=== PATIENT | female | born 1960 | race African-American/Black ===

== ENCOUNTER 2016-06-20 14:15 | Emergency (ER) | payer MEDICARE, MEDICAID ==
[2016-06-20] MEDS ORDERED: ACETAMINOPHEN 325 MG TABLET PO ONE (16:14)
--- NOTE | 2016-06-20 16:14 | ER Document Report ---
ED Medical Screen (RME) - General Chief Complaint: Foot Pain Stated Complaint: TOE PAIN Mode of Arrival: Wheelchair Information source: Patient Notes: Patient is complaining of ulcer under her toe on her right foot that she noticed for the first time today. She endorses associated leg swelling, pain, erythema but denies any discharged or bleeding. She has history of diabetes and and L AKA. Mandy fever, chills, nausea or vomiting. TRAVEL OUTSIDE OF THE [place] IN LAST 30 DAYS: No - Related Data Allergies/Adverse Reactions: Cephalosporins Allergy (Intermediate, Verified 06/20/16 14:35) blistering, peeling skin,burning throat Penicillins Allergy (Intermediate, Verified 06/20/16 14:35) blistering,peeling skin,burning of throat Past Medical History - Social History Family history: Reviewed & Not Pertinent - Past Medical History Cardiac Medical History: Reports: Hx Hypertension - medicated Denies: Hx Coronary Artery Disease, Hx Heart Attack Pulmonary Medical History: Denies: Hx Asthma, Hx Bronchitis, Hx COPD, Hx Pneumonia Neurological Medical History: Reports: Hx Cerebrovascular Accident - 2003 . Denies: Hx Seizures Endocrine Medical History: Reports: Hx Diabetes Mellitus Type 1, Hx Hypothyroidism GI Medical History: Denies: Hx Hepatitis, Hx Hiatal Hernia, Hx Ulcer Musculoskeltal Medical History: Reports Hx Arthritis Psychiatric Medical History: Denies: Hx Depression Infectious Medical History: Denies: Hx Hepatitis Past Surgical History: Reports: Hx Section, Hx Orthopedic Surgery - left foot pinky toe amputation, Hx Vascular Surgery - left leg, fem-pop bypass graft. Denies: Hx Hysterectomy, Hx Mastectomy, Hx Open Heart Surgery, Hx Pacemaker - Immunizations Hx Diphtheria, Pertussis, Tetanus Vaccination: Yes Review of Systems - Review of Systems Constitutional: See HPI Skin: See HPI Physical Exam - Vital signs Vitals: Temp Pulse Resp BP Pulse Ox 97.8 F 94 18 131/58 H 98 06/20/16 14:32 06/20/16 14:32 06/20/16 14:32 06/20/16 14:32 06/20/16 14:32 - Notes Notes: General: VSS, well-appearing, non-toxic. Skin: right foot - erythematous, swelling and warm. Desquamation of skin at distal portion of 5th toe. Clear drainage noted. Course - Re-evaluation Re-evalutation: 06/20/16 16:13 Ordered blood work, wound culture. - Vital Signs Vital signs: Temp Pulse Resp BP Pulse Ox 97.8 F 94 18 131/58 H 98 06/20/16 14:32 06/20/16 14:32 06/20/16 14:32 06/20/16 14:32 06/20/16 14:32
[2016-06-20 17:03] LABS: ABSOLUTE BASOPHILS # (AUTO) 0.1 10^3/uL (0.0-0.2); ABSOLUTE EOSINOPHILS # (AUTO) 0.3 10^3/uL (0.0-0.6); ABSOLUTE LYMPHOCYTES (AUTO) 2.3 10^3/uL (0.5-4.7); ABSOLUTE MONOCYTES (AUTO) 0.9 10^3/uL (0.1-1.4); ABSOLUTE NEUT (AUTO) 6.9 10^3/uL (1.7-8.2); BASOPHILS % (AUTO) 0.8 % (0-2); EOSINOPHILS % (AUTO) 3.1 % (0-6); HEMATOCRIT 37.6 % (36.0-47.0); HEMOGLOBIN 12.1 g/dL (12.0-15.5); HGB HCT DIFFERENCE -1.3; LYMPHOCYTES % (AUTO) 21.7 % (13-45); MEAN CORPUSCULAR HEMOGLOBIN 25.6 pg (27.0-33.4); MEAN CORPUSCULAR HGB CONC 32.1 g/dL (32.0-36.0); MEAN CORPUSCULAR VOLUME 80 fl (80-97); MONOCYTES % (AUTO) 8.5 % (3-13); RED BLOOD COUNT 4.73 10^6/uL (3.72-5.28); RED CELL DISTRIBUTION WIDTH 14.4 % (11.5-14.0); SEGMENTED NEUTROPHILS % (AUTO) 65.9 % (42-78); WHITE BLOOD COUNT 10.4 10^3/uL (4.0-10.5)
[2016-06-20 17:23] LABS: ALANINE AMINOTRANSFERASE 30 U/L (9-52); ALBUMIN 4.4 g/dL (3.5-5.0); ALKALINE PHOSPHATASE 109 U/L (38-126); ANION GAP 14 (5-19); ASPARTATE AMINO TRANSFERASE 20 U/L (14-36); BILIRUBIN,TOTAL 0.4 mg/dL (0.2-1.3); BLOOD UREA NITROGEN 18 mg/dL (7-20); CALCIUM 10.4 mg/dL (8.4-10.2); CARBON DIOXIDE 27 mmol/L (22-30); CHLORIDE 104 mmol/L (98-107); CREATININE RESULT 0.71 mg/dL (0.52-1.25); GLUCOSE 80 mg/dL (75-110); POTASSIUM 3.9 mmol/L (3.6-5.0); SODIUM 145.3 mmol/L (137-145); TOTAL PROTEIN 7.9 g/dL (6.3-8.2)
[2016-06-20 17:31] LABS: APPEARANCE,URINE CLOUDY; BILIRUBIN,URINE NEGATIVE (NEGATIVE); GLUCOSE, URINE >=500 mg/dL (NEGATIVE); KETONES,URINE NEGATIVE (NEGATIVE); LEUKOCYTE ESTERASE,URINE MODERATE (NEGATIVE); NITRITE,URINE NEGATIVE (NEGATIVE); PROTEIN,URINE NEGATIVE (NEGATIVE); URINE SPECIFIC GRAVITY 1.023; UROBILINOGEN,URINE NEGATIVE mg/dL (<2.0)
[2016-06-20] MEDS ORDERED: DOXYCYCLINE HYCLATE 100 MG TABLET PO ONE (21:02)
--- NOTE | 2016-06-20 23:17 | ER Document Report ---
ED General - General Chief Complaint: Toe Injury Stated Complaint: TOE PAIN Mode of Arrival: Wheelchair TRAVEL OUTSIDE OF THE [place] IN LAST 30 DAYS: No - HPI Patient complains to provider of: right fifth toe injury Notes: Patient coming in states she was on vacation in [place] noticed that when she came back she had a wound on her right fifth toe. Patient is diabetic Pedro has a left AKA. Patient denies any fevers chills nausea vomiting. Patient states that her right foot and leg is swollen states it was swollen after the trip. 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 Patient states she currently on Plavix. Patient also states that her foot is a little bit more red her today - Related Data Allergies/Adverse Reactions: Cephalosporins Allergy (Intermediate, Verified 06/20/16 14:35) blistering, peeling skin,burning throat Penicillins Allergy (Intermediate, Verified 06/20/16 14:35) blistering,peeling skin,burning of throat Past Medical History - General Information source: Patient - Social History Smoking Status: Unknown if Ever Smoked Family History: Reviewed & Not Pertinent Patient has suicidal ideation: No Patient has homicidal ideation: No - Past Medical History Cardiac Medical History: Reports: Hx Hypertension - medicated Denies: Hx Coronary Artery Disease, Hx Heart Attack Pulmonary Medical History: Denies: Hx Asthma, Hx Bronchitis, Hx COPD, Hx Pneumonia Neurological Medical History: Reports: Hx Cerebrovascular Accident - 2003 . Denies: Hx Seizures Endocrine Medical History: Reports: Hx Diabetes Mellitus Type 1, Hx Hypothyroidism GI Medical History: Denies: Hx Hepatitis, Hx Hiatal Hernia, Hx Ulcer Musculoskeltal Medical History: Reports Hx Arthritis Psychiatric Medical History: Denies: Hx Depression Infectious Medical History: Denies: Hx Hepatitis Past Surgical History: Reports: Hx Section, Hx Orthopedic Surgery - left aka, Hx Vascular Surgery - left leg, fem-pop bypass graft. Denies: Hx Hysterectomy, Hx Mastectomy, Hx Open Heart Surgery, Hx Pacemaker - Immunizations Hx Diphtheria, Pertussis, Tetanus Vaccination: Yes Review of Systems - Review of Systems Constitutional: No symptoms reported EENT: No symptoms reported Cardiovascular: No symptoms reported Respiratory: No symptoms reported Gastrointestinal: No symptoms reported Genitourinary: No symptoms reported Female Genitourinary: No symptoms reported Musculoskeletal: Other - Wound right foot Skin: No symptoms reported Hematologic/Lymphatic: No symptoms reported Neurological/Psychological: No symptoms reported Physical Exam - Vital signs Vitals: Temp Pulse Resp BP Pulse Ox 97.8 F 94 18 131/58 H 98 06/20/16 14:32 06/20/16 14:32 06/20/16 14:32 06/20/16 14:32 06/20/16 14:32 Interpretation: Normal - General General appearance: Appears well, Alert - HEENT Head: Normocephalic, Atraumatic Eyes: Normal Pupils: PERRL - Respiratory Respiratory status: No respiratory distress Chest status: Nontender Breath sounds: Normal Chest palpation: Normal - Cardiovascular Rhythm: Regular Heart sounds: Normal auscultation Murmur: No - Abdominal Inspection: Normal Distension: No distension Bowel sounds: Normal Tenderness: Nontender Organomegaly: No organomegaly - Back Back: Normal, Nontender - Extremities General upper extremity: Normal inspection, Nontender, Normal color, Normal ROM , Normal temperature General lower extremity: Nontender, Normal color, Normal ROM, Normal temperature , Normal weight bearing. No: Normal inspection - Left AKA patient has cellulitis of the dorsum of the foot. Plantar surface of the foot does reveal a wound at the first joint of the fifth digit there is no purulent drainage from this wound is no necrotic tissue. The right foot is swollen there is some swelling of the calf, Kenna's sign - Neurological Neuro grossly intact: Yes Cognition: Normal Orientation: AAOx4 Bret Coma Scale Eye Opening: Spontaneous [place] Coma Scale Verbal: Oriented [place] Coma Scale Motor: Obeys Commands [place] Coma Scale Total: 15 Speech: Normal Motor strength normal: LUE, RUE, LLE, RLE Sensory: Normal - Psychological Associated symptoms: Normal affect, Normal mood - Skin Skin Temperature: Warm Skin Moisture: Dry Skin Color: Normal Course - Re-evaluation Re-evalutation: 06/21/16 02:58 Causes swelling recent travel history of DVT patient underwent Doppler was read as negative. Patient was started on doxycycline urinalysis does show a UTI as well these patient should be well covered with doxycycline for cellulitis and UTI. Encouraged patient to follow-up her PCP at the end of the week for repeat wound check a recurrent to the ER for wound check. Patient states understanding patient was grateful for care patient was discharged home - Vital Signs Vital signs: Temp Pulse Resp BP Pulse Ox 97.6 F 94 17 131/76 H 94 06/20/16 23:37 06/20/16 23:37 06/20/16 23:37 06/20/16 23:37 06/20/16 23:37 - Laboratory Result Diagrams: 06/20/16 16:45 06/20/16 16:45 Laboratory results interpreted by me: 06/20/16 06/20/16 06/20/16 16:45 16:45 16:45 MCH 25.6 L RDW 14.4 H Sodium 145.3 H Calcium 10.4 H Urine Glucose (UA) >=500 H Urine Blood SMALL H Ur Leukocyte Esterase MODERATE H Discharge - Discharge Clinical Impression: UTI (urinary tract infection) Qualifiers: Urinary tract infection type: acute cystitis Hematuria presence: without hematuria Qualified Code(s): N30.00 - Acute cystitis without hematuria Diabetic foot ulcer Qualifiers: Diabetes mellitus type: other specified (including RUBÉN) Laterality: right Qualified Code(s): E13.621 - Other specified diabetes mellitus with foot ulcer Cellulitis Qualifiers: Site of cellulitis: extremity Site of cellulitis of extremity: lower extremity Laterality: right Qualified Code(s): L03.115 - Cellulitis of right lower limb Condition: Good Disposition: HOME, SELF-CARE Instructions: Urinary Tract Infection ([facility]), Doxycycline ([facility]), Foot or Leg Ulcer ([facility]), Cellulitis ([facility]) Additional Instructions: Take antibiotics as prescribed. Prescriptions: Doxycycline Hyclate 100 mg PO BID #20 capsule Referrals: MARLENE CANNON MD [Primary Care Provider] - Follow up in 3-5 days
[2016-06-20 23:43] VITALS: BP 131/76
--- NOTE | 2016-06-21 09:30 | XCELERA REPORT ---
[address] [address] Lower Extremity Venous Evaluation Name: LAVELLE ARRIAZA Age: 56 yrs Gender: Female : 1960 Patient Status: Emergency Patient Location: ER Study Date: 06/20/2016 10:53 PM Procedure: Color flow and duplex imaging of the veins of the right lower extremity as well as the left Common Femoral vein. Reason For Study: rle swelling pain Ordering Physician: REAGAN ZELAYA Performed By: Rodo Salinas Right Sided Venous Evaluation Normal vessel filling wall to wall, compression and augmentation as well as Colour flow down to the infrageniculate veins. Left Sided Venous Evaluation The left common femoral vein is fully compressible. Spontaneous and phasic flow is present in the left common femoral vein. Critical Findings Called in to the ER . Interpretation Summary No duplex evidence of DVT or obstruction in the right lower extremity nor in the left Common Femoral vein. : REAGAN ZELAYA > Travis Urena
== END 2016-06-20 23:48 | disposition home or self-care (01) ==
LOC: ER 14:15
DX: N30.00 Acute cystitis without hematuria (principal); E13.621 Other specified diabetes mellitus with foot ulcer; L03.115 Cellulitis of right lower limb; S99.921A Unspecified injury of right foot, initial encounter; M79.674 Pain in right toe(s); X58.XXXA Exposure to other specified factors, initial encounter
CPT/HCPCS: 99284; 36415; 87040; 87086; 85025; 87088; 80053; 81001; 87186; 83605; 93971 ×2; 73620; A9270 ×2

== ENCOUNTER 2016-06-24 14:10 | Inpatient (IN) | payer MEDICARE, MEDICAID ==
[2016-06-24] MEDS ORDERED: DOCUSATE SODIUM 100 MG CAPSULE PO PRN (15:31)
[2016-06-24] MEDS ORDERED: POLYETHYLENE GLYCOL 3350 POWDER 17 GM/1 PACKET PO PRN (15:31)
[2016-06-24] MEDS ORDERED: DOXEPIN HCL 25 MG CAPSULE PO PRN (15:31)
[2016-06-24] MEDS ORDERED: DEXTROSE 40% GEL 15 GM TUBE X 2 PO PRN (15:41)
[2016-06-24] MEDS ORDERED: GLUCAGON,HUMAN RECOMB 1 MG INJ IM PRN (15:41)
[2016-06-24] MEDS ORDERED: DEXTROSE 50%-WATER SYRINGE 12.5 GM/25 ML DOSE IV PRN (15:41)
[2016-06-24] MEDS ORDERED: DEXTROSE 40% GEL 15 GM TUBE PO PRN (15:41)
[2016-06-24] MEDS ORDERED: DEXTROSE 50%-WATER SYRINGE 25 GM/50 ML DOSE IV PRN (15:41)
[2016-06-24] MEDS: METFORMIN HCL 500 MG TABLET PO SCH (16:22)
[2016-06-24] MEDS: INSULIN LISPRO 100 UNIT/ML 3 ML VIAL SUBCUT SCH (16:23)
[2016-06-24] MEDS ORDERED: AMLODIPINE BESYLATE 10 MG TABLET PO ONE (16:30)
[2016-06-24] MEDS ORDERED: ASPIRIN 81 MG TABLET, ENT COATED PO ONE (16:30)
[2016-06-24] MEDS ORDERED: LISINOPRIL 10 MG TABLET PO ONE (16:30)
[2016-06-24 16:45] LABS: HEMATOCRIT 36.8 % (36.0-47.0); HEMOGLOBIN 11.7 g/dL (12.0-15.5); HGB HCT DIFFERENCE -1.7; MEAN CORPUSCULAR HEMOGLOBIN 25.3 pg (27.0-33.4); MEAN CORPUSCULAR HGB CONC 31.7 g/dL (32.0-36.0); MEAN CORPUSCULAR VOLUME 80 fl (80-97); RED BLOOD COUNT 4.63 10^6/uL (3.72-5.28); WHITE BLOOD COUNT 11.1 10^3/uL (4.0-10.5)
[2016-06-24 17:09] LABS: ALANINE AMINOTRANSFERASE 31 U/L (9-52); ALBUMIN 4.3 g/dL (3.5-5.0); ALKALINE PHOSPHATASE 103 U/L (38-126); ANION GAP 11 (5-19); ASPARTATE AMINO TRANSFERASE 20 U/L (14-36); BILIRUBIN,TOTAL 0.4 mg/dL (0.2-1.3); BLOOD UREA NITROGEN 19 mg/dL (7-20); CALCIUM 10.6 mg/dL (8.4-10.2); CARBON DIOXIDE 32 mmol/L (22-30); CHLORIDE 103 mmol/L (98-107); CREATININE RESULT 0.74 mg/dL (0.52-1.25); GLUCOSE 70 mg/dL (75-110); POTASSIUM 4.4 mmol/L (3.6-5.0); SODIUM 145.7 mmol/L (137-145); TOTAL PROTEIN 7.8 g/dL (6.3-8.2)
[2016-06-24 18:08] LABS: FREE T3 3.44 pg/mL (2.77-5.27)
[2016-06-24] MEDS: VANCOMYCIN HCL 1,500 MG in DEXTROSE 5%-WATER 250 ML IV SCH (18:09)
[2016-06-24 18:21] LABS: THYROID STIMULATING HORMONE 2.22 uIU/mL (0.47-4.68)
[2016-06-24] MEDS: ACETAMINOPHEN 325 MG TABLET PO PRN (20:33)
[2016-06-24] MEDS ORDERED: INSULIN GLARGINE,HUM.REC.ANLOG 1,000 UNIT/10 ML UNIT SUBCUT SCH (22:00)
[2016-06-24] MEDS ORDERED: PIPERACILLIN SODIUM/TAZOBACTAM 3.375 GM in NORMAL SALINE 100 ML IV SCH (22:00)
[2016-06-24] MEDS: ATORVASTATIN CALCIUM 20 MG TABLET PO SCH (23:06)
[2016-06-24] MEDS: GABAPENTIN 100 MG CAPSULE PO SCH (23:06)
[2016-06-24] MEDS: INSULIN LISPRO 100 UNIT/ML 3 ML VIAL SUBCUT PRN (23:06)
[2016-06-25] MEDS ORDERED: LEVOTHYROXINE SODIUM 75 MCG PO SCH (08:00)
[2016-06-25] MEDS ORDERED: (PENDING PHARMACY ID) (Canagliflozin [Invokana] 300 MG) PO SCH (08:00)
[2016-06-25] MEDS: METFORMIN HCL 500 MG TABLET PO SCH ×2 (09:06→15:45)
[2016-06-25] MEDS: ASPIRIN 81 MG TABLET, ENT COATED PO SCH (09:07)
[2016-06-25] MEDS: GABAPENTIN 100 MG CAPSULE PO SCH ×2 (09:07→22:58)
[2016-06-25] MEDS: LEVOTHYROXINE SODIUM 75 MCG PO SCH (09:08)
[2016-06-25] MEDS: ENOXAPARIN SODIUM INJ 40 MG/0.4 ML DISP.SYRIN SUBCUT SCH (09:09)
[2016-06-25] MEDS: INSULIN LISPRO 100 UNIT/ML 3 ML VIAL SUBCUT SCH ×3 (09:09→15:45)
[2016-06-25] MEDS: VANCOMYCIN HCL 1,500 MG in DEXTROSE 5%-WATER 250 ML IV SCH ×2 (09:10→20:23)
[2016-06-25] MEDS: LISINOPRIL 10 MG TABLET PO SCH (09:11)
[2016-06-25] MEDS: AMLODIPINE BESYLATE 10 MG TABLET PO SCH (09:11)
[2016-06-25] MEDS: INSULIN LISPRO 100 UNIT/ML 3 ML VIAL SUBCUT PRN ×3 (11:03→22:04)
--- NOTE | 2016-06-25 18:01 | PDOC H&P ---
History of Present Illness Admission Date/PCP: 06/24/16 14:10 MARLENE CANNON, History of Present Illness: Patient 56-year-old female with diabetes mellitus, she is status post left leg amputation, she was seen in emergency room for the ulcer on the right small toe and she was advised to follow with me in the office. When she came in for follow-up and evaluation there was obvious cellulitis of the right foot and the ulcer was deep , she was prescribed doxycycline in the emergency room.she needed to be admitted the hospital for IV antibiotic and also debridement of the ulcer of the right foot, she is a diabetic and she has increased risk of losing the leg Past Medical History Cardiac Medical History: Reports: Hypertension - medicated Neurological Medical History: Reports: Ischemic CVA Endocrine Medical History: Reports: Diabetes Mellitus Type 1, Hypothyroidism Past Surgical History Past Surgical History: Reports: Amputation - lower left leg, Section, Orthopedic Surgery - left aka, Vascular Surgery - left leg, fem-pop bypass graft Denies: Hysterectomy, Pacemaker Social History Information Source: Patient Smoking Status: Never Smoker Frequency of Alcohol Use: None Hx Recreational Drug Use: No Drugs: None Hx Prescription Drug Abuse: No Family History Family History: Reviewed & Not Pertinent Parental Family History Reviewed: Yes Children Family History Reviewed: Yes Sibling(s) Family History Reviewed.: Yes Medication/Allergy Home Medications: Aspirin [Aspirin EC] 81 mg PO DAILY #30 bottle 06/11/13 Canagliflozin [Invokana] 300 mg PO QAM 12/10/15 Doxepin HCl 75 mg PO DAILY PRN 12/10/15 Insulin Glargine,Hum.rec.anlog [Lantus] 50 unit SQ QHS 12/10/15 Insulin Lispro [Humalog] 4 unit SQ TID 12/10/15 Levothyroxine Sodium [Tirosint] 75 mcg PO QAM 12/10/15 Lisinopril [Zestril] 40 mg PO QAM 12/10/15 Metformin HCl [Glucophage] 1,000 mg PO BID 12/10/15 Pravastatin Sodium [Pravachol] 80 mg PO QHS 12/10/15 Amlodipine Besylate [Norvasc 10 mg Tablet] 10 mg PO DAILY 06/24/16 Docusate Sodium [Colace 100 mg Capsule] 100 mg PO BID PRN 01/06/17 Gabapentin 100 mg PO BID 06/24/16 Polyethylene Glycol 3350 [Miralax Powder 17 gm/Packet] 1 packet PO DAILY PRN 12/03 Allergies/Adverse Reactions: amoxicillin [From Augmentin] Allergy (Intermediate, Verified 06/24/16 14:42) Cephalosporins Allergy (Intermediate, Verified 06/20/16 14:35) blistering, peeling skin,burning throat clavulanic acid [From Augmentin] Allergy (Intermediate, Verified 06/24/16 14:42) Penicillins Allergy (Intermediate, Verified 06/20/16 14:35) blistering,peeling skin,burning of throat Review of Systems Constitutional: ABSENT: chills, fever(s), headache(s), weight gain, weight loss Eyes: ABSENT: visual disturbances Ears: ABSENT: hearing changes Cardiovascular: ABSENT: chest pain, dyspnea on exertion, edema, orthropnea, palpitations Respiratory: ABSENT: cough, hemoptysis Gastrointestinal: ABSENT: abdominal pain, constipation, diarrhea, hematemesis, hematochezia, nausea, vomiting Genitourinary: ABSENT: dysuria, hematuria Musculoskeletal: ABSENT: joint swelling Integumentary: ABSENT: rash, wounds Neurological: ABSENT: abnormal gait, abnormal speech, confusion, dizziness, focal weakness, syncope Psychiatric: ABSENT: anxiety, depression, homidical ideation, suicidal ideation Endocrine: ABSENT: cold intolerance, heat intolerance, menstrual abnormalities, polydipsia, polyuria Hematologic/Lymphatic: ABSENT: easy bleeding, easy bruising, lymphadenopathy Physical Exam Vital Signs: Temp Pulse Resp BP Pulse Ox 97.9 F 107 H 16 106/56 L 97 06/25/16 15:48 06/25/16 15:48 06/25/16 15:48 06/25/16 15:48 06/25/16 15:48 Intake & Output 06/24/16 06/25/16 06/26/16 06:59 06:59 06:59 Intake Total 25 1560 Balance 25 1560 Weight 95.254 kg General appearance: PRESENT: no acute distress, well-developed, well-nourished Head exam: PRESENT: atraumatic, normocephalic Eye exam: PRESENT: conjunctiva pink, EOMI, PERRLA Ear exam: PRESENT: normal external ear exam Mouth exam: PRESENT: moist, tongue midline Neck exam: PRESENT: full ROM. ABSENT: carotid bruit, JVD, lymphadenopathy, thyromegaly Respiratory exam: PRESENT: clear to auscultation richard Cardiovascular exam: PRESENT: RRR, +S1, +S2 Pulses: PRESENT: normal dorsalis pedis pul, +2 pedal pulses bilateral Vascular exam: PRESENT: normal capillary refill GI/Abdominal exam: PRESENT: normal bowel sounds, soft. ABSENT: distended, guarding, mass, organolmegaly, rebound, tenderness Rectal exam: PRESENT: deferred Musculoskeletal exam: PRESENT: other - There is ulcer on the small toe,deep with celluitis of the rt foot Neurological exam: PRESENT: alert, awake, oriented to person, oriented to place , oriented to time, oriented to situation, CN II-XII grossly intact Psychiatric exam: PRESENT: appropriate affect, normal mood Skin exam: PRESENT: dry, intact, warm Results Laboratory Results: 06/24/16 16:18 06/24/16 16:18 06/24/16 16:18 TSH 2.22 Free T4 1.03 Free T3 pg/mL 3.44 Assessment & Plan - Diagnosis (1) Cellulitis and abscess of foot Is this a current diagnosis for this admission?: YesPlan: She is admitted into the hospital, she be treated with IV Zosyn and vancomycin to cover MRSA and gram-negative bacteria (2) Diabetic foot ulcer Qualifiers: Diabetes mellitus type: type 1 Laterality: right Qualified Code( s): E10.621 - Type 1 diabetes mellitus with foot ulcer; L97.519 - Non-pressure chronic ulcer of other part of right foot with unspecified severity Is this a current diagnosis for this admission?: Yes
--- NOTE | 2016-06-25 18:03 | PDOC PROGRESS REPORT ---
Subjective Progress Note for:: 06/25/16 Subjective:: She was seen by the surgeon and she had bedside debridement of the foot Physical Exam Vital Signs: Temp Pulse Resp BP Pulse Ox 97.9 F 107 H 16 106/56 L 97 06/25/16 15:48 06/25/16 15:48 06/25/16 15:48 06/25/16 15:48 06/25/16 15:48 Intake & Output 06/24/16 06/25/16 06/26/16 06:59 06:59 06:59 Intake Total 25 1560 Balance 25 1560 Weight 95.254 kg General appearance: PRESENT: no acute distress Eye exam: PRESENT: PERRLA Respiratory exam: PRESENT: clear to auscultation richard Cardiovascular exam: PRESENT: +S1, +S2 GI/Abdominal exam: PRESENT: soft Results Laboratory Results: 06/24/16 16:18 06/24/16 16:18 06/24/16 16:18 TSH 2.22 Free T4 1.03 Free T3 pg/mL 3.44 Assessment & Plan - Diagnosis (1) Cellulitis and abscess of foot Is this a current diagnosis for this admission?: YesPlan: Continue IV antibiotic (2) Diabetic foot ulcer Qualifiers: Diabetes mellitus type: type 1 Laterality: right Qualified Code( s): E10.621 - Type 1 diabetes mellitus with foot ulcer; L97.519 - Non-pressure chronic ulcer of other part of right foot with unspecified severity Is this a current diagnosis for this admission?: Yes
--- NOTE | 2016-06-25 21:39 | PDOC CONSULTATION ---
[id number] toe. History of Present Illness Admission Date/PCP: 06/24/16 14:10 MARLENE CANNON, History of Present Illness: LAVELLE ARRIAZA is a 56 year old female, who had long-standing history of diabetes mellitus, with peripheral vascular disease, status post left above- knee amputation in the past, who had angioplasty with stent placement on the right lower extremity, who came to emergency room a few days ago due to wound on the plantar aspect of the fifth toe on the right side, she was sent home with oral antibiotics and follow up with her primary care upon evaluation in the office a few days later, patient was sent to the hospital for admission for the IV antibiotics and surgical consult was requested. Patient denies nausea, vomiting, fever, abdominal pain, pain in the foot Past Medical History Cardiac Medical History: Reports: Hypertension - medicated Denies: Coronary Artery Disease, Myocardial Infarction Pulmonary Medical History: Denies: Asthma, Bronchitis, Chronic Obstructive Pulmonary Disease (COPD), Pneumonia Neurological Medical History: Denies: Seizures Endocrine Medical History: Reports: Diabetes Mellitus Type 1, Hypothyroidism GI Medical History: Denies: Hepatitis, Hiatal Hernia Musculoskeltal Medical History: Reports: Arthritis Psychiatric Medical History: Denies: Depression Hematology: Denies: Anemia, Sickle Cell Disease Past Surgical History Past Surgical History: Reports: Amputation - lower left leg, Section, Orthopedic Surgery - left aka, Vascular Surgery - left leg, fem-pop bypass graft Denies: Hysterectomy, Mastectomy, Pacemaker Social History Smoking Status: Never Smoker Frequency of Alcohol Use: None Hx Recreational Drug Use: No Drugs: None Hx Prescription Drug Abuse: No Family History Family History: Reviewed & Not Pertinent Parental Family History Reviewed: No Children Family History Reviewed: NA Sibling(s) Family History Reviewed.: NA Medication/Allergy Home Medications: Aspirin [Aspirin EC] 81 mg PO DAILY #30 bottle 06/11/13 Canagliflozin [Invokana] 300 mg PO QAM 12/10/15 Doxepin HCl 75 mg PO DAILY PRN 12/10/15 Insulin Glargine,Hum.rec.anlog [Lantus] 50 unit SQ QHS 12/10/15 Insulin Lispro [Humalog] 4 unit SQ TID 12/10/15 Levothyroxine Sodium [Tirosint] 75 mcg PO QAM 12/10/15 Lisinopril [Zestril] 40 mg PO QAM 12/10/15 Metformin HCl [Glucophage] 1,000 mg PO BID 12/10/15 Pravastatin Sodium [Pravachol] 80 mg PO QHS 12/10/15 Amlodipine Besylate [Norvasc 10 mg Tablet] 10 mg PO DAILY 06/24/16 Docusate Sodium [Colace 100 mg Capsule] 100 mg PO BID PRN 06/24/16 Gabapentin 100 mg PO BID 06/24/16 Polyethylene Glycol 3350 [Miralax Powder 17 gm/Packet] 1 packet PO DAILY PRN 12/03 Allergies/Adverse Reactions: amoxicillin [From Augmentin] Allergy (Intermediate, Verified 06/24/16 14:42) Cephalosporins Allergy (Intermediate, Verified 06/20/16 14:35) blistering, peeling skin,burning throat clavulanic acid [From Augmentin] Allergy (Intermediate, Verified 06/24/16 14:42) Penicillins Allergy (Intermediate, Verified 06/20/16 14:35) blistering,peeling skin,burning of throat Physical Exam Vital Signs: Temp Pulse Resp BP Pulse Ox 97.7 F 98 15 131/60 H 100 06/25/16 11:24 06/25/16 11:24 06/25/16 11:24 06/25/16 11:24 06/25/16 11:24 Intake & Output 06/24/16 06/25/16 06/26/16 06:59 06:59 06:59 Intake Total 25 1300 Balance 25 1300 Weight 95.254 kg General appearance: PRESENT: no acute distress, cooperative Head exam: PRESENT: atraumatic, normocephalic Respiratory exam: ABSENT: accessory muscle use, chest wall tenderness GI/Abdominal exam: PRESENT: soft. ABSENT: rigid, tenderness Rectal exam: PRESENT: deferred Extremities exam: PRESENT: other - The left AKA stump is clean, incision healed , no erythema. Examination of the left lower extremity, there is an open wound in the plantar aspect of the fifth toe and extending to the fourth interdigital space, has a foul smell, no purulent discharge, there is some mild discoloration in the skin and subcutaneous tissue and the lateral aspect of the fifth toe, and limited bedside debridement was performed to the plantar aspect of fifth toe, and then clean dressing was applied after cleaning the wound with Betadine solution. ABSENT: calf tenderness Results Laboratory Results: 06/24/16 16:18 06/24/16 16:18 06/24/16 06/24/16 06/24/16 16:18 16:18 16:18 WBC 11.1 H RBC 4.63 Hgb 11.7 L Hct 36.8 MCV 80 MCH 25.3 L MCHC 31.7 L RDW 14.0 Plt Count 288 Sodium 145.7 H Potassium 4.4 Chloride 103 Carbon Dioxide 32 H Anion Gap 11 BUN 19 Creatinine 0.74 Est GFR ( Amer) > 60 Est GFR (Non-Af Amer) > 60 Glucose 70 L Calcium 10.6 H Total Bilirubin 0.4 AST 20 ALT 31 Alkaline Phosphatase 103 Total Protein 7.8 Albumin 4.3 TSH 2.22 Free T4 1.03 Free T3 pg/mL 3.44 Assessment & Plan - Diagnosis (1) Cellulitis and abscess of foot Is this a current diagnosis for this admission?: Yes (2) Diabetic foot ulcer Qualifiers: Diabetes mellitus type: type 1 Laterality: right Qualified Code( s): E10.621 - Type 1 diabetes mellitus with foot ulcer; L97.519 - Non-pressure chronic ulcer of other part of right foot with unspecified severity Is this a current diagnosis for this admission?: YesPlan: Patient is 56 years old female was peripheral vascular disease status post angioplasty with stent placement in the right lower extremity by vascular surgeon in [place] Dr. Barnett few months ago, she had history of left above-knee amputation. She was sent to hospital by her primary care physician due to infected diabetic ulcer on the plantar aspect of the fifth toe. I will recommend aggressive medical therapy in addition to local wound care, x-ray of the foot need to be checked to rule out osteomyelitis, however, recommend long- term intravenous antibiotics treatment for 2 weeks.
[2016-06-25] MEDS: INSULIN GLARGINE,HUM.REC.ANLOG 1,000 UNIT/10 ML UNIT SUBCUT SCH (22:04)
[2016-06-25] MEDS: ACETAMINOPHEN 325 MG TABLET PO PRN (22:58)
[2016-06-25] MEDS: ATORVASTATIN CALCIUM 20 MG TABLET PO SCH (22:58)
[2016-06-26 08:00] LABS: CREATININE RESULT 1.04 mg/dL (0.52-1.25)
[2016-06-26] MEDS: ASPIRIN 81 MG TABLET, ENT COATED PO SCH (09:09)
[2016-06-26] MEDS: INSULIN LISPRO 100 UNIT/ML 3 ML VIAL SUBCUT SCH ×3 (09:10→17:50)
[2016-06-26] MEDS: GABAPENTIN 100 MG CAPSULE PO SCH ×2 (09:10→22:37)
[2016-06-26] MEDS: INSULIN LISPRO 100 UNIT/ML 3 ML VIAL SUBCUT PRN ×3 (09:11→22:38)
[2016-06-26] MEDS: ENOXAPARIN SODIUM INJ 40 MG/0.4 ML DISP.SYRIN SUBCUT SCH (09:11)
[2016-06-26] MEDS: LEVOTHYROXINE SODIUM 75 MCG PO SCH (09:13)
[2016-06-26] MEDS: VANCOMYCIN HCL 1,500 MG in DEXTROSE 5%-WATER 250 ML IV SCH (09:17)
[2016-06-26] MEDS: AMLODIPINE BESYLATE 10 MG TABLET PO SCH (09:18)
[2016-06-26] MEDS: METFORMIN HCL 500 MG TABLET PO SCH ×2 (09:18→15:33)
[2016-06-26] MEDS: LISINOPRIL 10 MG TABLET PO SCH (09:18)
[2016-06-26] MEDS: ACETAMINOPHEN 325 MG TABLET PO PRN (12:40)
--- NOTE | 2016-06-26 13:11 | PDOC PROGRESS REPORT ---
Subjective Progress Note for:: 06/26/16 Subjective:: Patient denies nausea, vomiting, fever, pain. Physical Exam Vital Signs: Temp Pulse Resp BP Pulse Ox 98.2 F 90 17 120/62 98 06/26/16 03:58 06/26/16 07:00 06/26/16 03:58 06/26/16 03:58 06/26/16 03:58 Intake & Output 06/25/16 06/26/16 06/27/16 06:59 06:59 06:59 Intake Total 25 2191 Balance 25 2191 Weight 95.254 kg General appearance: PRESENT: no acute distress, cooperative Head exam: PRESENT: atraumatic, normocephalic Respiratory exam: ABSENT: accessory muscle use, chest wall tenderness GI/Abdominal exam: PRESENT: soft. ABSENT: rigid, tenderness Rectal exam: PRESENT: deferred Extremities exam: PRESENT: other - The right foot wound at the base of the fifth finger was checked, small amount of nonviable tissue, minimal bedside debridement was done, the wound was painted with Betadine and clean dressing was applied. No purulent discharge, no proximal erythema, no subcutaneous air or crepitus. Neurological exam: PRESENT: alert, awake Results Laboratory Results: 06/24/16 16:18 06/26/16 07:20 06/26/16 07:20 Creatinine 1.04 Est GFR ( Amer) > 60 Est GFR (Non-Af Amer) 55 L 06/24/16 15:54 Foot - Right Gram Stain - Final 06/24/16 15:54 Nasophary (Mrsa Only) MRSA Surveillance Culture - Final NO MRSA RECOVERED Impressions: Foot X-Ray 06/25/16 00:00 IMPRESSION: Allowing for osteopenia, generally unremarkable right foot radiographs. No aggressive bone resorption or periosteal reaction evident in the pinky toe. Assessment & Plan - Diagnosis (1) Cellulitis and abscess of foot Is this a current diagnosis for this admission?: YesPlan: Continue local wound care, foot x-ray did not reveal any osteomyelitis, continue IV antibiotics. Patient will need to have an arrangement to follow up in the wound clinic after discharge. (2) Diabetic foot ulcer Qualifiers: Diabetes mellitus type: type 1 Laterality: right Qualified Code( s): E10.621 - Type 1 diabetes mellitus with foot ulcer; L97.519 - Non-pressure chronic ulcer of other part of right foot with unspecified severity Is this a current diagnosis for this admission?: Yes
--- NOTE | 2016-06-26 17:45 | PDOC PROGRESS REPORT ---
Subjective Progress Note for:: 06/26/16 Subjective:: Patient was seen by the bedside, the culture from the ulcer grew Proteus mirabilis sensitive to Levaquin but resistant to Cipro. Also found was beta hemolytic Streptococcus Physical Exam Vital Signs: Temp Pulse Resp BP Pulse Ox 98.2 F 90 17 120/62 98 06/26/16 03:58 06/26/16 07:00 06/26/16 03:58 06/26/16 03:58 06/26/16 03:58 Intake & Output 06/25/16 06/26/16 06/27/16 06:59 06:59 06:59 Intake Total 25 2191 Balance 25 2191 Weight 95.254 kg Eye exam: PRESENT: PERRLA Respiratory exam: PRESENT: clear to auscultation richard Cardiovascular exam: PRESENT: +S1, +S2 Neurological exam: PRESENT: alert Results Laboratory Results: 06/24/16 16:18 06/26/16 07:20 06/26/16 07:20 Creatinine 1.04 Est GFR ( Amer) > 60 Est GFR (Non-Af Amer) 55 L 06/24/16 15:54 Foot - Right Gram Stain - Final 06/24/16 15:54 Nasophary (Mrsa Only) MRSA Surveillance Culture - Final NO MRSA RECOVERED Impressions: Foot X-Ray 06/25/16 00:00 IMPRESSION: Allowing for osteopenia, generally unremarkable right foot radiographs. No aggressive bone resorption or periosteal reaction evident in the pinky toe. Assessment & Plan - Diagnosis (1) Cellulitis and abscess of foot Is this a current diagnosis for this admission?: Yes (2) Diabetic foot ulcer Qualifiers: Diabetes mellitus type: type 1 Laterality: right Qualified Code( s): E10.621 - Type 1 diabetes mellitus with foot ulcer; L97.519 - Non-pressure chronic ulcer of other part of right foot with unspecified severity Is this a current diagnosis for this admission?: Yes (3) Proteus mirabilis infection Is this a current diagnosis for this admission?: YesPlan: The organism is sensitive to Levaquin, we will discontinue IV vancomycin and also Cipro
[2016-06-26] MEDS ORDERED: CIPROFLOXACIN 400 MG/D5W RTU 400 MG/200 ML RTUPB IV SCH (18:00)
[2016-06-26] MEDS ORDERED: VANCOMYCIN HCL 1,250 MG in DEXTROSE 5%-WATER 250 ML IV SCH (19:00)
[2016-06-26] MEDS: LEVOFLOXACIN 750 MG/D5W RTU 750 MG/150 ML RTUPB IV SCH (19:28)
[2016-06-26] MEDS: ATORVASTATIN CALCIUM 20 MG TABLET PO SCH (22:37)
[2016-06-26] MEDS: INSULIN GLARGINE,HUM.REC.ANLOG 1,000 UNIT/10 ML UNIT SUBCUT SCH (22:37)
[2016-06-27] MEDS: LEVOTHYROXINE SODIUM 75 MCG PO SCH (09:27)
[2016-06-27] MEDS: INSULIN LISPRO 100 UNIT/ML 3 ML VIAL SUBCUT SCH ×3 (09:28→16:00)
[2016-06-27] MEDS: LISINOPRIL 10 MG TABLET PO SCH (09:28)
[2016-06-27] MEDS: ENOXAPARIN SODIUM INJ 40 MG/0.4 ML DISP.SYRIN SUBCUT SCH (09:28)
[2016-06-27] MEDS: ASPIRIN 81 MG TABLET, ENT COATED PO SCH (09:29)
[2016-06-27] MEDS: METFORMIN HCL 500 MG TABLET PO SCH ×2 (09:29→16:00)
[2016-06-27] MEDS: AMLODIPINE BESYLATE 10 MG TABLET PO SCH (09:29)
[2016-06-27] MEDS: GABAPENTIN 100 MG CAPSULE PO SCH ×2 (09:29→21:39)
[2016-06-27] MEDS ORDERED: COLLAGENASE CLOSTRIDIUM HIST. OINT 30 GM TP ONE (11:00)
--- NOTE | 2016-06-27 11:39 | PDOC PROGRESS REPORT ---
Subjective Progress Note for:: 06/27/16 Subjective:: No complaints. Physical Exam Vital Signs: Temp Pulse Resp BP Pulse Ox 98.5 F 89 18 124/55 L 97 06/26/16 23:40 06/27/16 07:00 06/26/16 23:40 06/26/16 23:40 06/26/16 23:40 Intake & Output 06/26/16 06/27/16 06/28/16 06:59 06:59 06:59 Intake Total 2191 1180 Balance 2191 1180 General appearance: PRESENT: no acute distress Musculoskeletal exam: PRESENT: other - Right lower extremity examined seminal dressing removed; the right fifth toe is cool, and relations. The wound is clean with minimal debris; there is exposed plantar flexor tendon. The foot itself is room temperature. Patient has a strong palpable femoral pulse only. Results Laboratory Results: 06/24/16 16:18 06/26/16 07:20 06/24/16 15:54 Foot - Right Gram Stain - Final 06/24/16 15:54 Foot - Right Wound Culture - Final Proteus Mirabilis Morganella Morganii Group B Beta Streptococcus Skin Shannan 06/24/16 15:54 Nasophary (Mrsa Only) MRSA Surveillance Culture - Final NO MRSA RECOVERED Impressions: Foot X-Ray 06/25/16 00:00 IMPRESSION: Allowing for osteopenia, generally unremarkable right foot radiographs. No aggressive bone resorption or periosteal reaction evident in the pinky toe. Assessment & Plan - Diagnosis (1) Diabetic foot ulcer Qualifiers: Diabetes mellitus type: type 1 Laterality: right Qualified Code( s): E10.621 - Type 1 diabetes mellitus with foot ulcer; L97.519 - Non-pressure chronic ulcer of other part of right foot with unspecified severity Is this a current diagnosis for this admission?: YesPlan: 1. Continue local wound care; will add Accuzyme to wound 2. I'm concerned about the arterial inflow to the foot, and the capacity to heal this wound, particularly if the toe is amputated which is very likely. 3. Patient underwent revascularization right leg including angioplasty, stent placement by Dr. Barnett several months ago; we do not have an interval study since then; will obtain an arterial duplex study today to assess vascular status. - Time Time Spent with patient: 15-24 minutes
[2016-06-27] MEDS: INSULIN LISPRO 100 UNIT/ML 3 ML VIAL SUBCUT PRN ×2 (11:50→16:00)
[2016-06-27] MEDS: LEVOFLOXACIN 750 MG/D5W RTU 750 MG/150 ML RTUPB IV SCH (17:30)
--- NOTE | 2016-06-27 20:33 | PDOC DISCHARGE SUMMARY ---
General - Admit/Disc Date/PCP Admission Date/Primary Care Provider: 06/24/16 14:10 MARLENE CANNON, Discharge Date: 06/27/16 - Discharge Diagnosis (1) Cellulitis and abscess of foot Is this a current diagnosis for this admission?: Yes (2) Diabetic foot ulcer Is this a current diagnosis for this admission?: Yes (3) Proteus mirabilis infection Is this a current diagnosis for this admission?: Yes - Additional Information Discharge Activity: Activity As Tolerated Home Medications: Aspirin [Aspirin EC] 81 mg PO DAILY #30 bottle 06/11/13 Canagliflozin [Invokana] 300 mg PO QAM 12/10/15 Doxepin HCl 75 mg PO DAILY PRN 12/10/15 Insulin Glargine,Hum.rec.anlog [Lantus] 50 unit SQ QHS 12/10/15 Insulin Lispro [Humalog] 4 unit SQ TID 12/10/15 Levothyroxine Sodium [Tirosint] 75 mcg PO QAM 12/10/15 Lisinopril [Zestril] 40 mg PO QAM 12/10/15 Metformin HCl [Glucophage] 1,000 mg PO BID 12/10/15 Pravastatin Sodium [Pravachol] 80 mg PO QHS 12/10/15 Amlodipine Besylate [Norvasc 10 mg Tablet] 10 mg PO DAILY 06/24/16 Docusate Sodium [Colace 100 mg Capsule] 100 mg PO BID PRN 06/24/16 Gabapentin 100 mg PO BID 06/24/16 Polyethylene Glycol 3350 [Miralax Powder 17 gm/Packet] 1 packet PO DAILY PRN 12/03 Collagenase Clostridium Hist. [Santyl Ointment 30 gm] 1 applic TP DAILY #0 tube 06/27/16 Levofloxacin [Levaquin 750 mg Tablet] 750 mg PO DAILY #10 tab 06/27/16 History of Present Illness History of Present Illness: Patient 56-year-old female with diabetes mellitus, she is status post left leg amputation, she was seen in emergency room for the ulcer on the right small toe and she was advised to follow with me in the office. When she came in for follow-up and evaluation there was obvious cellulitis of the right foot and the ulcer was deep , she was prescribed doxycycline in the emergency room.she needed to be admitted the hospital for IV antibiotic and also debridement of the ulcer of the right foot, she is a diabetic and she has increased risk of losing the leg Hospital Course Hospital Course: Patient was admitted because of cellulitis of the right leg and infected right small toe, she was seen by the surgeon and she underwent bedside debridement of the ulcer, she was empirically treated with IV antibiotic, Zosyn and vancomycin. The culture from the ulcer grew Proteus mirabilis and streptococcal cause both sensitive to Levaquin. The antibiotic was changed from Zosyn and vancomycin to Levaquin Physical Exam Vital Signs: Temp Pulse Resp BP Pulse Ox 98.4 F 101 H 18 101/52 L 100 06/27/16 20:17 06/27/16 20:17 06/27/16 20:17 06/27/16 20:17 06/27/16 20:17 Intake & Output 06/26/16 06/27/16 06/28/16 06:59 06:59 06:59 Intake Total 2191 1180 1040 Balance 2191 1180 1040 General appearance: PRESENT: no acute distress Eye exam: PRESENT: PERRLA Respiratory exam: PRESENT: clear to auscultation richard Cardiovascular exam: PRESENT: +S1, +S2 GI/Abdominal exam: PRESENT: soft Neurological exam: PRESENT: alert, CN II-XII grossly intact Results Laboratory Results: 06/24/16 16:18 06/26/16 07:20 06/24/16 15:54 Foot - Right Gram Stain - Final 06/24/16 15:54 Foot - Right Wound Culture - Final Proteus Mirabilis Morganella Morganii Group B Beta Streptococcus Skin Shannan Impressions: Foot X-Ray 06/25/16 00:00 IMPRESSION: Allowing for osteopenia, generally unremarkable right foot radiographs. No aggressive bone resorption or periosteal reaction evident in the pinky toe.
[2016-06-27] MEDS: INSULIN GLARGINE,HUM.REC.ANLOG 1,000 UNIT/10 ML UNIT SUBCUT SCH (21:39)
[2016-06-27] MEDS: ATORVASTATIN CALCIUM 20 MG TABLET PO SCH (21:39)
[2016-06-28] MEDS: INSULIN LISPRO 100 UNIT/ML 3 ML VIAL SUBCUT PRN (08:07)
[2016-06-28] MEDS: INSULIN LISPRO 100 UNIT/ML 3 ML VIAL SUBCUT SCH ×2 (08:07→12:46)
[2016-06-28] MEDS: ENOXAPARIN SODIUM INJ 40 MG/0.4 ML DISP.SYRIN SUBCUT SCH (08:28)
[2016-06-28] MEDS: LEVOTHYROXINE SODIUM 75 MCG PO SCH (08:30)
[2016-06-28] MEDS: LISINOPRIL 10 MG TABLET PO SCH (08:30)
[2016-06-28] MEDS: METFORMIN HCL 500 MG TABLET PO SCH (08:30)
[2016-06-28] MEDS: ASPIRIN 81 MG TABLET, ENT COATED PO SCH (10:00)
[2016-06-28] MEDS: GABAPENTIN 100 MG CAPSULE PO SCH (10:00)
[2016-06-28] MEDS ORDERED: COLLAGENASE CLOSTRIDIUM HIST. OINT 30 GM TP SCH (10:00)
[2016-06-28] MEDS: AMLODIPINE BESYLATE 10 MG TABLET PO SCH (10:01)
--- NOTE | 2016-06-28 10:20 | XCELERA REPORT ---
[address] [address] Lower Extremity Arterial Evaluation Name: LAVELLE ARRIAZA Age: 56 yrs Gender: Female : 1960 Patient Status: Inpatient Patient Location: [id number] Study Date: 06/27/2016 03:24 PM Procedure: A color flow and duplex scan of the lower extremity arteries was performed on the right with velocity and waveform anaylsis. 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 Occluded Femoral artery with monophasic, minimal flow to the infrageniculate vessels. Occluded Dorsalis Pedis. Occlusion is noted at the Femoral artery. With sequential changes. Interpretation Summary Severe hemodynamically significant lesions in the right lower extremity only, on duplex imaging, at rest. Worse than on prior study, suggesting re occlusion. : NELLY GALLAGHER > Travis Urena
[2016-06-28 11:40] VITALS: BP 101/43
== END 2016-06-28 13:33 | disposition home health service (06) | DRG 638 ==
LOC: 4S 14:10
PROVIDERS: ADMIT Internal Medicine; ATTEND Internal Medicine
PROC: 0HDMXZZ Extraction of Right Foot Skin, External Approach (ICD-10-PCS; principal; 2016-06-26)
DX: E10.621 Type 1 diabetes mellitus with foot ulcer (principal); L03.115 Cellulitis of right lower limb; L02.611 Cutaneous abscess of right foot; E10.51 Type 1 diabetes mellitus with diabetic peripheral angiopathy without gangrene; E10.42 Type 1 diabetes mellitus with diabetic polyneuropathy; L97.519 Non-pressure chronic ulcer of other part of right foot with unspecified severity; L03.031 Cellulitis of right toe; I10 Essential (primary) hypertension; E03.9 Hypothyroidism, unspecified; Z89.612 Acquired absence of left leg above knee; B96.4 Proteus (mirabilis) (morganii) as the cause of diseases classified elsewhere; Z86.73 Personal history of transient ischemic attack (TIA), and cerebral infarction without residual deficits; Z95.820 Peripheral vascular angioplasty status with implants and grafts; B95.4 Other streptococcus as the cause of diseases classified elsewhere; Z79.82 Long term (current) use of aspirin; Z79.4 Long term (current) use of insulin; Z88.0 Allergy status to penicillin; Z88.1 Allergy status to other antibiotic agents; Z79.899 Other long term (current) drug therapy
CPT/HCPCS: 36415; 80048; 80076; 80202; 82565; 82962; 83036; 84439; 84443; 84481; 85027; 87040; 87070; 87077; 87186; 87205; 93926; J1650; J1815; J1956; J3370; J3490; J7060

== ENCOUNTER → 2016-07-06 | Outpatient (CLI) | payer MEDICARE, MEDICAID | LOC: OD 14:55 | PROVIDERS: ATTEND Nurse Practitioner Family | DX: Z01.818 Encounter for other preprocedural examination (principal) | CPT/HCPCS: 71020 ==

== ENCOUNTER → 2016-07-25 | Day surgery (SDC) | payer MEDICARE, MEDICAID ==
[~2016-07-25] MED LIST: DAPTOMYCIN 600 MG in NORMAL SALINE 50 ML IV ONE; NORMAL SALINE 10 ML SDV (AFTER EACH USE) IV PRN; NORMAL SALINE 10 ML SDV (SCHEDULED) IV SCH
[2016-07-25 12:08] VITALS: BP 135/71
== END ==
LOC: RAD 10:05
PROVIDERS: ATTEND Internal Medicine
PROC: 05HC33Z Insertion of Infusion Device into Left Basilic Vein, Percutaneous Approach (ICD-10-PCS; principal; 2016-07-25)
DX: E11.621 Type 2 diabetes mellitus with foot ulcer (principal); L97.513 Non-pressure chronic ulcer of other part of right foot with necrosis of muscle; I70.261 Atherosclerosis of native arteries of extremities with gangrene, right leg
CPT/HCPCS: 96365; 36569; 77001; 76937; J0878; J1642

== ENCOUNTER → 2016-07-26 | Outpatient (CLI) | payer MEDICARE, MEDICAID ==
[2016-07-26 14:49] LABS: ABSOLUTE BASOPHILS # (AUTO) 0.1 10^3/uL (0.0-0.2); ABSOLUTE EOSINOPHILS # (AUTO) 0.1 10^3/uL (0.0-0.6); ABSOLUTE LYMPHOCYTES (AUTO) 1.9 10^3/uL (0.5-4.7); ABSOLUTE MONOCYTES (AUTO) 1.2 10^3/uL (0.1-1.4); ABSOLUTE NEUT (AUTO) 15.9 10^3/uL (1.7-8.2); BASOPHILS % (AUTO) 0.4 % (0-2); EOSINOPHILS % (AUTO) 0.7 % (0-6); HEMATOCRIT 30.2 % (36.0-47.0); HEMOGLOBIN 9.4 g/dL (12.0-15.5); LYMPHOCYTES % (AUTO) 9.7 % (13-45); MEAN CORPUSCULAR HEMOGLOBIN 24.4 pg (27.0-33.4); MEAN CORPUSCULAR HGB CONC 31.2 g/dL (32.0-36.0); MEAN CORPUSCULAR VOLUME 78 fl (80-97); MONOCYTES % (AUTO) 6.4 % (3-13); RED BLOOD COUNT 3.85 10^6/uL (3.72-5.28); RED CELL DISTRIBUTION WIDTH 14.1 % (11.5-14.0); SEGMENTED NEUTROPHILS % (AUTO) 82.8 % (42-78); WHITE BLOOD COUNT 19.2 10^3/uL (4.0-10.5)
[2016-07-26 15:09] LABS: ALANINE AMINOTRANSFERASE 31 U/L (9-52); ALBUMIN 3.5 g/dL (3.5-5.0); ALKALINE PHOSPHATASE 120 U/L (38-126); ANION GAP 16 (5-19); ASPARTATE AMINO TRANSFERASE 32 U/L (14-36); BILIRUBIN,TOTAL 0.6 mg/dL (0.2-1.3); BLOOD UREA NITROGEN 14 mg/dL (7-20); CALCIUM 8.8 mg/dL (8.4-10.2); CARBON DIOXIDE 25 mmol/L (22-30); CHLORIDE 97 mmol/L (98-107); GLUCOSE 267 mg/dL (75-110); POTASSIUM 4.1 mmol/L (3.6-5.0); SODIUM 137.8 mmol/L (137-145); TOTAL PROTEIN 7.3 g/dL (6.3-8.2)
[2016-07-26 15:26] LABS: ERYTHROCYTE SEDIMENTATION RATE 112 mm/hr (0-30)
[2016-07-26 15:44] LABS: C-REACTIVE PROTEIN 283.5 mg/L (<10.0)
== END ==
LOC: WC 13:37
PROVIDERS: ATTEND Nurse Practitioner Family
DX: E11.621 Type 2 diabetes mellitus with foot ulcer (principal); L97.513 Non-pressure chronic ulcer of other part of right foot with necrosis of muscle
CPT/HCPCS: 36415; 80053; 83036; 85025; 85652; 86140; 87040

== ENCOUNTER 2016-07-27 10:45 | Inpatient (IN) | payer MEDICARE, MEDICAID ==
--- NOTE | 2016-07-27 11:03 | ER Document Report ---
ED Medical Screen (RME) - General Stated Complaint: LEG PAIN Notes: 56 yo female was called by wound center saying that she has infection in her bloodstream. had labs drawn yesterday and was called this morning with results. pt had right 5th toe amputated last week. pt is diabetic. low grade fever. WBC 19.2 yesterday TRAVEL OUTSIDE OF THE [place] IN LAST 30 DAYS: No - Related Data Allergies/Adverse Reactions: amoxicillin [From Augmentin] Allergy (Intermediate, Verified 07/27/16 11:01) Cephalosporins Allergy (Intermediate, Verified 07/27/16 11:01) blistering, peeling skin,burning throat clavulanic acid [From Augmentin] Allergy (Intermediate, Verified 07/27/16 11:01) Penicillins Allergy (Intermediate, Verified 07/27/16 11:01) blistering,peeling skin,burning of throat Past Medical History - Social History Family history: Reviewed & Not Pertinent - Past Medical History Cardiac Medical History: Reports: Hx Hypertension - medicated Denies: Hx Coronary Artery Disease, Hx Heart Attack Pulmonary Medical History: Denies: Hx Asthma, Hx Bronchitis, Hx COPD, Hx Pneumonia Neurological Medical History: Reports: Hx Cerebrovascular Accident - 2003 . Denies: Hx Seizures Endocrine Medical History: Reports: Hx Diabetes Mellitus Type 1, Hx Hypothyroidism GI Medical History: Denies: Hx Hepatitis, Hx Hiatal Hernia, Hx Ulcer Musculoskeltal Medical History: Reports Hx Arthritis Psychiatric Medical History: Denies: Hx Depression Infectious Medical History: Denies: Hx Hepatitis Past Surgical History: Reports: Hx Section, Hx Orthopedic Surgery - left aka, Hx Vascular Surgery - left leg, fem-pop bypass graft. Denies: Hx Hysterectomy, Hx Mastectomy, Hx Open Heart Surgery, Hx Pacemaker - Immunizations Hx Diphtheria, Pertussis, Tetanus Vaccination: Yes Physical Exam - Vital signs Vitals: Temp Pulse Resp BP Pulse Ox 99.0 F 102 H 20 140/62 H 97 07/27/16 11:00 07/27/16 11:00 07/27/16 11:00 07/27/16 11:00 07/27/16 11:00 Course - Vital Signs Vital signs: Temp Pulse Resp BP Pulse Ox 99.0 F 102 H 20 140/62 H 97 07/27/16 11:00 07/27/16 11:00 07/27/16 11:00 07/27/16 11:00 07/27/16 11:00
[2016-07-27 11:27] LABS: HEMATOCRIT 29.8 % (36.0-47.0); HEMOGLOBIN 9.3 g/dL (12.0-15.5); HGB HCT DIFFERENCE -1.9; MEAN CORPUSCULAR HEMOGLOBIN 24.6 pg (27.0-33.4); MEAN CORPUSCULAR HGB CONC 31.3 g/dL (32.0-36.0); MEAN CORPUSCULAR VOLUME 79 fl (80-97); RED BLOOD COUNT 3.79 10^6/uL (3.72-5.28); RED CELL DISTRIBUTION WIDTH 14.4 % (11.5-14.0); WHITE BLOOD COUNT 20.1 10^3/uL (4.0-10.5)
[2016-07-27 11:50] LABS: BAND NEUTROPHILS % (MANUAL) 1 % (3-5); BASOPHILS % (MANUAL) 0 % (0-2); EOSINOPHILS % (MANUAL) 1 % (0-6); LYMPHOCYTES % (MANUAL) 9 % (13-45); TOTAL CELLS COUNTED 100
[2016-07-27 11:55] LABS: ANISOCYTOSIS SLIGHT; HYPOCHROMASIA SLIGHT; MICROCYTOSIS SLIGHT; POIKILOCYTOSIS 1+; POLYCHROMASIA SLIGHT; ROULEAUX SLIGHT; SCHISTOCYTES SLIGHT; STOMATOCYTES SLIGHT; TOXIC GRANULATION SLIGHT
[2016-07-27 13:46] LABS: ALANINE AMINOTRANSFERASE 36 U/L (9-52); ALBUMIN 2.9 g/dL (3.5-5.0); ALKALINE PHOSPHATASE 125 U/L (38-126); ANION GAP 19 (5-19); ASPARTATE AMINO TRANSFERASE 31 U/L (14-36); BILIRUBIN,TOTAL 0.6 mg/dL (0.2-1.3); BLOOD UREA NITROGEN 17 mg/dL (7-20); CALCIUM 9.1 mg/dL (8.4-10.2); CARBON DIOXIDE 23 mmol/L (22-30); CHLORIDE 96 mmol/L (98-107); CREATININE RESULT 0.69 mg/dL (0.52-1.25); GLUCOSE 304 mg/dL (75-110); SODIUM 137.8 mmol/L (137-145); TOTAL PROTEIN 7.2 g/dL (6.3-8.2)
--- NOTE | 2016-07-27 13:55 | ER Document Report ---
ED General - General Chief Complaint: Abnormal Lab Results Stated Complaint: LEG PAIN Mode of Arrival: Wheelchair Information source: Patient Notes: Patient presents to the emergency department with reports that she was sent over here by the wound center. She reports she had her right fifth toe amputated by Dr. Herrera on Monday. She reports she also had a PICC line inserted on Monday and labs were drawn. She reports IV antibiotics yesterday. She reports wound center called her today and told her she needs come the emergency department because she had elevated white count. She reports a little bit of cough denies pain with void denies vomiting diarrhea reports a fever on Monday. She also reports decreased appetite but she is drinking okay. Patient is a diabetic. She has a left AKA. She complains of pain around her right distal foot. She reports drainage continues. TRAVEL OUTSIDE OF THE [place] IN LAST 30 DAYS: No - HPI Onset: This morning Onset/Duration: Constant Quality of pain: Achy Severity: Moderate Pain Level: 3 Associated symptoms: Fever Exacerbated by: Denies Relieved by: Denies Similar symptoms previously: Yes Recently seen / treated by doctor: Yes - Related Data Allergies/Adverse Reactions: amoxicillin [From Augmentin] Allergy (Intermediate, Verified 07/27/16 11:01) Cephalosporins Allergy (Intermediate, Verified 07/27/16 11:01) blistering, peeling skin,burning throat clavulanic acid [From Augmentin] Allergy (Intermediate, Verified 07/27/16 11:01) Penicillins Allergy (Intermediate, Verified 07/27/16 11:01) blistering,peeling skin,burning of throat Home Medications: Current Home Medications Doxepin HCl 75 mg PO QHS 07/27/16 [History] Insulin Glargine,Hum.rec.anlog [Lantus Solostar] 50 units SQ QHS 07/27/16 [ History] Insulin Lispro [Humalog Kwikpen U-100] 0 units SQ ASDIR PRN 07/27/16 [History] Past Medical History - General Information source: Patient Last Menstrual Period: menopause - Social History Smoking Status: Never Smoker Chew tobacco use (# tins/day): No Frequency of alcohol use: None Drug Abuse: None Lives with: Family Family History: Reviewed & Not Pertinent Patient has suicidal ideation: No Patient has homicidal ideation: No - Past Medical History Cardiac Medical History: Reports: Hx Hypertension - medicated Denies: Hx Coronary Artery Disease, Hx Heart Attack Pulmonary Medical History: Denies: Hx Asthma, Hx Bronchitis, Hx COPD, Hx Pneumonia Neurological Medical History: Reports: Hx Cerebrovascular Accident - 2004 . Denies: Hx Seizures Endocrine Medical History: Reports: Hx Diabetes Mellitus Type 1, Hx Hypothyroidism Renal/ Medical History: Denies: Hx Peritoneal Dialysis GI Medical History: Denies: Hx Hepatitis, Hx Hiatal Hernia, Hx Ulcer Musculoskeltal Medical History: Reports Hx Arthritis Psychiatric Medical History: Denies: Hx Depression Infectious Medical History: Denies: Hx Hepatitis Past Surgical History: Reports: Hx Section, Hx Orthopedic Surgery - left aka, Hx Vascular Surgery - left leg, fem-pop bypass graft. Denies: Hx Hysterectomy, Hx Mastectomy, Hx Open Heart Surgery, Hx Pacemaker - Immunizations Hx Diphtheria, Pertussis, Tetanus Vaccination: Yes Review of Systems - Review of Systems Notes: Review HPI for review of systems., All other systems negative Physical Exam - Vital signs Vitals: Temp Pulse Resp BP Pulse Ox 99.0 F 102 H 20 140/62 H 97 07/27/16 11:00 07/27/16 11:00 07/27/16 11:00 07/27/16 11:00 07/27/16 11:00 - Notes Notes: PHYSICAL EXAMINATION: GENERAL: No acute distress, calm HEAD: Atraumatic, normocephalic. EYES: Pupils equal round , extraocular movements intact, sclera anicteric, conjunctiva are normal. ENT: nares patent Moist mucous membranes. NECK: Normal range of motion, supple without lymphadenopathy LUNGS: CTAB and equal. No wheezes rales or rhonchi. HEART: tachy ABDOMEN: Soft, denies tenderness. No guarding, no rebound EXTREMITIES: right foot with bandage to fifth digit, dried drainage noted, no obvious erythema, no streaks no warmth, LAKA PICC left upper arm, no erythema, denies pain NEUROLOGICAL: Cranial nerves grossly intact. Normal sensory/motor . PSYCH: Normal mood, normal affect. SKIN: Warm, Dry, Course - Re-evaluation Re-evalutation: 07/27/16 14:58 I have consulted the attending provider Dr. Patrick Acosta, per [facility] guidelines I have consulted the attending provider dr acosta, per [facility] guidelines consulted dr clark. He agrees on admission, tele 07/27/16 16:03 pt and family updated on plan for admission - Vital Signs Vital signs: Temp Pulse Resp BP Pulse Ox 100.2 F 106 H 19 130/37 H 98 07/27/16 19:37 07/27/16 19:37 07/27/16 19:37 07/27/16 19:37 07/27/16 19:37 - Laboratory Result Diagrams: 07/27/16 11:15 07/27/16 11:15 Laboratory results interpreted by me: 07/27/16 07/27/16 11:15 11:15 WBC 20.1 H Hgb 9.3 L Hct 29.8 L MCV 79 L MCH 24.6 L MCHC 31.3 L RDW 14.4 H Seg Neuts % (Manual) 84 H Band Neutrophils % 1 L Lymphocytes % (Manual) 9 L Abs Neuts (Manual) 17.1 H Chloride 96 L Glucose 304 H Albumin 2.9 L Discharge - Discharge Clinical Impression: Leukocytosis Qualifiers: Leukocytosis type: unspecified Qualified Code(s): D72.829 - Elevated white blood cell count, unspecified Condition: Stable Disposition: ADMITTED INPATIENT Admitting Provider: [facility] Unit Admitted: Telemetry
[2016-07-27] MEDS ORDERED: NORMAL SALINE 1000 ML 1,000 ML IV ONE (16:04)
[2016-07-27] MEDS ORDERED: AZTREONAM 1 GM in DEXTROSE 5%-WATER 50 ML IV SCH (18:00)
[2016-07-27 19:33] LABS: THYROID STIMULATING HORMONE 1.34 uIU/mL (0.47-4.68)
[2016-07-27] MEDS ORDERED: DEXTROSE 50%-WATER SYRINGE 25 GM/50 ML DOSE IV PRN (20:21)
[2016-07-27] MEDS ORDERED: GLUCAGON,HUMAN RECOMB 1 MG INJ IM PRN (20:21)
[2016-07-27] MEDS ORDERED: DEXTROSE 40% GEL 15 GM TUBE PO PRN (20:21)
[2016-07-27] MEDS ORDERED: DEXTROSE 50%-WATER SYRINGE 12.5 GM/25 ML DOSE IV PRN (20:21)
[2016-07-27] MEDS ORDERED: DEXTROSE 40% GEL 15 GM TUBE X 2 PO PRN (20:21)
[2016-07-27] MEDS ORDERED: INSULIN LISPRO 100 UNIT/ML 3 ML VIAL SUBCUT SCH (22:00)
[2016-07-27] MEDS: AZTREONAM 1 GM in DEXTROSE 5%-WATER 50 ML IV SCH (22:51)
[2016-07-27] MEDS: INSULIN GLARGINE,HUM.REC.ANLOG 300 UNIT/3 ML INSULN.PEN SUBCUT SCH (23:11)
[2016-07-28] MEDS: ACETAMINOPHEN 325 MG TABLET PO PRN ×2 (00:38→19:00)
[2016-07-28] MEDS: AZTREONAM 1 GM in DEXTROSE 5%-WATER 50 ML IV SCH ×3 (05:27→22:03)
[2016-07-28 06:37] LABS: ABSOLUTE BASOPHILS # (AUTO) 0.1 10^3/uL (0.0-0.2); ABSOLUTE EOSINOPHILS # (AUTO) 0.2 10^3/uL (0.0-0.6); ABSOLUTE LYMPHOCYTES (AUTO) 1.7 10^3/uL (0.5-4.7); ABSOLUTE MONOCYTES (AUTO) 1.3 10^3/uL (0.1-1.4); BASOPHILS % (AUTO) 0.5 % (0-2); EOSINOPHILS % (AUTO) 1.6 % (0-6); HEMATOCRIT 25.8 % (36.0-47.0); HEMOGLOBIN 8.2 g/dL (12.0-15.5); HGB HCT DIFFERENCE -1.2; LYMPHOCYTES % (AUTO) 11.4 % (13-45); MEAN CORPUSCULAR HEMOGLOBIN 24.7 pg (27.0-33.4); MEAN CORPUSCULAR HGB CONC 31.6 g/dL (32.0-36.0); MEAN CORPUSCULAR VOLUME 78 fl (80-97); MONOCYTES % (AUTO) 8.3 % (3-13); RED BLOOD COUNT 3.31 10^6/uL (3.72-5.28); RED CELL DISTRIBUTION WIDTH 14.2 % (11.5-14.0); SEGMENTED NEUTROPHILS % (AUTO) 78.2 % (42-78); WHITE BLOOD COUNT 15.3 10^3/uL (4.0-10.5)
[2016-07-28 06:47] LABS: ANION GAP 16 (5-19); BLOOD UREA NITROGEN 12 mg/dL (7-20); CALCIUM 7.7 mg/dL (8.4-10.2); CARBON DIOXIDE 20 mmol/L (22-30); CHLORIDE 104 mmol/L (98-107); CREATININE RESULT 0.53 mg/dL (0.52-1.25); GLUCOSE 190 mg/dL (75-110); POTASSIUM 3.4 mmol/L (3.6-5.0); SODIUM 140.3 mmol/L (137-145)
--- NOTE | 2016-07-28 08:55 | PDOC CONSULTATION ---
History of Present Illness Admission Date/PCP: 07/27/16 17:25 MARLENE CANNON MD History of Present Illness: LAVELLE ARRIAZA is a 56 year old female with long history of diabetes and peripheral vascular disease, status post left AKA amputation. She has undergone right lower extremity stenting twice by Dr. Barnett in [place]. The first stent was placed in February 2016. The next stent was placed in June 2016. She reports a right foot ulcer and infection of at least one month's duration. She had her right fifth toe amputated by Dr. Herrera in the wound care clinic on 07/18/2016. The wound was left open and packed due to active infection. She has been seen in wound care clinic every Monday and since then. This past Monday there may have been concern for nonhealing and continued infection because apparently labs was done. She was yesterday, 07/27/2016 and told to present to the emergency room for admission due to elevated white count and possibly bacteremia, not clear on this. She reports continued drainage from the amputation site. She reports swelling and erythema in the right foot which has not changed significantly over the last month per her account. She reports that home health nursing was doing dressing changes prior to the amputation, but since the amputation they have generally deferred to the twice a week wound care clinic visits for dressing changes. The patient reports generalized leg pain due to neuropathy, but reports that the amputation itself does not hurt. ROS: She reports loss of appetite and fevers, but denies chills, nausea, vomiting, shortness of breath, chest pain, seizures, tremors, dizziness, lightheadedness, diarrhea, constipation. Review of systems is positive for rare reflux. She reports that her blood sugars lately have ranged from 75 up to 240. Past Medical History Cardiac Medical History: Reports: Hyperlipidema, Hypertension, Peripheral Vascular Disease Endocrine Medical History: Reports: Diabetes Mellitus Type 2, Hypothyroidism GI Medical History: Reports: Gastroesophageal Reflux Disease Musculoskeltal Medical History: Reports: Arthritis Past Surgical History Past Surgical History: Reports: Amputation - Left AKA, right fifth toe amp., Section, Orthopedic Surgery - left aka. Right fifth toe amputation., Vascular Surgery - Right leg stenting 2 Denies: Hysterectomy, Mastectomy, Pacemaker Social History Information Source: Patient Lives with: Family Smoking Status: Former Smoker Number of Years Smokin - smoked from age 14 until age 25. Last Time Smoked: 1985 Frequency of Alcohol Use: None Hx Recreational Drug Use: No Drugs: None Hx Prescription Drug Abuse: No Family History Family History: CAD, CVA, DM, Malignancy Parental Family History Reviewed: Yes Children Family History Reviewed: Yes Sibling(s) Family History Reviewed.: Yes Medication/Allergy Home Medications: Doxepin HCl 75 mg PO QHS 07/27/16 Insulin Glargine,Hum.rec.anlog [Lantus Solostar] 50 units SQ QHS 07/27/16 Insulin Lispro [Humalog Kwikpen U-100] 0 units SQ ASDIR PRN 07/27/16 Allergies/Adverse Reactions: amoxicillin [From Augmentin] Allergy (Intermediate, Verified 07/27/16 11:01) Cephalosporins Allergy (Intermediate, Verified 07/27/16 11:01) blistering, peeling skin,burning throat clavulanic acid [From Augmentin] Allergy (Intermediate, Verified 07/27/16 11:01) Penicillins Allergy (Intermediate, Verified 07/27/16 11:01) blistering,peeling skin,burning of throat Review of Systems All systems: reviewed and no additional remarkable complaints except as stated Physical Exam Vital Signs: Temp Pulse Resp BP Pulse Ox 99.1 F 99 19 139/47 H 97 07/28/16 05:19 07/28/16 05:19 07/28/16 05:19 07/28/16 05:19 07/28/16 05:19 Intake & Output 07/27/16 07/28/16 07/29/16 06:59 06:59 06:59 Intake Total 510 Balance 510 Weight 98.2 kg General appearance: PRESENT: no acute distress Head exam: PRESENT: normocephalic Eye exam: PRESENT: EOMI Mouth exam: PRESENT: moist, tongue midline Neck exam: ABSENT: JVD, tenderness Respiratory exam: PRESENT: clear to auscultation richard Cardiovascular exam: PRESENT: RRR GI/Abdominal exam: PRESENT: soft. ABSENT: distended, tenderness Extremities exam: PRESENT: +1 edema, other - Left AKA well-healed. Right lower extremity with erythema and swelling from the ankle down through the foot. Status post right fifth toe amp with large 4 cm defect which tunnels back 4 cm. The rough edge of the residual fifth metatarsal is palpable in the deep aspect of the wound. Wound is malodorous with discolored drainage. Wound care: The wound is first scrubbed with dry gauze. Next the wound is painted and probed with Betadine Q-tips. Next the wound is irrigated copiously with hydrogen peroxide. Next the wound is probed with plain Q-tips. Next the wound is packed with quarter-inch iodoform gauze. Gauze 4 x 4 and Kerlix roll dressings placed. Musculoskeletal exam: PRESENT: deformity - Left AKA, right fifth toe amp. See above physical exam for description of right fifth toe amp wound. Neurological exam: PRESENT: alert Psychiatric exam: PRESENT: appropriate affect, normal mood Focused psych exam: ABSENT: psychomotor agitation Skin exam: PRESENT: erythema - Right foot and ankle.. ABSENT: jaundice Results Laboratory Results: 07/28/16 06:00 07/28/16 06:00 07/28/16 07/28/16 06:00 06:00 WBC 15.3 H RBC 3.31 L Hgb 8.2 L Hct 25.8 L MCV 78 L MCH 24.7 L MCHC 31.6 L RDW 14.2 H Plt Count 350 Seg Neutrophils % 78.2 H Lymphocytes % 11.4 L Monocytes % 8.3 Eosinophils % 1.6 Basophils % 0.5 Absolute Neutrophils 12.0 H Absolute Lymphocytes 1.7 Absolute Monocytes 1.3 Absolute Eosinophils 0.2 Absolute Basophils 0.1 Sodium 140.3 Potassium 3.4 L Chloride 104 Carbon Dioxide 20 L Anion Gap 16 BUN 12 Creatinine 0.53 Est GFR ( Amer) > 60 Est GFR (Non-Af Amer) > 60 Glucose 190 H Calcium 7.7 L Assessment & Plan - Diagnosis (1) Peripheral vascular disease in diabetes mellitus Is this a current diagnosis for this admission?: Yes (2) Cellulitis and abscess of foot Is this a current diagnosis for this admission?: YesPlan: Cellulitis and continued infection of right fifth toe amp in the setting of poorly controlled diabetes and peripheral vascular disease. Status post open amputation of the fifth toe on 07/18/2016 with residual infection. Agree with need for IV antibiotics, complicated by patient's multiple allergies. Defer to medicine on antibiotic choice. Further debridement/amputation will likely be needed. Patient has eaten on 07/27/2016. The oncoming surgeon has been briefed.
[2016-07-28] MEDS: ENOXAPARIN SODIUM INJ 40 MG/0.4 ML DISP.SYRIN SUBCUT SCH (09:04)
--- NOTE | 2016-07-28 09:17 | PDOC PROGRESS REPORT ---
Subjective Progress Note for:: 07/28/16 Subjective:: No complaints Physical Exam Vital Signs: Temp Pulse Resp BP Pulse Ox 99.1 F 100 19 139/47 H 97 07/28/16 05:19 07/28/16 07:00 07/28/16 05:19 07/28/16 05:19 07/28/16 05:19 Intake & Output 07/27/16 07/28/16 07/29/16 06:59 06:59 06:59 Intake Total 510 Balance 510 Weight 98.2 kg General appearance: PRESENT: no acute distress Respiratory exam: PRESENT: clear to auscultation richard Cardiovascular exam: PRESENT: RRR Extremities exam: PRESENT: other - Right lateral forefoot wound wide open and relatively clean with the some necrotic debris and exposed fourth metatarsal bone. No fluctuance and no the purulent drainage. No granulation. Foot warm but no palpable pedal pulses. Results Laboratory Results: 07/28/16 06:00 07/28/16 06:00 07/28/16 07/28/16 06:00 06:00 WBC 15.3 H RBC 3.31 L Hgb 8.2 L Hct 25.8 L MCV 78 L MCH 24.7 L MCHC 31.6 L RDW 14.2 H Plt Count 350 Seg Neutrophils % 78.2 H Lymphocytes % 11.4 L Monocytes % 8.3 Eosinophils % 1.6 Basophils % 0.5 Absolute Neutrophils 12.0 H Absolute Lymphocytes 1.7 Absolute Monocytes 1.3 Absolute Eosinophils 0.2 Absolute Basophils 0.1 Sodium 140.3 Potassium 3.4 L Chloride 104 Carbon Dioxide 20 L Anion Gap 16 BUN 12 Creatinine 0.53 Est GFR ( Amer) > 60 Est GFR (Non-Af Amer) > 60 Glucose 190 H Calcium 7.7 L Assessment & Plan - Diagnosis (1) Diabetic infection of right foot Is this a current diagnosis for this admission?: YesPlan: Status post right fifth toe amputation complicated by wound infection requiring further bedside debridement. Infectious component temporized. Will obtain MRI to evaluate for osteomyelitis. Patient also has significant peripheral vascular disease. We'll discuss her case with the vascular surgery. We'll plan course of action after the above.
[2016-07-28] MEDS: NORMAL SALINE 10 ML SDV (SCHEDULED) IV SCH ×2 (10:18→22:02)
[2016-07-28] MEDS: NORMAL SALINE 10 ML SDV (AFTER EACH USE) IV PRN ×2 (10:18→15:13)
[2016-07-28] MEDS: INSULIN LISPRO 100 UNIT/ML 3 ML VIAL SUBCUT PRN ×3 (13:48→22:15)
[2016-07-28] MEDS ORDERED: VANCOMYCIN HCL 0 MG in DEXTROSE 5%-WATER 250 ML IV NR (20:15)
--- NOTE | 2016-07-28 20:17 | PDOC H&P ---
History of Present Illness Admission Date/PCP: 07/28/16 12:13 MARLENE CANNON MD History of Present Illness: Patient 56-year-old female with history of diabetes mellitus complicated with peripheral vascular disease, she is status post left [id number] amputation. She has history of peripheral vascular disease affecting the right lower extremity, she had stenting of the right lower extremity twice in [place]. She just recently had stent placement December 2016, she has a right foot ulcer and she follows in the wound clinic and she recently had the right fifth toe amputated, blood was drawn in the clinic and she was found to have leukocytosis with WBC over 20,000, she was referred to emergency room for evaluation, she was in the emergency room, evaluated and advised hospital admission. She has allergy reaction to penicillin, she be treated with aztreonam and probably add vancomycin to the regimen. Past Medical History Cardiac Medical History: Reports: Hyperlipidema, Hypertension, Peripheral Vascular Disease Endocrine Medical History: Reports: Diabetes Mellitus Type 2 GI Medical History: Reports: Gastroesophageal Reflux Disease Musculoskeltal Medical History: Reports: Arthritis Past Surgical History Past Surgical History: Reports: Amputation - Left AKA, right fifth toe amp., Section, Orthopedic Surgery - left aka. Right fifth toe amputation., Vascular Surgery - Right leg stenting 2 Social History Information Source: Patient Lives with: Family Smoking Status: Former Smoker Number of Years Smokin - smoked from age 14 until age 25. Last Time Smoked: 1985 Frequency of Alcohol Use: None Hx Recreational Drug Use: No Drugs: None Hx Prescription Drug Abuse: No Family History Family History: CAD, CVA, DM, Malignancy Parental Family History Reviewed: Yes Children Family History Reviewed: Yes Sibling(s) Family History Reviewed.: Yes Medication/Allergy Home Medications: Doxepin HCl 75 mg PO QHS 07/27/16 Insulin Glargine,Hum.rec.anlog [Lantus Solostar] 50 units SQ QHS 07/27/16 Insulin Lispro [Humalog Kwikpen U-100] 0 units SQ ASDIR PRN 07/27/16 Allergies/Adverse Reactions: amoxicillin [From Augmentin] Allergy (Intermediate, Verified 07/27/16 11:01) Cephalosporins Allergy (Intermediate, Verified 07/27/16 11:01) blistering, peeling skin,burning throat clavulanic acid [From Augmentin] Allergy (Intermediate, Verified 07/27/16 11:01) Penicillins Allergy (Intermediate, Verified 07/27/16 11:01) blistering,peeling skin,burning of throat Review of Systems Constitutional: PRESENT: anorexia, chills, fatigue Cardiovascular: ABSENT: as per HPI, chest pain, dyspnea on exertion, edema, orthropnea, palpitations, other Gastrointestinal: PRESENT: nausea Musculoskeletal: PRESENT: muscle weakness Neurological: ABSENT: as per HPI, abnormal gait, abnormal movements, abnormal speech, confusion, convulsions, dizziness, focal weakness, frequent falls, lack of coordination, memory loss, numbness, paresthesias, restless legs, syncope, tingling, tremor(s), vertigo, weakness, other Psychiatric: ABSENT: as per HPI, anxiety, depression, hallucinations, homidical ideation, suicidal ideation, other Hematologic/Lymphatic: ABSENT: as per HPI, easy bleeding, easy bruising, lymphadenopathy, other Physical Exam Vital Signs: Temp Pulse Resp BP Pulse Ox 102.1 F H 115 H 24 H 162/62 H 96 07/28/16 18:41 07/28/16 19:00 07/28/16 18:41 07/28/16 18:41 07/28/16 18:41 Intake & Output 07/27/16 07/28/16 07/29/16 06:59 06:59 06:59 Intake Total 100 Balance 100 General appearance: PRESENT: no acute distress Eye exam: PRESENT: PERRLA Mouth exam: PRESENT: moist Respiratory exam: PRESENT: clear to auscultation richard Cardiovascular exam: PRESENT: +S1, +S2 GI/Abdominal exam: PRESENT: firm Extremities exam: PRESENT: left AKA, other - There is ulcer at the base of the right fifth toe which is amputated. There is a discharge which is malodorous Neurological exam: PRESENT: alert, CN II-XII grossly intact Assessment & Plan - Diagnosis (1) Sepsis Qualifiers: Sepsis type: sepsis due to unspecified organism Qualified Code(s): A41.9 - Sepsis, unspecified organism Is this a current diagnosis for this admission?: YesPlan: There is sepsis syndrome due to infected right foot, she is admitted for treatment and antibiotic (2) Diabetes mellitus type 2 in nonobese Is this a current diagnosis for this admission?: Yes
--- NOTE | 2016-07-28 20:26 | PDOC PROGRESS REPORT ---
Subjective Progress Note for:: 07/28/16 Subjective:: She was seen by the bedside, she was seen by the surgeon and MRI of the foot was ordered, she told me she has no appetite. She had episode of fever today. Vancomycin to be admitted to the drug regimen White blood cell is down on aztreonam Physical Exam Vital Signs: Temp Pulse Resp BP Pulse Ox 102.1 F H 115 H 24 H 162/62 H 96 07/28/16 18:41 07/28/16 19:00 07/28/16 18:41 07/28/16 18:41 07/28/16 18:41 Intake & Output 07/27/16 07/28/16 07/29/16 06:59 06:59 06:59 Intake Total 100 Balance 100 General appearance: PRESENT: no acute distress Eye exam: PRESENT: PERRLA Respiratory exam: PRESENT: clear to auscultation richard Cardiovascular exam: PRESENT: +S1, +S2 GI/Abdominal exam: PRESENT: firm Neurological exam: PRESENT: alert Assessment & Plan - Diagnosis (1) Sepsis Qualifiers: Sepsis type: sepsis due to unspecified organism Qualified Code(s): A41.9 - Sepsis, unspecified organism Is this a current diagnosis for this admission?: Yes (2) Diabetes mellitus type 2 in nonobese Is this a current diagnosis for this admission?: Yes (3) Diabetic infection of right foot Is this a current diagnosis for this admission?: YesPlan: Continue intravenous aztreonam add intravenous vancomycin
[2016-07-28] MEDS ORDERED: POTASSI CL 20 MEQ/50 ML RIDER 20 MEQ/50 ML RTUPB IV ONE (20:30)
[2016-07-28] MEDS: DAPTOMYCIN 500 MG in NORMAL SALINE 50 ML IV SCH (21:51)
[2016-07-28] MEDS: INSULIN GLARGINE,HUM.REC.ANLOG 300 UNIT/3 ML INSULN.PEN SUBCUT SCH (22:06)
[2016-07-29] MEDS: AZTREONAM 1 GM in DEXTROSE 5%-WATER 50 ML IV SCH ×3 (05:42→21:23)
[2016-07-29 06:02] LABS: ABSOLUTE BASOPHILS # (AUTO) 0.1 10^3/uL (0.0-0.2); ABSOLUTE EOSINOPHILS # (AUTO) 0.4 10^3/uL (0.0-0.6); ABSOLUTE LYMPHOCYTES (AUTO) 2.3 10^3/uL (0.5-4.7); ABSOLUTE MONOCYTES (AUTO) 1.2 10^3/uL (0.1-1.4); ABSOLUTE NEUT (AUTO) 12.3 10^3/uL (1.7-8.2); BASOPHILS % (AUTO) 0.5 % (0-2); EOSINOPHILS % (AUTO) 2.2 % (0-6); HEMATOCRIT 28.2 % (36.0-47.0); HEMOGLOBIN 8.8 g/dL (12.0-15.5); HGB HCT DIFFERENCE -1.8; LYMPHOCYTES % (AUTO) 14.3 % (13-45); MEAN CORPUSCULAR HEMOGLOBIN 24.3 pg (27.0-33.4); MEAN CORPUSCULAR HGB CONC 31.1 g/dL (32.0-36.0); MEAN CORPUSCULAR VOLUME 78 fl (80-97); MONOCYTES % (AUTO) 7.6 % (3-13); RED BLOOD COUNT 3.62 10^6/uL (3.72-5.28); RED CELL DISTRIBUTION WIDTH 14.2 % (11.5-14.0); SEGMENTED NEUTROPHILS % (AUTO) 75.4 % (42-78); WHITE BLOOD COUNT 16.3 10^3/uL (4.0-10.5)
[2016-07-29 06:18] LABS: ANION GAP 10 (5-19); BLOOD UREA NITROGEN 14 mg/dL (7-20); CARBON DIOXIDE 27 mmol/L (22-30); CHLORIDE 102 mmol/L (98-107); CREATININE RESULT 0.69 mg/dL (0.52-1.25); GLUCOSE 213 mg/dL (75-110); POTASSIUM 4.1 mmol/L (3.6-5.0)
--- NOTE | 2016-07-29 07:22 | PDOC PROGRESS REPORT ---
Physical Exam Vital Signs: Temp Pulse Resp BP Pulse Ox 99.6 F 107 H 16 145/56 H 94 07/29/16 06:00 07/29/16 06:00 07/29/16 06:00 07/29/16 06:00 07/29/16 06:00 Intake & Output 07/28/16 07/29/16 07/30/16 06:59 06:59 06:59 Intake Total 300 Balance 300 Weight 101.8 kg Results Laboratory Results: 07/29/16 05:50 07/29/16 05:50 07/29/16 07/29/16 05:50 05:50 WBC 16.3 H RBC 3.62 L Hgb 8.8 L Hct 28.2 L MCV 78 L MCH 24.3 L MCHC 31.1 L RDW 14.2 H Plt Count 414 Seg Neutrophils % 75.4 Lymphocytes % 14.3 Monocytes % 7.6 Eosinophils % 2.2 Basophils % 0.5 Absolute Neutrophils 12.3 H Absolute Lymphocytes 2.3 Absolute Monocytes 1.2 Absolute Eosinophils 0.4 Absolute Basophils 0.1 Sodium 139.0 Potassium 4.1 Chloride 102 Carbon Dioxide 27 Anion Gap 10 BUN 14 Creatinine 0.69 Est GFR ( Amer) > 60 Est GFR (Non-Af Amer) > 60 Glucose 213 H Calcium 9.0 Impressions: Lower Extremity MRI 07/28/16 00:00 IMPRESSION: Osteomyelitis pattern of the right 4th proximal phalanx. Defect/ fracture of the distal right 4th metatarsal diaphysis. Partial resection of the right 5th digit. Current x-ray correlation recommended for increased sensitivity/specificity. Assessment & Plan - Diagnosis (1) Diabetic infection of right foot Is this a current diagnosis for this admission?: YesPlan: records show that pt had vascular surgery intervention already. mri shows 4th toe osteomyelitis and 4th MT fracture. Pt will require further debridement with 4th toe and metatarsal amputation. d/w oncoming surgeon.
--- NOTE | 2016-07-29 09:00 | PDOC PROGRESS REPORT ---
Subjective Progress Note for:: 07/29/16 Physical Exam Vital Signs: Temp Pulse Resp BP Pulse Ox 99.6 F 107 H 16 145/56 H 94 07/29/16 06:00 07/29/16 06:00 07/29/16 06:00 07/29/16 06:00 07/29/16 06:00 Intake & Output 07/28/16 07/29/16 07/30/16 06:59 06:59 06:59 Intake Total 300 Balance 300 Weight 101.8 kg Extremities exam: PRESENT: calf tenderness, clubbing, full ROM, joint swelling, pedal edema, tenderness, +1 edema, +2 edema, other - Right foot - warm lateral aspect wound - partially necrotic Results Laboratory Results: 07/29/16 05:50 07/29/16 05:50 07/29/16 07/29/16 05:50 05:50 WBC 16.3 H RBC 3.62 L Hgb 8.8 L Hct 28.2 L MCV 78 L MCH 24.3 L MCHC 31.1 L RDW 14.2 H Plt Count 414 Seg Neutrophils % 75.4 Lymphocytes % 14.3 Monocytes % 7.6 Eosinophils % 2.2 Basophils % 0.5 Absolute Neutrophils 12.3 H Absolute Lymphocytes 2.3 Absolute Monocytes 1.2 Absolute Eosinophils 0.4 Absolute Basophils 0.1 Sodium 139.0 Potassium 4.1 Chloride 102 Carbon Dioxide 27 Anion Gap 10 BUN 14 Creatinine 0.69 Est GFR ( Amer) > 60 Est GFR (Non-Af Amer) > 60 Glucose 213 H Calcium 9.0 Impressions: Lower Extremity MRI 07/28/16 00:00 IMPRESSION: Osteomyelitis pattern of the right 4th proximal phalanx. Defect/ fracture of the distal right 4th metatarsal diaphysis. Partial resection of the right 5th digit. Current x-ray correlation recommended for increased sensitivity/specificity. Assessment & Plan - Plan Summary Plan Summary: DM, PVD, S/P Angioplasty Right foot necrotic wound. Excisional sharp debridement of the necrotic tissue performed up the fascial level. wound irrigated and dressings applied. Will monitor the wound if she need any further debridement or transmetatorsal amputation. ,
[2016-07-29] MEDS: NORMAL SALINE 10 ML SDV (SCHEDULED) IV SCH ×2 (10:33→21:24)
[2016-07-29] MEDS: ENOXAPARIN SODIUM INJ 40 MG/0.4 ML DISP.SYRIN SUBCUT SCH (10:33)
[2016-07-29] MEDS ORDERED: METOCLOPRAMIDE HCL INJ/PF 10 MG/2 ML SDV ONE (14:52)
[2016-07-29] MEDS ORDERED: ONDANSETRON HCL INJ/PF 4 MG/2 ML SDV ONE (14:52)
--- NOTE | 2016-07-29 15:29 | PDOC PROGRESS REPORT ---
Subjective Progress Note for:: 07/29/16 Subjective:: Patient was seen by the bedside, she was admitted because of infected diabetic foot, she is empirically on intravenous antibiotic including aztreonam and daptomycin. The CAMACHO for vancomycin. He was I based on the last culture study and the vancomycin was substituted with daptomycin Physical Exam Vital Signs: Temp Pulse Resp BP Pulse Ox 98.0 F 93 20 120/56 L 97 07/29/16 11:46 07/29/16 11:46 07/29/16 11:46 07/29/16 11:46 07/29/16 11:46 Intake & Output 07/28/16 07/29/16 07/30/16 06:59 06:59 06:59 Intake Total 300 Balance 300 Weight 101.8 kg General appearance: PRESENT: no acute distress Eye exam: PRESENT: PERRLA Respiratory exam: PRESENT: clear to auscultation richard Cardiovascular exam: PRESENT: +S1, +S2 GI/Abdominal exam: PRESENT: soft Neurological exam: PRESENT: alert Results Laboratory Results: 07/29/16 05:50 07/29/16 05:50 07/29/16 07/29/16 05:50 05:50 WBC 16.3 H RBC 3.62 L Hgb 8.8 L Hct 28.2 L MCV 78 L MCH 24.3 L MCHC 31.1 L RDW 14.2 H Plt Count 414 Seg Neutrophils % 75.4 Lymphocytes % 14.3 Monocytes % 7.6 Eosinophils % 2.2 Basophils % 0.5 Absolute Neutrophils 12.3 H Absolute Lymphocytes 2.3 Absolute Monocytes 1.2 Absolute Eosinophils 0.4 Absolute Basophils 0.1 Sodium 139.0 Potassium 4.1 Chloride 102 Carbon Dioxide 27 Anion Gap 10 BUN 14 Creatinine 0.69 Est GFR ( Amer) > 60 Est GFR (Non-Af Amer) > 60 Glucose 213 H Calcium 9.0 Impressions: Lower Extremity MRI 07/28/16 00:00 IMPRESSION: Osteomyelitis pattern of the right 4th proximal phalanx. Defect/ fracture of the distal right 4th metatarsal diaphysis. Partial resection of the right 5th digit. Current x-ray correlation recommended for increased sensitivity/specificity. Assessment & Plan - Diagnosis (1) Sepsis Qualifiers: Sepsis type: sepsis due to unspecified organism Qualified Code(s): A41.9 - Sepsis, unspecified organism Is this a current diagnosis for this admission?: Yes (2) Diabetes mellitus type 2 in nonobese Is this a current diagnosis for this admission?: Yes (3) Diabetic infection of right foot Is this a current diagnosis for this admission?: YesPlan: Continue IV antibiotic
[2016-07-29] MEDS: INSULIN LISPRO 100 UNIT/ML 3 ML VIAL SUBCUT PRN ×2 (17:39→22:52)
[2016-07-29] MEDS: DAPTOMYCIN 500 MG in NORMAL SALINE 50 ML IV SCH (22:52)
[2016-07-29] MEDS: INSULIN GLARGINE,HUM.REC.ANLOG 300 UNIT/3 ML INSULN.PEN SUBCUT SCH (22:52)
[2016-07-29] MEDS: NORMAL SALINE 10 ML SDV (AFTER EACH USE) IV PRN ×2 (22:52→23:54)
[2016-07-30] MEDS: AZTREONAM 1 GM in DEXTROSE 5%-WATER 50 ML IV SCH ×3 (06:54→22:56)
[2016-07-30 07:45] LABS: ABSOLUTE BASOPHILS # (AUTO) 0.1 10^3/uL (0.0-0.2); ABSOLUTE EOSINOPHILS # (AUTO) 0.4 10^3/uL (0.0-0.6); ABSOLUTE LYMPHOCYTES (AUTO) 2.7 10^3/uL (0.5-4.7); ABSOLUTE MONOCYTES (AUTO) 1.2 10^3/uL (0.1-1.4); ABSOLUTE NEUT (AUTO) 11.8 10^3/uL (1.7-8.2); BASOPHILS % (AUTO) 0.6 % (0-2); EOSINOPHILS % (AUTO) 2.7 % (0-6); HEMATOCRIT 27.4 % (36.0-47.0); HEMOGLOBIN 8.4 g/dL (12.0-15.5); HGB HCT DIFFERENCE -2.2; LYMPHOCYTES % (AUTO) 16.4 % (13-45); MEAN CORPUSCULAR HEMOGLOBIN 23.8 pg (27.0-33.4); MEAN CORPUSCULAR HGB CONC 30.8 g/dL (32.0-36.0); MEAN CORPUSCULAR VOLUME 78 fl (80-97); MONOCYTES % (AUTO) 7.6 % (3-13); RED BLOOD COUNT 3.54 10^6/uL (3.72-5.28); RED CELL DISTRIBUTION WIDTH 14.2 % (11.5-14.0); SEGMENTED NEUTROPHILS % (AUTO) 72.7 % (42-78); WHITE BLOOD COUNT 16.3 10^3/uL (4.0-10.5)
[2016-07-30 08:01] LABS: ANION GAP 10 (5-19); BLOOD UREA NITROGEN 12 mg/dL (7-20); CALCIUM 9.3 mg/dL (8.4-10.2); CARBON DIOXIDE 27 mmol/L (22-30); CHLORIDE 104 mmol/L (98-107); CREATININE RESULT 0.61 mg/dL (0.52-1.25); GLUCOSE 192 mg/dL (75-110); POTASSIUM 4.3 mmol/L (3.6-5.0); SODIUM 140.9 mmol/L (137-145)
[2016-07-30] MEDS: ENOXAPARIN SODIUM INJ 40 MG/0.4 ML DISP.SYRIN SUBCUT SCH (10:23)
[2016-07-30] MEDS: INSULIN LISPRO 100 UNIT/ML 3 ML VIAL SUBCUT PRN ×4 (10:23→22:56)
[2016-07-30] MEDS: NORMAL SALINE 10 ML SDV (SCHEDULED) IV SCH ×2 (10:24→21:43)
--- NOTE | 2016-07-30 13:50 | PDOC PROGRESS REPORT ---
Subjective Progress Note for:: 07/30/16 Subjective:: Patient continue to demonstrate low grade fever. She remain on IV Daptomycin and Aztreonam. Denied chills, chest pain or difficulty with breathing. No nausea r vomiting.. No abdominal pain. Tolerating oral feeding. Right foot diabetic foot ulcer with osteomyelitis continue to show deterioration with persistent leukocytosis. Physical Exam Vital Signs: Temp Pulse Resp BP Pulse Ox 98.2 F 94 16 120/53 L 96 07/30/16 11:51 07/30/16 11:51 07/30/16 11:51 07/30/16 11:51 07/30/16 11:51 Intake & Output 07/29/16 07/30/16 07/31/16 06:59 06:59 06:59 Intake Total 300 2001 Balance 300 2001 Weight 101.8 kg 102.5 kg General appearance: PRESENT: no acute distress, cooperative, obese Head exam: PRESENT: atraumatic, normocephalic Eye exam: PRESENT: conjunctiva pink, EOMI, PERRLA. ABSENT: scleral icterus Respiratory exam: ABSENT: accessory muscle use, chest wall tenderness, clear to auscultation richard, crackles, decreased breath sounds, prolonged expiratory phas, rales, retraction, rhonchi, stridor, symmetrical, tachypnea, unlabored, wheezes , other Cardiovascular exam: PRESENT: RRR. ABSENT: diastolic murmur, rubs, systolic murmur GI/Abdominal exam: PRESENT: normal bowel sounds, soft. ABSENT: distended, guarding, mass, organolmegaly, rebound, tenderness Musculoskeletal exam: PRESENT: deformity - with right foot diabetic ulcer with 4th toe osteomyelitis and MT fracture as per MRI findings., full ROM Neurological exam: PRESENT: alert, awake, oriented to person, oriented to place , oriented to time, oriented to situation, CN II-XII grossly intact. ABSENT: motor sensory deficit Psychiatric exam: PRESENT: appropriate affect, normal mood. 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 Results Laboratory Results: 07/30/16 07:26 07/30/16 07:26 07/30/16 07/30/16 07:26 07:26 WBC 16.3 H RBC 3.54 L Hgb 8.4 L Hct 27.4 L MCV 78 L MCH 23.8 L MCHC 30.8 L RDW 14.2 H Plt Count 400 Seg Neutrophils % 72.7 Lymphocytes % 16.4 Monocytes % 7.6 Eosinophils % 2.7 Basophils % 0.6 Absolute Neutrophils 11.8 H Absolute Lymphocytes 2.7 Absolute Monocytes 1.2 Absolute Eosinophils 0.4 Absolute Basophils 0.1 Sodium 140.9 Potassium 4.3 Chloride 104 Carbon Dioxide 27 Anion Gap 10 BUN 12 Creatinine 0.61 Est GFR ( Amer) > 60 Est GFR (Non-Af Amer) > 60 Glucose 192 H Calcium 9.3 Impressions: Lower Extremity MRI 07/28/16 00:00 IMPRESSION: Osteomyelitis pattern of the right 4th proximal phalanx. Defect/ fracture of the distal right 4th metatarsal diaphysis. Partial resection of the right 5th digit. Current x-ray correlation recommended for increased sensitivity/specificity. Assessment & Plan - Diagnosis (1) Diabetes mellitus type 2 in obese Is this a current diagnosis for this admission?: YesPlan: Adjust medication management to improve glycemic control. (2) Diabetic infection of right foot Is this a current diagnosis for this admission?: YesPlan: Patient will continue with current medical management with consideration of transmetatarsal amputation of right foot by surgical team. (3) Peripheral vascular disease in diabetes mellitus Is this a current diagnosis for this admission?: YesPlan: This may be impediment to healing with regard to her osteomyelitis. In view of clinical status of the wound surgical team consider right foot MT amputation. (4) Cellulitis and abscess of foot Is this a current diagnosis for this admission?: YesPlan: Maintain on Daptomycin and Aztreonam. Start on Bactrim DS 1 tablet p.o bid in view of sensitivity report and persistent leukocytosis. - Time Time Spent with patient: 25-34 minutes Medications reviewed and adjusted accordingly: Yes Anticipated discharge: Home with Homehealth Within: Other - Inpatient Certification Medical Necessity: Need Close Monitoring Due to Risk of Patient Decompensation, Need For IV Fluids, Need for IV Antibiotics, Need for Surgery, Risk of Diagnosis Which Will Require Inpatient Eval/Care/Monitoring Post Hospital Care: D/C Sofa Back Upholsterer Documentation - Plan Summary Plan Summary: See covering attending physician orders.
--- NOTE | 2016-07-30 15:37 | PDOC PROGRESS REPORT ---
Subjective Progress Note for:: 07/30/16 Physical Exam Vital Signs: Temp Pulse Resp BP Pulse Ox 98.2 F 97 16 120/53 L 96 07/30/16 11:51 07/30/16 14:00 07/30/16 11:51 07/30/16 11:51 07/30/16 11:51 Intake & Output 07/29/16 07/30/16 07/31/16 06:59 06:59 06:59 Intake Total 300 2001 Balance 300 2001 Weight 101.8 kg 102.5 kg Extremities exam: PRESENT: calf tenderness, clubbing - Right foot lateral aspect - necrotic soft tissue with purulent drainage present., full ROM, joint swelling, pedal edema, tenderness, +1 edema, +2 edema, other Results Laboratory Results: 07/30/16 07:26 07/30/16 07:26 07/30/16 07/30/16 07:26 07:26 WBC 16.3 H RBC 3.54 L Hgb 8.4 L Hct 27.4 L MCV 78 L MCH 23.8 L MCHC 30.8 L RDW 14.2 H Plt Count 400 Seg Neutrophils % 72.7 Lymphocytes % 16.4 Monocytes % 7.6 Eosinophils % 2.7 Basophils % 0.6 Absolute Neutrophils 11.8 H Absolute Lymphocytes 2.7 Absolute Monocytes 1.2 Absolute Eosinophils 0.4 Absolute Basophils 0.1 Sodium 140.9 Potassium 4.3 Chloride 104 Carbon Dioxide 27 Anion Gap 10 BUN 12 Creatinine 0.61 Est GFR ( Amer) > 60 Est GFR (Non-Af Amer) > 60 Glucose 192 H Calcium 9.3 Impressions: Lower Extremity MRI 07/28/16 00:00 IMPRESSION: Osteomyelitis pattern of the right 4th proximal phalanx. Defect/ fracture of the distal right 4th metatarsal diaphysis. Partial resection of the right 5th digit. Current x-ray correlation recommended for increased sensitivity/specificity. Assessment & Plan - Diagnosis (1) Cellulitis and abscess of foot Is this a current diagnosis for this admission?: YesPlan: Necrotic soft tissue furtther - sharp excisional debridement of the necrotic soft tissue done up to the fascial level. Wound irrigated and dressings applied. No improvement - with underlying osteomylitis - therefore will plan trans metatorsal amputation of right foot.
[2016-07-30] MEDS: INSULIN LISPRO 100 UNIT/ML 3 ML VIAL SUBCUT SCH (16:52)
[2016-07-30] MEDS: SULFAMETHOXAZOLE/TRIMETHOPRIM 800-160 MG TABLET PO SCH (16:53)
[2016-07-30] MEDS: DAPTOMYCIN 500 MG in NORMAL SALINE 50 ML IV SCH (21:41)
[2016-07-30] MEDS: INSULIN GLARGINE,HUM.REC.ANLOG 300 UNIT/3 ML INSULN.PEN SUBCUT SCH (21:41)
[2016-07-31] MEDS: NORMAL SALINE 10 ML SDV (AFTER EACH USE) IV PRN ×2 (00:05→23:42)
[2016-07-31] MEDS: AZTREONAM 1 GM in DEXTROSE 5%-WATER 50 ML IV SCH ×3 (06:40→22:06)
[2016-07-31 07:09] LABS: HEMATOCRIT 26.7 % (36.0-47.0); HEMOGLOBIN 8.4 g/dL (12.0-15.5); HGB HCT DIFFERENCE -1.5; MEAN CORPUSCULAR HEMOGLOBIN 24.5 pg (27.0-33.4); MEAN CORPUSCULAR HGB CONC 31.4 g/dL (32.0-36.0); MEAN CORPUSCULAR VOLUME 78 fl (80-97); RED BLOOD COUNT 3.42 10^6/uL (3.72-5.28); RED CELL DISTRIBUTION WIDTH 14.4 % (11.5-14.0); WHITE BLOOD COUNT 16.9 10^3/uL (4.0-10.5)
[2016-07-31 07:28] LABS: ANION GAP 9 (5-19); BLOOD UREA NITROGEN 13 mg/dL (7-20); CARBON DIOXIDE 26 mmol/L (22-30); CHLORIDE 102 mmol/L (98-107); CREATININE RESULT 0.72 mg/dL (0.52-1.25); GLUCOSE 208 mg/dL (75-110); POTASSIUM 4.6 mmol/L (3.6-5.0); SODIUM 137.1 mmol/L (137-145)
[2016-07-31] MEDS: SULFAMETHOXAZOLE/TRIMETHOPRIM 800-160 MG TABLET PO SCH ×2 (09:41→17:20)
[2016-07-31] MEDS: NORMAL SALINE 10 ML SDV (SCHEDULED) IV SCH ×2 (09:42→22:05)
[2016-07-31] MEDS: INSULIN LISPRO 100 UNIT/ML 3 ML VIAL SUBCUT SCH ×3 (09:42→17:29)
[2016-07-31] MEDS: ENOXAPARIN SODIUM INJ 40 MG/0.4 ML DISP.SYRIN SUBCUT SCH (09:42)
[2016-07-31] MEDS ORDERED: FENTANYL CITRATE INJ/PF 100 MCG/2 ML AMPUL IV PRN ×3 (11:32)
[2016-07-31] MEDS ORDERED: PROMETHAZINE HCL INJ 25 MG/1 ML VIAL IV PRN ×2 (11:32)
[2016-07-31] MEDS ORDERED: DIPHENHYDRAMINE HCL 50 MG/ML VIAL IV PRN (11:32)
[2016-07-31] MEDS ORDERED: MEPERIDINE HCL/PF INJ 25 MG/1 ML DISP.SYRIN IV PRN (11:32)
[2016-07-31] MEDS ORDERED: MORPHINE SULFATE 10 MG/ML INJ IV PRN (11:32)
[2016-07-31] MEDS ORDERED: FENTANYL CITRATE INJ/PF 100 MCG/2 ML AMPUL ONE (12:19)
[2016-07-31] MEDS ORDERED: PROPOFOL INJ 200 MG/20 ML VIAL IV ONE (12:20)
[2016-07-31] MEDS ORDERED: MIDAZOLAM 2 MG/2 ML INJ ONE (12:20)
[2016-07-31] MEDS ORDERED: LIDOCAINE 1% INJ-PF (10 MG/ML) 30 ML SDV ONE (12:36)
--- NOTE | 2016-07-31 13:28 | PDOC PROGRESS REPORT ---
Subjective Progress Note for:: 07/31/16 Subjective:: Patient continue to demonstrate low grade fever this morning. She remain on Bactrim DS, IV Daptomycin and Aztreonam. She is schedule for right foot transmetatrtal amputation today by the surgicalist. Denied difficulty with breathing or chest pain. No nausea or vomiting. No abdominal pain. She remain NPO. Physical Exam Vital Signs: Temp Pulse Resp BP Pulse Ox 98.9 F 94 17 134/52 H 98 07/31/16 10:54 07/31/16 10:54 07/31/16 07:44 07/31/16 10:54 07/31/16 10:54 Intake & Output 07/30/16 07/31/16 08/01/16 06:59 06:59 06:59 Intake Total 2001 1142 Balance 2001 1142 Weight 102.5 kg 102.5 kg Physical Exam: General appearance: PRESENT: no acute distress, cooperative, obese Head exam: PRESENT: atraumatic, normocephalic Eye exam: PRESENT: conjunctiva pink, EOMI, PERRLA. ABSENT: scleral icterus Respiratory exam: ABSENT: accessory muscle use, chest wall tenderness, clear to auscultation richard, crackles, decreased breath sounds, prolonged expiratory phas, rales, retraction, rhonchi, stridor, symmetrical, tachypnea, unlabored, wheezes , other Cardiovascular exam: PRESENT: RRR. ABSENT: diastolic murmur, rubs, systolic murmur GI/Abdominal exam: PRESENT: normal bowel sounds, soft. ABSENT: distended, guarding, mass, organolmegaly, rebound, tenderness Musculoskeletal exam: PRESENT: deformity - with right foot diabetic ulcer with 4th toe osteomyelitis and MT fracture as per MRI findings., full ROM Neurological exam: PRESENT: alert, awake, oriented to person, oriented to place , oriented to time, oriented to situation, CN II-XII grossly intact. ABSENT: motor sensory deficit Psychiatric exam: PRESENT: appropriate affect, normal mood. ABSENT: homicidal ideation, suicidal ideation Skin exam: PRESENT: dry, warm, other - Right foot diabetic ulcer with osteomyelitis improving status as per my discussion with exceptional children's teacher surgicalist. Results Laboratory Results: 07/31/16 06:49 07/31/16 06:49 07/31/16 07/31/16 06:49 06:49 WBC 16.9 H RBC 3.42 L Hgb 8.4 L Hct 26.7 L MCV 78 L MCH 24.5 L MCHC 31.4 L RDW 14.4 H Plt Count 402 Sodium 137.1 Potassium 4.6 Chloride 102 Carbon Dioxide 26 Anion Gap 9 BUN 13 Creatinine 0.72 Est GFR ( Amer) > 60 Est GFR (Non-Af Amer) > 60 Glucose 208 H Calcium 9.0 Impressions: Lower Extremity MRI 07/28/16 00:00 IMPRESSION: Osteomyelitis pattern of the right 4th proximal phalanx. Defect/ fracture of the distal right 4th metatarsal diaphysis. Partial resection of the right 5th digit. Current x-ray correlation recommended for increased sensitivity/specificity. Assessment & Plan - Diagnosis (1) Diabetes mellitus type 2 in obese Is this a current diagnosis for this admission?: YesPlan: Continue on medication management. Monitor glycemic control and adjust dosages as needed for better wound healing. (2) Diabetic infection of right foot Is this a current diagnosis for this admission?: YesPlan: Continue with current medical management and follow up post MT amputation. (3) Peripheral vascular disease in diabetes mellitus Is this a current diagnosis for this admission?: Yes (4) Cellulitis and abscess of foot Is this a current diagnosis for this admission?: YesPlan: Maintain on Bactrim DS, Daptomycin and Aztreonam therapy. - Time Time Spent with patient: 25-34 minutes Medications reviewed and adjusted accordingly: Yes Anticipated discharge: Other Within: Other - Inpatient Certification Medical Necessity: Need Close Monitoring Due to Risk of Patient Decompensation, Need For IV Fluids, Need for Pain Control, Need for IV Antibiotics, Risk of Complication if Not Cared For in Hospital Post Hospital Care: D/C Financial Coordinator Documentation - Plan Summary Plan Summary: See covering attending physician orders.
[2016-07-31] MEDS ORDERED: ACETAMINOPHEN 100 ML IV ONE (13:48)
[2016-07-31] MEDS ORDERED: OXYCODONE-ACETAMINOPHEN 5-325 MG TABLET PO PRN (14:20)
[2016-07-31] MEDS ORDERED: OXYCODONE HCL IR 5 MG TABLET PO PRN (14:20)
[2016-07-31] MEDS ORDERED: NORMAL SALINE 1000 ML 1,000 ML IV ONE (17:00)
--- NOTE | 2016-07-31 17:38 | EKG REPORT ---
SEVERITY:- ABNORMAL ECG - SINUS RHYTHM ABNRM R PROG, CONSIDER ASMI OR LEAD PLACEMENT : Confirmed by: Latrell Coleman MD 31-Jul-2016 17:37:48
[2016-07-31] MEDS: INSULIN GLARGINE,HUM.REC.ANLOG 300 UNIT/3 ML INSULN.PEN SUBCUT SCH (22:05)
[2016-07-31] MEDS: INSULIN LISPRO 100 UNIT/ML 3 ML VIAL SUBCUT PRN (22:05)
[2016-07-31] MEDS: DAPTOMYCIN 500 MG in NORMAL SALINE 50 ML IV SCH (22:56)
[2016-08-01] MEDS: AZTREONAM 1 GM in DEXTROSE 5%-WATER 50 ML IV SCH ×3 (05:13→22:44)
[2016-08-01] MEDS: NORMAL SALINE 10 ML SDV (AFTER EACH USE) IV PRN (07:19)
[2016-08-01] MEDS: DOCUSATE SODIUM 100 MG CAPSULE PO SCH (09:50)
[2016-08-01] MEDS: SULFAMETHOXAZOLE/TRIMETHOPRIM 800-160 MG TABLET PO SCH ×2 (09:51→18:05)
[2016-08-01] MEDS: ENOXAPARIN SODIUM INJ 40 MG/0.4 ML DISP.SYRIN SUBCUT SCH (09:51)
[2016-08-01] MEDS: NORMAL SALINE 10 ML SDV (SCHEDULED) IV SCH ×2 (09:53→22:00)
[2016-08-01] MEDS: INSULIN LISPRO 100 UNIT/ML 3 ML VIAL SUBCUT SCH ×3 (09:58→18:06)
--- NOTE | 2016-08-01 10:20 | PDOC PROGRESS REPORT ---
Subjective Progress Note for:: 08/01/16 Subjective:: Patient having minimal pain in right foot. Dressing drained, and reinforced overnight. Physical Exam Vital Signs: Temp Pulse Resp BP Pulse Ox 98.9 F 88 20 116/64 98 08/01/16 08:54 08/01/16 08:54 08/01/16 08:54 08/01/16 08:54 08/01/16 08:54 Intake & Output 07/31/16 08/01/16 08/02/16 06:59 06:59 06:59 Intake Total 1142 2445 Output Total 25 Balance 1142 2420 Weight 102.5 kg 103 kg General appearance: PRESENT: no acute distress Extremities exam: PRESENT: other - Right lower extremity examined. There is a strong femoral pulse; I cannot palpate a popliteal pulse. Moderate edema to the right foot. Dressing removed. Operative wound exposing the lateral half of the foot with toes 1 and 2 intact. Foul smell or active drainage. I smashed on the foot and expressed no added Of concern is the central plantar skin flap and deeper tissue which has a pale appearance. There is no a sending cellulitis. Results Laboratory Results: 07/31/16 06:49 07/31/16 06:49 Surgeon addendum: Patient right foot wound growing gram-negative rods. Impressions: Lower Extremity MRI 07/28/16 00:00 IMPRESSION: Osteomyelitis pattern of the right 4th proximal phalanx. Defect/ fracture of the distal right 4th metatarsal diaphysis. Partial resection of the right 5th digit. Current x-ray correlation recommended for increased sensitivity/specificity. Assessment & Plan - Diagnosis (1) Diabetic infection of right foot Is this a current diagnosis for this admission?: YesPlan: 1. Patient is one day postoperative extensive reprint of right foot including partial transmetatarsal amputation including rays 2, 3 and 4. This is a complex soft tissue and bony infection growing gram-negative rods. The open wound looks clean, and in no immediate need of additional debridement today. However, of concern, is the large plantar soft tissue flap which bears very close monitoring; additional debridement may be required. 2. Patient has a history of severe peripheral vascular disease. She is status post left AKA, stent placement right femoral artery, and still right infrageniculate stenting by Dr. Barnett in [place]. The last procedure was performed last month. I believe the patient has adequate blood flow to heal this wound by secondary intention. Hopefully a wound VAC can be applied in the next 24-48 hours. - Time Time Spent with patient: 15-24 minutes
--- NOTE | 2016-08-01 10:50 | OPERATIVE REPORT E ---
Operative Report NAME: LAVELLE ARRIAZA : 1960 AGE: 56Y DATE OF SURGERY: 07/31/2016 ROOM: 413 PREOPERATIVE DIAGNOSIS: foot diabetes to with gangrene of fifth toe and possibly fourth toe with osteomyelitis. POSTOPERATIVE DIAGNOSIS: Osteomyelitis and diabetic process going up to the second toe and then along with the underlying necrotic soft tissue up to the fascial planes. OPERATION: Transmetatarsal amputation of most of the lateral aspect of the foot up to the 3 toes and the 3 metatarsal heads along with debridement with underlying necrotic tissue. SURGEON: ZEINA GALLARDO M.D. ANESTHESIA: Monitored anesthesia care. BLOOD LOSS: 40 mL. SPECIMENS: Lateral part of the foot along with metatarsal bones. HISTORY AND INDICATIONS: Patient is a diabetic who has been having recurrent infections, diabetic feet abscesses, finally developed osteomyelitis, chronic draining operation before but the wound continued to have continuous drainage of purulent material along with soft tissue underlying necrosis with extension that needed to be debrided, and also because of osteomyelitis, metatarsal bones needed to be resected. PROCEDURE: The patient was placed in supine position and had monitored anesthesia care. foot was cleaned and dressed creating a sterile field. Then an elliptical incision was made initially to take care of the fifth metatarsal bone only, but further extension revealed extension of the necrotic process up to the fourth toe and the third. So all the 3 toes metatarsal heads were taken along with fourth toe and third also resected. Underlying necrotic tissue was debrided up to the healthy margins. Then the wound was copiously irrigated and suctioned out, completely thoroughly hemostatic. All the dressings were applied. Patient to sterile condition. DICTATING PHYSICIAN: ZEINA GALLARDO M.D. [id number] PHY#: [id number] ID: [id number] JOB#: [id number] ACCT: [id number] cc:ZEINA GALLARDO M.D. > MTDD
[2016-08-01] MEDS: INSULIN LISPRO 100 UNIT/ML 3 ML VIAL SUBCUT PRN ×3 (11:39→23:05)
--- NOTE | 2016-08-01 21:56 | PDOC PROGRESS REPORT ---
Subjective Progress Note for:: 08/01/16 Subjective:: Patient was seen by the bedside, she had amputation of 3 toes over the weekend. Physical Exam Vital Signs: Temp Pulse Resp BP Pulse Ox 98.9 F 97 20 116/64 98 08/01/16 08:54 08/01/16 14:00 08/01/16 08:54 08/01/16 08:54 08/01/16 08:54 Intake & Output 07/31/16 08/01/16 08/02/16 06:59 06:59 06:59 Intake Total 1142 2445 220 Output Total 25 Balance 1142 2420 220 Weight 102.5 kg 103 kg General appearance: PRESENT: no acute distress Eye exam: PRESENT: PERRLA Respiratory exam: PRESENT: clear to auscultation richard Cardiovascular exam: PRESENT: +S1, +S2 GI/Abdominal exam: PRESENT: soft Neurological exam: PRESENT: alert Results Laboratory Results: 07/31/16 06:49 07/31/16 06:49 Impressions: Lower Extremity MRI 07/28/16 00:00 IMPRESSION: Osteomyelitis pattern of the right 4th proximal phalanx. Defect/ fracture of the distal right 4th metatarsal diaphysis. Partial resection of the right 5th digit. Current x-ray correlation recommended for increased sensitivity/specificity. Assessment & Plan - Diagnosis (1) Sepsis Qualifiers: Sepsis type: sepsis due to unspecified organism Qualified Code(s): A41.9 - Sepsis, unspecified organism Is this a current diagnosis for this admission?: Yes (2) Diabetes mellitus type 2 in nonobese Is this a current diagnosis for this admission?: Yes (3) Diabetic infection of right foot Is this a current diagnosis for this admission?: Yes
[2016-08-01] MEDS: DAPTOMYCIN 500 MG in NORMAL SALINE 50 ML IV SCH (22:44)
[2016-08-01] MEDS: INSULIN GLARGINE,HUM.REC.ANLOG 300 UNIT/3 ML INSULN.PEN SUBCUT SCH (23:04)
[2016-08-02] MEDS: AZTREONAM 1 GM in DEXTROSE 5%-WATER 50 ML IV SCH ×3 (05:11→21:55)
[2016-08-02] MEDS: ENOXAPARIN SODIUM INJ 40 MG/0.4 ML DISP.SYRIN SUBCUT SCH (08:31)
[2016-08-02] MEDS: INSULIN LISPRO 100 UNIT/ML 3 ML VIAL SUBCUT PRN ×3 (08:31→21:55)
[2016-08-02] MEDS: INSULIN LISPRO 100 UNIT/ML 3 ML VIAL SUBCUT SCH ×3 (08:31→17:29)
[2016-08-02] MEDS: SULFAMETHOXAZOLE/TRIMETHOPRIM 800-160 MG TABLET PO SCH ×2 (09:26→17:30)
[2016-08-02] MEDS: NORMAL SALINE 10 ML SDV (SCHEDULED) IV SCH ×2 (09:26→21:55)
[2016-08-02] MEDS: DOCUSATE SODIUM 100 MG CAPSULE PO SCH (09:26)
--- NOTE | 2016-08-02 17:24 | PDOC PROGRESS REPORT ---
Subjective Subjective:: Denies fevers or chills. Was able to ambulate bathroom earlier. Some pain with ambulation otherwise no complaints. Physical Exam Vital Signs: Temp Pulse Resp BP Pulse Ox 98.5 F 80 18 131/53 H 99 08/02/16 00:00 08/02/16 13:43 08/02/16 00:00 08/02/16 00:00 08/02/16 00:00 Intake & Output 08/01/16 08/02/16 08/03/16 06:59 06:59 06:59 Intake Total 2445 470 Output Total 25 Balance 2420 470 Weight 103 kg 105.2 kg General appearance: PRESENT: no acute distress Head exam: PRESENT: normocephalic Extremities exam: PRESENT: other - Status post right third fourth and fifth toe amputation. Dressing removed. Wound care: Wound is cleansed with hydrogen peroxide and gauze. The wound base has early granulation tissue and good blood supply. Wound is redressed with Xeroform gauze, 4 x 4's, ABD, and Kerlix roll. No significant erythema or induration. Minimal edema. Neurological exam: PRESENT: alert, oriented to situation Psychiatric exam: PRESENT: normal mood Skin exam: ABSENT: erythema Results Laboratory Results: 07/31/16 06:49 07/31/16 06:49 07/31/16 13:02 Foot - Right Gram Stain - Final Impressions: Lower Extremity MRI 07/28/16 00:00 IMPRESSION: Osteomyelitis pattern of the right 4th proximal phalanx. Defect/ fracture of the distal right 4th metatarsal diaphysis. Partial resection of the right 5th digit. Current x-ray correlation recommended for increased sensitivity/specificity. Assessment & Plan - Diagnosis (1) Peripheral vascular disease in diabetes mellitus Is this a current diagnosis for this admission?: Yes (2) Cellulitis and abscess of foot Is this a current diagnosis for this admission?: YesPlan: Status post third fourth and fifth toe amp. Agree with continuing antibiotics. Will need social service manager to assist setting up home health care and wound VAC.
[2016-08-02] MEDS: INSULIN GLARGINE,HUM.REC.ANLOG 300 UNIT/3 ML INSULN.PEN SUBCUT SCH (21:55)
[2016-08-02] MEDS: DAPTOMYCIN 500 MG in NORMAL SALINE 50 ML IV SCH (22:40)
[2016-08-03] MEDS: AZTREONAM 1 GM in DEXTROSE 5%-WATER 50 ML IV SCH ×2 (05:34→14:08)
[2016-08-03] MEDS: ENOXAPARIN SODIUM INJ 40 MG/0.4 ML DISP.SYRIN SUBCUT SCH (09:08)
[2016-08-03] MEDS: INSULIN LISPRO 100 UNIT/ML 3 ML VIAL SUBCUT SCH ×3 (09:42→18:11)
[2016-08-03] MEDS: SULFAMETHOXAZOLE/TRIMETHOPRIM 800-160 MG TABLET PO SCH ×2 (09:43→18:21)
[2016-08-03] MEDS: INSULIN LISPRO 100 UNIT/ML 3 ML VIAL SUBCUT PRN ×2 (09:43→14:23)
[2016-08-03] MEDS: DOCUSATE SODIUM 100 MG CAPSULE PO SCH (09:43)
[2016-08-03] MEDS: NORMAL SALINE 10 ML SDV (SCHEDULED) IV SCH (09:44)
--- NOTE | 2016-08-03 12:41 | PDOC PROGRESS REPORT ---
Subjective Subjective:: Vac was placed. no complaints. Physical Exam Vital Signs: Temp Pulse Resp BP Pulse Ox 97.5 F 83 20 123/56 L 99 08/03/16 08:00 08/03/16 08:00 08/03/16 08:00 08/03/16 08:00 08/03/16 08:00 Intake & Output 08/02/16 08/03/16 08/04/16 06:59 06:59 06:59 Intake Total 470 1040 Balance 470 1040 Weight 105.2 kg 106.2 kg General appearance: PRESENT: no acute distress Head exam: PRESENT: normocephalic Extremities exam: PRESENT: other - vac in place with good seal. no erythema or induration surrounding wound. Neurological exam: PRESENT: alert, oriented to situation Psychiatric exam: PRESENT: appropriate affect, normal mood Results Laboratory Results: 07/31/16 06:49 07/31/16 06:49 07/31/16 13:02 Foot - Right Gram Stain - Final 07/31/16 13:02 Foot - Right Wound Culture - Final Proteus Mirabilis Mrsa (Meth Resis Staph Aureus) No Anaerobic Organisms Impressions: Lower Extremity MRI 07/28/16 00:00 IMPRESSION: Osteomyelitis pattern of the right 4th proximal phalanx. Defect/ fracture of the distal right 4th metatarsal diaphysis. Partial resection of the right 5th digit. Current x-ray correlation recommended for increased sensitivity/specificity. Assessment & Plan - Diagnosis (1) Peripheral vascular disease in diabetes mellitus Is this a current diagnosis for this admission?: Yes (2) Cellulitis and abscess of foot Is this a current diagnosis for this admission?: YesPlan: continue VAC. Home health care. Follow in wound care clinic within a week of discharge.
[2016-08-03] MEDS ORDERED: DOCUSATE SODIUM 100 MG CAPSULE PO PRN (15:15)
[2016-08-03] MEDS ORDERED: (PENDING PHARMACY ID) (Canagliflozin [Invokana] 300 MG) PO SCH (15:15)
--- NOTE | 2016-08-03 15:25 | PDOC PROGRESS REPORT ---
Subjective Progress Note for:: 08/09/16 Subjective:: Patient was admitted because of septic foot She is status post amputation of the toes, she has negative pressure wound VAC in place. Physical Exam Vital Signs: Temp Pulse Resp BP Pulse Ox 98.5 F 80 18 131/53 H 99 08/02/16 00:00 08/02/16 13:43 08/02/16 00:00 08/02/16 00:00 08/02/16 00:00 Intake & Output 08/01/16 08/02/16 08/03/16 06:59 06:59 06:59 Intake Total 2445 470 530 Output Total 25 Balance 2420 470 530 Weight 103 kg 105.2 kg General appearance: PRESENT: no acute distress Eye exam: PRESENT: PERRLA Respiratory exam: PRESENT: clear to auscultation richard Cardiovascular exam: PRESENT: +S1, +S2 GI/Abdominal exam: PRESENT: soft Neurological exam: PRESENT: alert Results Laboratory Results: 07/31/16 06:49 07/31/16 06:49 07/31/16 13:02 Foot - Right Gram Stain - Final Impressions: Lower Extremity MRI 07/28/16 00:00 IMPRESSION: Osteomyelitis pattern of the right 4th proximal phalanx. Defect/ fracture of the distal right 4th metatarsal diaphysis. Partial resection of the right 5th digit. Current x-ray correlation recommended for increased sensitivity/specificity. Assessment & Plan - Diagnosis (1) Sepsis Qualifiers: Sepsis type: sepsis due to unspecified organism Qualified Code(s): A41.9 - Sepsis, unspecified organism Is this a current diagnosis for this admission?: Yes (2) Diabetes mellitus type 2 in nonobese Is this a current diagnosis for this admission?: Yes (3) Diabetic infection of right foot Is this a current diagnosis for this admission?: Yes
[2016-08-03] MEDS ORDERED: LEVOTHYROXINE SODIUM 0.075 MG TABLET PO ONE (16:00)
--- NOTE | 2016-08-03 16:48 | PDOC DISCHARGE SUMMARY ---
General - Admit/Disc Date/PCP Admission Date/Primary Care Provider: 07/28/16 12:13 MARLENE CANNON MD Discharge Date: 08/03/16 - Discharge Diagnosis (1) Sepsis Is this a current diagnosis for this admission?: Yes (2) Diabetes mellitus type 2 in nonobese Is this a current diagnosis for this admission?: Yes (3) Diabetic infection of right foot Is this a current diagnosis for this admission?: Yes (4) Polymicrobial bacterial infection Is this a current diagnosis for this admission?: Yes (5) Osteomyelitis due to type 2 diabetes mellitus Is this a current diagnosis for this admission?: Yes (6) Osteomyelitis of right foot Is this a current diagnosis for this admission?: Yes (7) Acute osteomyelitis of metatarsal bone of right foot Is this a current diagnosis for this admission?: Yes (8) MRSA infection Is this a current diagnosis for this admission?: Yes (9) MRSA cellulitis of right foot Is this a current diagnosis for this admission?: Yes - Additional Information Resuscitation Status: Full Code Home Medications: Doxepin HCl 75 mg PO QHS 07/27/16 Insulin Glargine,Hum.rec.anlog [Lantus Solostar] 50 units SQ QHS 07/27/16 Insulin Lispro [Humalog Kwikpen U-100] 0 units SQ ASDIR PRN 07/27/16 Amlodipine Besylate [Norvasc 10 mg Tablet] 10 mg PO DAILY 08/03/16 Canagliflozin [Invokana] 300 mg PO DAILY 08/03/16 Docusate Sodium [Colace 100 mg Capsule] 100 mg PO BIDP PRN 08/03/16 Gabapentin [Neurontin 100 mg Capsule] 100 mg PO Q8 08/03/16 Levothyroxine Sodium [Synthroid 0.075 mg Tablet] 0.075 mg PO DAILY 08/03/16 Lisinopril [Prinivil 40 mg Tablet] 40 mg PO DAILY 08/03/16 Metformin HCl [Glucophage] 1,000 mg PO BIDBS 08/03/16 Pravastatin Sodium [Pravachol] 80 mg PO QHS 08/03/16 Sulfamethoxazole/Trimethoprim [Septra-Ds 800-160 mg Tablet] 1 tab PO BID #14 tablet 08/03/16 History of Present Illness History of Present Illness: Patient 56-year-old female with history of diabetes mellitus complicated with peripheral vascular disease, she is status post left [id number] amputation. She has history of peripheral vascular disease affecting the right lower extremity, she had stenting of the right lower extremity twice in [place]. She just recently had stent placement December 2016, she has a right foot ulcer and she follows in the wound clinic and she recently had the right fifth toe amputated, blood was drawn in the clinic and she was found to have leukocytosis with WBC over 20,000, she was referred to emergency room for evaluation, she was in the emergency room, evaluated and advised hospital admission. She has allergy reaction to penicillin, she be treated with aztreonam and probably add vancomycin to the regimen. Hospital Course Hospital Course: Patient was admitted because of severe sepsis due to osteomyelitis of the right diabetic foot, she was treated with IV antibiotic empirically with daptomycin and aztreonam. Because she has allergy to penicillin drug. The culture from the wound grew MRSA and Proteus. The MRSA and Proteus, both sensitive to Bactrim. She was seen by the surgeon and she underwent trans-met that Her amputation of multiple toes in the right foot, she now have a wound VAC in place Physical Exam Vital Signs: Temp Pulse Resp BP Pulse Ox 97.5 F 83 20 123/56 L 99 08/03/16 08:00 08/03/16 08:00 08/03/16 08:00 08/03/16 08:00 08/03/16 08:00 Intake & Output 08/02/16 08/03/16 08/04/16 06:59 06:59 06:59 Intake Total 470 1040 Balance 470 1040 Weight 105.2 kg 106.2 kg General appearance: PRESENT: no acute distress Eye exam: PRESENT: PERRLA Respiratory exam: PRESENT: clear to auscultation richard Cardiovascular exam: PRESENT: +S1, +S2 GI/Abdominal exam: PRESENT: soft Neurological exam: PRESENT: alert, CN II-XII grossly intact Results Laboratory Results: 07/31/16 06:49 07/31/16 06:49 07/31/16 13:02 Foot - Right Gram Stain - Final 07/31/16 13:02 Foot - Right Wound Culture - Final Proteus Mirabilis Mrsa (Meth Resis Staph Aureus) No Anaerobic Organisms Impressions: Lower Extremity MRI 07/28/16 00:00 IMPRESSION: Osteomyelitis pattern of the right 4th proximal phalanx. Defect/ fracture of the distal right 4th metatarsal diaphysis. Partial resection of the right 5th digit. Current x-ray correlation recommended for increased sensitivity/specificity.
[2016-08-03] MEDS ORDERED: METFORMIN HCL 500 MG TABLET PO SCH (17:00)
[2016-08-03 17:38] VITALS: BP 134/52
[2016-08-03] MEDS ORDERED: AMLODIPINE BESYLATE 10 MG TABLET PO SCH (18:00)
[2016-08-03] MEDS ORDERED: GABAPENTIN 100 MG CAPSULE PO SCH (22:00)
[2016-08-03] MEDS ORDERED: ATORVASTATIN CALCIUM 20 MG TABLET PO SCH (22:00)
[2016-08-03] MEDS ORDERED: (PENDING PHARMACY ID) (Doxepin Hcl [Doxepin Hcl] 75 MG) PO SCH (22:00)
[2016-08-03] MEDS ORDERED: DOXEPIN HCL 25 MG CAPSULE PO SCH (22:00)
[2016-08-04] MEDS ORDERED: LISINOPRIL 10 MG TABLET PO SCH (10:00)
[2016-08-04] MEDS ORDERED: LEVOTHYROXINE SODIUM 0.075 MG TABLET PO SCH (10:00)
== END 2016-08-03 20:30 | disposition home health service (06) | DRG 854 ==
LOC: ER 10:45 → UNDOADMOB 15:45 → EH 15:45 → 4N 19:03 → OBSVTOIN 07-28 12:13
PROVIDERS: ADMIT Internal Medicine; ATTEND Internal Medicine
PROC: 0Y6M0ZD Detachment at Right Foot, Partial 4th Ray, Open Approach (ICD-10-PCS; 2016-07-31)
PROC: 0Y6M0ZF Detachment at Right Foot, Partial 5th Ray, Open Approach (ICD-10-PCS; 2016-07-31)
PROC: 0Y6M0ZC Detachment at Right Foot, Partial 3rd Ray, Open Approach (ICD-10-PCS; principal; 2016-07-31 12:30)
DX: A41.9 Sepsis, unspecified organism (principal); M86.171 Other acute osteomyelitis, right ankle and foot; L03.115 Cellulitis of right lower limb; E11.69 Type 2 diabetes mellitus with other specified complication; E11.51 Type 2 diabetes mellitus with diabetic peripheral angiopathy without gangrene; E78.5 Hyperlipidemia, unspecified; K21.9 Gastro-esophageal reflux disease without esophagitis; M19.90 Unspecified osteoarthritis, unspecified site; E11.621 Type 2 diabetes mellitus with foot ulcer; L97.514 Non-pressure chronic ulcer of other part of right foot with necrosis of bone; E03.9 Hypothyroidism, unspecified; E11.628 Type 2 diabetes mellitus with other skin complications; B96.4 Proteus (mirabilis) (morganii) as the cause of diseases classified elsewhere; B95.62 Methicillin resistant Staphylococcus aureus infection as the cause of diseases classified elsewhere; Z79.4 Long term (current) use of insulin; Z88.0 Allergy status to penicillin; Z88.8 Allergy status to other drugs, medicaments and biological substances; Z86.73 Personal history of transient ischemic attack (TIA), and cerebral infarction without residual deficits; Z89.612 Acquired absence of left leg above knee; Z89.421 Acquired absence of other right toe(s); Z87.891 Personal history of nicotine dependence
CPT/HCPCS: 01480; 36415; 76937; 77001; 80048; 80053; 82962; 83036; 83605; 84439; 84443; 85025; 85027; 85652; 86140; 87040; 87070; 87075; 87077; 87186; 87205; 88305; 88311; 93005; 93010; 99284; A9576; G0378; J0131; J0878; J1642; J1650; J1815; J2250; J2405; J2704; J2765; J3010; J3480; J3490; J7030

== ENCOUNTER 2016-08-22 17:01 | Inpatient (IN) | payer MEDICAID, MEDICARE ==
[2016-08-22] MEDS ORDERED: AZTREONAM INJ 1 GM VIAL IV ONE (17:10)
[2016-08-22] MEDS ORDERED: VANCOMYCIN HCL INJ 1000 MG VIAL IV ONE (17:10)
[2016-08-22 17:37] LABS: ABSOLUTE BASOPHILS # (AUTO) 0.1 10^3/uL (0.0-0.2); ABSOLUTE EOSINOPHILS # (AUTO) 0.1 10^3/uL (0.0-0.6); ABSOLUTE LYMPHOCYTES (AUTO) 1.7 10^3/uL (0.5-4.7); ABSOLUTE MONOCYTES (AUTO) 0.7 10^3/uL (0.1-1.4); ABSOLUTE NEUT (AUTO) 10.8 10^3/uL (1.7-8.2); BASOPHILS % (AUTO) 0.7 % (0-2); EOSINOPHILS % (AUTO) 0.7 % (0-6); HEMATOCRIT 28.5 % (36.0-47.0); HGB HCT DIFFERENCE -1.5; LYMPHOCYTES % (AUTO) 12.4 % (13-45); MEAN CORPUSCULAR HEMOGLOBIN 24.2 pg (27.0-33.4); MEAN CORPUSCULAR HGB CONC 31.5 g/dL (32.0-36.0); MEAN CORPUSCULAR VOLUME 77 fl (80-97); MONOCYTES % (AUTO) 5.5 % (3-13); RED BLOOD COUNT 3.72 10^6/uL (3.72-5.28); RED CELL DISTRIBUTION WIDTH 15.8 % (11.5-14.0); SEGMENTED NEUTROPHILS % (AUTO) 80.7 % (42-78); WHITE BLOOD COUNT 13.3 10^3/uL (4.0-10.5)
[2016-08-22] MEDS ORDERED: NORMAL SALINE 1000 ML 1,000 ML IV PRN (17:39)
[2016-08-22 17:48] LABS: PROTHROMBIN TIME 14.1 SEC (11.4-15.4)
[2016-08-22 17:53] LABS: ALANINE AMINOTRANSFERASE 27 U/L (9-52); ALBUMIN 3.5 g/dL (3.5-5.0); ALKALINE PHOSPHATASE 113 U/L (38-126); ANION GAP 15 (5-19); ASPARTATE AMINO TRANSFERASE 24 U/L (14-36); BILIRUBIN,TOTAL 0.5 mg/dL (0.2-1.3); BLOOD UREA NITROGEN 15 mg/dL (7-20); CALCIUM 9.6 mg/dL (8.4-10.2); CARBON DIOXIDE 24 mmol/L (22-30); CHLORIDE 101 mmol/L (98-107); CREATININE RESULT 0.71 mg/dL (0.52-1.25); GLUCOSE 98 mg/dL (75-110); POTASSIUM 3.9 mmol/L (3.6-5.0); SODIUM 139.9 mmol/L (137-145); TOTAL PROTEIN 7.8 g/dL (6.3-8.2)
--- NOTE | 2016-08-22 18:19 | ER Document Report ---
ED General - General Chief Complaint: Fever Stated Complaint: [facility]PT[facility] Time seen by provider: 17:10 Mode of Arrival: Medic Information source: Patient Notes: 56-year-old female seen at wound clinic today for evaluation and debridement of transmetatarsal amputation of digits 34 and 5 on right foot and was found have a temperature of 105. Patient received Tylenol via EMS and arrives here. She has complaints only minimal discomfort at the surgical site. Patient reports she had subjective chills last night he reports feeling in normal state of health otherwise recently. Physical Exam: General: Alert, appears well. HEENT: Normocephalic. Atraumatic. PERRLA. Extraocular movements intact. Oropharynx clear. Neck: Supple. Non-tender. Respiratory: No respiratory distress. Clear and equal breath sounds bilaterally. Cardiovascular: Regular rate and rhythm. Abdominal: Normal Inspection. Soft, non-tender. No guarding rebound rigidity No distension. Normal Bowel Sounds. Back: Non-tender. No deformity or step off. Upper extremities warm to plus pulses of cyanosis no edema Left lower extremity AKA site appears healthy Right lower extremity amputation site to the right foot is a healthy-appearing wound bed with no purulence or bleeding. 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 Normal Mood. Skin: Warm. Dry. Normal color. TRAVEL OUTSIDE OF THE [place] IN LAST 30 DAYS: No - Related Data Allergies/Adverse Reactions: amoxicillin [From Augmentin] Allergy (Intermediate, Verified 08/22/16 18:12) Cephalosporins Allergy (Intermediate, Verified 08/22/16 18:12) blistering, peeling skin,burning throat clavulanic acid [From Augmentin] Allergy (Intermediate, Verified 08/22/16 18:12) Penicillins Allergy (Intermediate, Verified 08/22/16 18:12) blistering,peeling skin,burning of throat Past Medical History - Social History Smoking Status: Former Smoker Family History: CAD, CVA, DM, Malignancy - Past Medical History Cardiac Medical History: Reports: Hx Hypercholesterolemia, Hx Hypertension, Hx Peripheral Vascular Disease Denies: Hx Coronary Artery Disease, Hx Heart Attack Pulmonary Medical History: Denies: Hx Asthma, Hx Bronchitis, Hx COPD, Hx Pneumonia Neurological Medical History: Reports: Hx Cerebrovascular Accident - 2004 . Denies: Hx Seizures Endocrine Medical History: Reports: Hx Diabetes Mellitus Type 1, Hx Diabetes Mellitus Type 2, Hx Hypothyroidism Renal/ Medical History: Denies: Hx Peritoneal Dialysis GI Medical History: Reports: Hx Gastroesophageal Reflux Disease. Denies: Hx Hepatitis, Hx Hiatal Hernia, Hx Ulcer Musculoskeltal Medical History: Reports Hx Arthritis Psychiatric Medical History: Denies: Hx Depression Infectious Medical History: Denies: Hx Hepatitis Past Surgical History: Reports: Hx Section, Hx Orthopedic Surgery - left aka. Right fifth toe amputation., Hx Vascular Surgery - Right leg stenting 2. Denies: Hx Hysterectomy, Hx Mastectomy, Hx Open Heart Surgery, Hx Pacemaker - Immunizations Hx Diphtheria, Pertussis, Tetanus Vaccination: Yes Review of Systems - Review of Systems Constitutional: See HPI EENT: denies: Ear pain, Throat pain Cardiovascular: denies: Chest pain, Dyspnea Respiratory: denies: Cough, Short of breath Gastrointestinal: denies: Abdominal pain, Diarrhea, Nausea, Vomiting, Blood in vomit, Black stools, Rectal bleeding Genitourinary: denies: Burning, Dysuria Female Genitourinary: denies: Musculoskeletal: denies: Back pain, Muscle pain Skin: See HPI Hematologic/Lymphatic: denies: Swollen glands Neurological/Psychological: denies: Weakness, Numbness Physical Exam - Vital signs Vitals: Resp Pulse Ox 21 H 96 08/22/16 17:03 08/22/16 17:03 Course - Re-evaluation Re-evalutation: 08/22/16 18:21 Urinalysis is pending but I suspect the patient has sepsis possibly bacteremia related to her right foot wound. Of ordered vancomycin and Azactam. Dr. Metz patient's physician is contacted request patient be admitted - Vital Signs Vital signs: Temp Pulse Resp BP Pulse Ox 101.9 F H 129 H 21 H 141/85 H 96 08/22/16 17:20 08/22/16 17:20 08/22/16 18:00 08/22/16 17:20 08/22/16 18:00 - Laboratory Result Diagrams: 08/22/16 17:13 08/22/16 17:13 Laboratory results interpreted by me: 08/22/16 17:13 WBC 13.3 H Hgb 9.0 L Hct 28.5 L MCV 77 L MCH 24.2 L MCHC 31.5 L RDW 15.8 H Seg Neutrophils % 80.7 H Lymphocytes % 12.4 L Absolute Neutrophils 10.8 H - Diagnostic Test Radiology reviewed: Image reviewed, Reports reviewed Discharge - Discharge Clinical Impression: Sepsis Qualifiers: Sepsis type: sepsis due to unspecified organism Qualified Code(s): A41.9 - Sepsis, unspecified organism Condition: Fair Disposition: ADMITTED INPATIENT Admitting Provider: [facility] Admitted: Telemetry
[2016-08-22 18:37] LABS: VENOUS BLOOD BASE EXCESS 1.2 mmol/L; VENOUS BLOOD HCO3 25.6 mmol/L (20-32); VENOUS BLOOD PCO2 39.5 mmHg (35-63); VENOUS BLOOD PH 7.43 (7.30-7.42)
[2016-08-22 18:59] LABS: APPEARANCE,URINE SLIGHTLY-CLOUDY; BILIRUBIN,URINE NEGATIVE (NEGATIVE); GLUCOSE, URINE >=500 mg/dL (NEGATIVE); KETONES,URINE 20 mg/dL (NEGATIVE); LEUKOCYTE ESTERASE,URINE SMALL (NEGATIVE); NITRITE,URINE NEGATIVE (NEGATIVE); PROTEIN,URINE 100 mg/dL (NEGATIVE); URINE SPECIFIC GRAVITY 1.024; UROBILINOGEN,URINE NEGATIVE mg/dL (<2.0)
--- NOTE | 2016-08-22 20:48 | EKG REPORT ---
SEVERITY:- ABNORMAL ECG - SINUS TACHYCARDIA CONSIDER LEFT VENTRICULAR HYPERTROPHY ANTERIOR Q WAVES, POSSIBLY DUE TO LVH : Confirmed by: Lynne Nichols 22-Aug-2016 20:46:58
[2016-08-22] MEDS ORDERED: (PENDING PHARMACY ID) (Canagliflozin [Invokana] 300 MG) PO SCH (22:30)
[2016-08-22] MEDS ORDERED: AZTREONAM 1 GM in DEXTROSE 5%-WATER 50 ML IV SCH (22:30)
[2016-08-22] MEDS ORDERED: GLUCAGON,HUMAN RECOMB 1 MG INJ IM PRN ×2 (22:31→22:34)
[2016-08-22] MEDS ORDERED: DEXTROSE 40% GEL 15 GM TUBE PO PRN ×4 (22:31→22:34)
[2016-08-22] MEDS ORDERED: DEXTROSE 50%-WATER 25 GM/50 ML DISP.SYRIN IV PRN ×4 (22:31→22:34)
[2016-08-22] MEDS ORDERED: LINEZOLID 300 ML IV ONE ×2 (23:00→23:51)
[2016-08-22 23:09] LABS: PROTHROMBIN TIME 15.8 SEC (11.4-15.4)
[2016-08-22 23:10] LABS: PARTIAL THROMBOPLASTIN TIME 36.4 SEC (23.5-35.8)
[2016-08-22 23:36] LABS: CREATINE KINASE MB 0.32 ng/mL (<4.55)
[2016-08-22 23:40] LABS: TROPONIN I < 0.012 ng/mL
[2016-08-22 23:54] LABS: THYROID STIMULATING HORMONE 5.24 uIU/mL (0.47-4.68)
[2016-08-23] MEDS: GABAPENTIN 100 MG CAPSULE PO SCH ×2 (00:01→22:34)
[2016-08-23] MEDS: DOXEPIN HCL 25 MG CAPSULE PO SCH (00:01)
[2016-08-23] MEDS: AMLODIPINE BESYLATE 10 MG TABLET PO SCH (00:06)
[2016-08-23] MEDS: ASPIRIN 81 MG TABLET, ENT COATED PO SCH (00:10)
[2016-08-23] MEDS: LINEZOLID 300 ML IV SCH ×2 (00:10→22:34)
[2016-08-23] MEDS ORDERED: AZTREONAM 1 GM in DEXTROSE 5%-WATER 50 ML IV ONE (01:30)
[2016-08-23] MEDS ORDERED: AZTREONAM INJ 1 GM VIAL ONE (03:59)
[2016-08-23 04:50] LABS: ABSOLUTE BASOPHILS # (AUTO) 0.1 10^3/uL (0.0-0.2); ABSOLUTE EOSINOPHILS # (AUTO) 0.2 10^3/uL (0.0-0.6); ABSOLUTE LYMPHOCYTES (AUTO) 1.8 10^3/uL (0.5-4.7); ABSOLUTE NEUT (AUTO) 9.1 10^3/uL (1.7-8.2); BASOPHILS % (AUTO) 0.5 % (0-2); EOSINOPHILS % (AUTO) 1.5 % (0-6); HEMATOCRIT 24.8 % (36.0-47.0); HGB HCT DIFFERENCE -1.7; LYMPHOCYTES % (AUTO) 14.8 % (13-45); MEAN CORPUSCULAR HEMOGLOBIN 23.8 pg (27.0-33.4); MEAN CORPUSCULAR HGB CONC 31.1 g/dL (32.0-36.0); MEAN CORPUSCULAR VOLUME 77 fl (80-97); MONOCYTES % (AUTO) 8.2 % (3-13); RED BLOOD COUNT 3.23 10^6/uL (3.72-5.28); RED CELL DISTRIBUTION WIDTH 15.5 % (11.5-14.0); WHITE BLOOD COUNT 12.1 10^3/uL (4.0-10.5)
[2016-08-23 04:55] LABS: HEMOGLOBIN 7.7 g/dL (12.0-15.5)
[2016-08-23 05:15] LABS: ALANINE AMINOTRANSFERASE 22 U/L (9-52); ALBUMIN 2.8 g/dL (3.5-5.0); ALKALINE PHOSPHATASE 98 U/L (38-126); ANION GAP 11 (5-19); ASPARTATE AMINO TRANSFERASE 16 U/L (14-36); BILIRUBIN,TOTAL 0.5 mg/dL (0.2-1.3); BLOOD UREA NITROGEN 9 mg/dL (7-20); CALCIUM 8.8 mg/dL (8.4-10.2); CARBON DIOXIDE 23 mmol/L (22-30); CHLORIDE 106 mmol/L (98-107); CREATINE KINASE 75 U/L (30-135); GLUCOSE 166 mg/dL (75-110); POTASSIUM 3.8 mmol/L (3.6-5.0); SODIUM 139.5 mmol/L (137-145); TOTAL PROTEIN 6.4 g/dL (6.3-8.2)
[2016-08-23 05:19] LABS: CREATINE KINASE MB 0.33 ng/mL (<4.55)
[2016-08-23 05:27] LABS: TROPONIN I < 0.012 ng/mL
[2016-08-23] MEDS ORDERED: AZTREONAM 1 GM in DEXTROSE 5%-WATER 50 ML IV SCH (06:00)
[2016-08-23] MEDS: METFORMIN HCL 500 MG TABLET PO SCH ×2 (08:11→16:11)
[2016-08-23] MEDS: ENOXAPARIN SODIUM INJ 40 MG/0.4 ML DISP.SYRIN SUBCUT SCH (08:11)
[2016-08-23] MEDS: LISINOPRIL 10 MG TABLET PO SCH (09:36)
[2016-08-23] MEDS: LEVOTHYROXINE SODIUM 0.075 MG TABLET PO SCH (09:37)
[2016-08-23] MEDS: AZTREONAM 1 GM in DEXTROSE 5%-WATER 50 ML IV SCH ×2 (09:39→17:27)
[2016-08-23 10:04] LABS: APPEARANCE,URINE SLIGHTLY-CLOUDY; BILIRUBIN,URINE NEGATIVE (NEGATIVE); GLUCOSE, URINE >=500 mg/dL (NEGATIVE); KETONES,URINE TRACE mg/dL (NEGATIVE); LEUKOCYTE ESTERASE,URINE NEGATIVE (NEGATIVE); NITRITE,URINE NEGATIVE (NEGATIVE); PROTEIN,URINE NEGATIVE (NEGATIVE); URINE SPECIFIC GRAVITY 1.024; UROBILINOGEN,URINE NEGATIVE mg/dL (<2.0)
[2016-08-23 10:11] LABS: URINE BARBITURATES SCREEN NEGATIVE; URINE METHADONE SCREEN NEGATIVE; URINE OPIATES LOW NEGATIVE; URINE PHENCYCLIDINE SCREEN NEGATIVE
[2016-08-23 11:29] LABS: CREATINE KINASE MB < 0.22 ng/mL (<4.55); TROPONIN I < 0.012 ng/mL
[2016-08-23] MEDS: INSULIN LISPRO 100 UNIT/ML 3 ML VIAL SUBCUT PRN (17:27)
--- NOTE | 2016-08-23 18:44 | PDOC H&P ---
History of Present Illness Admission Date/PCP: 08/22/16 22:17 MARLENE CANNON MD History of Present Illness: LAVELLE ARRIAZA is a 56 year old female, she is well known to me she has a right foot ulcer and the ulcer is managed at wound clinic she underwent debridement and she developed fever with temperature 105, she was then referred to the emergency room, in the emergency room she was evaluated and it seems that she has gram-negative septicemia. The blood culture already growing gram- negative rods that is probably a consequence of the debridement of the foot there is no other source for the bacteremia, the chest x-ray is normal the urinalysis is grossly normal Past Medical History Cardiac Medical History: Reports: Hyperlipidema, Hypertension, Peripheral Vascular Disease Denies: Coronary Artery Disease, Myocardial Infarction Endocrine Medical History: Reports: Diabetes Mellitus Type 2 GI Medical History: Reports: Gastroesophageal Reflux Disease Musculoskeltal Medical History: Reports: Arthritis Past Surgical History Past Surgical History: Reports: Amputation - Left AKA, right fifth toe amp., Section, Orthopedic Surgery - left aka. Right fifth toe amputation., Vascular Surgery - Right leg stenting 2 Social History Smoking Status: Never Smoker Frequency of Alcohol Use: None Hx Recreational Drug Use: No Drugs: None Hx Prescription Drug Abuse: No Family History Family History: CAD, CVA, DM, Malignancy Parental Family History Reviewed: Yes Children Family History Reviewed: Yes Sibling(s) Family History Reviewed.: Yes Medication/Allergy Home Medications: Amlodipine Besylate [Norvasc 10 mg Tablet] 10 mg PO DAILY 08/22/16 Aspirin [Aspirin EC] 81 mg PO DAILY 08/22/16 Canagliflozin [Invokana] 300 mg PO DAILY 08/22/16 Doxepin HCl 75 mg PO QHS 08/22/16 Gabapentin [Neurontin 100 mg Capsule] 100 mg PO Q12 08/22/16 Insulin Glargine,Hum.rec.anlog [Lantus Solostar] 50 units SQ QHS 08/22/16 Insulin Lispro [Humalog Kwikpen U-100] 0 units SQ ASDIR PRN 08/22/16 Levothyroxine Sodium [Synthroid 0.075 mg Tablet] 75 mcg PO DAILY 08/22/16 Lisinopril [Prinivil 40 mg Tablet] 40 mg PO DAILY 08/22/16 Metformin HCl [Glucophage] 1,000 mg PO BIDBS 08/22/16 Pravastatin Sodium [Pravachol] 80 mg PO QHS 08/22/16 Allergies/Adverse Reactions: amoxicillin [From Augmentin] Allergy (Intermediate, Verified 08/22/16 18:12) Cephalosporins Allergy (Intermediate, Verified 08/22/16 18:12) blistering, peeling skin,burning throat clavulanic acid [From Augmentin] Allergy (Intermediate, Verified 08/22/16 18:12) Penicillins Allergy (Intermediate, Verified 08/22/16 18:12) blistering,peeling skin,burning of throat Review of Systems Constitutional: PRESENT: fever(s) Eyes: ABSENT: visual disturbances Ears: ABSENT: hearing changes Cardiovascular: ABSENT: chest pain, dyspnea on exertion, edema, orthropnea, palpitations Respiratory: ABSENT: cough, hemoptysis Gastrointestinal: ABSENT: abdominal pain, constipation, diarrhea, hematemesis, hematochezia, nausea, vomiting Genitourinary: ABSENT: dysuria, hematuria Musculoskeletal: ABSENT: joint swelling Integumentary: ABSENT: rash, wounds Neurological: ABSENT: abnormal gait, abnormal speech, confusion, dizziness, focal weakness, syncope Psychiatric: ABSENT: anxiety, depression, homidical ideation, suicidal ideation Endocrine: ABSENT: cold intolerance, heat intolerance, menstrual abnormalities, polydipsia, polyuria Hematologic/Lymphatic: ABSENT: easy bleeding, easy bruising, lymphadenopathy Physical Exam Vital Signs: Temp Pulse Resp BP Pulse Ox 97.9 F 95 16 133/56 H 95 08/23/16 17:20 08/23/16 17:20 08/23/16 17:20 08/23/16 17:20 08/23/16 17:20 Intake & Output 08/22/16 08/23/16 08/24/16 06:59 06:59 06:59 Intake Total 380 2611 Output Total 1950 Balance 380 661 Weight 99.8 kg Head exam: PRESENT: atraumatic, normocephalic Eye exam: PRESENT: PERRLA Ear exam: PRESENT: normal external ear exam Mouth exam: PRESENT: moist, tongue midline Neck exam: PRESENT: full ROM Respiratory exam: PRESENT: clear to auscultation richard Cardiovascular exam: PRESENT: RRR, +S1, +S2 GI/Abdominal exam: PRESENT: normal bowel sounds, soft Rectal exam: PRESENT: deferred Extremities exam: PRESENT: left AKA, other - The right foot is dressed, there is an ulcer in the sole of the right foot Neurological exam: PRESENT: alert, awake, oriented to person, oriented to place , oriented to time, oriented to situation, CN II-XII grossly intact Psychiatric exam: PRESENT: appropriate affect, normal mood Skin exam: PRESENT: dry, intact, warm Results Laboratory Results: 08/23/16 04:36 08/23/16 04:36 08/22/16 08/23/16 08/23/16 22:48 04:36 04:36 WBC 12.1 H RBC 3.23 L Hgb 7.7 L Hct 24.8 L MCV 77 L MCH 23.8 L MCHC 31.1 L RDW 15.5 H Plt Count 353 Seg Neutrophils % 75.0 Lymphocytes % 14.8 Monocytes % 8.2 Eosinophils % 1.5 Basophils % 0.5 Absolute Neutrophils 9.1 H Absolute Lymphocytes 1.8 Absolute Monocytes 1.0 Absolute Eosinophils 0.2 Absolute Basophils 0.1 Sodium 139.5 Potassium 3.8 Chloride 106 Carbon Dioxide 23 Anion Gap 11 BUN 9 Creatinine 0.60 Est GFR ( Amer) > 60 Est GFR (Non-Af Amer) > 60 Glucose 166 H Calcium 8.8 Total Bilirubin 0.5 AST 16 ALT 22 Alkaline Phosphatase 98 Total Protein 6.4 Albumin 2.8 L TSH 5.24 H Free T4 0.87 Urine Color Urine Appearance Urine pH Ur Specific [place] Urine Protein Urine Glucose (UA) Urine Ketones Urine Blood Urine Nitrite Ur Leukocyte Esterase Urine WBC (Auto) Urine RBC (Auto) Blood Type Antibody Screen 08/23/16 08/23/16 07:50 09:32 WBC RBC Hgb Hct MCV MCH MCHC RDW Plt Count Seg Neutrophils % Lymphocytes % Monocytes % Eosinophils % Basophils % Absolute Neutrophils Absolute Lymphocytes Absolute Monocytes Absolute Eosinophils Absolute Basophils Sodium Potassium Chloride Carbon Dioxide Anion Gap BUN Creatinine Est GFR ( Amer) Est GFR (Non-Af Amer) Glucose Calcium Total Bilirubin AST ALT Alkaline Phosphatase Total Protein Albumin TSH Free T4 Urine Color YELLOW Urine Appearance SLIGHTLY-CLOUDY Urine pH 5.0 Ur Specific [place] 1.024 Urine Protein NEGATIVE Urine Glucose (UA) >=500 H Urine Ketones TRACE H Urine Blood NEGATIVE Urine Nitrite NEGATIVE Ur Leukocyte Esterase NEGATIVE Urine WBC (Auto) 12 Urine RBC (Auto) 6 Blood Type O POSITIVE Antibody Screen NEGATIVE 08/22/16 08/22/16 08/23/16 22:48 22:48 04:36 Creatine Kinase 79 75 CK-MB (CK-2) 0.32 Troponin I < 0.012 08/23/16 08/23/16 08/23/16 04:36 10:39 10:39 Creatine Kinase 66 CK-MB (CK-2) 0.33 < 0.22 Troponin I < 0.012 < 0.012 Impressions: Chest X-Ray 08/22/16 17:07 IMPRESSION: NO ACUTE RADIOGRAPHIC FINDING IN THE CHEST. Assessment & Plan - Diagnosis (1) Gram negative septicemia Is this a current diagnosis for this admission?: YesPlan: She is empirically started on IV antibiotic, aztreonam the last time she was in the hospital she had MRSA cellulitis of the right foot, she will be empirically treated with Zyvox (2) Acute osteomyelitis of metatarsal bone of right foot Is this a current diagnosis for this admission?: Yes (3) Diabetes mellitus type 2 in obese Is this a current diagnosis for this admission?: Yes (4) Peripheral vascular disease in diabetes mellitus Is this a current diagnosis for this admission?: Yes (5) Cellulitis and abscess of foot Is this a current diagnosis for this admission?: Yes
--- NOTE | 2016-08-23 18:47 | PDOC PROGRESS REPORT ---
Subjective Progress Note for:: 08/23/16 Subjective:: She was admitted yesterday, she was seen by the bedside the hemogram showed hemoglobin of 7 this morning Physical Exam Vital Signs: Temp Pulse Resp BP Pulse Ox 97.9 F 95 16 133/56 H 95 08/23/16 17:20 08/23/16 17:20 08/23/16 17:20 08/23/16 17:20 08/23/16 17:20 Intake & Output 08/22/16 08/23/16 08/24/16 06:59 06:59 06:59 Intake Total 380 2611 Output Total 1950 Balance 380 661 Weight 99.8 kg General appearance: PRESENT: no acute distress Head exam: PRESENT: atraumatic, normocephalic Eye exam: PRESENT: conjunctiva pink, EOMI, PERRLA Ear exam: PRESENT: normal external ear exam Mouth exam: PRESENT: moist, tongue midline Neck exam: PRESENT: full ROM Respiratory exam: PRESENT: clear to auscultation richard Cardiovascular exam: PRESENT: RRR, +S1, +S2 Pulses: PRESENT: normal dorsalis pedis pul, +2 pedal pulses bilateral GI/Abdominal exam: PRESENT: normal bowel sounds, soft Rectal exam: PRESENT: deferred Neurological exam: PRESENT: alert, awake, oriented to person, oriented to place , oriented to time, oriented to situation, CN II-XII grossly intact Skin exam: PRESENT: dry, intact, warm Results Laboratory Results: 08/23/16 04:36 08/23/16 04:36 08/22/16 08/23/16 08/23/16 22:48 04:36 04:36 WBC 12.1 H RBC 3.23 L Hgb 7.7 L Hct 24.8 L MCV 77 L MCH 23.8 L MCHC 31.1 L RDW 15.5 H Plt Count 353 Seg Neutrophils % 75.0 Lymphocytes % 14.8 Monocytes % 8.2 Eosinophils % 1.5 Basophils % 0.5 Absolute Neutrophils 9.1 H Absolute Lymphocytes 1.8 Absolute Monocytes 1.0 Absolute Eosinophils 0.2 Absolute Basophils 0.1 Sodium 139.5 Potassium 3.8 Chloride 106 Carbon Dioxide 23 Anion Gap 11 BUN 9 Creatinine 0.60 Est GFR ( Amer) > 60 Est GFR (Non-Af Amer) > 60 Glucose 166 H Calcium 8.8 Total Bilirubin 0.5 AST 16 ALT 22 Alkaline Phosphatase 98 Total Protein 6.4 Albumin 2.8 L TSH 5.24 H Free T4 0.87 Urine Color Urine Appearance Urine pH Ur Specific [place] Urine Protein Urine Glucose (UA) Urine Ketones Urine Blood Urine Nitrite Ur Leukocyte Esterase Urine WBC (Auto) Urine RBC (Auto) Blood Type Antibody Screen 08/23/16 08/23/16 07:50 09:32 WBC RBC Hgb Hct MCV MCH MCHC RDW Plt Count Seg Neutrophils % Lymphocytes % Monocytes % Eosinophils % Basophils % Absolute Neutrophils Absolute Lymphocytes Absolute Monocytes Absolute Eosinophils Absolute Basophils Sodium Potassium Chloride Carbon Dioxide Anion Gap BUN Creatinine Est GFR ( Amer) Est GFR (Non-Af Amer) Glucose Calcium Total Bilirubin AST ALT Alkaline Phosphatase Total Protein Albumin TSH Free T4 Urine Color YELLOW Urine Appearance SLIGHTLY-CLOUDY Urine pH 5.0 Ur Specific [place] 1.024 Urine Protein NEGATIVE Urine Glucose (UA) >=500 H Urine Ketones TRACE H Urine Blood NEGATIVE Urine Nitrite NEGATIVE Ur Leukocyte Esterase NEGATIVE Urine WBC (Auto) 12 Urine RBC (Auto) 6 Blood Type O POSITIVE Antibody Screen NEGATIVE 08/22/16 08/22/16 08/23/16 22:48 22:48 04:36 Creatine Kinase 79 75 CK-MB (CK-2) 0.32 Troponin I < 0.012 08/23/16 08/23/16 08/23/16 04:36 10:39 10:39 Creatine Kinase 66 CK-MB (CK-2) 0.33 < 0.22 Troponin I < 0.012 < 0.012 Impressions: Chest X-Ray 08/22/16 17:07 IMPRESSION: NO ACUTE RADIOGRAPHIC FINDING IN THE CHEST. Assessment & Plan - Diagnosis (1) Gram negative septicemia Is this a current diagnosis for this admission?: YesPlan: Continue IV antibiotic (2) Acute osteomyelitis of metatarsal bone of right foot Is this a current diagnosis for this admission?: Yes (3) Diabetes mellitus type 2 in obese Is this a current diagnosis for this admission?: Yes (4) Peripheral vascular disease in diabetes mellitus Is this a current diagnosis for this admission?: Yes (5) Cellulitis and abscess of foot Is this a current diagnosis for this admission?: Yes
--- NOTE | 2016-08-23 19:43 | PROGRESS NOTE E ---
Progress Note NAME: LAVELLE ARRIAZA : 1960 AGE: 56Y DATE: 08/23/2016 ROOM: 332 The patient has history of diabetes, peripheral artery disease, a left above-knee amputation, and a partial transmetatarsal amputation on the right foot about 3 weeks ago. She has had the wound left open, going to Wound Care and having debridement. Earlier today, she was having a fever and, therefore, was recommended to be admitted to the hospital to undergo diagnostic testing and treatment. SUBJECTIVE: The patient is not having any pain in the right foot. OBJECTIVE: The patient does not have any pulses from the popliteal down to the foot. The foot is warm. There is edema. She has a large open wound on the lateral portion of the foot, having previously undergone a metatarsal amputation of third, fourth, and fifth digits. There is some necrotic tissue underneath viable skin proximal lateral wound. I was not able to express any purulent fluid. DIAGNOSTIC DATA: White blood cell count of 12, hemoglobin 7.7. Creatinine of 0.6. Hemoglobin A1c of 9.8. Glucose 128. ASSESSMENT: 1. NONHEALING RIGHT FOOT WOUND WITH PATIENT HAVING HISTORY OF PERIPHERAL ARTERY DISEASE AND DIABETES. She has a history of stent placement in the right leg prior to undergoing the amputation. I would recommend a follow-up ultrasound to make sure that the stents are open and her foot is being perfused. Afterwards, then we will consider further debridement of the foot along with wound care and possible skin grafting in the future versus below- versus above-knee amputation. I will see if we have TCPO2 in order to check that tissue perfusion in the foot. 2. ANEMIA OF UNKNOWN ETIOLOGY. This could be related to her diabetes, chronic disease although it is microcytic. Things such as gastrointestinal bleeding are a possibility and would recommend checking the stool for occult blood. 3. DIABETES WITH HEMOGLOBIN ACCEPTABLE AT THE CURRENT TIME ALTHOUGH HER HEMOGLOBIN A1C WAS 9.8. PLAN: 1. Check stool for fecal occult. 2. Local wound care. 3. Duplex ultrasound of the right lower extremity to insure patency of the previously placed stents and adequate blood flow down to the foot to allow healing of her wound. DICTATING PHYSICIAN: MATTIE MASCORRO M.D. [id number] Y#: [id number] ID: [id number] JOB#: [id number] ACCT: [id number] cc: >
[2016-08-23 20:32] LABS: HEMATOCRIT 29.2 % (36.0-47.0); HEMOGLOBIN 9.5 g/dL (12.0-15.5); HGB HCT DIFFERENCE -0.7; MEAN CORPUSCULAR HEMOGLOBIN 25.2 pg (27.0-33.4); MEAN CORPUSCULAR HGB CONC 32.5 g/dL (32.0-36.0); MEAN CORPUSCULAR VOLUME 78 fl (80-97); RED BLOOD COUNT 3.77 10^6/uL (3.72-5.28); RED CELL DISTRIBUTION WIDTH 16.8 % (11.5-14.0); WHITE BLOOD COUNT 12.9 10^3/uL (4.0-10.5)
[2016-08-23] MEDS: ATORVASTATIN CALCIUM 20 MG TABLET PO SCH (22:33)
[2016-08-23] MEDS: INSULIN GLARGINE,HUM.REC.ANLOG 300 UNIT/3 ML INSULN.PEN SUBCUT SCH (22:41)
[2016-08-24] MEDS: AZTREONAM 1 GM in DEXTROSE 5%-WATER 50 ML IV SCH ×3 (02:06→17:33)
[2016-08-24 06:46] LABS: ABSOLUTE EOSINOPHILS # (AUTO) 0.4 10^3/uL (0.0-0.6); ABSOLUTE LYMPHOCYTES (AUTO) 1.8 10^3/uL (0.5-4.7); ABSOLUTE MONOCYTES (AUTO) 0.9 10^3/uL (0.1-1.4); BASOPHILS % (AUTO) 0.4 % (0-2); EOSINOPHILS % (AUTO) 3.2 % (0-6); HEMOGLOBIN 9.7 g/dL (12.0-15.5); HGB HCT DIFFERENCE -0.9; MEAN CORPUSCULAR HGB CONC 32.3 g/dL (32.0-36.0); MEAN CORPUSCULAR VOLUME 77 fl (80-97); MONOCYTES % (AUTO) 7.2 % (3-13); RED BLOOD COUNT 3.88 10^6/uL (3.72-5.28); RED CELL DISTRIBUTION WIDTH 16.4 % (11.5-14.0); SEGMENTED NEUTROPHILS % (AUTO) 74.2 % (42-78); WHITE BLOOD COUNT 12.1 10^3/uL (4.0-10.5)
[2016-08-24] MEDS: AMLODIPINE BESYLATE 10 MG TABLET PO SCH (10:43)
[2016-08-24] MEDS: LISINOPRIL 10 MG TABLET PO SCH (10:43)
[2016-08-24] MEDS: ASPIRIN 81 MG TABLET, ENT COATED PO SCH (10:44)
[2016-08-24] MEDS: METFORMIN HCL 500 MG TABLET PO SCH ×2 (10:44→17:32)
[2016-08-24] MEDS: LEVOTHYROXINE SODIUM 0.075 MG TABLET PO SCH (10:44)
[2016-08-24] MEDS: ENOXAPARIN SODIUM INJ 40 MG/0.4 ML DISP.SYRIN SUBCUT SCH (10:45)
[2016-08-24] MEDS: GABAPENTIN 100 MG CAPSULE PO SCH ×2 (10:45→22:33)
[2016-08-24] MEDS: LINEZOLID 300 ML IV SCH (10:52)
[2016-08-24] MEDS ORDERED: ACETAMINOPHEN 325 MG TABLET ONE (12:03)
[2016-08-24] MEDS: ACETAMINOPHEN 325 MG TABLET PO PRN ×2 (12:29→23:32)
[2016-08-24] MEDS: INSULIN LISPRO 100 UNIT/ML 3 ML VIAL SUBCUT PRN ×2 (12:30→17:33)
--- NOTE | 2016-08-24 18:24 | PDOC PROGRESS REPORT ---
Subjective Progress Note for:: 08/24/16 Subjective:: She has infected right food with areas of necrosis, the surgeon is contemplating another debridement, Doppler is done to determine the patency of the stent was inserted recently Physical Exam Vital Signs: Temp Pulse Resp BP Pulse Ox 99.0 F 94 18 126/48 H 96 08/24/16 15:28 08/24/16 15:28 08/24/16 15:28 08/24/16 15:28 08/24/16 15:28 Intake & Output 08/23/16 08/24/16 08/25/16 06:59 06:59 06:59 Intake Total 380 2961 1220 Output Total 3000 Balance 380 -39 1220 Weight 99.8 kg 99.3 kg General appearance: PRESENT: no acute distress Eye exam: PRESENT: PERRLA Respiratory exam: PRESENT: clear to auscultation richard Cardiovascular exam: PRESENT: +S1, +S2 GI/Abdominal exam: PRESENT: soft Extremities exam: PRESENT: other - There is infected open wound of the right foot Results Laboratory Results: 08/24/16 06:15 08/23/16 04:36 08/23/16 08/24/16 20:15 06:15 WBC 12.9 H 12.1 H RBC 3.77 3.88 Hgb 9.5 L 9.7 L Hct 29.2 L 30.0 L MCV 78 L 77 L MCH 25.2 L 25.0 L MCHC 32.5 32.3 RDW 16.8 H 16.4 H Plt Count 364 394 Seg Neutrophils % 74.2 Lymphocytes % 15.0 Monocytes % 7.2 Eosinophils % 3.2 Basophils % 0.4 Absolute Neutrophils 9.0 H Absolute Lymphocytes 1.8 Absolute Monocytes 0.9 Absolute Eosinophils 0.4 Absolute Basophils 0.0 08/22/16 08/22/16 08/23/16 22:48 22:48 04:36 Creatine Kinase 79 75 CK-MB (CK-2) 0.32 Troponin I < 0.012 08/23/16 08/23/16 08/23/16 04:36 10:39 10:39 Creatine Kinase 66 CK-MB (CK-2) 0.33 < 0.22 Troponin I < 0.012 < 0.012 Impressions: Chest X-Ray 08/22/16 17:07 IMPRESSION: NO ACUTE RADIOGRAPHIC FINDING IN THE CHEST. Assessment & Plan - Diagnosis (1) Gram negative septicemia Is this a current diagnosis for this admission?: YesPlan: She will continue the antibiotic (2) Acute osteomyelitis of metatarsal bone of right foot Is this a current diagnosis for this admission?: Yes (3) Diabetes mellitus type 2 in obese Is this a current diagnosis for this admission?: Yes (4) Peripheral vascular disease in diabetes mellitus Is this a current diagnosis for this admission?: Yes (5) Cellulitis and abscess of foot Is this a current diagnosis for this admission?: Yes
[2016-08-24] MEDS: LINEZOLID 600 MG TABLET PO SCH (22:06)
[2016-08-24] MEDS: INSULIN GLARGINE,HUM.REC.ANLOG 300 UNIT/3 ML INSULN.PEN SUBCUT SCH (22:06)
[2016-08-24] MEDS ORDERED: ONDANSETRON HCL INJ/PF 4 MG/2 ML SDV IV PRN (22:31)
[2016-08-24] MEDS: DOXEPIN HCL 25 MG CAPSULE PO SCH (22:33)
[2016-08-24] MEDS ORDERED: ONDANSETRON 4 MG TAB.RAPDIS PO PRN (22:33)
[2016-08-24] MEDS: ATORVASTATIN CALCIUM 20 MG TABLET PO SCH (22:33)
[2016-08-25] MEDS: AZTREONAM 1 GM in DEXTROSE 5%-WATER 50 ML IV SCH ×3 (01:10→18:49)
--- NOTE | 2016-08-25 01:48 | PROGRESS NOTE E ---
Progress Note NAME: LAVELLE ARRIAZA : 1960 AGE: 56Y DATE: 08/24/2016 ROOM: 332 The patient presents with severe peripheral vascular disease, undergoing a partial transmetatarsal amputation approximately 3 weeks ago. She had breakdown of her amputation stump and has been undergoing debridement as an outpatient. Recently she was noticed to have further necrotic tissue and was recommended to be admitted to the hospital. SUBJECTIVE: The patient denies any pain in the right foot. OBJECTIVE: The patient has open wound in the partial transmetatarsal amputation where the lateral 3 digits were removed. There is necrotic tissue extending proximally along the lateral aspect. ASSESSMENT: SEVERE PERIPHERAL VASCULAR DISEASE WITH DIABETES AND NONHEALING AMPUTATION OF THE RIGHT FOOT. She had previously placed stents in the tibial vessels. I would recommend ultrasound of those vessels in order to ensure patency. If they are no longer patent, then she would need a BK versus AK. Even with patency, she still has a poor prognosis for healing even with further debridement and possible skin graft. PLAN: Arterial duplex of the right lower extremity to see if her previously placed tibial stent is open and perfusing the foot. If it is indeed open, then consideration of debridement of the small amount of necrotic tissue on the right foot. DICTATING PHYSICIAN: MATTIE MASCORRO M.D. [id number] PHY#: [id number] ID: [id number] JOB#: [id number] ACCT: [id number] cc: >
[2016-08-25 05:55] LABS: ABSOLUTE BASOPHILS # (AUTO) 0.1 10^3/uL (0.0-0.2); ABSOLUTE EOSINOPHILS # (AUTO) 0.2 10^3/uL (0.0-0.6); ABSOLUTE LYMPHOCYTES (AUTO) 1.7 10^3/uL (0.5-4.7); ABSOLUTE NEUT (AUTO) 11.2 10^3/uL (1.7-8.2); BASOPHILS % (AUTO) 0.4 % (0-2); EOSINOPHILS % (AUTO) 1.2 % (0-6); HEMATOCRIT 31.6 % (36.0-47.0); HEMOGLOBIN 10.1 g/dL (12.0-15.5); HGB HCT DIFFERENCE -1.3; LYMPHOCYTES % (AUTO) 11.8 % (13-45); MEAN CORPUSCULAR HEMOGLOBIN 24.9 pg (27.0-33.4); MEAN CORPUSCULAR HGB CONC 31.9 g/dL (32.0-36.0); MEAN CORPUSCULAR VOLUME 78 fl (80-97); MONOCYTES % (AUTO) 7.2 % (3-13); RED BLOOD COUNT 4.05 10^6/uL (3.72-5.28); RED CELL DISTRIBUTION WIDTH 16.9 % (11.5-14.0); SEGMENTED NEUTROPHILS % (AUTO) 79.4 % (42-78)
--- NOTE | 2016-08-25 07:41 | XCELERA REPORT ---
[address] [address] Lower Extremity Arterial Evaluation Name: LAVELLE ARRIAZA Age: 56 yrs Gender: Female : 1960 Patient Status: Inpatient Patient Location: [id number]\S\332\S\B Study Date: 08/24/2016 04:54 PM Procedure: A color flow and duplex scan of the lower extremity arteries was performed on the right with velocity and waveform anaylsis. 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 Monophasic with sustained velocity to the infrageniculate vessels. The ankle-brachial index was not done. 50-99% stenosis is noted at the Femoral artery. There is marked improvement over prior scan,with much better velocities in the infrageniculate Vessels. And decent flow in the previously occluded Femoral artery. Interpretation Summary Although still in the severe category, there has been marked improvement since last study. Severe hemodynamically significant lesions in the right lower extremity only, on duplex imaging, at rest. : DO MASCORRO > Travis Urena
[2016-08-25] MEDS: METFORMIN HCL 500 MG TABLET PO SCH ×2 (10:57→22:34)
[2016-08-25] MEDS: ENOXAPARIN SODIUM INJ 40 MG/0.4 ML DISP.SYRIN SUBCUT SCH (10:57)
[2016-08-25] MEDS: GABAPENTIN 100 MG CAPSULE PO SCH ×2 (11:15→21:53)
[2016-08-25] MEDS: LINEZOLID 600 MG TABLET PO SCH ×2 (11:15→22:51)
[2016-08-25] MEDS: AMLODIPINE BESYLATE 10 MG TABLET PO SCH (11:15)
[2016-08-25] MEDS: LEVOTHYROXINE SODIUM 0.075 MG TABLET PO SCH (11:15)
[2016-08-25] MEDS: LISINOPRIL 10 MG TABLET PO SCH (11:15)
[2016-08-25] MEDS: ASPIRIN 81 MG TABLET, ENT COATED PO SCH (11:15)
--- NOTE | 2016-08-25 12:28 | PDOC PROGRESS REPORT ---
Subjective Progress Note for:: 08/25/16 Subjective:: no complaints Physical Exam Vital Signs: Temp Pulse Resp BP Pulse Ox 98.5 F 101 H 18 147/56 H 99 08/25/16 07:31 08/25/16 07:31 08/25/16 07:31 08/25/16 07:31 08/25/16 07:31 Intake & Output 08/24/16 08/25/16 08/26/16 06:59 06:59 06:59 Intake Total 2961 1969 Output Total 3000 Balance -39 1970 Weight 99.3 kg 99.2 kg Extremities exam: PRESENT: other - Height the foot status post third fourth and fifth transmetatarsal amputation with granulating tissue distally however the very small aspect extending from the mid foot upward has necrotic edge with what feels like palpable exposed bone. Small amount of drainage is noted. No fluctuance. Results Laboratory Results: 08/25/16 05:19 08/23/16 04:36 08/24/16 08/25/16 22:00 05:19 WBC 14.0 H RBC 4.05 Hgb 10.1 L Hct 31.6 L MCV 78 L MCH 24.9 L MCHC 31.9 L RDW 16.9 H Plt Count 386 Seg Neutrophils % 79.4 H Lymphocytes % 11.8 L Monocytes % 7.2 Eosinophils % 1.2 Basophils % 0.4 Absolute Neutrophils 11.2 H Absolute Lymphocytes 1.7 Absolute Monocytes 1.0 Absolute Eosinophils 0.2 Absolute Basophils 0.1 Stool Occult Blood NEGATIVE 08/22/16 08/22/16 08/23/16 22:48 22:48 04:36 Creatine Kinase 79 75 CK-MB (CK-2) 0.32 Troponin I < 0.012 08/23/16 08/23/16 08/23/16 04:36 10:39 10:39 Creatine Kinase 66 CK-MB (CK-2) 0.33 < 0.22 Troponin I < 0.012 < 0.012 Impressions: Chest X-Ray 08/22/16 17:07 IMPRESSION: NO ACUTE RADIOGRAPHIC FINDING IN THE CHEST. Assessment & Plan - Diagnosis (1) Diabetic infection of right foot Is this a current diagnosis for this admission?: YesPlan: Status post excisional debridement with the third fourth and fifth toe transmetatarsal amputations. The distal aspect of the wound looks very good at his granulating well but the more proximal aspect had areas of the necrosis and possible exposed bone. Will obtain x-rays and MRI of her right foot to determine the extent of resection that will be required. May feed the patient today keep her nothing by mouth after midnight for surgery tomorrow.
--- NOTE | 2016-08-25 19:39 | PDOC PROGRESS REPORT ---
Subjective Progress Note for:: 08/25/16 Subjective:: she has proteus septicemia ,she was seen by the surgeon regarding the right diabetes foot ,MRI of the foot was done Physical Exam Vital Signs: Temp Pulse Resp BP Pulse Ox 98.7 F 100 18 133/58 H 98 08/25/16 12:18 08/25/16 14:00 08/25/16 12:18 08/25/16 12:18 08/25/16 12:18 Intake & Output 08/24/16 08/25/16 08/26/16 06:59 06:59 06:59 Intake Total 2961 1969 57 Output Total 3000 0 Balance -39 1969 Weight 99.3 kg 99.2 kg General appearance: PRESENT: no acute distress Eye exam: PRESENT: PERRLA Respiratory exam: PRESENT: clear to auscultation richard Cardiovascular exam: PRESENT: +S1, +S2 GI/Abdominal exam: PRESENT: soft Neurological exam: PRESENT: alert, CN II-XII grossly intact Results Laboratory Results: 08/25/16 05:19 08/23/16 04:36 08/24/16 08/25/16 22:00 05:19 WBC 14.0 H RBC 4.05 Hgb 10.1 L Hct 31.6 L MCV 78 L MCH 24.9 L MCHC 31.9 L RDW 16.9 H Plt Count 386 Seg Neutrophils % 79.4 H Lymphocytes % 11.8 L Monocytes % 7.2 Eosinophils % 1.2 Basophils % 0.4 Absolute Neutrophils 11.2 H Absolute Lymphocytes 1.7 Absolute Monocytes 1.0 Absolute Eosinophils 0.2 Absolute Basophils 0.1 Stool Occult Blood NEGATIVE 08/22/16 08/22/16 08/23/16 22:48 22:48 04:36 Creatine Kinase 79 75 CK-MB (CK-2) 0.32 Troponin I < 0.012 08/23/16 08/23/16 08/23/16 04:36 10:39 10:39 Creatine Kinase 66 CK-MB (CK-2) 0.33 < 0.22 Troponin I < 0.012 < 0.012 Impressions: Chest X-Ray 08/22/16 17:07 IMPRESSION: NO ACUTE RADIOGRAPHIC FINDING IN THE CHEST. Foot X-Ray 08/25/16 00:00 IMPRESSION: Status post amputation of the 3rd 4th and 5th digits as noted above. There is some cortical irregularity and calcifications at the level of the distal ends of the 3rd, 4th, and 5th metatarsals which could be postsurgical in nature however I cannot exclude bony involvement by osteomyelitis. Clinical correlation is recommended. Other findings as noted above Lower Extremity MRI 08/25/16 00:00 IMPRESSION: 1. RECENT SURGICAL CHANGES OF AMPUTATION OF THE 3RD, 4TH, AND 5TH TOE AT THE METATARSAL LEVEL. ABNORMAL APPEARANCE OF THE PROXIMAL 5TH METATARSAL, CANNOT EXCLUDE POSSIBLE INVOLVEMENT WITH OSTEOMYELITIS, PARTICULARLY THIS IS ADJACENT TO SOFT TISSUE CHANGES. 2. SOFT TISSUE DEFECT IN THE LATERAL FOOT WITH EDEMA AND INFLAMMATION. NO DISCRETE ABSCESS. 3. MARKEDLY HETEROGENOUS MARROW SIGNAL IN THE TARSAL BONES AND HINDFOOT DESCRIBED. PROBABLY DUE TO DIFFUSE PATCHY OSTEOPOROSIS AND EDEMA. INVOLVEMENT WITH INFECTION CANNOT BE ENTIRELY EXCLUDED ALTHOUGH PROBABLY UNLIKELY. Assessment & Plan - Diagnosis (1) Gram negative septicemia Is this a current diagnosis for this admission?: Yes (2) Acute osteomyelitis of metatarsal bone of right foot Is this a current diagnosis for this admission?: Yes (3) Diabetes mellitus type 2 in obese Is this a current diagnosis for this admission?: Yes (4) Peripheral vascular disease in diabetes mellitus Is this a current diagnosis for this admission?: Yes (5) Cellulitis and abscess of foot Is this a current diagnosis for this admission?: Yes (6) Proteus septicemia Is this a current diagnosis for this admission?: YesPlan: continue IV antibiotic
[2016-08-25] MEDS: ATORVASTATIN CALCIUM 20 MG TABLET PO SCH (21:53)
[2016-08-25] MEDS: DOXEPIN HCL 25 MG CAPSULE PO SCH (21:53)
[2016-08-25] MEDS: INSULIN GLARGINE,HUM.REC.ANLOG 300 UNIT/3 ML INSULN.PEN SUBCUT SCH (22:52)
[2016-08-26] MEDS: AZTREONAM 1 GM in DEXTROSE 5%-WATER 50 ML IV SCH ×3 (01:06→16:49)
[2016-08-26] MEDS ORDERED: ACETAMINOPHEN 650 MG SUPP.RECT PR ONE (04:00)
[2016-08-26] MEDS: LEVOTHYROXINE SODIUM 0.075 MG TABLET PO SCH (09:35)
[2016-08-26] MEDS: ENOXAPARIN SODIUM INJ 40 MG/0.4 ML DISP.SYRIN SUBCUT SCH (09:35)
[2016-08-26] MEDS: METFORMIN HCL 500 MG TABLET PO SCH ×2 (09:35→16:46)
[2016-08-26] MEDS: LISINOPRIL 10 MG TABLET PO SCH (09:35)
[2016-08-26] MEDS: AMLODIPINE BESYLATE 10 MG TABLET PO SCH (09:35)
[2016-08-26] MEDS: ASPIRIN 81 MG TABLET, ENT COATED PO SCH (09:35)
[2016-08-26] MEDS: GABAPENTIN 100 MG CAPSULE PO SCH ×2 (09:35→21:32)
[2016-08-26] MEDS ORDERED: FENTANYL CITRATE INJ/PF 100 MCG/2 ML AMPUL ONE (10:15)
[2016-08-26] MEDS ORDERED: PROPOFOL INJ 200 MG/20 ML VIAL IV ONE (10:15)
[2016-08-26] MEDS ORDERED: MIDAZOLAM 2 MG/2 ML INJ ONE (10:15)
[2016-08-26] MEDS ORDERED: FENTANYL CITRATE INJ/PF 100 MCG/2 ML AMPUL IV PRN ×3 (10:27)
--- NOTE | 2016-08-26 12:23 | OPERATIVE REPORT E ---
Operative Report NAME: LAVELLE ARRIAZA : 1960 AGE: 56Y DATE OF SURGERY: 08/26/2016 ROOM: 332 PREOPERATIVE DIAGNOSIS: Right foot increasing soft tissue infection involving the right metatarsal bone with soft tissue necrosis and diabetic foot. POSTOPERATIVE DIAGNOSIS: Right foot increasing soft tissue infection involving the right metatarsal bone with soft tissue necrosis and diabetic foot. OPERATIVE PROCEDURE: Excision of the right metatarsal bone, transmetatarsal amputation of the right lateral part of the right foot along with debridement of the rest of the soft tissue infection necrotic tissue. SURGEON: ZEINA GALLARDO M.D. ANESTHESIA: Monitored anesthesia care. HISTORY AND INDICATIONS: This is a diabetic patient with vascular disease and severe diabetic foot infections. She had multiple toe amputations before last time. She also had extensive transmetatarsal amputation of the fifth metatarsal towards the head area. She had some osteomyelitis along with associated soft tissue infection of that area and soft tissue necrosis in that area. It still needs to be further debrided. It seems that she has a chance to be able to save the foot. For that reason she went for more debridement and excision of the remaining fifth metatarsal bone today. DESCRIPTION OF PROCEDURE: The patient was placed in a supine position. The right leg was cleaned and draped in a sterile fashion. Afterwards the wound was explored. The right fifth metatarsal bone and remaining bone most of the bone was excised completely with the bone cutters. Surrounding all the necrotic tissue was debrided sharply. Sharp excisional debridement was performed up to the fascial and bone level until the wound was absolutely clean. There was good bleeding and good vascularity in the deep tissues. The wound was irrigated and complete hemostasis secured. Dressings were applied. The patient was stable without any problems. She returned to the recovery room in stable condition. DICTATING PHYSICIAN: ZEINA GALLARDO M.D. [id number] PHY#: [id number] ID: [id number] JOB#: [id number] ACCT: [id number] cc:ZEINA GALLARDO M.D. >
[2016-08-26] MEDS: LINEZOLID 600 MG TABLET PO SCH ×2 (16:45→21:31)
[2016-08-26] MEDS: ACETAMINOPHEN 325 MG TABLET PO PRN (16:48)
[2016-08-26] MEDS: DOXEPIN HCL 25 MG CAPSULE PO SCH (21:31)
[2016-08-26] MEDS: INSULIN GLARGINE,HUM.REC.ANLOG 300 UNIT/3 ML INSULN.PEN SUBCUT SCH (21:34)
[2016-08-26] MEDS: ATORVASTATIN CALCIUM 20 MG TABLET PO SCH (21:36)
--- NOTE | 2016-08-26 21:37 | PDOC PROGRESS REPORT ---
Subjective Progress Note for:: 08/26/16 Subjective:: She was seen by the bedside, she had more debridement today, she has Proteus mirabilis septicemia, she said she gets fever in the evenings Physical Exam Vital Signs: Temp Pulse Resp BP Pulse Ox 98.8 F 96 16 109/59 L 97 08/26/16 19:42 08/26/16 19:42 08/26/16 19:42 08/26/16 19:42 08/26/16 19:42 Intake & Output 08/25/16 08/26/16 08/27/16 06:59 06:59 06:59 Intake Total 9670 912 7257 Output Total 0 5 Balance 0701 267 6271 Weight 99.2 kg 100.3 kg General appearance: PRESENT: no acute distress Eye exam: PRESENT: PERRLA Respiratory exam: PRESENT: clear to auscultation richard Cardiovascular exam: PRESENT: +S1, +S2 GI/Abdominal exam: PRESENT: soft Neurological exam: PRESENT: alert Results Laboratory Results: 08/25/16 05:19 08/23/16 04:36 08/22/16 08/22/16 08/23/16 22:48 22:48 04:36 Creatine Kinase 79 75 CK-MB (CK-2) 0.32 Troponin I < 0.012 08/23/16 08/23/16 08/23/16 04:36 10:39 10:39 Creatine Kinase 66 CK-MB (CK-2) 0.33 < 0.22 Troponin I < 0.012 < 0.012 Impressions: Chest X-Ray 08/22/16 17:07 IMPRESSION: NO ACUTE RADIOGRAPHIC FINDING IN THE CHEST. Foot X-Ray 08/25/16 00:00 IMPRESSION: Status post amputation of the 3rd 4th and 5th digits as noted above. There is some cortical irregularity and calcifications at the level of the distal ends of the 3rd, 4th, and 5th metatarsals which could be postsurgical in nature however I cannot exclude bony involvement by osteomyelitis. Clinical correlation is recommended. Other findings as noted above Lower Extremity MRI 08/25/16 00:00 IMPRESSION: 1. RECENT SURGICAL CHANGES OF AMPUTATION OF THE 3RD, 4TH, AND 5TH TOE AT THE METATARSAL LEVEL. ABNORMAL APPEARANCE OF THE PROXIMAL 5TH METATARSAL, CANNOT EXCLUDE POSSIBLE INVOLVEMENT WITH OSTEOMYELITIS, PARTICULARLY THIS IS ADJACENT TO SOFT TISSUE CHANGES. 2. SOFT TISSUE DEFECT IN THE LATERAL FOOT WITH EDEMA AND INFLAMMATION. NO DISCRETE ABSCESS. 3. MARKEDLY HETEROGENOUS MARROW SIGNAL IN THE TARSAL BONES AND HINDFOOT DESCRIBED. PROBABLY DUE TO DIFFUSE PATCHY OSTEOPOROSIS AND EDEMA. INVOLVEMENT WITH INFECTION CANNOT BE ENTIRELY EXCLUDED ALTHOUGH PROBABLY UNLIKELY. Assessment & Plan - Diagnosis (1) Gram negative septicemia Is this a current diagnosis for this admission?: YesPlan: Continue IV antibiotic (2) Acute osteomyelitis of metatarsal bone of right foot Is this a current diagnosis for this admission?: Yes (3) Diabetes mellitus type 2 in obese Is this a current diagnosis for this admission?: Yes (4) Peripheral vascular disease in diabetes mellitus Is this a current diagnosis for this admission?: Yes (5) Cellulitis and abscess of foot Is this a current diagnosis for this admission?: Yes (6) Proteus septicemia Is this a current diagnosis for this admission?: Yes
[2016-08-27] MEDS: ACETAMINOPHEN 325 MG TABLET PO PRN ×2 (00:55→13:41)
[2016-08-27] MEDS: AZTREONAM 1 GM in DEXTROSE 5%-WATER 50 ML IV SCH ×3 (02:50→17:21)
[2016-08-27] MEDS: GABAPENTIN 100 MG CAPSULE PO SCH ×3 (13:42→21:49)
[2016-08-27] MEDS: LEVOTHYROXINE SODIUM 0.075 MG TABLET PO SCH (13:42)
[2016-08-27] MEDS: ASPIRIN 81 MG TABLET, ENT COATED PO SCH (13:42)
[2016-08-27] MEDS: LINEZOLID 600 MG TABLET PO SCH ×2 (13:42→21:49)
[2016-08-27] MEDS: ENOXAPARIN SODIUM INJ 40 MG/0.4 ML DISP.SYRIN SUBCUT SCH (13:43)
[2016-08-27] MEDS: LISINOPRIL 10 MG TABLET PO SCH (13:48)
[2016-08-27] MEDS: METFORMIN HCL 500 MG TABLET PO SCH (13:48)
[2016-08-27] MEDS: AMLODIPINE BESYLATE 10 MG TABLET PO SCH (13:48)
--- NOTE | 2016-08-27 14:17 | PDOC PROGRESS REPORT ---
Subjective Progress Note for:: 08/27/16 Subjective:: Reported intermittent low grade fever, worsening pain in left foot and leg s/p debridement. Patient reported taking Gabapentin 100 mg tid prior to admission. No chest pain or difficulty with breathing. No nausea, vomiting or abdominal pain. Tolerating oral feeding. No diarrhea. Physical Exam Vital Signs: Temp Pulse Resp BP Pulse Ox 98.2 F 86 20 138/53 H 99 08/27/16 12:41 08/27/16 12:41 08/27/16 12:41 08/27/16 12:41 08/27/16 12:41 Intake & Output 08/26/16 08/27/16 08/28/16 06:59 06:59 07:59 Intake Total 982 4520 Output Total 0 5 Balance 982 4515 Weight 100.3 kg 100.1 kg General appearance: PRESENT: no acute distress, cooperative, obese Head exam: PRESENT: atraumatic, normocephalic Eye exam: PRESENT: conjunctiva pink, EOMI, PERRLA. ABSENT: scleral icterus Mouth exam: PRESENT: moist Respiratory exam: PRESENT: clear to auscultation richard Cardiovascular exam: PRESENT: RRR. ABSENT: diastolic murmur, rubs, systolic murmur GI/Abdominal exam: PRESENT: normal bowel sounds, soft. ABSENT: distended, guarding, mass, organolmegaly, rebound, tenderness Extremities exam: PRESENT: left AKA, tenderness - right foot with satisfactory post debridement procedure dressing. Musculoskeletal exam: PRESENT: deformity - related to arthritis joint involvement Neurological exam: PRESENT: alert, awake, oriented to person, oriented to place , oriented to time, oriented to situation, CN II-XII grossly intact. ABSENT: motor sensory deficit Psychiatric exam: PRESENT: appropriate affect, normal mood. ABSENT: homicidal ideation, suicidal ideation Skin exam: PRESENT: dry, warm, other - right foot dressing ok. Results Laboratory Results: 08/25/16 05:19 08/23/16 04:36 08/22/16 08/22/16 08/23/16 22:48 22:48 04:36 Creatine Kinase 79 75 CK-MB (CK-2) 0.32 Troponin I < 0.012 08/23/16 08/23/16 08/23/16 04:36 10:39 10:39 Creatine Kinase 66 CK-MB (CK-2) 0.33 < 0.22 Troponin I < 0.012 < 0.012 Impressions: Chest X-Ray 08/22/16 17:07 IMPRESSION: NO ACUTE RADIOGRAPHIC FINDING IN THE CHEST. Foot X-Ray 08/25/16 00:00 IMPRESSION: Status post amputation of the 3rd 4th and 5th digits as noted above. There is some cortical irregularity and calcifications at the level of the distal ends of the 3rd, 4th, and 5th metatarsals which could be postsurgical in nature however I cannot exclude bony involvement by osteomyelitis. Clinical correlation is recommended. Other findings as noted above Lower Extremity MRI 08/25/16 00:00 IMPRESSION: 1. RECENT SURGICAL CHANGES OF AMPUTATION OF THE 3RD, 4TH, AND 5TH TOE AT THE METATARSAL LEVEL. ABNORMAL APPEARANCE OF THE PROXIMAL 5TH METATARSAL, CANNOT EXCLUDE POSSIBLE INVOLVEMENT WITH OSTEOMYELITIS, PARTICULARLY THIS IS ADJACENT TO SOFT TISSUE CHANGES. 2. SOFT TISSUE DEFECT IN THE LATERAL FOOT WITH EDEMA AND INFLAMMATION. NO DISCRETE ABSCESS. 3. MARKEDLY HETEROGENOUS MARROW SIGNAL IN THE TARSAL BONES AND HINDFOOT DESCRIBED. PROBABLY DUE TO DIFFUSE PATCHY OSTEOPOROSIS AND EDEMA. INVOLVEMENT WITH INFECTION CANNOT BE ENTIRELY EXCLUDED ALTHOUGH PROBABLY UNLIKELY. Assessment & Plan - Diagnosis (1) Cellulitis and abscess of foot Is this a current diagnosis for this admission?: YesPlan: Continue on Aztreonam and Linezolid coverage. Follow up on wound culture findings. Obtain CBC with diff in AM. (2) Acute osteomyelitis of metatarsal bone of right foot Is this a current diagnosis for this admission?: YesPlan: See covering attending physician orders. (3) Diabetes mellitus type 2 in obese Is this a current diagnosis for this admission?: YesPlan: See covering attending physician orders. (4) Proteus septicemia Is this a current diagnosis for this admission?: YesPlan: See covering attending physician orders. Maintain on IV Aztreonam and Linezolid. Follow up on wound culture report. 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 - Time Time Spent with patient: 25-34 minutes Medications reviewed and adjusted accordingly: Yes Anticipated discharge: Home with Homehealth Within: Other - Inpatient Certification Based on my medical assessment, after consideration of the patient's comorbidities, presenting symptoms, or acuity I expect that the services needed warrant INPATIENT care.: Yes I certify that my determination is in accordance with my understanding of Medicare's requirements for reasonable and necessary INPATIENT services [42 CFR 412.3e].: Yes Medical Necessity: Need Close Monitoring Due to Risk of Patient Decompensation, Need For IV Fluids, Need For Continuous Telemetry Monitoring, Need for IV Antibiotics, Risk of Complication if Not Cared For in Hospital Post Hospital Care: D/C or Transfer Summary - Plan Summary Plan Summary: See covering attending physician orders.
--- NOTE | 2016-08-27 15:11 | PDOC PROGRESS REPORT ---
Subjective Progress Note for:: 08/27/16 Physical Exam Vital Signs: Temp Pulse Resp BP Pulse Ox 98.2 F 86 20 138/53 H 99 08/27/16 12:41 08/27/16 12:41 08/27/16 12:41 08/27/16 12:41 08/27/16 12:41 Intake & Output 08/26/16 08/27/16 08/28/16 06:59 06:59 07:59 Intake Total 982 4520 Output Total 0 5 Balance 982 4515 Weight 100.3 kg 100.1 kg Results Laboratory Results: 08/25/16 05:19 08/23/16 04:36 08/22/16 08/22/16 08/23/16 22:48 22:48 04:36 Creatine Kinase 79 75 CK-MB (CK-2) 0.32 Troponin I < 0.012 08/23/16 08/23/16 08/23/16 04:36 10:39 10:39 Creatine Kinase 66 CK-MB (CK-2) 0.33 < 0.22 Troponin I < 0.012 < 0.012 Impressions: Chest X-Ray 08/22/16 17:07 IMPRESSION: NO ACUTE RADIOGRAPHIC FINDING IN THE CHEST. Foot X-Ray 08/25/16 00:00 IMPRESSION: Status post amputation of the 3rd 4th and 5th digits as noted above. There is some cortical irregularity and calcifications at the level of the distal ends of the 3rd, 4th, and 5th metatarsals which could be postsurgical in nature however I cannot exclude bony involvement by osteomyelitis. Clinical correlation is recommended. Other findings as noted above Lower Extremity MRI 08/25/16 00:00 IMPRESSION: 1. RECENT SURGICAL CHANGES OF AMPUTATION OF THE 3RD, 4TH, AND 5TH TOE AT THE METATARSAL LEVEL. ABNORMAL APPEARANCE OF THE PROXIMAL 5TH METATARSAL, CANNOT EXCLUDE POSSIBLE INVOLVEMENT WITH OSTEOMYELITIS, PARTICULARLY THIS IS ADJACENT TO SOFT TISSUE CHANGES. 2. SOFT TISSUE DEFECT IN THE LATERAL FOOT WITH EDEMA AND INFLAMMATION. NO DISCRETE ABSCESS. 3. MARKEDLY HETEROGENOUS MARROW SIGNAL IN THE TARSAL BONES AND HINDFOOT DESCRIBED. PROBABLY DUE TO DIFFUSE PATCHY OSTEOPOROSIS AND EDEMA. INVOLVEMENT WITH INFECTION CANNOT BE ENTIRELY EXCLUDED ALTHOUGH PROBABLY UNLIKELY. Assessment & Plan - Plan Summary Plan Summary: s/p right foot 5 th metatosal excision with debridement Continue wound care No wound vac please
[2016-08-27] MEDS: INSULIN LISPRO 100 UNIT/ML 3 ML VIAL SUBCUT PRN ×2 (17:26→21:49)
[2016-08-27] MEDS: INSULIN GLARGINE,HUM.REC.ANLOG 300 UNIT/3 ML INSULN.PEN SUBCUT SCH (21:49)
[2016-08-27] MEDS: DOXEPIN HCL 25 MG CAPSULE PO SCH (21:50)
[2016-08-27] MEDS: ATORVASTATIN CALCIUM 20 MG TABLET PO SCH (21:50)
[2016-08-28] MEDS: GABAPENTIN 100 MG CAPSULE PO SCH ×3 (06:51→23:01)
[2016-08-28] MEDS: ENOXAPARIN SODIUM INJ 40 MG/0.4 ML DISP.SYRIN SUBCUT SCH (08:34)
[2016-08-28] MEDS: INSULIN LISPRO 100 UNIT/ML 3 ML VIAL SUBCUT PRN ×4 (08:34→23:00)
[2016-08-28] MEDS: ASPIRIN 81 MG TABLET, ENT COATED PO SCH (09:51)
[2016-08-28] MEDS: LEVOTHYROXINE SODIUM 0.075 MG TABLET PO SCH (09:52)
[2016-08-28] MEDS: LINEZOLID 600 MG TABLET PO SCH ×2 (09:52→23:00)
[2016-08-28] MEDS: LISINOPRIL 10 MG TABLET PO SCH (09:53)
[2016-08-28] MEDS: AMLODIPINE BESYLATE 10 MG TABLET PO SCH (09:53)
--- NOTE | 2016-08-28 10:21 | PDOC PROGRESS REPORT ---
Subjective Progress Note for:: 08/28/16 Subjective:: No fever or chills. No chest pain or difficulty with breathing. No nausea, vomiting or abdominal pain. Tolerating oral feeding. No diarrhea. Improvement in pain management with adjusted dose of Gabapentin. Physical Exam Vital Signs: Temp Pulse Resp BP Pulse Ox 98.2 F 82 16 142/60 H 95 08/28/16 07:36 08/28/16 07:36 08/28/16 07:36 08/28/16 07:36 08/28/16 07:36 Intake & Output 08/27/16 08/28/16 08/29/16 05:59 06:59 06:59 Intake Total Output Total Balance Weight Physical Exam: General appearance: PRESENT: no acute distress, cooperative, obese Head exam: PRESENT: atraumatic, normocephalic Eye exam: PRESENT: conjunctiva pink, EOMI, PERRLA. ABSENT: scleral icterus Mouth exam: PRESENT: moist Respiratory exam: PRESENT: clear to auscultation richard Cardiovascular exam: PRESENT: RRR. ABSENT: diastolic murmur, rubs, systolic murmur GI/Abdominal exam: PRESENT: normal bowel sounds, soft. ABSENT: distended, guarding, mass, organomegaly, rebound, tenderness Extremities exam: PRESENT: left AKA, tenderness - right foot with satisfactory post debridement procedure dressing. Musculoskeletal exam: PRESENT: deformity - related to arthritis joint involvement Neurological exam: PRESENT: alert, awake, oriented to person, oriented to place , oriented to time, oriented to situation, CN II-XII grossly intact. ABSENT: motor sensory deficit Psychiatric exam: PRESENT: appropriate affect, normal mood. ABSENT: homicidal ideation, suicidal ideation Skin exam: PRESENT: dry, warm, other - right foot dressing ok. Results Laboratory Results: 08/25/16 05:19 08/23/16 04:36 08/22/16 08/22/16 08/23/16 22:48 22:48 04:36 Creatine Kinase 79 75 CK-MB (CK-2) 0.32 Troponin I < 0.012 08/23/16 08/23/16 08/23/16 04:36 10:39 10:39 Creatine Kinase 66 CK-MB (CK-2) 0.33 < 0.22 Troponin I < 0.012 < 0.012 Impressions: Chest X-Ray 08/22/16 17:07 IMPRESSION: NO ACUTE RADIOGRAPHIC FINDING IN THE CHEST. Foot X-Ray 08/25/16 00:00 IMPRESSION: Status post amputation of the 3rd 4th and 5th digits as noted above. There is some cortical irregularity and calcifications at the level of the distal ends of the 3rd, 4th, and 5th metatarsals which could be postsurgical in nature however I cannot exclude bony involvement by osteomyelitis. Clinical correlation is recommended. Other findings as noted above Lower Extremity MRI 08/25/16 00:00 IMPRESSION: 1. RECENT SURGICAL CHANGES OF AMPUTATION OF THE 3RD, 4TH, AND 5TH TOE AT THE METATARSAL LEVEL. ABNORMAL APPEARANCE OF THE PROXIMAL 5TH METATARSAL, CANNOT EXCLUDE POSSIBLE INVOLVEMENT WITH OSTEOMYELITIS, PARTICULARLY THIS IS ADJACENT TO SOFT TISSUE CHANGES. 2. SOFT TISSUE DEFECT IN THE LATERAL FOOT WITH EDEMA AND INFLAMMATION. NO DISCRETE ABSCESS. 3. MARKEDLY HETEROGENOUS MARROW SIGNAL IN THE TARSAL BONES AND HINDFOOT DESCRIBED. PROBABLY DUE TO DIFFUSE PATCHY OSTEOPOROSIS AND EDEMA. INVOLVEMENT WITH INFECTION CANNOT BE ENTIRELY EXCLUDED ALTHOUGH PROBABLY UNLIKELY. Assessment & Plan - Diagnosis (1) Cellulitis and abscess of foot Is this a current diagnosis for this admission?: YesPlan: Continue on Aztreonam and Linezolid coverage. Follow up on wound culture organism identification and sensitivity. (2) Acute osteomyelitis of metatarsal bone of right foot Is this a current diagnosis for this admission?: YesPlan: See covering attending physician orders. (3) Diabetes mellitus type 2 in obese Is this a current diagnosis for this admission?: YesPlan: See covering attending physician orders. Her Metformin is on hold due to recent contrast study. (4) Proteus septicemia Is this a current diagnosis for this admission?: YesPlan: See covering attending physician orders. Maintain on IV Aztreonam and Linezolid. Follow up on wound culture report. 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
[2016-08-28] MEDS: AZTREONAM 1 GM in DEXTROSE 5%-WATER 50 ML IV SCH ×4 (10:47→17:06)
--- NOTE | 2016-08-28 17:50 | PDOC PROGRESS REPORT ---
Physical Exam Vital Signs: Temp Pulse Resp BP Pulse Ox 97.8 F 79 16 126/53 H 100 08/28/16 15:48 08/28/16 15:48 08/28/16 15:48 08/28/16 15:48 08/28/16 15:48 Intake & Output 08/27/16 08/28/16 08/29/16 05:59 06:59 06:59 Intake Total Output Total Balance Weight Extremities exam: PRESENT: other - Right foot wound is clean Continue wound care Physical therapy DC plan as per medical team Results Laboratory Results: 08/25/16 05:19 08/23/16 04:36 08/22/16 08/22/16 08/23/16 22:48 22:48 04:36 Creatine Kinase 79 75 CK-MB (CK-2) 0.32 Troponin I < 0.012 08/23/16 08/23/16 08/23/16 04:36 10:39 10:39 Creatine Kinase 66 CK-MB (CK-2) 0.33 < 0.22 Troponin I < 0.012 < 0.012 Impressions: Chest X-Ray 08/22/16 17:07 IMPRESSION: NO ACUTE RADIOGRAPHIC FINDING IN THE CHEST. Foot X-Ray 08/25/16 00:00 IMPRESSION: Status post amputation of the 3rd 4th and 5th digits as noted above. There is some cortical irregularity and calcifications at the level of the distal ends of the 3rd, 4th, and 5th metatarsals which could be postsurgical in nature however I cannot exclude bony involvement by osteomyelitis. Clinical correlation is recommended. Other findings as noted above Lower Extremity MRI 08/25/16 00:00 IMPRESSION: 1. RECENT SURGICAL CHANGES OF AMPUTATION OF THE 3RD, 4TH, AND 5TH TOE AT THE METATARSAL LEVEL. ABNORMAL APPEARANCE OF THE PROXIMAL 5TH METATARSAL, CANNOT EXCLUDE POSSIBLE INVOLVEMENT WITH OSTEOMYELITIS, PARTICULARLY THIS IS ADJACENT TO SOFT TISSUE CHANGES. 2. SOFT TISSUE DEFECT IN THE LATERAL FOOT WITH EDEMA AND INFLAMMATION. NO DISCRETE ABSCESS. 3. MARKEDLY HETEROGENOUS MARROW SIGNAL IN THE TARSAL BONES AND HINDFOOT DESCRIBED. PROBABLY DUE TO DIFFUSE PATCHY OSTEOPOROSIS AND EDEMA. INVOLVEMENT WITH INFECTION CANNOT BE ENTIRELY EXCLUDED ALTHOUGH PROBABLY UNLIKELY.
[2016-08-28] MEDS: INSULIN GLARGINE,HUM.REC.ANLOG 300 UNIT/3 ML INSULN.PEN SUBCUT SCH (23:00)
[2016-08-28] MEDS: DOXEPIN HCL 25 MG CAPSULE PO SCH (23:01)
[2016-08-28] MEDS: ATORVASTATIN CALCIUM 20 MG TABLET PO SCH (23:01)
[2016-08-29] MEDS: AZTREONAM 1 GM in DEXTROSE 5%-WATER 50 ML IV SCH ×3 (02:33→17:20)
[2016-08-29] MEDS: GABAPENTIN 100 MG CAPSULE PO SCH ×3 (06:33→22:36)
[2016-08-29] MEDS: ENOXAPARIN SODIUM INJ 40 MG/0.4 ML DISP.SYRIN SUBCUT SCH (10:42)
[2016-08-29] MEDS: ASPIRIN 81 MG TABLET, ENT COATED PO SCH (10:43)
[2016-08-29] MEDS: LINEZOLID 600 MG TABLET PO SCH ×2 (10:43→22:36)
[2016-08-29] MEDS: AMLODIPINE BESYLATE 10 MG TABLET PO SCH (10:44)
[2016-08-29] MEDS: LEVOTHYROXINE SODIUM 0.075 MG TABLET PO SCH (10:44)
[2016-08-29] MEDS: LISINOPRIL 10 MG TABLET PO SCH (10:44)
--- NOTE | 2016-08-29 11:35 | PDOC PROGRESS REPORT ---
Subjective Progress Note for:: 08/29/16 Subjective:: No complaints Physical Exam Vital Signs: Temp Pulse Resp BP Pulse Ox 98.0 F 81 18 155/64 H 98 08/29/16 07:15 08/29/16 07:15 08/29/16 07:15 08/29/16 07:15 08/29/16 07:15 Intake & Output 08/28/16 08/29/16 08/30/16 06:59 06:59 06:59 Intake Total 927 Balance 927 Weight 99.2 kg General appearance: PRESENT: no acute distress Musculoskeletal exam: PRESENT: other - Right foot dressing removed. There is fibrinous exudate around the perimeter of the wound. This was sharply debrided off. The majority of exposed surfaces granulating beautifully. Inferiorly at the site of most recent debridement there is some more nonviable tissue which is cleaned up sharply. There is no evidence of cellulitis foul smell or active drainage. Briskly. The patient remains on Plavix. Results Laboratory Results: 08/25/16 05:19 08/23/16 04:36 08/22/16 08/22/16 08/23/16 22:48 22:48 04:36 Creatine Kinase 79 75 CK-MB (CK-2) 0.32 Troponin I < 0.012 08/23/16 08/23/16 08/23/16 04:36 10:39 10:39 Creatine Kinase 66 CK-MB (CK-2) 0.33 < 0.22 Troponin I < 0.012 < 0.012 Impressions: Chest X-Ray 08/22/16 17:07 IMPRESSION: NO ACUTE RADIOGRAPHIC FINDING IN THE CHEST. Foot X-Ray 08/25/16 00:00 IMPRESSION: Status post amputation of the 3rd 4th and 5th digits as noted above. There is some cortical irregularity and calcifications at the level of the distal ends of the 3rd, 4th, and 5th metatarsals which could be postsurgical in nature however I cannot exclude bony involvement by osteomyelitis. Clinical correlation is recommended. Other findings as noted above Lower Extremity MRI 08/25/16 00:00 IMPRESSION: 1. RECENT SURGICAL CHANGES OF AMPUTATION OF THE 3RD, 4TH, AND 5TH TOE AT THE METATARSAL LEVEL. ABNORMAL APPEARANCE OF THE PROXIMAL 5TH METATARSAL, CANNOT EXCLUDE POSSIBLE INVOLVEMENT WITH OSTEOMYELITIS, PARTICULARLY THIS IS ADJACENT TO SOFT TISSUE CHANGES. 2. SOFT TISSUE DEFECT IN THE LATERAL FOOT WITH EDEMA AND INFLAMMATION. NO DISCRETE ABSCESS. 3. MARKEDLY HETEROGENOUS MARROW SIGNAL IN THE TARSAL BONES AND HINDFOOT DESCRIBED. PROBABLY DUE TO DIFFUSE PATCHY OSTEOPOROSIS AND EDEMA. INVOLVEMENT WITH INFECTION CANNOT BE ENTIRELY EXCLUDED ALTHOUGH PROBABLY UNLIKELY. Assessment & Plan - Diagnosis (1) Acute osteomyelitis of metatarsal bone of right foot Is this a current diagnosis for this admission?: YesPlan: Patient now 3 days status post operative debridement of remainder of metatarsal bones laterally of the right foot. The foot is cleaning up nicely. I have suggested continue dressing changes, and not use the wound VAC as the patient is on Plavix in order to keep her right lower extremity revascularizations stents patent. Orders have been written. The patient can follow [facility] with the [facility] upon discharge from the hospital.
--- NOTE | 2016-08-29 11:53 | OPERATIVE REPORT E ---
Operative Report NAME: LAVELLE ARRIAZA : 1960 AGE: 56Y DATE OF SURGERY: 08/29/2016 ROOM: 332 PREOPERATIVE DIAGNOSIS: NONVIABLE TISSUE SURFACE OF THE EXPOSED, DEBRIDED RIGHT VERTICALLY-ORIENTED UMM FOOT AMPUTATION. POSTOPERATIVE DIAGNOSIS: NONVIABLE TISSUE SURFACE OF THE EXPOSED, DEBRIDED RIGHT VERTICALLY-ORIENTED UMM FOOT AMPUTATION. OPERATION: Sharp debridement of devitalized tissue, right foot. SURGEON: NELLY GALLAGHER M.D. ANESTHESIA: None. DRAINS: None. TISSUE REMOVED OR ALTERED: Nonviable tissue. COMPLICATIONS: None. SUMMARY OF PROCEDURE: Patient's right foot was exposed. Dressing removed. Perimeter nonviable skin and subcutaneous tissue and portions of fascia and tendon, all limited, were sharply debrided with pickups and sharp scissors. All specimens disposed of. Granulation tissue bled briskly. Total amount of tissue removed was approximately a 2 x 3 x 3 cm. Dressing applied with a moist saline 4 x 4. Patient tolerated the procedure well. DISCHARGE INSTRUCTIONS: Provided. DICTATING PHYSICIAN: NELLY GALLAGHER M.D. [id number] PHY#: [id number] ID: [id number] JOB#: [id number] ACCT: [id number] cc:NELLY GALLAGHER M.D. >
[2016-08-29] MEDS: INSULIN LISPRO 100 UNIT/ML 3 ML VIAL SUBCUT PRN ×3 (12:48→22:36)
[2016-08-29] MEDS: METFORMIN HCL 500 MG TABLET PO SCH (17:21)
--- NOTE | 2016-08-29 18:27 | PDOC PROGRESS REPORT ---
Subjective Progress Note for:: 08/29/16 Subjective:: The wound culture grew MRSA, blood culture grew Proteus, she was seen by the surgeon today Physical Exam Vital Signs: Temp Pulse Resp BP Pulse Ox 98.1 F 80 20 150/65 H 100 08/29/16 15:32 08/29/16 15:32 08/29/16 15:32 08/29/16 15:32 08/29/16 15:32 Intake & Output 08/28/16 08/29/16 08/30/16 06:59 06:59 06:59 Intake Total 927 358 Balance 927 358 Weight 99.2 kg General appearance: PRESENT: no acute distress Eye exam: PRESENT: PERRLA Respiratory exam: PRESENT: clear to auscultation richard Cardiovascular exam: PRESENT: +S1, +S2 GI/Abdominal exam: PRESENT: soft Neurological exam: PRESENT: alert, CN II-XII grossly intact Results Laboratory Results: 08/25/16 05:19 08/23/16 04:36 08/22/16 08/22/16 08/23/16 22:48 22:48 04:36 Creatine Kinase 79 75 CK-MB (CK-2) 0.32 Troponin I < 0.012 08/23/16 08/23/16 08/23/16 04:36 10:39 10:39 Creatine Kinase 66 CK-MB (CK-2) 0.33 < 0.22 Troponin I < 0.012 < 0.012 Impressions: Chest X-Ray 08/22/16 17:07 IMPRESSION: NO ACUTE RADIOGRAPHIC FINDING IN THE CHEST. Foot X-Ray 08/25/16 00:00 IMPRESSION: Status post amputation of the 3rd 4th and 5th digits as noted above. There is some cortical irregularity and calcifications at the level of the distal ends of the 3rd, 4th, and 5th metatarsals which could be postsurgical in nature however I cannot exclude bony involvement by osteomyelitis. Clinical correlation is recommended. Other findings as noted above Lower Extremity MRI 08/25/16 00:00 IMPRESSION: 1. RECENT SURGICAL CHANGES OF AMPUTATION OF THE 3RD, 4TH, AND 5TH TOE AT THE METATARSAL LEVEL. ABNORMAL APPEARANCE OF THE PROXIMAL 5TH METATARSAL, CANNOT EXCLUDE POSSIBLE INVOLVEMENT WITH OSTEOMYELITIS, PARTICULARLY THIS IS ADJACENT TO SOFT TISSUE CHANGES. 2. SOFT TISSUE DEFECT IN THE LATERAL FOOT WITH EDEMA AND INFLAMMATION. NO DISCRETE ABSCESS. 3. MARKEDLY HETEROGENOUS MARROW SIGNAL IN THE TARSAL BONES AND HINDFOOT DESCRIBED. PROBABLY DUE TO DIFFUSE PATCHY OSTEOPOROSIS AND EDEMA. INVOLVEMENT WITH INFECTION CANNOT BE ENTIRELY EXCLUDED ALTHOUGH PROBABLY UNLIKELY. Assessment & Plan - Diagnosis (1) Gram negative septicemia Is this a current diagnosis for this admission?: Yes (2) Acute osteomyelitis of metatarsal bone of right foot Is this a current diagnosis for this admission?: Yes (3) Diabetes mellitus type 2 in obese Is this a current diagnosis for this admission?: Yes (4) Peripheral vascular disease in diabetes mellitus Is this a current diagnosis for this admission?: Yes (5) Cellulitis and abscess of foot Is this a current diagnosis for this admission?: Yes (6) Proteus septicemia Is this a current diagnosis for this admission?: YesPlan: Continue IV antibiotic
[2016-08-29] MEDS ORDERED: INSULIN GLARGINE,HUM.REC.ANLOG 1,000 UNIT/10 ML UNIT SUBCUT ONE (22:28)
[2016-08-29] MEDS: INSULIN GLARGINE,HUM.REC.ANLOG 300 UNIT/3 ML INSULN.PEN SUBCUT SCH (22:36)
[2016-08-30] MEDS: DOXEPIN HCL 25 MG CAPSULE PO SCH ×2 (01:23→22:28)
[2016-08-30] MEDS: ATORVASTATIN CALCIUM 20 MG TABLET PO SCH ×2 (01:23→22:28)
[2016-08-30] MEDS: AZTREONAM 1 GM in DEXTROSE 5%-WATER 50 ML IV SCH ×3 (02:10→17:06)
[2016-08-30] MEDS: GABAPENTIN 100 MG CAPSULE PO SCH ×3 (05:44→22:24)
[2016-08-30] MEDS: ENOXAPARIN SODIUM INJ 40 MG/0.4 ML DISP.SYRIN SUBCUT SCH (08:12)
[2016-08-30] MEDS: INSULIN LISPRO 100 UNIT/ML 3 ML VIAL SUBCUT PRN ×4 (08:22→22:24)
[2016-08-30] MEDS: METFORMIN HCL 500 MG TABLET PO SCH ×2 (08:23→16:38)
[2016-08-30] MEDS: LEVOTHYROXINE SODIUM 0.075 MG TABLET PO SCH (09:03)
[2016-08-30] MEDS: AMLODIPINE BESYLATE 10 MG TABLET PO SCH (09:03)
[2016-08-30] MEDS: ASPIRIN 81 MG TABLET, ENT COATED PO SCH (09:03)
[2016-08-30] MEDS: LINEZOLID 600 MG TABLET PO SCH ×2 (09:04→22:23)
[2016-08-30] MEDS: LISINOPRIL 10 MG TABLET PO SCH (09:10)
--- NOTE | 2016-08-30 19:47 | PDOC PROGRESS REPORT ---
Subjective Progress Note for:: 08/30/16 Subjective:: There is no new complaints Physical Exam Vital Signs: Temp Pulse Resp BP Pulse Ox 97.8 F 80 18 132/52 H 100 08/30/16 15:43 08/30/16 15:43 08/30/16 15:43 08/30/16 15:43 08/30/16 15:43 Intake & Output 08/29/16 08/30/16 08/31/16 06:59 06:59 06:59 Intake Total 927 1528 1378 Output Total 0 Balance 927 1528 1378 Weight 99.2 kg 98.2 kg General appearance: PRESENT: no acute distress Eye exam: PRESENT: PERRLA Respiratory exam: PRESENT: clear to auscultation richard Cardiovascular exam: PRESENT: +S1, +S2 Results Laboratory Results: 08/25/16 05:19 08/23/16 04:36 08/26/16 11:04 Foot - Right Gram Stain - Final 08/26/16 11:04 Foot - Right Wound Culture - Final Proteus Mirabilis Mrsa (Meth Resis Staph Aureus) Streptococcus Mitis No Anaerobic Organisms 08/22/16 08/22/16 08/23/16 22:48 22:48 04:36 Creatine Kinase 79 75 CK-MB (CK-2) 0.32 Troponin I < 0.012 08/23/16 08/23/16 08/23/16 04:36 10:39 10:39 Creatine Kinase 66 CK-MB (CK-2) 0.33 < 0.22 Troponin I < 0.012 < 0.012 Impressions: Chest X-Ray 08/22/16 17:07 IMPRESSION: NO ACUTE RADIOGRAPHIC FINDING IN THE CHEST. Foot X-Ray 08/25/16 00:00 IMPRESSION: Status post amputation of the 3rd 4th and 5th digits as noted above. There is some cortical irregularity and calcifications at the level of the distal ends of the 3rd, 4th, and 5th metatarsals which could be postsurgical in nature however I cannot exclude bony involvement by osteomyelitis. Clinical correlation is recommended. Other findings as noted above Lower Extremity MRI 08/25/16 00:00 IMPRESSION: 1. RECENT SURGICAL CHANGES OF AMPUTATION OF THE 3RD, 4TH, AND 5TH TOE AT THE METATARSAL LEVEL. ABNORMAL APPEARANCE OF THE PROXIMAL 5TH METATARSAL, CANNOT EXCLUDE POSSIBLE INVOLVEMENT WITH OSTEOMYELITIS, PARTICULARLY THIS IS ADJACENT TO SOFT TISSUE CHANGES. 2. SOFT TISSUE DEFECT IN THE LATERAL FOOT WITH EDEMA AND INFLAMMATION. NO DISCRETE ABSCESS. 3. MARKEDLY HETEROGENOUS MARROW SIGNAL IN THE TARSAL BONES AND HINDFOOT DESCRIBED. PROBABLY DUE TO DIFFUSE PATCHY OSTEOPOROSIS AND EDEMA. INVOLVEMENT WITH INFECTION CANNOT BE ENTIRELY EXCLUDED ALTHOUGH PROBABLY UNLIKELY. Assessment & Plan - Diagnosis (1) Gram negative septicemia Is this a current diagnosis for this admission?: Yes (2) Acute osteomyelitis of metatarsal bone of right foot Is this a current diagnosis for this admission?: Yes (3) Diabetes mellitus type 2 in obese Is this a current diagnosis for this admission?: Yes (4) Peripheral vascular disease in diabetes mellitus Is this a current diagnosis for this admission?: Yes (5) Cellulitis and abscess of foot Is this a current diagnosis for this admission?: Yes (6) Proteus septicemia Is this a current diagnosis for this admission?: Yes (7) MRSA (methicillin resistant Staphylococcus aureus) infection Is this a current diagnosis for this admission?: Yes
[2016-08-30] MEDS: INSULIN GLARGINE,HUM.REC.ANLOG 300 UNIT/3 ML INSULN.PEN SUBCUT SCH (22:19)
[2016-08-30] MEDS ORDERED: INSULIN GLARGINE,HUM.REC.ANLOG 1,000 UNIT/10 ML UNIT SUBCUT ONE (22:19)
[2016-08-31] MEDS: AZTREONAM 1 GM in DEXTROSE 5%-WATER 50 ML IV SCH ×2 (02:08→09:35)
[2016-08-31] MEDS: GABAPENTIN 100 MG CAPSULE PO SCH ×3 (05:50→22:32)
[2016-08-31] MEDS: METFORMIN HCL 500 MG TABLET PO SCH ×2 (08:43→17:16)
[2016-08-31] MEDS: ENOXAPARIN SODIUM INJ 40 MG/0.4 ML DISP.SYRIN SUBCUT SCH (08:43)
[2016-08-31] MEDS: ASPIRIN 81 MG TABLET, ENT COATED PO SCH (09:31)
[2016-08-31] MEDS: LEVOTHYROXINE SODIUM 0.075 MG TABLET PO SCH (09:32)
[2016-08-31] MEDS: LINEZOLID 600 MG TABLET PO SCH ×2 (09:32→22:32)
[2016-08-31] MEDS: LISINOPRIL 10 MG TABLET PO SCH (09:42)
[2016-08-31] MEDS: AMLODIPINE BESYLATE 10 MG TABLET PO SCH (09:42)
[2016-08-31] MEDS ORDERED: (PENDING PHARMACY ID) (Canagliflozin [Invokana] 300 MG) PO SCH (10:00)
[2016-08-31] MEDS: INSULIN LISPRO 100 UNIT/ML 3 ML VIAL SUBCUT PRN ×3 (11:50→22:33)
[2016-08-31 14:23] LABS: ABSOLUTE BASOPHILS # (AUTO) 0.1 10^3/uL (0.0-0.2); ABSOLUTE EOSINOPHILS # (AUTO) 0.3 10^3/uL (0.0-0.6); ABSOLUTE LYMPHOCYTES (AUTO) 2.2 10^3/uL (0.5-4.7); ABSOLUTE MONOCYTES (AUTO) 0.4 10^3/uL (0.1-1.4); ABSOLUTE NEUT (AUTO) 5.9 10^3/uL (1.7-8.2); BASOPHILS % (AUTO) 0.9 % (0-2); EOSINOPHILS % (AUTO) 3.8 % (0-6); HEMOGLOBIN 10.4 g/dL (12.0-15.5); HGB HCT DIFFERENCE -1.8; LYMPHOCYTES % (AUTO) 24.9 % (13-45); MEAN CORPUSCULAR HEMOGLOBIN 24.8 pg (27.0-33.4); MEAN CORPUSCULAR HGB CONC 31.6 g/dL (32.0-36.0); MEAN CORPUSCULAR VOLUME 79 fl (80-97); MONOCYTES % (AUTO) 4.1 % (3-13); RED BLOOD COUNT 4.21 10^6/uL (3.72-5.28); RED CELL DISTRIBUTION WIDTH 17.2 % (11.5-14.0); SEGMENTED NEUTROPHILS % (AUTO) 66.3 % (42-78)
[2016-08-31 14:42] LABS: ANION GAP 10 (5-19); BLOOD UREA NITROGEN 17 mg/dL (7-20); CARBON DIOXIDE 29 mmol/L (22-30); CHLORIDE 101 mmol/L (98-107); CREATININE RESULT 0.66 mg/dL (0.52-1.25); GLUCOSE 230 mg/dL (75-110); POTASSIUM 4.4 mmol/L (3.6-5.0); SODIUM 139.8 mmol/L (137-145)
[2016-08-31] MEDS: LEVOFLOXACIN 750 MG TABLET PO SCH (17:13)
--- NOTE | 2016-08-31 17:15 | PDOC PROGRESS REPORT ---
Subjective Progress Note for:: 08/31/16 Subjective:: The antibiotic was changed from IV to p.o. Levaquin, she cannot bear weight on the food so she is reluctant to go home she will be transferred to the [facility] for [facility] Physical Exam Vital Signs: Temp Pulse Resp BP Pulse Ox 98.1 F 80 17 135/59 H 100 08/31/16 16:14 08/31/16 16:14 08/31/16 16:14 08/31/16 16:14 08/31/16 16:14 Intake & Output 08/30/16 08/31/16 09/01/16 06:59 06:59 06:59 Intake Total 1528 1653 400 Output Total 0 Balance 1528 1653 400 Weight 98.2 kg 100 kg General appearance: PRESENT: no acute distress Eye exam: PRESENT: PERRLA Respiratory exam: PRESENT: clear to auscultation richard Cardiovascular exam: PRESENT: +S1, +S2 Neurological exam: PRESENT: alert, CN II-XII grossly intact Results Laboratory Results: 08/31/16 14:08 08/31/16 14:08 08/31/16 08/31/16 14:08 14:08 WBC 9.0 RBC 4.21 Hgb 10.4 L Hct 33.0 L MCV 79 L MCH 24.8 L MCHC 31.6 L RDW 17.2 H Plt Count 526 H Seg Neutrophils % 66.3 Lymphocytes % 24.9 Monocytes % 4.1 Eosinophils % 3.8 Basophils % 0.9 Absolute Neutrophils 5.9 Absolute Lymphocytes 2.2 Absolute Monocytes 0.4 Absolute Eosinophils 0.3 Absolute Basophils 0.1 Sodium 139.8 Potassium 4.4 Chloride 101 Carbon Dioxide 29 Anion Gap 10 BUN 17 Creatinine 0.66 Est GFR ( Amer) > 60 Est GFR (Non-Af Amer) > 60 Glucose 230 H Calcium 10.0 08/26/16 11:04 Foot - Right Gram Stain - Final 08/26/16 11:04 Foot - Right Wound Culture - Final Proteus Mirabilis Mrsa (Meth Resis Staph Aureus) Streptococcus Mitis No Anaerobic Organisms 08/22/16 08/22/16 08/23/16 22:48 22:48 04:36 Creatine Kinase 79 75 CK-MB (CK-2) 0.32 Troponin I < 0.012 08/23/16 08/23/16 08/23/16 04:36 10:39 10:39 Creatine Kinase 66 CK-MB (CK-2) 0.33 < 0.22 Troponin I < 0.012 < 0.012 Impressions: Chest X-Ray 08/22/16 17:07 IMPRESSION: NO ACUTE RADIOGRAPHIC FINDING IN THE CHEST. Foot X-Ray 08/25/16 00:00 IMPRESSION: Status post amputation of the 3rd 4th and 5th digits as noted above. There is some cortical irregularity and calcifications at the level of the distal ends of the 3rd, 4th, and 5th metatarsals which could be postsurgical in nature however I cannot exclude bony involvement by osteomyelitis. Clinical correlation is recommended. Other findings as noted above Lower Extremity MRI 08/25/16 00:00 IMPRESSION: 1. RECENT SURGICAL CHANGES OF AMPUTATION OF THE 3RD, 4TH, AND 5TH TOE AT THE METATARSAL LEVEL. ABNORMAL APPEARANCE OF THE PROXIMAL 5TH METATARSAL, CANNOT EXCLUDE POSSIBLE INVOLVEMENT WITH OSTEOMYELITIS, PARTICULARLY THIS IS ADJACENT TO SOFT TISSUE CHANGES. 2. SOFT TISSUE DEFECT IN THE LATERAL FOOT WITH EDEMA AND INFLAMMATION. NO DISCRETE ABSCESS. 3. MARKEDLY HETEROGENOUS MARROW SIGNAL IN THE TARSAL BONES AND HINDFOOT DESCRIBED. PROBABLY DUE TO DIFFUSE PATCHY OSTEOPOROSIS AND EDEMA. INVOLVEMENT WITH INFECTION CANNOT BE ENTIRELY EXCLUDED ALTHOUGH PROBABLY UNLIKELY. Assessment & Plan - Diagnosis (1) Gram negative septicemia Is this a current diagnosis for this admission?: Yes (2) Acute osteomyelitis of metatarsal bone of right foot Is this a current diagnosis for this admission?: Yes (3) Diabetes mellitus type 2 in obese Is this a current diagnosis for this admission?: Yes (4) Peripheral vascular disease in diabetes mellitus Is this a current diagnosis for this admission?: Yes (5) Cellulitis and abscess of foot Is this a current diagnosis for this admission?: Yes (6) Proteus septicemia Is this a current diagnosis for this admission?: Yes (7) MRSA (methicillin resistant Staphylococcus aureus) infection Is this a current diagnosis for this admission?: Yes
[2016-08-31] MEDS: DOXEPIN HCL 25 MG CAPSULE PO SCH (22:21)
[2016-08-31] MEDS: ATORVASTATIN CALCIUM 20 MG TABLET PO SCH (22:21)
[2016-08-31] MEDS: INSULIN GLARGINE,HUM.REC.ANLOG 300 UNIT/3 ML INSULN.PEN SUBCUT SCH (22:33)
[2016-09-01] MEDS: GABAPENTIN 100 MG CAPSULE PO SCH ×3 (05:52→22:50)
[2016-09-01] MEDS: ASPIRIN 81 MG TABLET, ENT COATED PO SCH (10:38)
[2016-09-01] MEDS: LINEZOLID 600 MG TABLET PO SCH ×2 (10:38→22:50)
[2016-09-01] MEDS: LEVOTHYROXINE SODIUM 0.075 MG TABLET PO SCH (10:38)
[2016-09-01] MEDS: ENOXAPARIN SODIUM INJ 40 MG/0.4 ML DISP.SYRIN SUBCUT SCH (10:39)
[2016-09-01] MEDS: METFORMIN HCL 500 MG TABLET PO SCH ×2 (10:44→16:32)
[2016-09-01] MEDS: AMLODIPINE BESYLATE 10 MG TABLET PO SCH (10:44)
[2016-09-01] MEDS: LISINOPRIL 10 MG TABLET PO SCH (10:44)
[2016-09-01] MEDS: INSULIN LISPRO 100 UNIT/ML 3 ML VIAL SUBCUT PRN ×2 (12:54→22:50)
[2016-09-01] MEDS: LEVOFLOXACIN 750 MG TABLET PO SCH (17:30)
--- NOTE | 2016-09-01 18:33 | PDOC TRANSFER SUMMARY ---
General - Admit/Disc Date/PCP Admission Date/Primary Care Provider: 08/22/16 22:17 MARLENE CANNON MD Discharge Date: 09/02/16 - Discharge Diagnosis (1) Gram negative septicemia Is this a current diagnosis for this admission?: Yes (2) Acute osteomyelitis of metatarsal bone of right foot Is this a current diagnosis for this admission?: Yes (3) Diabetes mellitus type 2 in obese Is this a current diagnosis for this admission?: Yes (4) Peripheral vascular disease in diabetes mellitus Is this a current diagnosis for this admission?: Yes (5) Cellulitis and abscess of foot Is this a current diagnosis for this admission?: Yes (6) Proteus septicemia Is this a current diagnosis for this admission?: Yes (7) MRSA (methicillin resistant Staphylococcus aureus) infection Is this a current diagnosis for this admission?: Yes - Additional Information Resuscitation Status: Full Code Home Medications: Amlodipine Besylate [Norvasc 10 mg Tablet] 10 mg PO DAILY 08/22/16 Aspirin [Aspirin EC] 81 mg PO DAILY 08/22/16 Canagliflozin [Invokana] 300 mg PO DAILY 08/22/16 Gabapentin [Neurontin 100 mg Capsule] 100 mg PO Q12 08/22/16 Insulin Glargine,Hum.rec.anlog [Lantus Solostar] 50 units SQ QHS 08/22/16 Insulin Lispro [Humalog Kwikpen U-100] 0 units SQ ASDIR PRN 08/22/16 Lisinopril [Prinivil 40 mg Tablet] 40 mg PO DAILY 08/22/16 Pravastatin Sodium [Pravachol] 80 mg PO QHS 08/22/16 Acetaminophen [Tylenol 325 mg Tablet] 650 mg PO Q4HP PRN #0 tablet 09/01/16 Insulin Lispro [Humalog Insulin (Lispro) 100 unit/mL] 0 - 12 unit SUBCUT ACHSP PRN #0 unit 09/01/16 Levofloxacin [Levaquin 750 mg Tablet] 750 mg PO QPM #10 tablet 09/01/16 Levothyroxine Sodium [Synthroid 0.075 mg Tablet] 0.075 mg PO DAILY #10 tablet Linezolid [Zyvox 600 mg Tablet] 600 mg PO Q12 #20 tablet 09/01/16 Metformin HCl [Glumetza ER 500 mg Tablet] 1,000 mg PO DAILY #0 [id number] History of Present Illness Admission Date/PCP: 08/22/16 22:17 MARLENE CANNON MD History of Present Illness: LAVELLE ARRIAZA is a 56 year old female, she is well known to me she has a right foot ulcer and the ulcer is managed at wound clinic she underwent debridement and she developed fever with temperature 105, she was then referred to the emergency room, in the emergency room she was evaluated and it seems that she has gram-negative septicemia. The blood culture already growing gram- negative rods that is probably a consequence of the debridement of the foot there is no other source for the bacteremia, the chest x-ray is normal the urinalysis is grossly normal Hospital Course Hospital Course: Patient was admitted because of Proteus septicemia with associated polymicrobial right foot infection. She has open wound in the right foot, she was referred to the emergency room from wound clinic when she developed high fever with temperature 105, this occurred after she underwent debridement of the foot. The blood culture grew Proteus mirabilis and the wound culture grew polymicrobial agents including Proteus, MRSA. She was initially treated with aztreonam because she has penicillin allergy and subsequently the antibiotic was changed to p.o. Levaquin for the Proteus infection and she was also treated with Zyvox from the first day of admission because she has a history of MRSA. She underwent multiple debridements in the hospital she also had arterial Doppler Doppler of the lower extremities, amputation was contemplated as an option but this was not carried through. The recommendation from the surgeon is for patient to have pressure offloading the right foot until it heals. The source of the bacteremia is the right foot ,Proteus was culture from the right foot and also from the blood, she is to have the antibiotic for 2 weeks Physical Exam Vital Signs: Temp Pulse Resp BP Pulse Ox 98.0 F 77 20 140/53 H 99 09/01/16 16:30 09/01/16 16:30 09/01/16 16:30 09/01/16 16:30 09/01/16 16:30 Intake & Output 08/31/16 09/01/16 09/02/16 06:59 06:59 06:59 Intake Total 1653 1495 237 Output Total 0 Balance 1653 1495 237 Weight 100 kg 98.4 kg General appearance: PRESENT: no acute distress Eye exam: PRESENT: PERRLA Respiratory exam: PRESENT: clear to auscultation richard Cardiovascular exam: PRESENT: +S1, +S2 GI/Abdominal exam: PRESENT: soft Extremities exam: PRESENT: other - The right foot is dressed Musculoskeletal exam: PRESENT: other - Left AKA Neurological exam: PRESENT: alert, CN II-XII grossly intact Results Laboratory Results: 08/31/16 14:08 08/31/16 14:08 08/22/16 08/22/16 08/23/16 22:48 22:48 04:36 Creatine Kinase 79 75 CK-MB (CK-2) 0.32 Troponin I < 0.012 08/23/16 08/23/16 08/23/16 04:36 10:39 10:39 Creatine Kinase 66 CK-MB (CK-2) 0.33 < 0.22 Troponin I < 0.012 < 0.012 Impressions: Chest X-Ray 08/22/16 17:07 IMPRESSION: NO ACUTE RADIOGRAPHIC FINDING IN THE CHEST. Foot X-Ray 08/25/16 00:00 IMPRESSION: Status post amputation of the 3rd 4th and 5th digits as noted above. There is some cortical irregularity and calcifications at the level of the distal ends of the 3rd, 4th, and 5th metatarsals which could be postsurgical in nature however I cannot exclude bony involvement by osteomyelitis. Clinical correlation is recommended. Other findings as noted above Lower Extremity MRI 08/25/16 00:00 IMPRESSION: 1. RECENT SURGICAL CHANGES OF AMPUTATION OF THE 3RD, 4TH, AND 5TH TOE AT THE METATARSAL LEVEL. ABNORMAL APPEARANCE OF THE PROXIMAL 5TH METATARSAL, CANNOT EXCLUDE POSSIBLE INVOLVEMENT WITH OSTEOMYELITIS, PARTICULARLY THIS IS ADJACENT TO SOFT TISSUE CHANGES. 2. SOFT TISSUE DEFECT IN THE LATERAL FOOT WITH EDEMA AND INFLAMMATION. NO DISCRETE ABSCESS. 3. MARKEDLY HETEROGENOUS MARROW SIGNAL IN THE TARSAL BONES AND HINDFOOT DESCRIBED. PROBABLY DUE TO DIFFUSE PATCHY OSTEOPOROSIS AND EDEMA. INVOLVEMENT WITH INFECTION CANNOT BE ENTIRELY EXCLUDED ALTHOUGH PROBABLY UNLIKELY. Plan Discharge Plan: She transferred to residential for rehabilitation patient should not apply pressure to the right food and she is to follow with wound clinic next week the residential she will arrange for the follow-up.
[2016-09-01] MEDS: ATORVASTATIN CALCIUM 20 MG TABLET PO SCH (22:44)
[2016-09-01] MEDS: DOXEPIN HCL 25 MG CAPSULE PO SCH (22:44)
[2016-09-01] MEDS: INSULIN GLARGINE,HUM.REC.ANLOG 300 UNIT/3 ML INSULN.PEN SUBCUT SCH (22:50)
[2016-09-02] MEDS: GABAPENTIN 100 MG CAPSULE PO SCH ×2 (06:33→13:55)
[2016-09-02 08:18] VITALS: BP 148/65
[2016-09-02] MEDS: ENOXAPARIN SODIUM INJ 40 MG/0.4 ML DISP.SYRIN SUBCUT SCH (09:01)
[2016-09-02] MEDS: LEVOTHYROXINE SODIUM 0.075 MG TABLET PO SCH (09:36)
[2016-09-02] MEDS: LINEZOLID 600 MG TABLET PO SCH (09:37)
[2016-09-02] MEDS: ASPIRIN 81 MG TABLET, ENT COATED PO SCH (09:37)
[2016-09-02] MEDS: LISINOPRIL 10 MG TABLET PO SCH (09:38)
[2016-09-02] MEDS: METFORMIN HCL 500 MG TABLET PO SCH (09:38)
[2016-09-02] MEDS: AMLODIPINE BESYLATE 10 MG TABLET PO SCH (09:38)
== END 2016-09-02 14:29 | DRG 854 ==
LOC: ER 17:01 → UNDOADMIN 19:03 → EH 19:03 → 3S 08-23 02:19
PROVIDERS: ADMIT Internal Medicine; ATTEND Internal Medicine
PROC: 30233N1 Transfusion of Nonautologous Red Blood Cells into Peripheral Vein, Percutaneous Approach (ICD-10-PCS; 2016-08-23)
PROC: 0Y6M0ZD Detachment at Right Foot, Partial 4th Ray, Open Approach (ICD-10-PCS; 2016-08-26)
PROC: 0Y6M0ZF Detachment at Right Foot, Partial 5th Ray, Open Approach (ICD-10-PCS; 2016-08-26)
PROC: 0Y6M0ZC Detachment at Right Foot, Partial 3rd Ray, Open Approach (ICD-10-PCS; principal; 2016-08-26 11:00)
PROC: 0LBV0ZZ Excision of Right Foot Tendon, Open Approach (ICD-10-PCS; 2016-08-29)
DX: A41.50 Gram-negative sepsis, unspecified (principal); M86.171 Other acute osteomyelitis, right ankle and foot; L03.119 Cellulitis of unspecified part of limb; E11.69 Type 2 diabetes mellitus with other specified complication; E11.621 Type 2 diabetes mellitus with foot ulcer; E66.9 Obesity, unspecified; Z68.32 Body mass index [BMI] 32.0-32.9, adult; E11.51 Type 2 diabetes mellitus with diabetic peripheral angiopathy without gangrene; B95.62 Methicillin resistant Staphylococcus aureus infection as the cause of diseases classified elsewhere; E78.5 Hyperlipidemia, unspecified; I10 Essential (primary) hypertension; K21.9 Gastro-esophageal reflux disease without esophagitis; M19.90 Unspecified osteoarthritis, unspecified site; E11.628 Type 2 diabetes mellitus with other skin complications; D64.9 Anemia, unspecified; E11.40 Type 2 diabetes mellitus with diabetic neuropathy, unspecified; B96.4 Proteus (mirabilis) (morganii) as the cause of diseases classified elsewhere; E03.9 Hypothyroidism, unspecified; Z89.421 Acquired absence of other right toe(s); Z86.73 Personal history of transient ischemic attack (TIA), and cerebral infarction without residual deficits; Z79.82 Long term (current) use of aspirin; Z79.4 Long term (current) use of insulin; Z79.899 Other long term (current) drug therapy; Z88.0 Allergy status to penicillin; Z89.612 Acquired absence of left leg above knee; Z88.1 Allergy status to other antibiotic agents; Z82.3 Family history of stroke; Z83.3 Family history of diabetes mellitus; Z80.9 Family history of malignant neoplasm, unspecified; Z82.49 Family history of ischemic heart disease and other diseases of the circulatory system
CPT/HCPCS: 01480; 36415; 36430; 71010; 80048; 80053; 80307; 81001; 82272; 82550; 82553; 82803; 82962; 83036; 83605; 84439; 84443; 84484; 85025; 85027; 85610; 85730; 86850; 86900; 86901; 86920; 87040; 87070; 87075; 87077; 87086; 87186; 87205; 93005; 93010; 93926; 96361; 96374; 99285; A9576; J1650; J1815; J2020; J2250; J2704; J3010; J3370; J3490; J7030; P9016; S0119

== ENCOUNTER 2016-10-10 10:24 | Inpatient (IN) | payer MEDICARE, MEDICAID ==
[2016-10-10] MEDS ORDERED: VANCOMYCIN HCL INJ 1000 MG VIAL IV ONE (12:10)
[2016-10-10] MEDS ORDERED: ACETAMINOPHEN 325 MG TABLET PO ONE (12:10)
[2016-10-10] MEDS ORDERED: NORMAL SALINE 1000 ML 1,000 ML IV PRN (12:10)
[2016-10-10] MEDS ORDERED: CLINDAMYCIN 300 MG/D5W RTU 50 ML IV ONE (12:11)
--- NOTE | 2016-10-10 12:12 | ER Document Report ---
ED General - General Chief Complaint: Ankle Pain Stated Complaint: ANKLE PAIN Mode of Arrival: Wheelchair Information source: Patient Notes: 56-year-old female history of left AKA, recent right foot amputation of the third fourth and fifth digits presents with complaints of redness fever and pain swelling of the calf and thigh. Patient denies any shortness of breath. No previous DVT or PEs, was seen by physician and sent in for evaluation TRAVEL OUTSIDE OF THE [place] IN LAST 30 DAYS: No - HPI Onset: Last week Onset/Duration: Persistent Quality of pain: Achy Severity: Moderate Pain Level: 2 Associated symptoms: Fever, Leg swelling Exacerbated by: Denies Relieved by: Denies Similar symptoms previously: Yes Recently seen / treated by doctor: Yes - Related Data Allergies/Adverse Reactions: amoxicillin [From Augmentin] Allergy (Intermediate, Verified 08/22/16 18:12) Cephalosporins Allergy (Intermediate, Verified 08/22/16 18:12) blistering, peeling skin,burning throat clavulanic acid [From Augmentin] Allergy (Intermediate, Verified 08/22/16 18:12) Penicillins Allergy (Intermediate, Verified 08/22/16 18:12) blistering,peeling skin,burning of throat Past Medical History - Social History Smoking Status: Never Smoker Cigarette use (# per day): No Chew tobacco use (# tins/day): No Smoking Education Provided: No Family History: CAD, CVA, DM, Malignancy Patient has suicidal ideation: No Patient has homicidal ideation: No - Past Medical History Cardiac Medical History: Reports: Hx Hypercholesterolemia, Hx Hypertension, Hx Peripheral Vascular Disease Denies: Hx Coronary Artery Disease, Hx Heart Attack Pulmonary Medical History: Denies: Hx Asthma, Hx Bronchitis, Hx COPD, Hx Pneumonia Neurological Medical History: Reports: Hx Cerebrovascular Accident - 2003 . Denies: Hx Seizures Endocrine Medical History: Reports: Hx Diabetes Mellitus Type 1, Hx Diabetes Mellitus Type 2, Hx Hypothyroidism Renal/ Medical History: Denies: Hx Peritoneal Dialysis GI Medical History: Reports: Hx Gastroesophageal Reflux Disease. Denies: Hx Hepatitis, Hx Hiatal Hernia, Hx Ulcer Musculoskeltal Medical History: Reports Hx Arthritis Psychiatric Medical History: Denies: Hx Depression Infectious Medical History: Denies: Hx Hepatitis Past Surgical History: Reports: Hx Section, Hx Orthopedic Surgery - left aka. Right fifth toe amputation., Hx Vascular Surgery - Right leg stenting 2. Denies: Hx Hysterectomy, Hx Mastectomy, Hx Open Heart Surgery, Hx Pacemaker - Immunizations Hx Diphtheria, Pertussis, Tetanus Vaccination: Yes Review of Systems - Review of Systems Notes: REVIEW OF SYSTEMS: CONSTITUTIONAL : Admits fever EENT: Denies eye, ear, throat, or mouth pain or symptoms. Denies nasal or sinus congestion or discharge. Denies throat, tongue, or mouth swelling or difficulty swallowing. CARDIOVASCULAR: Denies chest pain. Denies palpitations or racing or irregular heart beat. Denies ankle edema. RESPIRATORY: Denies cough, cold, or chest congestion. Denies shortness of breath, difficulty breathing, or wheezing. GASTROINTESTINAL: Denies abdominal pain or distention. Denies nausea, vomiting , or diarrhea. Denies blood in vomitus, stools, or per rectum. Denies black, tarry stools. Denies constipation. GENITOURINARY: Denies difficulty urinating, painful urination, burning, frequency, blood in urine, or discharge. FEMALE GENITOURINARY: Denies vaginal bleeding, heavy or abnormal periods, irregular periods. Denies vaginal discharge or odor. MUSCULOSKELETAL: Right leg swelling SKIN: Denies rash, lesions or sores. HEMATOLOGIC : Denies easy bruising or bleeding. LYMPHATIC: Denies swollen, enlarged glands. NEUROLOGICAL: Denies confusion or altered mental status. Denies passing out or loss of consciousness. Denies dizziness or lightheadedness. Denies headache. Denies weakness or paralysis or loss of use of either side. Denies problems with gait or speech. Denies sensory loss, numbness, or tingling. Denies seizures. PSYCHIATRIC: Denies anxiety or stress. Denies depression, suicidal ideation, or homicidal ideation. ALL OTHER SYSTEMS REVIEWED AND NEGATIVE. Dictation was performed using [employer] recognition software PHYSICAL EXAMINATION: GENERAL: Overall well-appearing but febrile HEAD: Atraumatic, normocephalic. EYES: Pupils equal round and reactive to light, extraocular movements intact, conjunctiva are normal. ENT: Nares patent, oropharynx clear without exudates. Moist mucous membranes. NECK: Normal range of motion, supple without lymphadenopathy LUNGS: Breath sounds clear to auscultation bilaterally and equal. No wheezes rales or rhonchi. HEART: Mildly tachycardic ABDOMEN: Soft, nontender, nondistended abdomen. No guarding, no rebound. No masses appreciated. Female : deferred Musculoskeletal: Left AKA right foot in dressing noted to have third fourth and fifth digits amputated healing ulcer surgical, there is edema erythema up the calf to the mid thigh NEUROLOGICAL: Cranial nerves grossly intact. Normal speech, normal gait. Normal sensory, motor exams PSYCH: Normal mood, normal affect. SKIN: Warm, Dry, normal turgor, no rashes or lesions noted. Physical Exam - Vital signs Vitals: Temp Pulse Resp BP Pulse Ox 101.4 F H 109 H 18 130/57 H 97 10/10/16 10:59 10/10/16 10:59 10/10/16 10:59 10/10/16 10:59 10/10/16 10:59 Course - Re-evaluation Re-evalutation: 10/10/16 12:16 Patient has obvious cellulitis with possible DVT component, ultrasound pending lab work pending patient started on antibiotics Patient meets sepsis criteria at this time, unable to give Zosyn due to allergy patient started on clindamycin 10/10/16 14:[address] cooley who will consult, dr saw rasmussen for admission - Vital Signs Vital signs: Temp Pulse Resp BP Pulse Ox 101.4 F H 109 H 18 130/57 H 97 10/10/16 10:59 10/10/16 10:59 10/10/16 10:59 10/10/16 10:59 10/10/16 10:59 - Laboratory Result Diagrams: 10/10/16 12:50 10/10/16 12:50 Laboratory results interpreted by me: 10/10/16 10/10/16 12:50 12:50 ESR 118 H Sodium 146.9 H Glucose 153 H Alkaline Phosphatase 161 H C-Reactive Protein 298.9 H - Diagnostic Test Radiology reviewed: Image reviewed, Reports reviewed Critical Care Note - Critical Care Note Total time excluding time spent on procedures (mins): 33 Comments: minutes of critical care time spent in direct contact evaluating and reevaluating the patient, treating symptoms, reviewing labs and studies and speaking with family and consultants excluding any procedures Discharge - Discharge Clinical Impression: Sepsis Qualifiers: Sepsis type: sepsis due to unspecified organism Qualified Code(s): A41.9 - Sepsis, unspecified organism Osteomyelitis Qualifiers: Osteomyelitis type: unspecified type Osteomyelitis location: unspecified site Qualified Code(s): M86.9 - Osteomyelitis, unspecified Cellulitis Qualifiers: Site of cellulitis: extremity Site of cellulitis of extremity: lower extremity Laterality: right Qualified Code(s): L03.115 - Cellulitis of right lower limb Condition: Fair Disposition: ADMITTED INPATIENT Admitting Provider: [facility] Admitted: Telemetry
[2016-10-10 13:34] LABS: ALANINE AMINOTRANSFERASE 26 U/L (9-52); ALBUMIN 3.7 g/dL (3.5-5.0); ALKALINE PHOSPHATASE 161 U/L (38-126); ANION GAP 17 (5-19); ASPARTATE AMINO TRANSFERASE 24 U/L (14-36); BILIRUBIN,DIRECT 0.4 mg/dL (0.0-0.4); BILIRUBIN,TOTAL 0.5 mg/dL (0.2-1.3); BLOOD UREA NITROGEN 14 mg/dL (7-20); CALCIUM 9.6 mg/dL (8.4-10.2); CARBON DIOXIDE 27 mmol/L (22-30); CHLORIDE 103 mmol/L (98-107); CREATININE RESULT 0.74 mg/dL (0.52-1.25); GLUCOSE 153 mg/dL (75-110); POTASSIUM 4.2 mmol/L (3.6-5.0); SODIUM 146.9 mmol/L (137-145)
[2016-10-10 14:10] LABS: C-REACTIVE PROTEIN 298.9 mg/L (<10.0)
[2016-10-10 14:31] LABS: ERYTHROCYTE SEDIMENTATION RATE 118 mm/hr (0-30)
[2016-10-10 15:02] LABS: HEMATOCRIT 27.5 % (36.0-47.0); HEMOGLOBIN 8.6 g/dL (12.0-15.5); HGB HCT DIFFERENCE -1.7; MEAN CORPUSCULAR HEMOGLOBIN 23.2 pg (27.0-33.4); MEAN CORPUSCULAR HGB CONC 31.4 g/dL (32.0-36.0); MEAN CORPUSCULAR VOLUME 74 fl (80-97); RED BLOOD COUNT 3.71 10^6/uL (3.72-5.28); RED CELL DISTRIBUTION WIDTH 19.4 % (11.5-14.0); WHITE BLOOD COUNT 25.2 10^3/uL (4.0-10.5)
[2016-10-10 15:21] LABS: BAND NEUTROPHILS % (MANUAL) 2 % (3-5); BASOPHILS % (MANUAL) 0 % (0-2); EOSINOPHILS % (MANUAL) 0 % (0-6); LYMPHOCYTES % (MANUAL) 10 % (13-45); TOTAL CELLS COUNTED 100
[2016-10-10 15:22] LABS: ANISOCYTOSIS 2+; MICROCYTOSIS 1+; TOXIC GRANULATION 1+; TOXIC VACUOLATION PRESENT
--- NOTE | 2016-10-10 16:59 | XCELERA REPORT ---
[address] [address] Lower Extremity Venous Evaluation Name: LAVELLE ARRIAZA Age: 56 yrs Gender: Female : 1960 Patient Status: Emergency Patient Location: ER Study Date: 10/10/2016 01:28 PM Procedure: Color flow and duplex imaging of the veins of the right lower extremity as well as the left Common Femoral vein. Reason For Study: right calf edema Ordering Physician: LAZ HANNAH Performed By: Kaylen Shields Right Sided Venous Evaluation Normal vessel filling wall to wall, compression and augmentation as well as Colour flow down to the infrageniculate veins. Subcutaneous edema noted. Left Sided Venous Evaluation The left common femoral vein is fully compressible. Spontaneous and phasic flow is present in the left common femoral vein. Interpretation Summary No duplex evidence of DVT or obstruction in the right lower extremity nor in the left Common Femoral vein. : LAZ HANNAH > Travis Urena
[2016-10-10] MEDS ORDERED: DEXTROSE 50%-WATER 25 GM/50 ML DISP.SYRIN IV PRN ×2 (17:46)
[2016-10-10] MEDS ORDERED: DEXTROSE 40% GEL 15 GM TUBE PO PRN ×2 (17:46)
[2016-10-10] MEDS ORDERED: GLUCAGON,HUMAN RECOMB 1 MG INJ IM PRN (17:46)
[2016-10-10 18:39] LABS: MAGNESIUM 2.2 mg/dL (1.6-2.3)
[2016-10-10 18:50] LABS: CREATINE KINASE MB < 0.22 ng/mL (<4.55); TROPONIN I < 0.012 ng/mL
[2016-10-10] MEDS ORDERED: AZTREONAM 1 GM in DEXTROSE 5%-WATER 50 ML IV ONE (19:00)
[2016-10-10 19:04] LABS: THYROID STIMULATING HORMONE 1.45 uIU/mL (0.47-4.68)
--- NOTE | 2016-10-10 19:22 | PDOC H&P ---
History of Present Illness Admission Date/PCP: 10/10/16 14:57 MARLENE CANNON MD History of Present Illness: LAVELLE ARRIAZA is a 56 year old female, she is well known to us, she was just recently admitted in this hospital last month when she had proteus septicemia and MRSA infection of the right foot she was treated successfully and then she was [facility]. She was undergoing physical therapy today she felt pain in the right leg initially it was felt maybe it was because of physical therapy then she felt chills and feverish, she was then subsequently referred to the emergency room for evaluation in the ER she was evaluated she was found to have a temperature 101 there was associated leukocytosis with cellulitis of the right leg that extends to the thigh . A venous Doppler was done as well and DVT was ruled out. Past Medical History Cardiac Medical History: Reports: Hyperlipidema, Hypertension, Peripheral Vascular Disease Neurological Medical History: Denies: Seizures Endocrine Medical History: Reports: Diabetes Mellitus Type 2, Hypothyroidism GI Medical History: Reports: Gastroesophageal Reflux Disease Musculoskeltal Medical History: Reports: Arthritis Hematology: Past Surgical History Past Surgical History: Reports: Amputation - Left AKA, right fifth toe amp., Section, Orthopedic Surgery - left aka. Right fifth toe amputation., Vascular Surgery - Right leg stenting 2 Social History Smoking Status: Never Smoker Frequency of Alcohol Use: None Hx Recreational Drug Use: No Drugs: None Hx Prescription Drug Abuse: No - Advance Directive Resuscitation Status: Full Code Family History Family History: CAD, CVA, DM, Malignancy Parental Family History Reviewed: Yes Children Family History Reviewed: Yes Sibling(s) Family History Reviewed.: Yes Medication/Allergy Home Medications: Acetaminophen [Tylenol 325 mg Tablet] 650 mg PO Q4HP PRN 10/10/16 Amlodipine Besylate [Norvasc 10 mg Tablet] 10 mg PO DAILY 10/10/16 Aspirin [Aspirin EC] 81 mg PO DAILY 10/10/16 Canagliflozin [Invokana] 300 mg PO DAILY 10/10/16 Doxepin HCl 75 mg PO QHS 10/10/16 Gabapentin [Neurontin 100 mg Capsule] 100 mg PO Q12 10/10/16 Insulin Glargine,Hum.rec.anlog [Lantus Solostar] 50 unit SQ QHS 10/10/16 Levothyroxine Sodium [Synthroid 0.075 mg Tablet] 0.075 mg PO DAILY 10/10/16 Lisinopril [Prinivil 40 mg Tablet] 40 mg PO DAILY 10/10/16 Metformin HCl [Metformin HCl ER] 1,000 mg PO DAILY 10/10/16 Pravastatin Sodium [Pravachol] 80 mg PO DAILY 10/10/16 Allergies/Adverse Reactions: amoxicillin [From Augmentin] Allergy (Intermediate, Verified 08/22/16 18:12) Cephalosporins Allergy (Intermediate, Verified 08/22/16 18:12) blistering, peeling skin,burning throat clavulanic acid [From Augmentin] Allergy (Intermediate, Verified 08/22/16 18:12) Penicillins Allergy (Intermediate, Verified 08/22/16 18:12) blistering,peeling skin,burning of throat Review of Systems Constitutional: PRESENT: chills, fever(s) Eyes: ABSENT: visual disturbances Ears: ABSENT: hearing changes Cardiovascular: ABSENT: chest pain, dyspnea on exertion, edema, orthropnea, palpitations Respiratory: ABSENT: cough, hemoptysis Gastrointestinal: ABSENT: abdominal pain, constipation, diarrhea, hematemesis, hematochezia, nausea, vomiting Genitourinary: ABSENT: dysuria, hematuria Musculoskeletal: ABSENT: joint swelling Integumentary: ABSENT: rash, wounds Neurological: ABSENT: abnormal gait, abnormal speech, confusion, dizziness, focal weakness, syncope Psychiatric: ABSENT: anxiety, depression, homidical ideation, suicidal ideation Endocrine: ABSENT: cold intolerance, heat intolerance, menstrual abnormalities, polydipsia, polyuria Hematologic/Lymphatic: ABSENT: easy bleeding, easy bruising, lymphadenopathy Physical Exam Vital Signs: Temp Pulse Resp BP Pulse Ox 98.3 F 103 H 16 107/74 100 10/10/16 18:34 10/10/16 18:34 10/10/16 18:34 10/10/16 18:34 10/10/16 18:34 General appearance: PRESENT: no acute distress, well-developed, well-nourished Head exam: PRESENT: atraumatic, normocephalic Eye exam: PRESENT: conjunctiva pink, EOMI, PERRLA. ABSENT: scleral icterus Ear exam: PRESENT: normal external ear exam Mouth exam: PRESENT: moist, tongue midline Neck exam: PRESENT: full ROM Respiratory exam: PRESENT: clear to auscultation richard Cardiovascular exam: PRESENT: RRR, +S1, +S2 Vascular exam: PRESENT: normal capillary refill GI/Abdominal exam: PRESENT: normal bowel sounds, soft Rectal exam: PRESENT: deferred Extremities exam: PRESENT: left AKA Neurological exam: PRESENT: alert, awake, oriented to person, oriented to place , oriented to time, oriented to situation, CN II-XII grossly intact Psychiatric exam: PRESENT: appropriate affect, normal mood Skin exam: PRESENT: dry, intact, warm Results Laboratory Results: 10/10/16 10/10/16 10/10/16 18:05 18:05 18:05 Magnesium 2.2 Ammonia 13.6 Amylase 31 Lipase 27.0 TSH 1.45 Free T4 1.14 10/10/16 10/10/16 18:05 18:05 Creatine Kinase 61 CK-MB (CK-2) < 0.22 Troponin I < 0.012 Impressions: Foot X-Ray 10/10/16 12:10 IMPRESSION: Findings as described. Osteomyelitis cannot be ruled out. Consider MRI for further evaluation if clinically indicated. Assessment & Plan - Diagnosis (1) Cellulitis of right leg Is this a current diagnosis for this admission?: YesPlan: She is admitted for management of cellulitis of the right leg, she will be treated with IV antibiotic, aztreonam and Zyvox. The last time she was in the hospital she grew Proteus infection and MRSA, she cannot use penicillin class of drug be because of allergy (2) Sepsis Qualifiers: Sepsis type: sepsis due to unspecified organism Qualified Code(s): A41.9 - Sepsis, unspecified organism Is this a current diagnosis for this admission?: Yes (3) Diabetes mellitus type 2 in obese Is this a current diagnosis for this admission?: Yes
[2016-10-10 20:19] LABS: APPEARANCE,URINE SLIGHTLY-CLOUDY; BILIRUBIN,URINE NEGATIVE (NEGATIVE); GLUCOSE, URINE >=500 mg/dL (NEGATIVE); KETONES,URINE TRACE mg/dL (NEGATIVE); LEUKOCYTE ESTERASE,URINE SMALL (NEGATIVE); NITRITE,URINE NEGATIVE (NEGATIVE); PROTEIN,URINE NEGATIVE (NEGATIVE); URINE SPECIFIC GRAVITY 1.021; UROBILINOGEN,URINE NEGATIVE mg/dL (<2.0)
[2016-10-10 20:43] LABS: URINE BARBITURATES SCREEN NEGATIVE; URINE METHADONE SCREEN NEGATIVE; URINE OPIATES LOW NEGATIVE; URINE PHENCYCLIDINE SCREEN NEGATIVE
[2016-10-10] MEDS: LINEZOLID 300 ML IV SCH (21:14)
[2016-10-10] MEDS: HEPARIN SOD (PORCINE) 5,000 UNIT/ML 1 ML SYRINGE SUBCUT SCH (21:14)
[2016-10-11 01:43] LABS: CREATINE KINASE MB < 0.22 ng/mL (<4.55); TROPONIN I < 0.012 ng/mL
[2016-10-11] MEDS: AZTREONAM 1 GM in DEXTROSE 5%-WATER 50 ML IV SCH ×3 (01:59→17:05)
[2016-10-11] MEDS: HEPARIN SOD (PORCINE) 5,000 UNIT/ML 1 ML SYRINGE SUBCUT SCH ×3 (06:11→21:58)
[2016-10-11 06:46] LABS: HEMATOCRIT 25.1 % (36.0-47.0); HGB HCT DIFFERENCE -1.7; MEAN CORPUSCULAR HEMOGLOBIN 23.1 pg (27.0-33.4); MEAN CORPUSCULAR VOLUME 74 fl (80-97); RED BLOOD COUNT 3.37 10^6/uL (3.72-5.28); RED CELL DISTRIBUTION WIDTH 19.7 % (11.5-14.0)
[2016-10-11 06:53] LABS: HEMOGLOBIN 7.8 g/dL (12.0-15.5)
[2016-10-11 07:05] LABS: ALANINE AMINOTRANSFERASE 31 U/L (9-52); ALBUMIN 3.1 g/dL (3.5-5.0); ALKALINE PHOSPHATASE 142 U/L (38-126); ASPARTATE AMINO TRANSFERASE 22 U/L (14-36); BILIRUBIN,DIRECT 0.5 mg/dL (0.0-0.4); BILIRUBIN,TOTAL 0.7 mg/dL (0.2-1.3); CHOLESTEROL 122.31 mg/dL (0-200); CREATINE KINASE 51 U/L (30-135); Direct HDL 24 mg/dL (>40); TOTAL PROTEIN 6.9 g/dL (6.3-8.2); TRIGLYCERIDES 72 mg/dL (<150)
[2016-10-11 07:07] LABS: BAND NEUTROPHILS % (MANUAL) 1 % (3-5); BASOPHILS % (MANUAL) 0 % (0-2); EOSINOPHILS % (MANUAL) 0 % (0-6); LYMPHOCYTES % (MANUAL) 13 % (13-45); NUCLEATED RED BLOOD CELLS 1 /100 WBC (0); TOTAL CELLS COUNTED 100
[2016-10-11 07:09] LABS: ANISOCYTOSIS 2+; HYPOCHROMASIA 1+; MICROCYTOSIS SLIGHT; OVALOCYTES SLIGHT; POIKILOCYTOSIS SLIGHT; POLYCHROMASIA SLIGHT; TOXIC GRANULATION SLIGHT
[2016-10-11 07:17] LABS: DIRECT LDL 68 mg/dL (<100); TROPONIN I 0.013 ng/mL
[2016-10-11 07:21] LABS: CREATINE KINASE MB < 0.22 ng/mL (<4.55)
[2016-10-11] MEDS: LINEZOLID 300 ML IV SCH ×2 (10:02→21:58)
[2016-10-11] MEDS: INSULIN LISPRO 100 UNIT/ML 3 ML VIAL SUBCUT PRN (11:48)
[2016-10-11 12:19] LABS: HEMATOCRIT 24.8 % (36.0-47.0); HGB HCT DIFFERENCE -1.4; MEAN CORPUSCULAR HEMOGLOBIN 22.9 pg (27.0-33.4); MEAN CORPUSCULAR HGB CONC 31.3 g/dL (32.0-36.0); MEAN CORPUSCULAR VOLUME 73 fl (80-97); RED BLOOD COUNT 3.39 10^6/uL (3.72-5.28); RED CELL DISTRIBUTION WIDTH 19.8 % (11.5-14.0); WHITE BLOOD COUNT 24.1 10^3/uL (4.0-10.5)
[2016-10-11 12:34] LABS: HEMOGLOBIN 7.8 g/dL (12.0-15.5)
[2016-10-11 12:42] LABS: BAND NEUTROPHILS % (MANUAL) 1 % (3-5); BASOPHILS % (MANUAL) 0 % (0-2); EOSINOPHILS % (MANUAL) 1 % (0-6); LYMPHOCYTES % (MANUAL) 14 % (13-45); TOTAL CELLS COUNTED 100
[2016-10-11 12:44] LABS: ANISOCYTOSIS 1+; HYPOCHROMASIA SLIGHT; MICROCYTOSIS 1+; POLYCHROMASIA SLIGHT; TOXIC GRANULATION SLIGHT; TOXIC VACUOLATION PRESENT
[2016-10-11] MEDS: ACETAMINOPHEN 325 MG TABLET PO PRN (17:05)
[2016-10-11] MEDS ORDERED: NORMAL SALINE 250 ML IV PRN ×2 (20:46)
--- NOTE | 2016-10-11 20:46 | PDOC PROGRESS REPORT ---
Subjective Progress Note for:: 10/11/16 Subjective:: She was seen by the bedside, there is still leukocytosis there is anemia probably sepsis related Physical Exam Vital Signs: Temp Pulse Resp BP Pulse Ox 99.7 F 102 H 22 H 165/71 H 98 10/11/16 15:01 10/11/16 15:01 10/11/16 15:01 10/11/16 15:01 10/11/16 15:01 Intake & Output 10/10/16 10/11/16 10/12/16 06:59 06:59 06:59 Intake Total 1030 941 Output Total 1200 400 Balance -170 541 Weight 82.3 kg Results Laboratory Results: 10/11/16 12:01 10/11/16 10/11/16 10/11/16 06:23 06:23 12:01 WBC 23.0 H 24.1 H RBC 3.37 L 3.39 L Hgb 7.8 L 7.8 L Hct 25.1 L 24.8 L MCV 74 L 73 L MCH 23.1 L 22.9 L MCHC 31.0 L 31.3 L RDW 19.7 H 19.8 H Plt Count 424 445 Seg Neutrophils % Not Reportable Not Reportable Lymphocytes % Not Reportable Not Reportable Monocytes % Not Reportable Not Reportable Eosinophils % Not Reportable Not Reportable Basophils % Not Reportable Not Reportable Absolute Neutrophils Not Reportable Not Reportable Absolute Lymphocytes Not Reportable Not Reportable Absolute Monocytes Not Reportable Not Reportable Absolute Eosinophils Not Reportable Not Reportable Absolute Basophils Not Reportable Not Reportable Total Bilirubin 0.7 AST 22 ALT 31 Alkaline Phosphatase 142 H Total Protein 6.9 Albumin 3.1 L Triglycerides 72 Cholesterol 122.31 LDL Cholesterol Direct 68 VLDL Cholesterol 14.0 HDL Cholesterol 24 L 10/10/16 10/10/16 10/11/16 18:05 18:05 00:52 Creatine Kinase 61 60 CK-MB (CK-2) < 0.22 Troponin I < 0.012 10/11/16 10/11/16 10/11/16 00:52 06:23 06:23 Creatine Kinase 51 CK-MB (CK-2) < 0.22 < 0.22 Troponin I < 0.012 0.013 Impressions: Foot X-Ray 10/10/16 12:10 IMPRESSION: Findings as described. Osteomyelitis cannot be ruled out. Consider MRI for further evaluation if clinically indicated. Assessment & Plan - Diagnosis (1) Cellulitis of right leg Is this a current diagnosis for this admission?: Yes (2) Sepsis Qualifiers: Sepsis type: sepsis due to unspecified organism Qualified Code(s): A41.9 - Sepsis, unspecified organism Is this a current diagnosis for this admission?: Yes (3) Diabetes mellitus type 2 in obese Is this a current diagnosis for this admission?: Yes (4) Anemia Qualifiers: Anemia type: unspecified type Qualified Code(s): D64.9 - Anemia, unspecified Is this a current diagnosis for this admission?: YesPlan: She be transfused with blood
[2016-10-12] MEDS: AZTREONAM 1 GM in DEXTROSE 5%-WATER 50 ML IV SCH ×3 (03:16→17:29)
[2016-10-12] MEDS: HEPARIN SOD (PORCINE) 5,000 UNIT/ML 1 ML SYRINGE SUBCUT SCH ×3 (05:01→21:34)
[2016-10-12] MEDS: LINEZOLID 300 ML IV SCH ×2 (10:06→21:34)
[2016-10-12 11:09] LABS: HEMATOCRIT 30.8 % (36.0-47.0); HGB HCT DIFFERENCE -1.1; MEAN CORPUSCULAR HEMOGLOBIN 24.5 pg (27.0-33.4); MEAN CORPUSCULAR HGB CONC 32.2 g/dL (32.0-36.0); MEAN CORPUSCULAR VOLUME 76 fl (80-97); RED BLOOD COUNT 4.04 10^6/uL (3.72-5.28); RED CELL DISTRIBUTION WIDTH 20.6 % (11.5-14.0); WHITE BLOOD COUNT 22.1 10^3/uL (4.0-10.5)
[2016-10-12 11:10] LABS: HEMOGLOBIN 9.9 g/dL (12.0-15.5)
[2016-10-12 11:23] LABS: ALANINE AMINOTRANSFERASE 30 U/L (9-52); ALBUMIN 3.1 g/dL (3.5-5.0); ALKALINE PHOSPHATASE 151 U/L (38-126); ASPARTATE AMINO TRANSFERASE 19 U/L (14-36); BILIRUBIN,DIRECT 0.3 mg/dL (0.0-0.4); BILIRUBIN,TOTAL 0.7 mg/dL (0.2-1.3)
[2016-10-12 11:24] LABS: BASOPHILS % (MANUAL) 0 % (0-2); EOSINOPHILS % (MANUAL) 2 % (0-6); LYMPHOCYTES % (MANUAL) 5 % (13-45); TOTAL CELLS COUNTED 100
[2016-10-12 11:26] LABS: ANISOCYTOSIS 3+; MICROCYTOSIS SLIGHT; POIKILOCYTOSIS 1+; POLYCHROMASIA SLIGHT; TEAR DROP CELLS 1+
[2016-10-12 11:27] LABS: HYPOCHROMASIA 1+
--- NOTE | 2016-10-12 17:40 | PDOC PROGRESS REPORT ---
Subjective Progress Note for:: 10/12/16 Subjective:: She was transfused with 2 units of packed red blood cells, she still have leukocytosis Physical Exam Vital Signs: Temp Pulse Resp BP Pulse Ox 98.9 F 94 20 148/60 H 97 10/12/16 15:47 10/12/16 15:47 10/12/16 15:47 10/12/16 15:47 10/12/16 15:47 Intake & Output 10/11/16 10/12/16 10/13/16 06:59 06:59 06:59 Intake Total 1030 3191 1839 Output Total 1200 400 Balance -170 2791 1839 Weight 82.3 kg 83.6 kg General appearance: PRESENT: no acute distress Eye exam: PRESENT: PERRLA Respiratory exam: PRESENT: clear to auscultation richard Cardiovascular exam: PRESENT: +S1, +S2 GI/Abdominal exam: PRESENT: soft Neurological exam: PRESENT: alert Results Laboratory Results: 10/12/16 10:35 10/11/16 10/12/16 10/12/16 21:15 10:35 10:35 WBC 22.1 H RBC 4.04 Hgb 9.9 L D Hct 30.8 L MCV 76 L MCH 24.5 L MCHC 32.2 RDW 20.6 H Plt Count 463 H Seg Neutrophils % Not Reportable Lymphocytes % Not Reportable Monocytes % Not Reportable Eosinophils % Not Reportable Basophils % Not Reportable Absolute Neutrophils Not Reportable Absolute Lymphocytes Not Reportable Absolute Monocytes Not Reportable Absolute Eosinophils Not Reportable Absolute Basophils Not Reportable Total Bilirubin 0.7 AST 19 ALT 30 Alkaline Phosphatase 151 H Total Protein 7.0 Albumin 3.1 L Blood Type O POSITIVE Antibody Screen NEGATIVE 10/10/16 20:00 Clean Catch Midstream Urine Culture - Final C.albicans/C.dubliniensis Lactobacillus (Vaginal Shannan) 10/10/16 20:00 Foot - Right Gram Stain - Final 10/10/16 10/10/16 10/11/16 18:05 18:05 00:52 Creatine Kinase 61 60 CK-MB (CK-2) < 0.22 Troponin I < 0.012 10/11/16 10/11/16 10/11/16 00:52 06:23 06:23 Creatine Kinase 51 CK-MB (CK-2) < 0.22 < 0.22 Troponin I < 0.012 0.013 Impressions: Foot X-Ray 10/10/16 12:10 IMPRESSION: Findings as described. Osteomyelitis cannot be ruled out. Consider MRI for further evaluation if clinically indicated. Assessment & Plan - Diagnosis (1) Cellulitis of right leg Is this a current diagnosis for this admission?: Yes (2) Sepsis Qualifiers: Sepsis type: sepsis due to unspecified organism Qualified Code(s): A41.9 - Sepsis, unspecified organism Is this a current diagnosis for this admission?: Yes (3) Diabetes mellitus type 2 in obese Is this a current diagnosis for this admission?: Yes (4) Anemia Qualifiers: Anemia type: unspecified type Qualified Code(s): D64.9 - Anemia, unspecified Is this a current diagnosis for this admission?: Yes
[2016-10-12] MEDS: INSULIN LISPRO 100 UNIT/ML 3 ML VIAL SUBCUT PRN (21:34)
[2016-10-13] MEDS: AZTREONAM 1 GM in DEXTROSE 5%-WATER 50 ML IV SCH ×3 (03:11→17:39)
[2016-10-13 05:11] LABS: ABSOLUTE BASOPHILS # (AUTO) 0.1 10^3/uL (0.0-0.2); ABSOLUTE EOSINOPHILS # (AUTO) 0.3 10^3/uL (0.0-0.6); ABSOLUTE LYMPHOCYTES (AUTO) 1.6 10^3/uL (0.5-4.7); ABSOLUTE MONOCYTES (AUTO) 0.9 10^3/uL (0.1-1.4); ABSOLUTE NEUT (AUTO) 13.6 10^3/uL (1.7-8.2); BASOPHILS % (AUTO) 0.7 % (0-2); EOSINOPHILS % (AUTO) 1.8 % (0-6); HEMATOCRIT 31.5 % (36.0-47.0); HEMOGLOBIN 10.3 g/dL (12.0-15.5); HGB HCT DIFFERENCE -0.6; LYMPHOCYTES % (AUTO) 9.5 % (13-45); MEAN CORPUSCULAR HEMOGLOBIN 24.9 pg (27.0-33.4); MEAN CORPUSCULAR HGB CONC 32.7 g/dL (32.0-36.0); MEAN CORPUSCULAR VOLUME 76 fl (80-97); MONOCYTES % (AUTO) 5.6 % (3-13); RED BLOOD COUNT 4.14 10^6/uL (3.72-5.28); RED CELL DISTRIBUTION WIDTH 20.3 % (11.5-14.0); SEGMENTED NEUTROPHILS % (AUTO) 82.4 % (42-78); WHITE BLOOD COUNT 16.6 10^3/uL (4.0-10.5)
[2016-10-13 05:23] LABS: ALANINE AMINOTRANSFERASE 27 U/L (9-52); ALBUMIN 3.1 g/dL (3.5-5.0); ALKALINE PHOSPHATASE 148 U/L (38-126); ASPARTATE AMINO TRANSFERASE 19 U/L (14-36); BILIRUBIN,DIRECT 0.2 mg/dL (0.0-0.4); BILIRUBIN,TOTAL 0.5 mg/dL (0.2-1.3); TOTAL PROTEIN 6.8 g/dL (6.3-8.2)
[2016-10-13] MEDS: HEPARIN SOD (PORCINE) 5,000 UNIT/ML 1 ML SYRINGE SUBCUT SCH ×3 (06:02→22:33)
[2016-10-13] MEDS: LINEZOLID 300 ML IV SCH ×2 (09:21→22:33)
[2016-10-13] MEDS: INSULIN LISPRO 100 UNIT/ML 3 ML VIAL SUBCUT PRN ×3 (09:29→23:12)
[2016-10-13] MEDS: ACETAMINOPHEN 325 MG TABLET PO PRN (17:41)
--- NOTE | 2016-10-13 21:01 | PDOC PROGRESS REPORT ---
Subjective Progress Note for:: 10/13/16 Subjective:: Patient continues to improve on antibiotic Physical Exam Vital Signs: Temp Pulse Resp BP Pulse Ox 98 F 92 18 145/61 H 95 10/13/16 12:00 10/13/16 14:00 10/13/16 12:00 10/13/16 12:00 10/13/16 12:00 Intake & Output 10/12/16 10/13/16 10/14/16 06:59 06:59 06:59 Intake Total 3191 3059 787 Output Total 400 Balance 2791 3059 787 Weight 83.6 kg 102.3 kg General appearance: PRESENT: no acute distress, well-developed, well-nourished Head exam: PRESENT: atraumatic, normocephalic Eye exam: PRESENT: conjunctiva pink, EOMI, PERRLA Ear exam: PRESENT: normal external ear exam Mouth exam: PRESENT: moist, tongue midline Neck exam: PRESENT: full ROM Respiratory exam: PRESENT: clear to auscultation richard Cardiovascular exam: PRESENT: RRR, +S1, +S2 Pulses: PRESENT: normal dorsalis pedis pul, +2 pedal pulses bilateral Vascular exam: PRESENT: normal capillary refill GI/Abdominal exam: PRESENT: normal bowel sounds, soft. ABSENT: distended, guarding, mass, organolmegaly, rebound, tenderness Rectal exam: PRESENT: deferred Neurological exam: PRESENT: alert, awake, oriented to person, oriented to place , oriented to time, oriented to situation, CN II-XII grossly intact. ABSENT: motor sensory deficit Psychiatric exam: PRESENT: appropriate affect, normal mood. ABSENT: homicidal ideation, suicidal ideation Skin exam: PRESENT: dry, intact, warm. ABSENT: cyanosis, rash Results Laboratory Results: 10/13/16 04:39 10/13/16 10/13/16 04:39 04:39 WBC 16.6 H RBC 4.14 Hgb 10.3 L Hct 31.5 L MCV 76 L MCH 24.9 L MCHC 32.7 RDW 20.3 H Plt Count 376 Seg Neutrophils % 82.4 H Lymphocytes % 9.5 L Monocytes % 5.6 Eosinophils % 1.8 Basophils % 0.7 Absolute Neutrophils 13.6 H Absolute Lymphocytes 1.6 Absolute Monocytes 0.9 Absolute Eosinophils 0.3 Absolute Basophils 0.1 Total Bilirubin 0.5 AST 19 ALT 27 Alkaline Phosphatase 148 H Total Protein 6.8 Albumin 3.1 L 10/10/16 20:00 Foot - Right Gram Stain - Final 10/10/16 20:00 Foot - Right Wound Culture - Final Proteus Mirabilis Mrsa (Meth Resis Staph Aureus) Group B Beta Streptococcus No Anaerobic Organisms 10/10/16 10/10/16 10/11/16 18:05 18:05 00:52 Creatine Kinase 61 60 CK-MB (CK-2) < 0.22 Troponin I < 0.012 10/11/16 10/11/16 10/11/16 00:52 06:23 06:23 Creatine Kinase 51 CK-MB (CK-2) < 0.22 < 0.22 Troponin I < 0.012 0.013 Impressions: Foot X-Ray 10/10/16 12:10 IMPRESSION: Findings as described. Osteomyelitis cannot be ruled out. Consider MRI for further evaluation if clinically indicated. Assessment & Plan - Diagnosis (1) Cellulitis of right leg Is this a current diagnosis for this admission?: Yes (2) Sepsis Qualifiers: Sepsis type: sepsis due to unspecified organism Qualified Code(s): A41.9 - Sepsis, unspecified organism Is this a current diagnosis for this admission?: Yes (3) Diabetes mellitus type 2 in obese Is this a current diagnosis for this admission?: Yes (4) Anemia Qualifiers: Anemia type: unspecified type Qualified Code(s): D64.9 - Anemia, unspecified Is this a current diagnosis for this admission?: Yes
[2016-10-14] MEDS: AZTREONAM 1 GM in DEXTROSE 5%-WATER 50 ML IV SCH ×3 (03:26→17:28)
[2016-10-14] MEDS: HEPARIN SOD (PORCINE) 5,000 UNIT/ML 1 ML SYRINGE SUBCUT SCH ×3 (05:37→22:32)
[2016-10-14] MEDS: LINEZOLID 300 ML IV SCH ×2 (11:08→22:32)
[2016-10-14] MEDS: INSULIN LISPRO 100 UNIT/ML 3 ML VIAL SUBCUT PRN ×2 (11:40→17:28)
[2016-10-14 20:27] LABS: ABSOLUTE BASOPHILS # (AUTO) 0.1 10^3/uL (0.0-0.2); ABSOLUTE EOSINOPHILS # (AUTO) 0.3 10^3/uL (0.0-0.6); ABSOLUTE MONOCYTES (AUTO) 0.7 10^3/uL (0.1-1.4); ABSOLUTE NEUT (AUTO) 7.4 10^3/uL (1.7-8.2); BASOPHILS % (AUTO) 0.8 % (0-2); EOSINOPHILS % (AUTO) 2.5 % (0-6); HEMATOCRIT 35.3 % (36.0-47.0); HEMOGLOBIN 11.5 g/dL (12.0-15.5); HGB HCT DIFFERENCE -0.8; LYMPHOCYTES % (AUTO) 19.4 % (13-45); MEAN CORPUSCULAR HEMOGLOBIN 24.9 pg (27.0-33.4); MEAN CORPUSCULAR HGB CONC 32.5 g/dL (32.0-36.0); MEAN CORPUSCULAR VOLUME 77 fl (80-97); RED BLOOD COUNT 4.62 10^6/uL (3.72-5.28); SEGMENTED NEUTROPHILS % (AUTO) 70.3 % (42-78); WHITE BLOOD COUNT 10.5 10^3/uL (4.0-10.5)
[2016-10-14 20:49] LABS: ALANINE AMINOTRANSFERASE 24 U/L (9-52); ALBUMIN 3.2 g/dL (3.5-5.0); ALKALINE PHOSPHATASE 139 U/L (38-126); ANION GAP 16 (5-19); ASPARTATE AMINO TRANSFERASE 17 U/L (14-36); BILIRUBIN,DIRECT 0.2 mg/dL (0.0-0.4); BILIRUBIN,TOTAL 0.3 mg/dL (0.2-1.3); BLOOD UREA NITROGEN 20 mg/dL (7-20); CALCIUM 9.5 mg/dL (8.4-10.2); CARBON DIOXIDE 25 mmol/L (22-30); CHLORIDE 102 mmol/L (98-107); CREATININE RESULT 0.71 mg/dL (0.52-1.25); GLUCOSE 268 mg/dL (75-110); POTASSIUM 4.3 mmol/L (3.6-5.0); SODIUM 142.8 mmol/L (137-145); TOTAL PROTEIN 7.5 g/dL (6.3-8.2)
--- NOTE | 2016-10-14 20:57 | PDOC PROGRESS REPORT ---
Subjective Progress Note for:: 10/14/16 Subjective:: Patient was seen by the bedside there is improvement of cellulitis of the right leg the white blood cell count is improved and now normal Physical Exam Vital Signs: Temp Pulse Resp BP Pulse Ox 99.1 F 86 18 117/41 L 98 10/14/16 16:00 10/14/16 16:00 10/14/16 16:00 10/14/16 16:00 10/14/16 16:00 Intake & Output 10/13/16 10/14/16 10/15/16 06:59 06:59 06:59 Intake Total 3059 1887 1270 Balance 3059 1887 1270 Weight 102.3 kg 103.4 kg General appearance: PRESENT: no acute distress Eye exam: PRESENT: PERRLA Respiratory exam: PRESENT: clear to auscultation richard Cardiovascular exam: PRESENT: +S1, +S2 GI/Abdominal exam: PRESENT: soft Neurological exam: PRESENT: alert Results Laboratory Results: 10/14/16 20:20 10/14/16 20:20 WBC 10.5 RBC 4.62 Hgb 11.5 L Hct 35.3 L MCV 77 L MCH 24.9 L MCHC 32.5 RDW 21.0 H Plt Count 523 H Seg Neutrophils % 70.3 Lymphocytes % 19.4 Monocytes % 7.0 Eosinophils % 2.5 Basophils % 0.8 Absolute Neutrophils 7.4 Absolute Lymphocytes 2.0 Absolute Monocytes 0.7 Absolute Eosinophils 0.3 Absolute Basophils 0.1 10/10/16 10/10/16 10/11/16 18:05 18:05 00:52 Creatine Kinase 61 60 CK-MB (CK-2) < 0.22 Troponin I < 0.012 10/11/16 10/11/16 10/11/16 00:52 06:23 06:23 Creatine Kinase 51 CK-MB (CK-2) < 0.22 < 0.22 Troponin I < 0.012 0.013 Impressions: Foot X-Ray 10/10/16 12:10 IMPRESSION: Findings as described. Osteomyelitis cannot be ruled out. Consider MRI for further evaluation if clinically indicated. Assessment & Plan - Diagnosis (1) Cellulitis of right leg Is this a current diagnosis for this admission?: Yes (2) Sepsis Qualifiers: Sepsis type: sepsis due to unspecified organism Qualified Code(s): A41.9 - Sepsis, unspecified organism Is this a current diagnosis for this admission?: Yes (3) Diabetes mellitus type 2 in obese Is this a current diagnosis for this admission?: Yes (4) Anemia Qualifiers: Anemia type: unspecified type Qualified Code(s): D64.9 - Anemia, unspecified Is this a current diagnosis for this admission?: Yes
[2016-10-15] MEDS: INSULIN LISPRO 100 UNIT/ML 3 ML VIAL SUBCUT PRN ×2 (01:03→13:30)
[2016-10-15] MEDS: AZTREONAM 1 GM in DEXTROSE 5%-WATER 50 ML IV SCH ×2 (04:19→12:09)
[2016-10-15] MEDS: HEPARIN SOD (PORCINE) 5,000 UNIT/ML 1 ML SYRINGE SUBCUT SCH ×2 (05:35→13:31)
[2016-10-15] MEDS: LINEZOLID 300 ML IV SCH (12:10)
[2016-10-15 12:31] VITALS: BP 146/62
--- NOTE | 2016-10-15 14:23 | PDOC DISCHARGE SUMMARY ---
General - Admit/Disc Date/PCP Admission Date/Primary Care Provider: 10/10/16 17:39 MARLENE CANNON MD Discharge Date: 10/15/16 - Discharge Diagnosis (1) Cellulitis of right leg Is this a current diagnosis for this admission?: Yes (2) Sepsis Is this a current diagnosis for this admission?: Yes (3) Diabetes mellitus type 2 in obese Is this a current diagnosis for this admission?: Yes (4) Anemia Is this a current diagnosis for this admission?: Yes (5) Polymicrobial bacterial infection Is this a current diagnosis for this admission?: Yes - Additional Information Resuscitation Status: Full Code Home Medications: Acetaminophen [Tylenol 325 mg Tablet] 650 mg PO Q4HP PRN 10/10/16 Amlodipine Besylate [Norvasc 10 mg Tablet] 10 mg PO DAILY 10/10/16 Aspirin [Aspirin EC] 81 mg PO DAILY 10/10/16 Canagliflozin [Invokana] 300 mg PO DAILY 10/10/16 Doxepin HCl 75 mg PO QHS 10/10/16 Gabapentin [Neurontin 100 mg Capsule] 100 mg PO Q12 10/10/16 Insulin Glargine,Hum.rec.anlog [Lantus Solostar] 50 unit SQ QHS 10/10/16 Levothyroxine Sodium [Synthroid 0.075 mg Tablet] 0.075 mg PO DAILY 10/10/16 Lisinopril [Prinivil 40 mg Tablet] 40 mg PO DAILY 10/10/16 Metformin HCl [Metformin HCl ER] 1,000 mg PO DAILY 10/10/16 Pravastatin Sodium [Pravachol] 80 mg PO DAILY 10/10/16 Sulfamethoxazole/Trimethoprim [Bactrim Ds Tablet] 1 each PO BID #14 tablet 10/15 History of Present Illness History of Present Illness: LAVELLE ARRIAZA is a 56 year old female, she is well known to us, she was just recently admitted in this hospital last month when she had proteus septicemia and MRSA infection of the right foot she was treated successfully and then she was transferred to skilled nursing for rehabilitation. She was undergoing physical therapy today she felt pain in the right leg initially it was felt maybe it was because of physical therapy then she felt chills and feverish, she was then subsequently referred to the emergency room for evaluation in the ER she was evaluated she was found to have a temperature 101 there was associated leukocytosis with cellulitis of the right leg that extends to the thigh . A venous Doppler was done as well and DVT was ruled out. Hospital Course Hospital Course: Patient was admitted because of severe sepsis due to polymicrobial infection of the right leg, the culture from the right leg grew Proteus, MRSA on group B beta streptococcus . She was empirically treated with intravenous aztreonam and Zyvox. On admission the white cell count was over 25,000 the most recent blood work, WBC was 10,000, the Proteus and the MRSA both sensitive to Bactrim, the MRSA is resistant to clindamycin. Patient was also transfused with 2 units of packed red blood cells, the hemoglobin was 7 there was no evidence of GI bleed of blood loss, the anemia is most likely related to dilution versus sepsis Physical Exam Vital Signs: Temp Pulse Resp BP Pulse Ox 97.7 F 81 18 146/62 H 100 10/15/16 12:00 10/15/16 12:00 10/15/16 12:00 10/15/16 12:00 10/15/16 12:00 Intake & Output 10/14/16 10/15/16 10/16/16 06:59 06:59 06:59 Intake Total 1887 2100 Balance 1887 2100 Weight 103.4 kg 96 kg General appearance: PRESENT: no acute distress, well-developed, well-nourished Head exam: PRESENT: atraumatic, normocephalic Eye exam: PRESENT: conjunctiva pink, EOMI, PERRLA Ear exam: PRESENT: normal external ear exam Mouth exam: PRESENT: moist, tongue midline Neck exam: PRESENT: full ROM Respiratory exam: PRESENT: clear to auscultation richard Cardiovascular exam: PRESENT: RRR, +S1, +S2 Pulses: PRESENT: normal dorsalis pedis pul, +2 pedal pulses bilateral Vascular exam: PRESENT: normal capillary refill GI/Abdominal exam: PRESENT: normal bowel sounds, soft Rectal exam: PRESENT: deferred Neurological exam: PRESENT: alert, awake, oriented to person, oriented to place , oriented to time, oriented to situation, CN II-XII grossly intact Psychiatric exam: PRESENT: appropriate affect, normal mood Skin exam: PRESENT: dry, intact, warm Results Laboratory Results: 10/14/16 20:20 10/14/16 20:20 10/14/16 10/14/16 20:20 20:20 WBC 10.5 RBC 4.62 Hgb 11.5 L Hct 35.3 L MCV 77 L MCH 24.9 L MCHC 32.5 RDW 21.0 H Plt Count 523 H Seg Neutrophils % 70.3 Lymphocytes % 19.4 Monocytes % 7.0 Eosinophils % 2.5 Basophils % 0.8 Absolute Neutrophils 7.4 Absolute Lymphocytes 2.0 Absolute Monocytes 0.7 Absolute Eosinophils 0.3 Absolute Basophils 0.1 Sodium 142.8 Potassium 4.3 Chloride 102 Carbon Dioxide 25 Anion Gap 16 BUN 20 Creatinine 0.71 Est GFR ( Amer) > 60 Est GFR (Non-Af Amer) > 60 Glucose 268 H Calcium 9.5 Total Bilirubin 0.3 AST 17 ALT 24 Alkaline Phosphatase 139 H Total Protein 7.5 Albumin 3.2 L 10/10/16 10/10/16 10/11/16 18:05 18:05 00:52 Creatine Kinase 61 60 CK-MB (CK-2) < 0.22 Troponin I < 0.012 10/11/16 10/11/16 10/11/16 00:52 06:23 06:23 Creatine Kinase 51 CK-MB (CK-2) < 0.22 < 0.22 Troponin I < 0.012 0.013 Impressions: Foot X-Ray 10/10/16 12:10 IMPRESSION: Findings as described. Osteomyelitis cannot be ruled out. Consider MRI for further evaluation if clinically indicated.
== END 2016-10-15 16:26 | disposition home or self-care (01) | DRG 872 ==
LOC: ER 10:24 → UNDOADMIN 14:57 → EH 14:57 → 4N 18:22
PROVIDERS: ADMIT Internal Medicine; ATTEND Internal Medicine
PROC: 30233N1 Transfusion of Nonautologous Red Blood Cells into Peripheral Vein, Percutaneous Approach (ICD-10-PCS; principal; 2016-10-12)
DX: A41.9 Sepsis, unspecified organism (principal); L03.115 Cellulitis of right lower limb; E11.628 Type 2 diabetes mellitus with other skin complications; B96.89 Other specified bacterial agents as the cause of diseases classified elsewhere; D64.9 Anemia, unspecified; E66.9 Obesity, unspecified; B96.4 Proteus (mirabilis) (morganii) as the cause of diseases classified elsewhere; B95.62 Methicillin resistant Staphylococcus aureus infection as the cause of diseases classified elsewhere; I10 Essential (primary) hypertension; B95.1 Streptococcus, group B, as the cause of diseases classified elsewhere; E11.51 Type 2 diabetes mellitus with diabetic peripheral angiopathy without gangrene; E78.5 Hyperlipidemia, unspecified; K21.9 Gastro-esophageal reflux disease without esophagitis; M19.90 Unspecified osteoarthritis, unspecified site; Z68.31 Body mass index [BMI] 31.0-31.9, adult; Z89.612 Acquired absence of left leg above knee; Z82.49 Family history of ischemic heart disease and other diseases of the circulatory system; Z89.421 Acquired absence of other right toe(s); Z88.0 Allergy status to penicillin; Z88.1 Allergy status to other antibiotic agents; Z79.82 Long term (current) use of aspirin; Z16.29 Resistance to other single specified antibiotic; Z79.4 Long term (current) use of insulin; Z80.9 Family history of malignant neoplasm, unspecified; Z79.84 Long term (current) use of oral hypoglycemic drugs; Z86.14 Personal history of Methicillin resistant Staphylococcus aureus infection
CPT/HCPCS: 36415; 36430; 80053; 80061; 80076; 80307; 81001; 82140; 82150; 82550; 82553; 82962; 83036; 83605; 83690; 83735; 84439; 84443; 84484; 85025; 85652; 85730; 86140; 86850; 86900; 86901; 86920; 87040; 87070; 87077; 87086; 87186; 87205; 93971; 96361; 96365; 99291; J1644; J1815; J2020; J3370; J3490; J7030; P9016

== ENCOUNTER → 2016-11-07 | Outpatient (CLI) | payer MEDICARE, MEDICAID ==
[2016-11-07 12:43] LABS: ABSOLUTE BASOPHILS # (AUTO) 0.1 10^3/uL (0.0-0.2); ABSOLUTE EOSINOPHILS # (AUTO) 0.6 10^3/uL (0.0-0.6); ABSOLUTE LYMPHOCYTES (AUTO) 2.5 10^3/uL (0.5-4.7); ABSOLUTE MONOCYTES (AUTO) 0.5 10^3/uL (0.1-1.4); ABSOLUTE NEUT (AUTO) 6.5 10^3/uL (1.7-8.2); BASOPHILS % (AUTO) 1.3 % (0-2); EOSINOPHILS % (AUTO) 5.5 % (0-6); HEMATOCRIT 32.1 % (36.0-47.0); HEMOGLOBIN 10.2 g/dL (12.0-15.5); HGB HCT DIFFERENCE -1.5; LYMPHOCYTES % (AUTO) 24.3 % (13-45); MEAN CORPUSCULAR HEMOGLOBIN 24.4 pg (27.0-33.4); MEAN CORPUSCULAR HGB CONC 31.9 g/dL (32.0-36.0); MEAN CORPUSCULAR VOLUME 77 fl (80-97); MONOCYTES % (AUTO) 4.9 % (3-13); RED BLOOD COUNT 4.19 10^6/uL (3.72-5.28); WHITE BLOOD COUNT 10.2 10^3/uL (4.0-10.5)
[2016-11-07 13:01] LABS: ALANINE AMINOTRANSFERASE 19 U/L (9-52); ALBUMIN 3.5 g/dL (3.5-5.0); ALKALINE PHOSPHATASE 96 U/L (38-126); ANION GAP 12 (5-19); ASPARTATE AMINO TRANSFERASE 12 U/L (14-36); BILIRUBIN,DIRECT 0.4 mg/dL (0.0-0.4); BILIRUBIN,TOTAL 0.5 mg/dL (0.2-1.3); BLOOD UREA NITROGEN 20 mg/dL (7-20); C-REACTIVE PROTEIN 51.4 mg/L (<10.0); CALCIUM 9.7 mg/dL (8.4-10.2); CARBON DIOXIDE 31 mmol/L (22-30); CHLORIDE 101 mmol/L (98-107); CREATININE RESULT 0.76 mg/dL (0.52-1.25); GLUCOSE 176 mg/dL (75-110); POTASSIUM 4.2 mmol/L (3.6-5.0); SODIUM 143.5 mmol/L (137-145); TOTAL PROTEIN 7.9 g/dL (6.3-8.2)
[2016-11-07 13:19] LABS: ERYTHROCYTE SEDIMENTATION RATE 109 mm/hr (0-30)
== END ==
LOC: OD 11:32
PROVIDERS: ATTEND Nurse Practitioner Family
DX: E11.621 Type 2 diabetes mellitus with foot ulcer (principal); L97.512 Non-pressure chronic ulcer of other part of right foot with fat layer exposed
CPT/HCPCS: 36415; 80053; 83036; 85025; 85652; 86140

== ENCOUNTER → 2016-11-11 | Outpatient (CLI) | payer MEDICARE, MEDICAID ==
--- NOTE | 2016-11-12 17:28 | RADIOLOGY REPORT (SQ) ---
EXAM DESCRIPTION: MRI RT LOWER EXTREMITY COMBO COMPLETED DATE/TIME: 11/11/2016 6:01 pm REASON FOR STUDY: Non-pressure chronic ulcer of other part of right foot with necrosis of bon L97.51 4 NON-PRS CHRONIC ULCER OTH PRT RIGHT FOOT W NECROSIS COMPARISON: MRI right foot 08/25/2016, 07/28/2016, 10/25/2008, 10/21/2008 Right foot plain films 11/07/2016, 10/10/2016, 08/25/2016 TECHNIQUE: Multiplanar imaging of the right foot to include T1-weighted, postcontrast T1-weighted, a nd T2-weighted images. CONTRAST TYPE AND DOSE: 20 mL Prohance. RENAL FUNCTION: GFR > 60. LIMITATIONS: None. 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 There is marrow edema and enhancement along the distal tips of the 3rd and 4th metatarsals worrisome for osteomyelitis. The 5th metatarsal base fragment is also abnormal, with marrow edema and enhancem ent. Cuboid bone no exhibits marrow edema and enhancement worrisome for osteomyelitis. There is a large plantar ulcer along the plantar surface of the cuboid bone/5th metatarsal best shown on sagittal image 9. No soft tissue abscess. Remainder of the forefoot is otherwise unremarkable IMPRESSION: Marrow edema and enhancement in the cuboid bone, 5th metatarsal remnant, and distal tips of the 4th and 5th metatarsals at the level of the amputation, all worrisome for infection. Plantar ulcer along the cuboid bone/base 5th metatarsal. TECHNICAL DOCUMENTATION: JOB ID: [id number] [employer]- All Rights Reserved
== END ==
LOC: RAD 16:52
PROVIDERS: ATTEND Preventive Medicine Undersea and Hyperbaric Medicine
DX: L97.514 Non-pressure chronic ulcer of other part of right foot with necrosis of bone (principal)
CPT/HCPCS: 73720; A9576

== ENCOUNTER 2016-11-22 18:00 | Inpatient (IN) | payer MEDICARE, MEDICAID ==
[2016-11-22 21:21] LABS: HEMATOCRIT 26.1 % (36.0-47.0); HGB HCT DIFFERENCE -2.1; MEAN CORPUSCULAR HEMOGLOBIN 23.4 pg (27.0-33.4); MEAN CORPUSCULAR HGB CONC 30.5 g/dL (32.0-36.0); MEAN CORPUSCULAR VOLUME 77 fl (80-97); RED CELL DISTRIBUTION WIDTH 21.3 % (11.5-14.0); WHITE BLOOD COUNT 23.6 10^3/uL (4.0-10.5)
[2016-11-22 21:39] LABS: ANION GAP 13 (5-19); BLOOD UREA NITROGEN 13 mg/dL (7-20); CALCIUM 9.2 mg/dL (8.4-10.2); CARBON DIOXIDE 26 mmol/L (22-30); CHLORIDE 99 mmol/L (98-107); CREATININE RESULT 0.72 mg/dL (0.52-1.25); GLUCOSE 165 mg/dL (75-110); SODIUM 137.6 mmol/L (137-145)
[2016-11-22] MEDS ORDERED: AZTREONAM INJ 1 GM VIAL IV ONE (21:43)
[2016-11-22] MEDS ORDERED: NORMAL SALINE 1000 ML 1,000 ML IV ONE (21:44)
[2016-11-22] MEDS ORDERED: LINEZOLID 300 ML IV ONE (21:44)
--- NOTE | 2016-11-22 21:44 | ER Document Report ---
ED General - General Chief Complaint: Fever Stated Complaint: FEVER Time Seen by Provider: 11/22/16 20:03 Notes: Patient is a 56 year old female with a past medical history of peripheral arterial disease, diabetes, chronic left foot wound currently under wound management who presents with fever and chills. Patient states that she is otherwise been feeling well when today she noticed increased pain to the wound on the right foot as well as a fever. This prompted her to come to the emergency department per the request of her primary care doctor. States this feels similar to when she has had wound infections in the past. Does describe the area as a dull, constant, throbbing pain. Nothing improves or worsens her symptoms. TRAVEL OUTSIDE OF THE [place] IN LAST 30 DAYS: No - Related Data Allergies/Adverse Reactions: amoxicillin [From Augmentin] Allergy (Intermediate, Verified 08/22/16 18:12) Cephalosporins Allergy (Intermediate, Verified 08/22/16 18:12) blistering, peeling skin,burning throat clavulanic acid [From Augmentin] Allergy (Intermediate, Verified 08/22/16 18:12) Penicillins Allergy (Intermediate, Verified 08/22/16 18:12) blistering,peeling skin,burning of throat Past Medical History - General Information source: Patient - Social History Smoking Status: Never Smoker Frequency of alcohol use: None Drug Abuse: None Lives with: Family Family History: CAD, CVA, DM, Malignancy Patient has suicidal ideation: No Patient has homicidal ideation: No - Past Medical History Cardiac Medical History: Reports: Hx Hypercholesterolemia, Hx Hypertension, Hx Peripheral Vascular Disease Denies: Hx Coronary Artery Disease, Hx Heart Attack Pulmonary Medical History: Denies: Hx Asthma, Hx Bronchitis, Hx COPD, Hx Pneumonia Neurological Medical History: Reports: Hx Cerebrovascular Accident - 2004 . Denies: Hx Seizures Endocrine Medical History: Reports: Hx Diabetes Mellitus Type 1, Hx Diabetes Mellitus Type 2, Hx Hypothyroidism Renal/ Medical History: Denies: Hx Peritoneal Dialysis GI Medical History: Reports: Hx Gastroesophageal Reflux Disease. Denies: Hx Hepatitis, Hx Hiatal Hernia, Hx Ulcer Musculoskeltal Medical History: Reports Hx Arthritis Psychiatric Medical History: Denies: Hx Depression Infectious Medical History: Denies: Hx Hepatitis Past Surgical History: Reports: Hx Section, Hx Orthopedic Surgery - left aka. Right fifth toe amputation., Hx Vascular Surgery - Right leg stenting 2. Denies: Hx Hysterectomy, Hx Mastectomy, Hx Open Heart Surgery, Hx Pacemaker - Immunizations Hx Diphtheria, Pertussis, Tetanus Vaccination: Yes Review of Systems - Review of Systems Notes: Constitutional: Positive for fever. HENT: Negative for sore throat. Eyes: Negative for visual changes. Cardiovascular: Negative for chest pain. Respiratory: Negative for shortness of breath. Gastrointestinal: Negative for abdominal pain, vomiting or diarrhea. Genitourinary: Negative for dysuria. Musculoskeletal: Negative for back pain. Skin: Positive for chronic right foot wound Neurological: Negative for headaches, weakness or numbness. 10 point ROS negative except as marked above and in HPI. Physical Exam - Vital signs Vitals: Temp Pulse Resp BP Pulse Ox 99 F 109 H 18 106/50 L 97 11/22/16 18:59 11/22/16 18:59 11/22/16 18:59 11/22/16 18:59 11/22/16 18:59 Interpretation: Tachycardic Notes: PHYSICAL EXAMINATION: GENERAL: Well-appearing, well-nourished and in no acute distress. HEAD: Atraumatic, normocephalic. EYES: Pupils equal round and reactive to light, extraocular movements intact, sclera anicteric, conjunctiva are normal. ENT: nares patent, oropharynx clear without exudates. Moist mucous membranes. NECK: Normal range of motion, supple without lymphadenopathy LUNGS: Breath sounds clear to auscultation bilaterally and equal. No wheezes rales or rhonchi. HEART: Regular rate and rhythm without murmurs ABDOMEN: Soft, nontender, normoactive bowel sounds. No guarding, no rebound. No masses appreciated. EXTREMITIES: Left BKA. There is a wound to the lateral aspect of the right foot with a area of purulence along the posterior aspect of the wound. NEUROLOGICAL: No focal neurological deficits. Moves all extremities spontaneously and on command. PSYCH: Normal mood, normal affect. SKIN: Warm, Dry, normal turgor, no rashes or lesions noted. Course - Re-evaluation Re-evalutation: 11/22/16 21:42 Presentation of an overall well-appearing 56-year-old woman who is chronically ill with a chronic right foot wound that has become infected multiple occasions in the past with atypical organisms requiring hospitalization and IV antibiotics again presents today with fever to 102.5 as recorded by EMS with associated chills and generalized malaise. This is very similar to her prior presentations in which she became bacteremic from this wound. Patient is otherwise conversant, in no acute distress and denies any chest pain, shortness of breath, dysuria, abdominal pain nausea or vomiting. No obvious alternative source for infection. Based on her vitals and a known source she does meet sepsis criteria. She has been started on IV antibiotics, IV fluids, and will require admission. 11/22/16 22:04 WBC is markedly elevated at 23.6. This case with Dr. Metz who has agreed to admit the patient. - Vital Signs Vital signs: Temp Pulse Resp BP Pulse Ox 100.0 F 115 H 16 173/64 H 97 11/23/16 01:33 11/23/16 03:26 11/23/16 01:33 11/23/16 01:33 11/23/16 01:33 - Laboratory Result Diagrams: 11/22/16 21:08 11/22/16 21:08 Laboratory results interpreted by me: 11/22/16 11/22/16 21:08 21:08 WBC 23.6 H RBC 3.40 L Hgb 8.0 L Hct 26.1 L MCV 77 L MCH 23.4 L MCHC 30.5 L RDW 21.3 H Plt Count 538 H Abs Neuts (Manual) 17.7 H Glucose 165 H - Diagnostic Test Radiology reviewed: Reports reviewed Discharge - Discharge Clinical Impression: Cellulitis of right leg Leukocytosis Qualifiers: Leukocytosis type: unspecified Qualified Code(s): D72.829 - Elevated white blood cell count, unspecified Sepsis Qualifiers: Sepsis type: sepsis due to unspecified organism Qualified Code(s): A41.9 - Sepsis, unspecified organism Disposition: ADMITTED INPATIENT Admitting Provider: [facility] Admitted: Telemetry
[2016-11-22 21:52] LABS: BASOPHILS % (MANUAL) 0 % (0-2); EOSINOPHILS % (MANUAL) 1 % (0-6); LYMPHOCYTES % (MANUAL) 19 % (13-45); TOTAL CELLS COUNTED 100
[2016-11-22 21:55] LABS: ANISOCYTOSIS 2+; HYPOCHROMASIA SLIGHT; MICROCYTOSIS SLIGHT; POIKILOCYTOSIS 1+; TOXIC GRANULATION SLIGHT
--- NOTE | 2016-11-22 22:21 | RADIOLOGY REPORT (SQ) ---
EXAM DESCRIPTION: FOOT RIGHT COMPLETE COMPLETED DATE/TIME: 11/22/2016 10:09 pm REASON FOR STUDY: fever, eval osteo COMPARISON: 11/07/2016 NUMBER OF VIEWS: Three views. TECHNIQUE: AP, lateral and oblique radiographic images acquired of the right foot. LIMITATIONS: None. FINDINGS: MINERALIZATION: There is osteopenia. BONES: There are postsurgical changes. Mild periostitis involving the 3rd 4th and 5th remaining meta tarsals is present. JOINTS: No effusions. SOFT TISSUES: There is soft tissue gas consistent with infectious process. OTHER: No other significant finding. IMPRESSION: Soft tissue gas. Postsurgical changes. Periostitis involving remaining 3rd 4th and 5th metatarsals is noted. TECHNICAL DOCUMENTATION: JOB ID: [id number] [employer]- All Rights Reserved
--- NOTE | 2016-11-22 22:22 | RADIOLOGY REPORT (SQ) ---
EXAM DESCRIPTION: CHEST SINGLE VIEW COMPLETED DATE/TIME: 11/22/2016 10:09 pm REASON FOR STUDY: FEVER COMPARISON: 08/22/2016 EXAM PARAMETERS: NUMBER OF VIEWS: One view. TECHNIQUE: Single frontal radiographic view of the chest acquired. RADIATION DOSE: NA LIMITATIONS: None. FINDINGS: LUNGS AND PLEURA: No opacities, masses or pneumothorax. No pleural effusion. MEDIASTINUM AND HILAR STRUCTURES: No masses. Contour normal. HEART AND VASCULAR STRUCTURES: Heart normal in size. Normal vasculature. BONES: No acute findings. HARDWARE: None in the chest. OTHER: No other significant finding. IMPRESSION: NO ACUTE RADIOGRAPHIC FINDING IN THE CHEST. TECHNICAL DOCUMENTATION: JOB ID: [id number]
[2016-11-23] MEDS ORDERED: DEXTROSE 50%-WATER SYRINGE 12.5 GM/25 ML DOSE IV PRN (04:28)
[2016-11-23] MEDS ORDERED: DEXTROSE 40% GEL 15 GM TUBE PO PRN (04:28)
[2016-11-23] MEDS ORDERED: DEXTROSE 50%-WATER SYRINGE 25 GM/50 ML DOSE IV PRN (04:28)
[2016-11-23] MEDS ORDERED: DEXTROSE 40% GEL 15 GM TUBE X 2 PO PRN (04:28)
[2016-11-23] MEDS ORDERED: GLUCAGON,HUMAN RECOMB 1 MG INJ IM PRN (04:28)
[2016-11-23] MEDS: ACETAMINOPHEN 325 MG TABLET PO PRN ×2 (07:05→22:33)
[2016-11-23] MEDS ORDERED: NORMAL SALINE 1000 ML 1,000 ML IV PRN (08:14)
[2016-11-23] MEDS ORDERED: ENOXAPARIN SODIUM INJ 40 MG/0.4 ML DISP.SYRIN SUBCUT ONE (09:00)
[2016-11-23 09:56] LABS: PROTHROMBIN TIME 17.3 SEC (11.4-15.4)
[2016-11-23 09:57] LABS: PARTIAL THROMBOPLASTIN TIME 38.5 SEC (23.5-35.8)
[2016-11-23 09:58] LABS: HEMATOCRIT 24.7 % (36.0-47.0); HGB HCT DIFFERENCE -1.9; MEAN CORPUSCULAR HEMOGLOBIN 23.3 pg (27.0-33.4); MEAN CORPUSCULAR HGB CONC 30.8 g/dL (32.0-36.0); MEAN CORPUSCULAR VOLUME 75 fl (80-97); RED BLOOD COUNT 3.27 10^6/uL (3.72-5.28); RED CELL DISTRIBUTION WIDTH 20.9 % (11.5-14.0); WHITE BLOOD COUNT 23.1 10^3/uL (4.0-10.5)
[2016-11-23 10:16] LABS: LIPASE 24.8 U/L (23-300); PHOSPHORUS 4.3 mg/dL (2.5-4.5)
[2016-11-23 10:19] LABS: AMYLASE < 30 U/L (30-110)
[2016-11-23] MEDS: AZTREONAM 1 GM in DEXTROSE 5%-WATER 50 ML IV SCH ×2 (10:25→17:50)
[2016-11-23] MEDS: NORMAL SALINE 1000 ML 1,000 ML IV PRN (10:25)
[2016-11-23] MEDS: LINEZOLID 300 ML IV SCH ×2 (10:25→22:32)
[2016-11-23 10:47] LABS: HEMOGLOBIN 7.6 g/dL (12.0-15.5)
[2016-11-23 12:11] LABS: APPEARANCE,URINE CLOUDY; BILIRUBIN,URINE NEGATIVE (NEGATIVE); GLUCOSE, URINE >=500 mg/dL (NEGATIVE); KETONES,URINE 20 mg/dL (NEGATIVE); LEUKOCYTE ESTERASE,URINE MODERATE (NEGATIVE); NITRITE,URINE NEGATIVE (NEGATIVE); PROTEIN,URINE 100 mg/dL (NEGATIVE); URINE SPECIFIC GRAVITY 1.028; UROBILINOGEN,URINE NEGATIVE mg/dL (<2.0)
[2016-11-23 13:00] LABS: URINE BARBITURATES SCREEN NEGATIVE; URINE METHADONE SCREEN NEGATIVE; URINE OPIATES LOW NEGATIVE; URINE PHENCYCLIDINE SCREEN NEGATIVE
[2016-11-23] MEDS ORDERED: DOCUSATE SODIUM 100 MG CAPSULE PO PRN (13:37)
[2016-11-23] MEDS: GABAPENTIN 100 MG CAPSULE PO SCH ×2 (14:46→22:32)
[2016-11-23] MEDS ORDERED: FLUCONAZOLE 400 MG/NS RTU 400 MG/200 ML RTUPB IV ONE (16:54)
[2016-11-23] MEDS: INSULIN LISPRO 100 UNIT/ML 3 ML VIAL SUBCUT SCH (17:57)
--- NOTE | 2016-11-23 18:44 | PDOC H&P ---
History of Present Illness Admission Date/PCP: 11/23/16 02:00 MARLENE CANNON MD History of Present Illness: LAVELLE ARRIAZA is a 56 year old female she has a history of peripheral vascular occlusive, chronic right foot ulcer with osteomyelitis, she follows with wound clinic for management she came to the emergency room because of sepsis, fever, chills ,right leg pain.. She was recently admitted in this hospital on 10/10/2016 for celluitis of the right leg. On examination there was severe tenderness on palpation of the right leg, MRI of the right leg was ordered because I was concerned about osteomyelitis. The MRI showed a long segment diaphyseal intramedullary heterogeneou Signal non expansile lesion in the tibia measuring 20 cm in length. There is no definite periosteal elevation or evidence for subperiosteal abscess. The fibula appears normal, the differential diagnosis includes osteomyelitis versus bone infarct. It is more likely to be osteomyelitis in this patient she has symptoms of infection including fever,leucocytosis Past Medical History Cardiac Medical History: Reports: Hyperlipidema, Hypertension, Peripheral Vascular Disease Pulmonary Medical History: Denies: Asthma, Bronchitis, Chronic Obstructive Pulmonary Disease (COPD), Pneumonia Endocrine Medical History: Reports: Diabetes Mellitus Type 2 GI Medical History: Reports: Gastroesophageal Reflux Disease Musculoskeltal Medical History: Reports: Arthritis Psychiatric Medical History: Denies: Depression Hematology: Past Surgical History Past Surgical History: Reports: Amputation - Left AKA, right fifth toe amp., Section, Orthopedic Surgery - left aka. Right fifth toe amputation., Vascular Surgery - Right leg stenting 2 Social History Lives with: Family Smoking Status: Never Smoker Frequency of Alcohol Use: None Hx Recreational Drug Use: No Drugs: None Hx Prescription Drug Abuse: No - Advance Directive Resuscitation Status: Full Code Family History Family History: CAD, CVA, DM, Malignancy Parental Family History Reviewed: Yes Children Family History Reviewed: Yes Sibling(s) Family History Reviewed.: Yes Medication/Allergy Home Medications: Amlodipine Besylate [Norvasc 10 mg Tablet] 10 mg PO DAILY 11/23/16 Aspirin [Aspirin 81 mg Chewable Tablet] 81 mg PO DAILY 11/23/16 Canagliflozin [Invokana] 300 mg PO DAILY 11/23/16 Collagenase Clostridium Hist. [Santyl Ointment 30 gm] 1 applic TP DAILY Docusate Sodium [Colace 100 mg Capsule] 100 mg PO BIDP PRN 11/23/16 Gabapentin [Neurontin 100 mg Capsule] 100 mg PO Q8 11/23/16 Insulin Glargine,Hum.rec.anlog [Lantus Solostar] 50 unit SQ QHS 11/23/16 Insulin Lispro [Humalog Kwikpen] 4 unit SQ MEALS 11/23/16 Levothyroxine Sodium [Synthroid 0.075 mg Tablet] 0.075 mg PO DAILY 11/23/16 Lisinopril [Prinivil 40 mg Tablet] 40 mg PO DAILY 11/23/16 Mineral Oil/Petrolatum,White [Absorbase Ointment] 1 applic TP DAILY 11/23/16 Pravastatin Sodium [Pravachol] 80 mg PO QHS 11/23/16 Allergies/Adverse Reactions: amoxicillin [From Augmentin] Allergy (Intermediate, Verified 08/22/16 18:12) Cephalosporins Allergy (Intermediate, Verified 08/22/16 18:12) blistering, peeling skin,burning throat clavulanic acid [From Augmentin] Allergy (Intermediate, Verified 08/22/16 18:12) Penicillins Allergy (Intermediate, Verified 08/22/16 18:12) blistering,peeling skin,burning of throat Review of Systems Constitutional: PRESENT: fever(s) Ears: ABSENT: hearing changes Cardiovascular: ABSENT: as per HPI, chest pain, dyspnea on exertion, edema, orthropnea, palpitations, other Respiratory: ABSENT: cough, hemoptysis Gastrointestinal: ABSENT: abdominal pain, constipation, diarrhea, hematemesis, hematochezia, nausea, vomiting Genitourinary: ABSENT: dysuria, hematuria Musculoskeletal: PRESENT: joint swelling Integumentary: PRESENT: lesions, rash Neurological: ABSENT: abnormal gait, abnormal speech, confusion, dizziness, focal weakness, syncope Psychiatric: ABSENT: anxiety, depression, homidical ideation, suicidal ideation Endocrine: ABSENT: cold intolerance, heat intolerance, menstrual abnormalities, polydipsia, polyuria Hematologic/Lymphatic: ABSENT: easy bleeding, easy bruising, lymphadenopathy Physical Exam Vital Signs: Temp Pulse Resp BP Pulse Ox 99.6 F 106 H 20 164/54 H 98 11/23/16 14:56 11/23/16 14:56 11/23/16 14:56 11/23/16 14:56 11/23/16 14:56 Intake & Output 11/22/16 11/23/16 11/24/16 06:59 06:59 06:59 Intake Total 150 Balance 150 General appearance: PRESENT: no acute distress, well-developed, well-nourished Head exam: PRESENT: atraumatic, normocephalic Eye exam: PRESENT: conjunctiva pink, EOMI, PERRLA Ear exam: PRESENT: normal external ear exam Mouth exam: PRESENT: moist, tongue midline Neck exam: PRESENT: full ROM Respiratory exam: PRESENT: clear to auscultation richard Cardiovascular exam: PRESENT: RRR, +S1, +S2 GI/Abdominal exam: PRESENT: normal bowel sounds, soft Rectal exam: PRESENT: deferred Extremities exam: PRESENT: left AKA, tenderness - Right leg tenderness, warm to touch Neurological exam: PRESENT: alert, awake, oriented to person, oriented to place , oriented to time, oriented to situation, CN II-XII grossly intact Psychiatric exam: PRESENT: appropriate affect, normal mood Skin exam: PRESENT: dry, intact, warm Results Laboratory Results: 11/23/16 09:18 11/23/16 09:18 11/23/16 11/23/16 11/23/16 09:18 09:18 09:18 WBC 23.1 H RBC 3.27 L Hgb 7.6 L Hct 24.7 L MCV 75 L MCH 23.3 L MCHC 30.8 L RDW 20.9 H Plt Count 527 H Creatinine 0.60 Est GFR ( Amer) > 60 Est GFR (Non-Af Amer) > 60 Phosphorus 4.3 Magnesium 2.0 Amylase < 30 L Lipase 24.8 TSH 3.00 Free T4 1.29 Urine Color Urine Appearance Urine pH Ur Specific Todd Urine Protein Urine Glucose (UA) Urine Ketones Urine Blood Urine Nitrite Ur Leukocyte Esterase Urine WBC (Auto) Urine RBC (Auto) 11/23/16 11:40 WBC RBC Hgb Hct MCV MCH MCHC RDW Plt Count Creatinine Est GFR ( Amer) Est GFR (Non-Af Amer) Phosphorus Magnesium Amylase Lipase TSH Free T4 Urine Color YELLOW Urine Appearance CLOUDY Urine pH 5.0 Ur Specific Todd 1.028 Urine Protein 100 H Urine Glucose (UA) >=500 H Urine Ketones 20 H Urine Blood SMALL H Urine Nitrite NEGATIVE Ur Leukocyte Esterase MODERATE H Urine WBC (Auto) 51 Urine RBC (Auto) 22 11/23/16 11/23/16 09:18 15:50 Creatine Kinase 33 30 Impressions: Chest X-Ray 11/22/16 00:00 IMPRESSION: NO ACUTE RADIOGRAPHIC FINDING IN THE CHEST. Foot X-Ray 11/22/16 21:45 IMPRESSION: Soft tissue gas. Postsurgical changes. Periostitis involving remaining 3rd 4th and 5th metatarsals is noted. Assessment & Plan - Diagnosis (1) Osteomyelitis of lower leg, right, acute Is this a current diagnosis for this admission?: YesPlan: She has a history of MRSA and gram-negative cellulitis in the past, MRI now suggest osteomyelitis. she will be treated with IV antibiotic ,zyvox and aztreonam . She has allergy to penicillin. (2) Diabetes mellitus type 2 in nonobese Is this a current diagnosis for this admission?: Yes (3) Peripheral vascular disease in diabetes mellitus Is this a current diagnosis for this admission?: Yes
--- NOTE | 2016-11-23 20:14 | RADIOLOGY REPORT (SQ) ---
EXAM DESCRIPTION: MRI RT LOWER EXTREMITY WITHOUT COMPLETED DATE/TIME: 11/23/2016 7:32 pm REASON FOR STUDY: MRI RT LEG R/O OSTEOMYELITIS COMPARISON: None. TECHNIQUE: Rightknee images acquired and stored on PACS. Multiplanar images include fat sensitive s equences as T1, water sensitive sequences as FST2 or STIR, cartilage sensitive sequences as FSPD, and gradient echo sequences. LIMITATIONS: None. FINDINGS: There is a long segment diaphyseal intramedullary heterogeneous signal non expansile lesio n in the tibia measuring 20 cm in length, this is predominantly low signal on T1 and high signal on T 2. Axial images also show edema in the musculature of all compartments. No fluid collection. No de finite periosteal elevation or evidence for subperiosteal abscess. The fibula appears normal. No an kle or knee joint effusion. No obvious tendon rupture. OTHER: No other significant finding. IMPRESSION: There is a long segment diaphyseal intramedullary heterogeneous signal non expansile les ion in the tibia measuring 20 cm in length, this is predominantly low signal on T1 and high signal on T2. Axial images also show edema in the musculature of all compartments. No fluid collection. No definite periosteal elevation or evidence for subperiosteal abscess. Differential considerations in clude infection -osteomyelitis versus infarct and reflex sympathetic dystrophy. Orthopedic follow-up is recommended. TECHNICAL DOCUMENTATION: JOB ID: [id number]- All Rights Reserved
[2016-11-23] MEDS ORDERED: INSULIN GLARGINE,HUM.REC.ANLOG 1,000 UNIT/10 ML UNIT SUBCUT SCH (22:00)
[2016-11-23] MEDS: ATORVASTATIN CALCIUM 20 MG TABLET PO SCH (22:32)
[2016-11-24] MEDS: AZTREONAM 1 GM in DEXTROSE 5%-WATER 50 ML IV SCH ×3 (01:54→17:12)
[2016-11-24 05:18] LABS: ALANINE AMINOTRANSFERASE 24 U/L (9-52); ALBUMIN 2.8 g/dL (3.5-5.0); ALKALINE PHOSPHATASE 168 U/L (38-126); ANION GAP 15 (5-19); ASPARTATE AMINO TRANSFERASE 30 U/L (14-36); BILIRUBIN,DIRECT 0.5 mg/dL (0.0-0.4); BILIRUBIN,TOTAL 0.6 mg/dL (0.2-1.3); BLOOD UREA NITROGEN 10 mg/dL (7-20); CALCIUM 9.3 mg/dL (8.4-10.2); CARBON DIOXIDE 25 mmol/L (22-30); CHLORIDE 99 mmol/L (98-107); CHOLESTEROL 144.11 mg/dL (0-200); CREATININE RESULT 0.48 mg/dL (0.52-1.25); Direct HDL 20 mg/dL (>40); GLUCOSE 170 mg/dL (75-110); POTASSIUM 4.7 mmol/L (3.6-5.0); SODIUM 138.9 mmol/L (137-145); TOTAL PROTEIN 7.4 g/dL (6.3-8.2); TRIGLYCERIDES 114 mg/dL (<150)
[2016-11-24 05:29] LABS: DIRECT LDL 85 mg/dL (<100)
[2016-11-24 05:30] LABS: HEMATOCRIT 26.5 % (36.0-47.0); HEMOGLOBIN 8.3 g/dL (12.0-15.5); HGB HCT DIFFERENCE -1.6; MEAN CORPUSCULAR HEMOGLOBIN 23.5 pg (27.0-33.4); MEAN CORPUSCULAR HGB CONC 31.3 g/dL (32.0-36.0); MEAN CORPUSCULAR VOLUME 75 fl (80-97); RED BLOOD COUNT 3.52 10^6/uL (3.72-5.28); RED CELL DISTRIBUTION WIDTH 20.5 % (11.5-14.0); WHITE BLOOD COUNT 20.2 10^3/uL (4.0-10.5)
[2016-11-24 05:39] LABS: ANISOCYTOSIS 2+; BAND NEUTROPHILS % (MANUAL) 3 % (3-5); BASOPHILS % (MANUAL) 0 % (0-2); EOSINOPHILS % (MANUAL) 4 % (0-6); LYMPHOCYTES % (MANUAL) 8 % (13-45); MICROCYTOSIS 1+; NUCLEATED RED BLOOD CELLS 1 /100 WBC (0); OVALOCYTES SLIGHT; POIKILOCYTOSIS SLIGHT; POLYCHROMASIA SLIGHT; TOTAL CELLS COUNTED 100; TOXIC GRANULATION 1+
[2016-11-24] MEDS: GABAPENTIN 100 MG CAPSULE PO SCH ×3 (06:16→21:43)
[2016-11-24] MEDS ORDERED: COLLAGENASE CLOSTRIDIUM HIST. OINT 30 GM TP SCH (10:00)
[2016-11-24] MEDS ORDERED: (PENDING PHARMACY ID) (Canagliflozin [Invokana] 300 MG) PO SCH (10:00)
[2016-11-24] MEDS: INSULIN LISPRO 100 UNIT/ML 3 ML VIAL SUBCUT SCH ×3 (10:08→17:12)
[2016-11-24] MEDS: ACETAMINOPHEN 325 MG TABLET PO PRN (10:29)
[2016-11-24] MEDS: ENOXAPARIN SODIUM INJ 40 MG/0.4 ML DISP.SYRIN SUBCUT SCH (10:29)
[2016-11-24] MEDS: ASPIRIN 81 MG TABLET, CHEWABLE PO SCH (10:30)
[2016-11-24] MEDS: LEVOTHYROXINE SODIUM 0.075 MG TABLET PO SCH (10:30)
[2016-11-24] MEDS: LISINOPRIL 10 MG TABLET PO SCH (10:30)
[2016-11-24] MEDS: AMLODIPINE BESYLATE 10 MG TABLET PO SCH (10:30)
[2016-11-24] MEDS: LINEZOLID 300 ML IV SCH ×2 (11:20→21:43)
[2016-11-24] MEDS: INSULIN LISPRO 100 UNIT/ML 3 ML VIAL SUBCUT PRN ×2 (11:38→17:12)
[2016-11-24] MEDS: MINERAL OIL/PETROLATUM,WHITE CREAM 114 GM TP SCH (11:47)
--- NOTE | 2016-11-24 18:58 | PDOC PROGRESS REPORT ---
Subjective Progress Note for:: 11/24/16 Subjective:: She was admitted yesterday because of osteomyelitis of the right leg, she is on IV antibiotic, she will require IV antibiotic for 6-8 weeks Physical Exam Vital Signs: Temp Pulse Resp BP Pulse Ox 98.8 F 102 H 20 155/61 H 99 11/24/16 16:34 11/24/16 16:34 11/24/16 16:34 11/24/16 16:34 11/24/16 16:34 Intake & Output 11/23/16 11/24/16 11/25/16 06:59 06:59 06:59 Intake Total 150 2500 1748 Balance 150 2500 1748 Weight 92 kg General appearance: PRESENT: no acute distress Eye exam: PRESENT: PERRLA Respiratory exam: PRESENT: clear to auscultation richard Cardiovascular exam: PRESENT: +S1, +S2 Extremities exam: PRESENT: left AKA, tenderness - The right leg Results Laboratory Results: 11/24/16 04:08 11/24/16 04:08 11/24/16 11/24/16 04:08 04:08 WBC 20.2 H RBC 3.52 L Hgb 8.3 L Hct 26.5 L MCV 75 L MCH 23.5 L MCHC 31.3 L RDW 20.5 H Plt Count 373 Seg Neutrophils % Not Reportable Lymphocytes % Not Reportable Monocytes % Not Reportable Eosinophils % Not Reportable Basophils % Not Reportable Absolute Neutrophils Not Reportable Absolute Lymphocytes Not Reportable Absolute Monocytes Not Reportable Absolute Eosinophils Not Reportable Absolute Basophils Not Reportable Sodium 138.9 Potassium 4.7 Chloride 99 Carbon Dioxide 25 Anion Gap 15 BUN 10 Creatinine 0.48 L Est GFR ( Amer) > 60 Est GFR (Non-Af Amer) > 60 Glucose 170 H Calcium 9.3 Total Bilirubin 0.6 AST 30 ALT 24 Alkaline Phosphatase 168 H Total Protein 7.4 Albumin 2.8 L Triglycerides 114 Cholesterol 144.11 LDL Cholesterol Direct 85 VLDL Cholesterol 23.0 HDL Cholesterol 20 L 11/23/16 11/23/16 11/23/16 09:18 15:50 21:28 Creatine Kinase 33 30 31 Impressions: Chest X-Ray 11/22/16 00:00 IMPRESSION: NO ACUTE RADIOGRAPHIC FINDING IN THE CHEST. Foot X-Ray 11/22/16 21:45 IMPRESSION: Soft tissue gas. Postsurgical changes. Periostitis involving remaining 3rd 4th and 5th metatarsals is noted. Lower Extremity MRI 11/23/16 00:00 IMPRESSION: There is a long segment diaphyseal intramedullary heterogeneous signal non expansile lesion in the tibia measuring 20 cm in length, this is predominantly low signal on T1 and high signal on T2. Axial images also show edema in the musculature of all compartments. No fluid collection. No definite periosteal elevation or evidence for subperiosteal abscess. Differential considerations include infection -osteomyelitis versus infarct and reflex sympathetic dystrophy. Orthopedic follow-up is recommended. Assessment & Plan - Diagnosis (1) Osteomyelitis of lower leg, right, acute Is this a current diagnosis for this admission?: YesPlan: Continue IV antibiotic (2) Diabetes mellitus type 2 in nonobese Is this a current diagnosis for this admission?: Yes (3) Peripheral vascular disease in diabetes mellitus Is this a current diagnosis for this admission?: Yes
[2016-11-24] MEDS: INSULIN GLARGINE,HUM.REC.ANLOG 300 UNIT/3 ML INSULN.PEN SUBCUT SCH (21:42)
[2016-11-24] MEDS: HYDROMORPHONE HCL INJ/PF 2 MG/ML AMPULE IV PRN (21:43)
[2016-11-24] MEDS: NORMAL SALINE 1000 ML 1,000 ML IV PRN (21:43)
[2016-11-24] MEDS: ATORVASTATIN CALCIUM 20 MG TABLET PO SCH (21:43)
[2016-11-24] MEDS ORDERED: INSULIN GLARGINE,HUM.REC.ANLOG 1,000 UNIT/10 ML UNIT SUBCUT SCH (22:00)
[2016-11-25] MEDS: AZTREONAM 1 GM in DEXTROSE 5%-WATER 50 ML IV SCH ×3 (01:50→18:15)
[2016-11-25] MEDS: ACETAMINOPHEN 325 MG TABLET PO PRN ×2 (04:07→20:42)
[2016-11-25] MEDS: GABAPENTIN 100 MG CAPSULE PO SCH ×3 (05:06→22:11)
[2016-11-25 06:04] LABS: ABSOLUTE EOSINOPHILS # (AUTO) 0.1 10^3/uL (0.0-0.6); ABSOLUTE LYMPHOCYTES (AUTO) 1.2 10^3/uL (0.5-4.7); ABSOLUTE NEUT (AUTO) 13.6 10^3/uL (1.7-8.2); BASOPHILS % (AUTO) 0.3 % (0-2); EOSINOPHILS % (AUTO) 0.8 % (0-6); HGB HCT DIFFERENCE -1.8; LYMPHOCYTES % (AUTO) 7.6 % (13-45); MEAN CORPUSCULAR HEMOGLOBIN 23.5 pg (27.0-33.4); MEAN CORPUSCULAR HGB CONC 30.9 g/dL (32.0-36.0); MEAN CORPUSCULAR VOLUME 76 fl (80-97); MONOCYTES % (AUTO) 6.5 % (3-13); RED BLOOD COUNT 3.14 10^6/uL (3.72-5.28); RED CELL DISTRIBUTION WIDTH 20.7 % (11.5-14.0); SEGMENTED NEUTROPHILS % (AUTO) 84.8 % (42-78)
[2016-11-25 06:21] LABS: HEMOGLOBIN 7.4 g/dL (12.0-15.5)
[2016-11-25 06:33] LABS: ALANINE AMINOTRANSFERASE 24 U/L (9-52); ALBUMIN 2.5 g/dL (3.5-5.0); ALKALINE PHOSPHATASE 161 U/L (38-126); ANION GAP 13 (5-19); ASPARTATE AMINO TRANSFERASE 26 U/L (14-36); BILIRUBIN,DIRECT 0.5 mg/dL (0.0-0.4); BILIRUBIN,TOTAL 0.5 mg/dL (0.2-1.3); BLOOD UREA NITROGEN 17 mg/dL (7-20); CALCIUM 8.5 mg/dL (8.4-10.2); CARBON DIOXIDE 23 mmol/L (22-30); CHLORIDE 99 mmol/L (98-107); CREATININE RESULT 0.67 mg/dL (0.52-1.25); GLUCOSE 232 mg/dL (75-110); POTASSIUM 4.6 mmol/L (3.6-5.0); TOTAL PROTEIN 6.8 g/dL (6.3-8.2)
--- NOTE | 2016-11-25 06:42 | PDOC CONSULTATION ---
Consultation Consult Date: 11/25/16 Consult reason:: Right lower extremity infection History of Present Illness Admission Date/PCP: 11/23/16 02:00 MARLENE CANNON MD History of Present Illness: 56-year-old black female with diabetes who is status post a left above-knee amputation approximately 4 years ago. 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 She now is status post a right partial foot amputation with an open granulated wound that is being treated with dressing changes. Currently admitted for signs and symptoms consistent with infection and sepsis. Part of the evaluation included an MRI scan of the right foot and ankle. There is a large medullary abnormality in the right tibia has been interpreted as a possible infection versus a bone infarct. Orthopedics was consulted for recommendations on management. Past Medical History Cardiac Medical History: Reports: Hyperlipidema, Hypertension, Peripheral Vascular Disease Denies: Coronary Artery Disease, Myocardial Infarction Pulmonary Medical History: Denies: Asthma, Bronchitis, Chronic Obstructive Pulmonary Disease (COPD), Pneumonia Neurological Medical History: Denies: Seizures Endocrine Medical History: Reports: Diabetes Mellitus Type 1, Diabetes Mellitus Type 2, Hypothyroidism GI Medical History: Reports: Gastroesophageal Reflux Disease Denies: Hepatitis, Hiatal Hernia Musculoskeltal Medical History: Reports: Arthritis Psychiatric Medical History: Denies: Depression Hematology: Past Surgical History Past Surgical History: Reports: Amputation - Left AKA, partial foot amputation including the lateral 3 rays., Section, Orthopedic Surgery - left aka. Right fifth toe amputation., Vascular Surgery - Right leg stenting 2 Denies: Hysterectomy, Mastectomy, Pacemaker Social History Information Source: Patient, [facility] Records Lives with: Family Smoking Status: Never Smoker Frequency of Alcohol Use: None Hx Recreational Drug Use: No Drugs: None Hx Prescription Drug Abuse: No - Advance Directive Resuscitation Status: Full Code Family History Family History: CAD, CVA, DM, Malignancy Parental Family History Reviewed: No Children Family History Reviewed: No Sibling(s) Family History Reviewed.: No Medication/Allergy Home Medications: Amlodipine Besylate [Norvasc 10 mg Tablet] 10 mg PO DAILY 11/23/16 Aspirin [Aspirin 81 mg Chewable Tablet] 81 mg PO DAILY 11/23/16 Canagliflozin [Invokana] 300 mg PO DAILY 11/23/16 Collagenase Clostridium Hist. [Santyl Ointment 30 gm] 1 applic TP DAILY Docusate Sodium [Colace 100 mg Capsule] 100 mg PO BIDP PRN 11/23/16 Gabapentin [Neurontin 100 mg Capsule] 100 mg PO Q8 11/23/16 Insulin Glargine,Hum.rec.anlog [Lantus Solostar] 50 unit SQ QHS 11/23/16 Insulin Lispro [Humalog Kwikpen] 4 unit SQ MEALS 11/23/16 Levothyroxine Sodium [Synthroid 0.075 mg Tablet] 0.075 mg PO DAILY 11/23/16 Lisinopril [Prinivil 40 mg Tablet] 40 mg PO DAILY 11/23/16 Mineral Oil/Petrolatum,White [Absorbase Ointment] 1 applic TP DAILY 11/23/16 Pravastatin Sodium [Pravachol] 80 mg PO QHS 11/23/16 Allergies/Adverse Reactions: amoxicillin [From Augmentin] Allergy (Intermediate, Verified 08/22/16 18:12) Cephalosporins Allergy (Intermediate, Verified 08/22/16 18:12) blistering, peeling skin,burning throat clavulanic acid [From Augmentin] Allergy (Intermediate, Verified 08/22/16 18:12) Penicillins Allergy (Intermediate, Verified 08/22/16 18:12) blistering,peeling skin,burning of throat Physical Exam Vital Signs: Temp Pulse Resp BP Pulse Ox 38.2 C H 107 H 16 134/61 H 96 11/25/16 04:00 11/25/16 04:00 11/25/16 04:00 11/25/16 04:00 11/25/16 04:00 Intake & Output 11/23/16 11/24/16 11/25/16 06:59 06:59 06:59 Intake Total 150 2500 6534 Balance 150 2500 6534 Weight 92 kg 92.3 kg General appearance: PRESENT: no acute distress Head exam: PRESENT: normocephalic Eye exam: PRESENT: EOMI Respiratory exam: PRESENT: unlabored Cardiovascular exam: PRESENT: RRR Vascular exam: PRESENT: normal capillary refill GI/Abdominal exam: PRESENT: soft Rectal exam: PRESENT: deferred Extremities exam: PRESENT: other - Left above knee amputation stump is intact without compromise. Right foot has a lateral 3 ray amputation with a large granulating bed. There is no drainage and minimal erythema. Tenderness starts at the ankle and extends proximally. Seem to be more the posterior calf been in the tibia. There is no erythema or induration. Skin has superficial squamous peeling. Passive range of motion of the ankle is pain-free as is the knee. There is no knee effusion. Neurological exam: PRESENT: alert, awake, oriented to person, oriented to place , oriented to time, oriented to situation Psychiatric exam: PRESENT: appropriate affect, normal mood. ABSENT: homicidal ideation, suicidal ideation Results Laboratory Results: 11/25/16 04:59 11/25/16 04:59 WBC 16.0 H RBC 3.14 L Hgb 7.4 L Hct 24.0 L MCV 76 L MCH 23.5 L MCHC 30.9 L RDW 20.7 H Plt Count 515 H Seg Neutrophils % 84.8 H Lymphocytes % 7.6 L Monocytes % 6.5 Eosinophils % 0.8 Basophils % 0.3 Absolute Neutrophils 13.6 H Absolute Lymphocytes 1.2 Absolute Monocytes 1.0 Absolute Eosinophils 0.1 Absolute Basophils 0.0 11/23/16 11/23/16 11/23/16 09:18 15:50 21:28 Creatine Kinase 33 30 31 Impressions: Chest X-Ray 11/22/16 00:00 IMPRESSION: NO ACUTE RADIOGRAPHIC FINDING IN THE CHEST. Foot X-Ray 11/22/16 21:45 IMPRESSION: Soft tissue gas. Postsurgical changes. Periostitis involving remaining 3rd 4th and 5th metatarsals is noted. Lower Extremity MRI 11/23/16 00:00 IMPRESSION: There is a long segment diaphyseal intramedullary heterogeneous signal non expansile lesion in the tibia measuring 20 cm in length, this is predominantly low signal on T1 and high signal on T2. Axial images also show edema in the musculature of all compartments. No fluid collection. No definite periosteal elevation or evidence for subperiosteal abscess. Differential considerations include infection -osteomyelitis versus infarct and reflex sympathetic dystrophy. Orthopedic follow-up is recommended. Status: Imported from PACS Assessment & Plan - Diagnosis (1) Acute osteomyelitis of metatarsal bone of right foot Is this a current diagnosis for this admission?: YesPlan: Patient is status post lateral ray amputation of the right foot and subsequent dressing changes with a granulating bed. This appears to be healing uneventfully. (2) Cellulitis of right leg Is this a current diagnosis for this admission?: YesPlan: Findings of the right ankle and calf are relatively limited. There is some mild tenderness. There is minimal induration and no clear erythema. There is no skin breakdown. The findings on MRI scan in my mind are consistent with a bone infarct although I do not know what the mechanism for that would have been. I have ordered some laboratory studies that may help us distinguish between infectious and noninfectious etiology to the right tibia. Also discussed this with radiology today - Time Time Spent: 50 to 70 Minutes Critical Time spent with patient: 15-24 minutes
[2016-11-25] MEDS: INSULIN LISPRO 100 UNIT/ML 3 ML VIAL SUBCUT PRN ×3 (08:19→17:18)
[2016-11-25] MEDS: ENOXAPARIN SODIUM INJ 40 MG/0.4 ML DISP.SYRIN SUBCUT SCH (08:21)
[2016-11-25] MEDS: INSULIN LISPRO 100 UNIT/ML 3 ML VIAL SUBCUT SCH ×3 (08:21→17:17)
[2016-11-25] MEDS: MINERAL OIL/PETROLATUM,WHITE CREAM 114 GM TP SCH (08:55)
[2016-11-25] MEDS: LEVOTHYROXINE SODIUM 0.075 MG TABLET PO SCH (09:04)
[2016-11-25] MEDS: AMLODIPINE BESYLATE 10 MG TABLET PO SCH (09:04)
[2016-11-25] MEDS: LISINOPRIL 10 MG TABLET PO SCH (09:04)
[2016-11-25] MEDS: LINEZOLID 300 ML IV SCH ×2 (09:04→22:10)
[2016-11-25] MEDS: ASPIRIN 81 MG TABLET, CHEWABLE PO SCH (09:04)
[2016-11-25] MEDS: HYDROMORPHONE HCL INJ/PF 2 MG/ML AMPULE IV PRN ×2 (12:57→20:37)
--- NOTE | 2016-11-25 13:11 | PDOC PROGRESS REPORT ---
Subjective Progress Note for:: 11/25/16 Subjective:: Patient was seen by the bedside, she was seen by orthopedic, Dr. Schmidt, bone infarct was considered as a differential diagnosis. She is presently responding to IV antibiotic suggesting an infection. Also found to be anemic, she be transfused with 2 units of packed red blood Physical Exam Vital Signs: Temp Pulse Resp BP Pulse Ox 97.8 F 82 12 119/53 L 96 11/25/16 07:42 11/25/16 07:42 11/25/16 07:42 11/25/16 07:42 11/25/16 07:42 Intake & Output 11/24/16 11/25/16 11/26/16 06:59 06:59 06:59 Intake Total 2500 6534 Balance 2500 6534 Weight 92 kg 92.3 kg General appearance: PRESENT: no acute distress Eye exam: PRESENT: PERRLA Respiratory exam: PRESENT: clear to auscultation richard Cardiovascular exam: PRESENT: +S1, +S2 GI/Abdominal exam: PRESENT: soft Neurological exam: PRESENT: alert, CN II-XII grossly intact Results Laboratory Results: 11/25/16 04:59 11/25/16 04:59 11/25/16 11/25/16 11/25/16 04:59 04:59 07:29 WBC 16.0 H RBC 3.14 L Hgb 7.4 L Hct 24.0 L MCV 76 L MCH 23.5 L MCHC 30.9 L RDW 20.7 H Plt Count 515 H Seg Neutrophils % 84.8 H Lymphocytes % 7.6 L Monocytes % 6.5 Eosinophils % 0.8 Basophils % 0.3 Absolute Neutrophils 13.6 H Absolute Lymphocytes 1.2 Absolute Monocytes 1.0 Absolute Eosinophils 0.1 Absolute Basophils 0.0 Sodium 135.0 L Potassium 4.6 Chloride 99 Carbon Dioxide 23 Anion Gap 13 BUN 17 Creatinine 0.67 Est GFR ( Amer) > 60 Est GFR (Non-Af Amer) > 60 Glucose 232 H Calcium 8.5 Total Bilirubin 0.5 AST 26 ALT 24 Alkaline Phosphatase 161 H Total Protein 6.8 Albumin 2.5 L Blood Type O POSITIVE Antibody Screen NEGATIVE 11/23/16 11:40 Clean Catch Midstream Urine Culture - Final Citrobacter Freundii 11/23/16 11/23/16 11/23/16 09:18 15:50 21:28 Creatine Kinase 33 30 31 Impressions: Chest X-Ray 11/22/16 00:00 IMPRESSION: NO ACUTE RADIOGRAPHIC FINDING IN THE CHEST. Foot X-Ray 11/22/16 21:45 IMPRESSION: Soft tissue gas. Postsurgical changes. Periostitis involving remaining 3rd 4th and 5th metatarsals is noted. Lower Extremity MRI 11/23/16 00:00 IMPRESSION: There is a long segment diaphyseal intramedullary heterogeneous signal non expansile lesion in the tibia measuring 20 cm in length, this is predominantly low signal on T1 and high signal on T2. Axial images also show edema in the musculature of all compartments. No fluid collection. No definite periosteal elevation or evidence for subperiosteal abscess. Differential considerations include infection -osteomyelitis versus infarct and reflex sympathetic dystrophy. Orthopedic follow-up is recommended. Assessment & Plan - Diagnosis (1) Osteomyelitis of lower leg, right, acute Is this a current diagnosis for this admission?: YesPlan: Continue IV antibiotic (2) Diabetes mellitus type 2 in nonobese Is this a current diagnosis for this admission?: Yes (3) Peripheral vascular disease in diabetes mellitus Is this a current diagnosis for this admission?: Yes (4) Anemia Qualifiers: Anemia type: unspecified type Qualified Code(s): D64.9 - Anemia, unspecified Is this a current diagnosis for this admission?: YesPlan: She will be transfused with 2 units of packed red blood cells
[2016-11-25 20:14] LABS: ABSOLUTE BASOPHILS # (AUTO) 0.1 10^3/uL (0.0-0.2); ABSOLUTE EOSINOPHILS # (AUTO) 0.2 10^3/uL (0.0-0.6); ABSOLUTE LYMPHOCYTES (AUTO) 1.5 10^3/uL (0.5-4.7); ABSOLUTE MONOCYTES (AUTO) 0.9 10^3/uL (0.1-1.4); ABSOLUTE NEUT (AUTO) 13.7 10^3/uL (1.7-8.2); BASOPHILS % (AUTO) 0.5 % (0-2); EOSINOPHILS % (AUTO) 1.2 % (0-6); HEMATOCRIT 30.6 % (36.0-47.0); HGB HCT DIFFERENCE -1.8; LYMPHOCYTES % (AUTO) 9.2 % (13-45); MEAN CORPUSCULAR HEMOGLOBIN 24.3 pg (27.0-33.4); MEAN CORPUSCULAR HGB CONC 31.4 g/dL (32.0-36.0); MEAN CORPUSCULAR VOLUME 77 fl (80-97); MONOCYTES % (AUTO) 5.6 % (3-13); RED BLOOD COUNT 3.96 10^6/uL (3.72-5.28); RED CELL DISTRIBUTION WIDTH 20.3 % (11.5-14.0); SEGMENTED NEUTROPHILS % (AUTO) 83.5 % (42-78); WHITE BLOOD COUNT 16.4 10^3/uL (4.0-10.5)
[2016-11-25 20:20] LABS: HEMOGLOBIN 9.6 g/dL (12.0-15.5)
[2016-11-25] MEDS: NORMAL SALINE 1000 ML 1,000 ML IV PRN (20:37)
[2016-11-25 20:56] LABS: ERYTHROCYTE SEDIMENTATION RATE 113 mm/hr (0-30)
[2016-11-25 21:57] LABS: FOLATE 9.55 ng/mL (>2.76)
[2016-11-25] MEDS: INSULIN GLARGINE,HUM.REC.ANLOG 300 UNIT/3 ML INSULN.PEN SUBCUT SCH (22:10)
[2016-11-25] MEDS: ATORVASTATIN CALCIUM 20 MG TABLET PO SCH (22:11)
[2016-11-26] MEDS: AZTREONAM 1 GM in DEXTROSE 5%-WATER 50 ML IV SCH ×3 (02:20→17:51)
[2016-11-26] MEDS: GABAPENTIN 100 MG CAPSULE PO SCH ×3 (06:18→22:23)
[2016-11-26 06:31] LABS: ABSOLUTE BASOPHILS # (AUTO) 0.1 10^3/uL (0.0-0.2); ABSOLUTE EOSINOPHILS # (AUTO) 0.2 10^3/uL (0.0-0.6); ABSOLUTE LYMPHOCYTES (AUTO) 1.5 10^3/uL (0.5-4.7); ABSOLUTE MONOCYTES (AUTO) 1.1 10^3/uL (0.1-1.4); ABSOLUTE NEUT (AUTO) 14.3 10^3/uL (1.7-8.2); BASOPHILS % (AUTO) 0.8 % (0-2); HEMATOCRIT 31.7 % (36.0-47.0); HGB HCT DIFFERENCE -1.7; LYMPHOCYTES % (AUTO) 8.7 % (13-45); MEAN CORPUSCULAR HEMOGLOBIN 24.2 pg (27.0-33.4); MEAN CORPUSCULAR HGB CONC 31.6 g/dL (32.0-36.0); MEAN CORPUSCULAR VOLUME 76 fl (80-97); MONOCYTES % (AUTO) 6.2 % (3-13); RED BLOOD COUNT 4.15 10^6/uL (3.72-5.28); SEGMENTED NEUTROPHILS % (AUTO) 83.3 % (42-78); WHITE BLOOD COUNT 17.1 10^3/uL (4.0-10.5)
--- NOTE | 2016-11-26 06:51 | PDOC PROGRESS REPORT ---
Subjective Progress Note for:: 11/26/16 Subjective:: Patient without significant new complaints Physical Exam Vital Signs: Temp Pulse Resp BP Pulse Ox 37.1 C 96 16 145/55 H 97 11/26/16 03:20 11/26/16 03:20 11/26/16 03:20 11/26/16 03:20 11/26/16 03:20 Intake & Output 11/24/16 11/25/16 11/26/16 06:59 06:59 06:59 Intake Total 2500 6534 2450 Balance 2500 6534 2450 Weight 92 kg 92.3 kg 91.5 kg General appearance: PRESENT: no acute distress Head exam: PRESENT: normocephalic Respiratory exam: PRESENT: unlabored Extremities exam: PRESENT: other - Right foot dressing clean dry and intact. Calf continues to be tender without erythema or induration. Results Laboratory Results: 11/26/16 06:19 11/25/16 11/25/16 11/25/16 07:29 20:00 20:00 WBC 16.4 H RBC 3.96 Hgb 9.6 L D Hct 30.6 L MCV 77 L MCH 24.3 L MCHC 31.4 L RDW 20.3 H Plt Count 502 H Seg Neutrophils % 83.5 H Lymphocytes % 9.2 L Monocytes % 5.6 Eosinophils % 1.2 Basophils % 0.5 Absolute Neutrophils 13.7 H Absolute Lymphocytes 1.5 Absolute Monocytes 0.9 Absolute Eosinophils 0.2 Absolute Basophils 0.1 Retic Count (auto) Absolute Retic Sodium Potassium Chloride Carbon Dioxide Anion Gap BUN Creatinine Est GFR ( Amer) Est GFR (Non-Af Amer) Glucose Calcium Iron TIBC % Saturation Ferritin Total Bilirubin AST ALT Alkaline Phosphatase C-Reactive Protein 288.5 H Total Protein Albumin Vitamin B12 Folate Blood Type O POSITIVE Antibody Screen NEGATIVE 11/25/16 11/25/16 11/26/16 20:00 20:00 04:39 WBC Cancelled RBC Cancelled Hgb Cancelled Hct Cancelled MCV Cancelled MCH Cancelled MCHC Cancelled RDW Cancelled Plt Count Cancelled Seg Neutrophils % Cancelled Lymphocytes % Cancelled Monocytes % Cancelled Eosinophils % Cancelled Basophils % Cancelled Absolute Neutrophils Cancelled Absolute Lymphocytes Cancelled Absolute Monocytes Cancelled Absolute Eosinophils Cancelled Absolute Basophils Cancelled Retic Count (auto) 1.32 Absolute Retic 0.052 Sodium Potassium Chloride Carbon Dioxide Anion Gap BUN Creatinine Est GFR ( Amer) Est GFR (Non-Af Amer) Glucose Calcium Iron 21.4 L TIBC 169 L % Saturation 13 Ferritin 541.00 H Total Bilirubin AST ALT Alkaline Phosphatase C-Reactive Protein Total Protein Albumin Vitamin B12 848.0 Folate 9.55 Blood Type Antibody Screen 11/26/16 11/26/16 04:39 06:19 WBC 17.1 H RBC 4.15 Hgb 10.0 L Hct 31.7 L MCV 76 L MCH 24.2 L MCHC 31.6 L RDW 20.0 H Plt Count 550 H Seg Neutrophils % 83.3 H Lymphocytes % 8.7 L Monocytes % 6.2 Eosinophils % 1.0 Basophils % 0.8 Absolute Neutrophils 14.3 H Absolute Lymphocytes 1.5 Absolute Monocytes 1.1 Absolute Eosinophils 0.2 Absolute Basophils 0.1 Retic Count (auto) Absolute Retic Sodium Cancelled Potassium Cancelled Chloride Cancelled Carbon Dioxide Cancelled Anion Gap Cancelled BUN Cancelled Creatinine Cancelled Est GFR ( Amer) Cancelled Est GFR (Non-Af Amer) Cancelled Glucose Cancelled Calcium Cancelled Iron TIBC % Saturation Ferritin Total Bilirubin Cancelled AST Cancelled ALT Cancelled Alkaline Phosphatase Cancelled C-Reactive Protein Total Protein Cancelled Albumin Cancelled Vitamin B12 Folate Blood Type Antibody Screen 11/23/16 11:40 Clean Catch Midstream Urine Culture - Final Citrobacter Freundii 11/23/16 11/23/16 11/23/16 09:18 15:50 21:28 Creatine Kinase 33 30 31 Impressions: Chest X-Ray 11/22/16 00:00 IMPRESSION: NO ACUTE RADIOGRAPHIC FINDING IN THE CHEST. Foot X-Ray 11/22/16 21:45 IMPRESSION: Soft tissue gas. Postsurgical changes. Periostitis involving remaining 3rd 4th and 5th metatarsals is noted. Lower Extremity MRI 11/23/16 00:00 IMPRESSION: There is a long segment diaphyseal intramedullary heterogeneous signal non expansile lesion in the tibia measuring 20 cm in length, this is predominantly low signal on T1 and high signal on T2. Axial images also show edema in the musculature of all compartments. No fluid collection. No definite periosteal elevation or evidence for subperiosteal abscess. Differential considerations include infection -osteomyelitis versus infarct and reflex sympathetic dystrophy. Orthopedic follow-up is recommended. Status: Imported from PACS Assessment & Plan - Diagnosis (1) Acute osteomyelitis of metatarsal bone of right foot Is this a current diagnosis for this admission?: Yes (2) Cellulitis of right leg Is this a current diagnosis for this admission?: YesPlan: 56-year-old black female presented with a septic picture. Patient rate and C- reactive protein rates are high. Scan demonstrates no drainable fluid collections in the MRI report has been modified to suggest that the tibial changes reflect bone infarcts as opposed to an infectious process. If further evaluation was felt to be necessary potentially tagged white blood cell scan can be ordered but I do not think this is necessary at the current time. I think we can continue to treat the patient with antibiotics and observation. - Time Time Spent with patient: 15-24 minutes
[2016-11-26 06:57] LABS: ALANINE AMINOTRANSFERASE 27 U/L (9-52); ALBUMIN 2.6 g/dL (3.5-5.0); ALKALINE PHOSPHATASE 164 U/L (38-126); ANION GAP 7 (5-19); ASPARTATE AMINO TRANSFERASE 16 U/L (14-36); BILIRUBIN,DIRECT 0.3 mg/dL (0.0-0.4); BILIRUBIN,TOTAL 0.4 mg/dL (0.2-1.3); BLOOD UREA NITROGEN 18 mg/dL (7-20); CALCIUM 8.5 mg/dL (8.4-10.2); CARBON DIOXIDE 25 mmol/L (22-30); CHLORIDE 103 mmol/L (98-107); GLUCOSE 222 mg/dL (75-110); POTASSIUM 4.2 mmol/L (3.6-5.0); SODIUM 135.3 mmol/L (137-145); TOTAL PROTEIN 6.8 g/dL (6.3-8.2)
[2016-11-26] MEDS: HYDROMORPHONE HCL INJ/PF 2 MG/ML AMPULE IV PRN ×2 (08:04→16:14)
[2016-11-26] MEDS: ENOXAPARIN SODIUM INJ 40 MG/0.4 ML DISP.SYRIN SUBCUT SCH (08:09)
[2016-11-26] MEDS: INSULIN LISPRO 100 UNIT/ML 3 ML VIAL SUBCUT PRN ×3 (08:10→16:11)
[2016-11-26] MEDS: INSULIN LISPRO 100 UNIT/ML 3 ML VIAL SUBCUT SCH ×3 (08:10→16:11)
[2016-11-26] MEDS: ACETAMINOPHEN 325 MG TABLET PO PRN (08:10)
[2016-11-26] MEDS: LINEZOLID 300 ML IV SCH ×2 (09:40→22:23)
[2016-11-26] MEDS: ASPIRIN 81 MG TABLET, CHEWABLE PO SCH (09:40)
[2016-11-26] MEDS: LISINOPRIL 10 MG TABLET PO SCH (09:40)
[2016-11-26] MEDS: LEVOTHYROXINE SODIUM 0.075 MG TABLET PO SCH (09:40)
[2016-11-26] MEDS: AMLODIPINE BESYLATE 10 MG TABLET PO SCH (09:40)
[2016-11-26] MEDS: MINERAL OIL/PETROLATUM,WHITE CREAM 114 GM TP SCH (09:41)
[2016-11-26] MEDS: NORMAL SALINE 1000 ML 1,000 ML IV PRN (11:41)
--- NOTE | 2016-11-26 14:09 | PDOC PROGRESS REPORT ---
Subjective Progress Note for:: 11/26/16 Subjective:: Patient was seen by the bedside, she continues to respond to IV antibiotic, the MRI report was changed to suggest that this finding is more consistent with bone infarct rather than infection. She was seen by the orthopedic surgeon earlier today Physical Exam Vital Signs: Temp Pulse Resp BP Pulse Ox 98.6 F 84 18 114/53 L 94 11/26/16 12:00 11/26/16 12:00 11/26/16 12:00 11/26/16 12:00 11/26/16 12:00 Intake & Output 11/25/16 11/26/16 11/27/16 06:59 06:59 06:59 Intake Total 6534 2450 Balance 6534 2450 Weight 92.3 kg 91.5 kg General appearance: PRESENT: no acute distress Eye exam: PRESENT: PERRLA Respiratory exam: PRESENT: clear to auscultation richard Cardiovascular exam: PRESENT: +S1, +S2 GI/Abdominal exam: PRESENT: soft Neurological exam: PRESENT: alert Results Laboratory Results: 11/26/16 06:19 11/26/16 06:19 11/25/16 11/25/16 11/25/16 07:29 20:00 20:00 WBC 16.4 H RBC 3.96 Hgb 9.6 L D Hct 30.6 L MCV 77 L MCH 24.3 L MCHC 31.4 L RDW 20.3 H Plt Count 502 H Seg Neutrophils % 83.5 H Lymphocytes % 9.2 L Monocytes % 5.6 Eosinophils % 1.2 Basophils % 0.5 Absolute Neutrophils 13.7 H Absolute Lymphocytes 1.5 Absolute Monocytes 0.9 Absolute Eosinophils 0.2 Absolute Basophils 0.1 Retic Count (auto) Absolute Retic Sodium Potassium Chloride Carbon Dioxide Anion Gap BUN Creatinine Est GFR ( Amer) Est GFR (Non-Af Amer) Glucose Calcium Iron TIBC % Saturation Ferritin Total Bilirubin AST ALT Alkaline Phosphatase C-Reactive Protein 288.5 H Total Protein Albumin Vitamin B12 Folate Blood Type O POSITIVE Antibody Screen NEGATIVE 11/25/16 11/25/16 11/26/16 20:00 20:00 04:39 WBC Cancelled RBC Cancelled Hgb Cancelled Hct Cancelled MCV Cancelled MCH Cancelled MCHC Cancelled RDW Cancelled Plt Count Cancelled Seg Neutrophils % Cancelled Lymphocytes % Cancelled Monocytes % Cancelled Eosinophils % Cancelled Basophils % Cancelled Absolute Neutrophils Cancelled Absolute Lymphocytes Cancelled Absolute Monocytes Cancelled Absolute Eosinophils Cancelled Absolute Basophils Cancelled Retic Count (auto) 1.32 Absolute Retic 0.052 Sodium Potassium Chloride Carbon Dioxide Anion Gap BUN Creatinine Est GFR ( Amer) Est GFR (Non-Af Amer) Glucose Calcium Iron 21.4 L TIBC 169 L % Saturation 13 Ferritin 541.00 H Total Bilirubin AST ALT Alkaline Phosphatase C-Reactive Protein Total Protein Albumin Vitamin B12 848.0 Folate 9.55 Blood Type Antibody Screen 11/26/16 11/26/16 11/26/16 04:39 06:19 06:19 WBC 17.1 H RBC 4.15 Hgb 10.0 L Hct 31.7 L MCV 76 L MCH 24.2 L MCHC 31.6 L RDW 20.0 H Plt Count 550 H Seg Neutrophils % 83.3 H Lymphocytes % 8.7 L Monocytes % 6.2 Eosinophils % 1.0 Basophils % 0.8 Absolute Neutrophils 14.3 H Absolute Lymphocytes 1.5 Absolute Monocytes 1.1 Absolute Eosinophils 0.2 Absolute Basophils 0.1 Retic Count (auto) Absolute Retic Sodium Cancelled 135.3 L Potassium Cancelled 4.2 Chloride Cancelled 103 Carbon Dioxide Cancelled 25 Anion Gap Cancelled 7 BUN Cancelled 18 Creatinine Cancelled 0.60 Est GFR ( Amer) Cancelled > 60 Est GFR (Non-Af Amer) Cancelled > 60 Glucose Cancelled 222 H Calcium Cancelled 8.5 Iron TIBC % Saturation Ferritin Total Bilirubin Cancelled 0.4 AST Cancelled 16 ALT Cancelled 27 Alkaline Phosphatase Cancelled 164 H C-Reactive Protein Total Protein Cancelled 6.8 Albumin Cancelled 2.6 L Vitamin B12 Folate Blood Type Antibody Screen 11/23/16 11:40 Clean Catch Midstream Urine Culture - Final Citrobacter Freundii 11/23/16 11/23/16 11/23/16 09:18 15:50 21:28 Creatine Kinase 33 30 31 Impressions: Chest X-Ray 11/22/16 00:00 IMPRESSION: NO ACUTE RADIOGRAPHIC FINDING IN THE CHEST. Foot X-Ray 11/22/16 21:45 IMPRESSION: Soft tissue gas. Postsurgical changes. Periostitis involving remaining 3rd 4th and 5th metatarsals is noted. Lower Extremity MRI 11/23/16 00:00 IMPRESSION: There is a long segment diaphyseal intramedullary heterogeneous signal non expansile lesion in the tibia measuring 20 cm in length, this is predominantly low signal on T1 and high signal on T2. Axial images also show edema in the musculature of all compartments. No fluid collection. No definite periosteal elevation or evidence for subperiosteal abscess. Differential considerations include infection -osteomyelitis versus infarct and reflex sympathetic dystrophy. Orthopedic follow-up is recommended. Assessment & Plan - Diagnosis (1) Osteomyelitis of lower leg, right, acute Is this a current diagnosis for this admission?: Yes (2) Diabetes mellitus type 2 in nonobese Is this a current diagnosis for this admission?: Yes (3) Peripheral vascular disease in diabetes mellitus Is this a current diagnosis for this admission?: Yes (4) Anemia Qualifiers: Anemia type: unspecified type Qualified Code(s): D64.9 - Anemia, unspecified Is this a current diagnosis for this admission?: Yes
[2016-11-26 15:14] LABS: URINE CREATININE 113.7 mg/dL (15-278); URINE PROTEIN 43.9 mg/dL (<12)
[2016-11-26] MEDS: ATORVASTATIN CALCIUM 20 MG TABLET PO SCH (22:23)
[2016-11-26] MEDS: INSULIN GLARGINE,HUM.REC.ANLOG 300 UNIT/3 ML INSULN.PEN SUBCUT SCH (22:23)
[2016-11-27] MEDS: ACETAMINOPHEN 325 MG TABLET PO PRN ×2 (00:29→22:33)
[2016-11-27] MEDS: AZTREONAM 1 GM in DEXTROSE 5%-WATER 50 ML IV SCH ×3 (04:40→17:24)
[2016-11-27] MEDS: GABAPENTIN 100 MG CAPSULE PO SCH ×3 (05:38→22:33)
[2016-11-27] MEDS: INSULIN LISPRO 100 UNIT/ML 3 ML VIAL SUBCUT SCH ×3 (08:13→16:43)
[2016-11-27] MEDS: ENOXAPARIN SODIUM INJ 40 MG/0.4 ML DISP.SYRIN SUBCUT SCH (08:13)
[2016-11-27] MEDS: LISINOPRIL 10 MG TABLET PO SCH (10:18)
[2016-11-27] MEDS: ASPIRIN 81 MG TABLET, CHEWABLE PO SCH (10:18)
[2016-11-27] MEDS: LEVOTHYROXINE SODIUM 0.075 MG TABLET PO SCH (10:18)
[2016-11-27] MEDS: AMLODIPINE BESYLATE 10 MG TABLET PO SCH (10:18)
[2016-11-27] MEDS: MINERAL OIL/PETROLATUM,WHITE CREAM 114 GM TP SCH (10:19)
[2016-11-27] MEDS: LINEZOLID 300 ML IV SCH ×2 (10:19→22:33)
--- NOTE | 2016-11-27 14:27 | PDOC PROGRESS REPORT ---
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 Arterial Doppler of the right leg will be ordered Physical Exam Vital Signs: Temp Pulse Resp BP Pulse Ox 100.6 F H 107 H 15 161/62 H 94 11/27/16 07:36 11/27/16 07:36 11/27/16 07:36 11/27/16 07:36 11/27/16 07:36 Intake & Output 11/26/16 11/27/16 11/28/16 06:59 06:59 06:59 Intake Total 2450 4965 Balance 2450 4965 Weight 91.5 kg 92 kg General appearance: PRESENT: no acute distress Eye exam: PRESENT: PERRLA Respiratory exam: PRESENT: clear to auscultation richard Cardiovascular exam: PRESENT: +S1, +S2 GI/Abdominal exam: PRESENT: soft Neurological exam: PRESENT: alert Results Laboratory Results: 11/26/16 06:19 11/26/16 06:19 11/23/16 11/23/16 11/23/16 09:18 15:50 21:28 Creatine Kinase 33 30 31 Impressions: Chest X-Ray 11/22/16 00:00 IMPRESSION: NO ACUTE RADIOGRAPHIC FINDING IN THE CHEST. Foot X-Ray 11/22/16 21:45 IMPRESSION: Soft tissue gas. Postsurgical changes. Periostitis involving remaining 3rd 4th and 5th metatarsals is noted. Lower Extremity MRI 11/23/16 00:00 IMPRESSION: There is a long segment diaphyseal intramedullary heterogeneous signal non expansile lesion in the tibia measuring 20 cm in length, this is predominantly low signal on T1 and high signal on T2. Axial images also show edema in the musculature of all compartments. No fluid collection. No definite periosteal elevation or evidence for subperiosteal abscess. Differential considerations include infection -osteomyelitis versus infarct and reflex sympathetic dystrophy. Orthopedic follow-up is recommended. Assessment & Plan - Diagnosis (1) Osteomyelitis of lower leg, right, acute Is this a current diagnosis for this admission?: YesPlan: She will continue IV antibiotic, arterial Doppler will be ordered to assess arterial circulation (2) Diabetes mellitus type 2 in nonobese Is this a current diagnosis for this admission?: Yes (3) Peripheral vascular disease in diabetes mellitus Is this a current diagnosis for this admission?: Yes (4) Anemia Qualifiers: Anemia type: unspecified type Qualified Code(s): D64.9 - Anemia, unspecified Is this a current diagnosis for this admission?: Yes
[2016-11-27 15:36] LABS: ALANINE AMINOTRANSFERASE 29 U/L (9-52); ALBUMIN 2.4 g/dL (3.5-5.0); ALKALINE PHOSPHATASE 147 U/L (38-126); ANION GAP 10 (5-19); ASPARTATE AMINO TRANSFERASE 20 U/L (14-36); BILIRUBIN,DIRECT 0.4 mg/dL (0.0-0.4); BILIRUBIN,TOTAL 0.4 mg/dL (0.2-1.3); BLOOD UREA NITROGEN 11 mg/dL (7-20); CALCIUM 8.5 mg/dL (8.4-10.2); CARBON DIOXIDE 24 mmol/L (22-30); CHLORIDE 103 mmol/L (98-107); CREATININE RESULT 0.56 mg/dL (0.52-1.25); GLUCOSE 199 mg/dL (75-110); SODIUM 137.3 mmol/L (137-145); TOTAL PROTEIN 6.5 g/dL (6.3-8.2)
[2016-11-27] MEDS: NORMAL SALINE 1000 ML 1,000 ML IV PRN (16:43)
[2016-11-27] MEDS: INSULIN LISPRO 100 UNIT/ML 3 ML VIAL SUBCUT PRN (16:43)
[2016-11-27] MEDS: INSULIN GLARGINE,HUM.REC.ANLOG 300 UNIT/3 ML INSULN.PEN SUBCUT SCH (22:32)
[2016-11-27] MEDS: ATORVASTATIN CALCIUM 20 MG TABLET PO SCH (22:33)
[2016-11-28] MEDS: AZTREONAM 1 GM in DEXTROSE 5%-WATER 50 ML IV SCH ×3 (02:08→18:30)
[2016-11-28 05:24] LABS: ABSOLUTE BASOPHILS # (AUTO) 0.1 10^3/uL (0.0-0.2); ABSOLUTE EOSINOPHILS # (AUTO) 0.2 10^3/uL (0.0-0.6); ABSOLUTE LYMPHOCYTES (AUTO) 2.4 10^3/uL (0.5-4.7); ABSOLUTE MONOCYTES (AUTO) 1.4 10^3/uL (0.1-1.4); ABSOLUTE NEUT (AUTO) 13.4 10^3/uL (1.7-8.2); BASOPHILS % (AUTO) 0.6 % (0-2); EOSINOPHILS % (AUTO) 1.1 % (0-6); HEMATOCRIT 29.3 % (36.0-47.0); HGB HCT DIFFERENCE -2.3; LYMPHOCYTES % (AUTO) 13.5 % (13-45); MEAN CORPUSCULAR HEMOGLOBIN 23.8 pg (27.0-33.4); MEAN CORPUSCULAR HGB CONC 30.8 g/dL (32.0-36.0); MEAN CORPUSCULAR VOLUME 77 fl (80-97); MONOCYTES % (AUTO) 8.1 % (3-13); RED BLOOD COUNT 3.78 10^6/uL (3.72-5.28); RED CELL DISTRIBUTION WIDTH 21.1 % (11.5-14.0); SEGMENTED NEUTROPHILS % (AUTO) 76.7 % (42-78); WHITE BLOOD COUNT 17.4 10^3/uL (4.0-10.5)
[2016-11-28] MEDS: GABAPENTIN 100 MG CAPSULE PO SCH ×3 (05:32→21:24)
[2016-11-28 05:41] LABS: ALANINE AMINOTRANSFERASE 27 U/L (9-52); ALBUMIN 2.5 g/dL (3.5-5.0); ALKALINE PHOSPHATASE 153 U/L (38-126); ANION GAP 13 (5-19); ASPARTATE AMINO TRANSFERASE 20 U/L (14-36); BILIRUBIN,DIRECT 0.3 mg/dL (0.0-0.4); BILIRUBIN,TOTAL 0.4 mg/dL (0.2-1.3); BLOOD UREA NITROGEN 9 mg/dL (7-20); CALCIUM 8.5 mg/dL (8.4-10.2); CARBON DIOXIDE 23 mmol/L (22-30); CHLORIDE 105 mmol/L (98-107); CREATININE RESULT 0.51 mg/dL (0.52-1.25); GLUCOSE 151 mg/dL (75-110); POTASSIUM 3.9 mmol/L (3.6-5.0); SODIUM 141.4 mmol/L (137-145); TOTAL PROTEIN 6.8 g/dL (6.3-8.2)
[2016-11-28] MEDS: INSULIN LISPRO 100 UNIT/ML 3 ML VIAL SUBCUT SCH ×3 (08:37→18:15)
[2016-11-28] MEDS: ENOXAPARIN SODIUM INJ 40 MG/0.4 ML DISP.SYRIN SUBCUT SCH (11:18)
[2016-11-28] MEDS: AMLODIPINE BESYLATE 10 MG TABLET PO SCH (11:19)
[2016-11-28] MEDS: ASPIRIN 81 MG TABLET, CHEWABLE PO SCH (11:19)
[2016-11-28] MEDS: LISINOPRIL 10 MG TABLET PO SCH (11:19)
[2016-11-28] MEDS: LEVOTHYROXINE SODIUM 0.075 MG TABLET PO SCH (11:19)
[2016-11-28] MEDS: LINEZOLID 300 ML IV SCH ×2 (11:20→21:23)
[2016-11-28] MEDS: MINERAL OIL/PETROLATUM,WHITE CREAM 114 GM TP SCH (11:36)
[2016-11-28] MEDS: INSULIN LISPRO 100 UNIT/ML 3 ML VIAL SUBCUT PRN (11:59)
--- NOTE | 2016-11-28 19:54 | PDOC PROGRESS REPORT ---
Subjective Progress Note for:: 11/28/16 Subjective:: She was seen by the bedside, the plan is to get a PICC line, she will be discharged home on IV antibiotic Physical Exam Vital Signs: Temp Pulse Resp BP Pulse Ox 99.7 F 98 18 143/52 H 92 11/28/16 17:12 11/28/16 19:00 11/28/16 17:12 11/28/16 17:12 11/28/16 17:12 Intake & Output 11/27/16 11/28/16 11/29/16 06:59 06:59 06:59 Intake Total 4965 2100 2648 Balance 4965 2100 2648 Weight 92 kg 95 kg General appearance: PRESENT: no acute distress Eye exam: PRESENT: PERRLA Respiratory exam: PRESENT: clear to auscultation richard Cardiovascular exam: PRESENT: +S1, +S2 GI/Abdominal exam: PRESENT: soft Neurological exam: PRESENT: alert, CN II-XII grossly intact Results Laboratory Results: 11/28/16 04:30 11/28/16 04:30 11/25/16 11/28/16 11/28/16 20:00 04:30 04:30 WBC 17.4 H RBC 3.78 Hgb 9.0 L Hct 29.3 L MCV 77 L MCH 23.8 L MCHC 30.8 L RDW 21.1 H Plt Count 513 H Seg Neutrophils % 76.7 Lymphocytes % 13.5 Monocytes % 8.1 Eosinophils % 1.1 Basophils % 0.6 Absolute Neutrophils 13.4 H Absolute Lymphocytes 2.4 Absolute Monocytes 1.4 Absolute Eosinophils 0.2 Absolute Basophils 0.1 Sodium 141.4 Potassium 3.9 Chloride 105 Carbon Dioxide 23 Anion Gap 13 BUN 9 Creatinine 0.51 L Est GFR ( Amer) > 60 Est GFR (Non-Af Amer) > 60 Glucose 151 H Calcium 8.5 Transferrin 114 L Total Bilirubin 0.4 AST 20 ALT 27 Alkaline Phosphatase 153 H Total Protein 6.8 Albumin 2.5 L 11/23/16 11/23/16 11/23/16 09:18 15:50 21:28 Creatine Kinase 33 30 31 Impressions: Chest X-Ray 11/22/16 00:00 IMPRESSION: NO ACUTE RADIOGRAPHIC FINDING IN THE CHEST. Foot X-Ray 11/22/16 21:45 IMPRESSION: Soft tissue gas. Postsurgical changes. Periostitis involving remaining 3rd 4th and 5th metatarsals is noted. Lower Extremity MRI 11/23/16 00:00 IMPRESSION: There is a long segment diaphyseal intramedullary heterogeneous signal non expansile lesion in the tibia measuring 20 cm in length, this is predominantly low signal on T1 and high signal on T2. Axial images also show edema in the musculature of all compartments. No fluid collection. No definite periosteal elevation or evidence for subperiosteal abscess. Differential considerations include infection -osteomyelitis versus infarct and reflex sympathetic dystrophy. Orthopedic follow-up is recommended. Assessment & Plan - Diagnosis (1) Osteomyelitis of lower leg, right, acute Is this a current diagnosis for this admission?: Yes (2) Diabetes mellitus type 2 in nonobese Is this a current diagnosis for this admission?: Yes (3) Peripheral vascular disease in diabetes mellitus Is this a current diagnosis for this admission?: Yes (4) Anemia Qualifiers: Anemia type: unspecified type Qualified Code(s): D64.9 - Anemia, unspecified Is this a current diagnosis for this admission?: Yes - Plan Summary Plan Summary: Continue IV antibiotic
[2016-11-28] MEDS: INSULIN GLARGINE,HUM.REC.ANLOG 300 UNIT/3 ML INSULN.PEN SUBCUT SCH (21:23)
[2016-11-28] MEDS: ATORVASTATIN CALCIUM 20 MG TABLET PO SCH (21:24)
[2016-11-29] MEDS: ACETAMINOPHEN 325 MG TABLET PO PRN (00:31)
[2016-11-29] MEDS: AZTREONAM 1 GM in DEXTROSE 5%-WATER 50 ML IV SCH ×3 (02:11→17:17)
[2016-11-29] MEDS: GABAPENTIN 100 MG CAPSULE PO SCH ×3 (05:54→21:43)
[2016-11-29] MEDS: INSULIN LISPRO 100 UNIT/ML 3 ML VIAL SUBCUT SCH ×3 (08:38→18:44)
--- NOTE | 2016-11-29 09:14 | XCELERA REPORT ---
[address] [address] Lower Extremity Arterial Evaluation Name: LAVELLE ARRIAZA Age: 56 yrs Gender: Female : 1960 Patient Status: Inpatient Patient Location: [id number] Study Date: 11/28/2016 09:47 AM Procedure: A color flow and duplex scan of the lower extremity arteries was performed on the right with velocity and waveform anaylsis. 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 Monophasic from the Femoral to the infrageniculate vessels. With severe attenuation with spectral broadening. 50-99 % stenosis noted. At the Femoral. Ankle Brachial index was not obtained. Interpretation Summary Severe hemodynamically significant lesions in the right lower extremity only, on duplex imaging, at rest. : MARLENE CANNON > Travis Urena
[2016-11-29] MEDS: AMLODIPINE BESYLATE 10 MG TABLET PO SCH (09:46)
[2016-11-29] MEDS: LEVOTHYROXINE SODIUM 0.075 MG TABLET PO SCH (09:46)
[2016-11-29] MEDS: LISINOPRIL 10 MG TABLET PO SCH (09:46)
--- NOTE | 2016-11-29 11:50 | RADIOLOGY REPORT (SQ) ---
EXAM DESCRIPTION: PICC INSERTION; U/S GUIDE FOR VASCULAR ACCESS; FLUORO/CV PLACEMENT COMPLETED DATE/TIME: 11/29/2016 11:26 am REASON FOR STUDY: for IV acces; IV ACCESS COMPARISON: None. FLUOROSCOPY TIME: 0.30 minutes. 1 images saved to PACS. TECHNIQUE: Fluoroscopic and ultrasound guided PICC placement. LIMITATIONS: None. PROCEDURE: After written consent and assessment were obtained, the patient was brought into the fluo roscopy room and place supine on the table. Ultrasound was used on the patient's left arm for PICC a ccess. The left arm was prepped and draped in a sterile fashion along with the ultrasound probe. The entry site was anesthetized with 1% lidocaine. A 21 gauge 7 cm needle was advanced through the skin a nd into the basilic vein under live ultrasound guidance. An ultrasound image was saved to PACS confi rming access site. A .018 guide wire was then inserted through the needle and into the venous system . The needle was the removed and an 11 blade scalpel was used to make a 1cm skin incision. A 5 fr pe el-away sheath was advanced over the wire and into the venous system. A measurement was then made usi ng the existing wire and live fluoroscopic guidance. The wire was then removed and the trimmed. The P ICC was advanced through the peel-away sheath and into the venous system. The peel-away sheath was re moved and the catheter was adhered to the patients arm with a stat lock. The catheter was then aspira lee and flushed and a sterile bandage was placed over the access site. A fluoroscopic spot image was saved to PACS confirming the catheter tip within the superior vena cava. IMPRESSION: SUCCESSFUL PLACEMENT OF A 5 FR DUAL LUMEN 44 CM PICC IN THE LEFT BASILIC VEIN. COMMENT: Patient medication list reviewed: Yes- Quality ID# [id number]:Eligible professional attests to doc umenting in the medical record they obtained, updated, or reviewed the patient's current medications. . Quality ID 145: Final reports for procedures using fluoroscopy that document radiation exposure caitlyn becki, or exposure time and number of fluorographic images (if radiation exposure indices are not avail able) Quality ID #76: The patient was prepped and draped using maximum sterile barrier technique including cap, mask, sterile gown, sterile gloves, a large sterile sheet, hand hygiene, and 2% Chlorhexidine fo r cutaneous antisepsis. When ultrasound is used, sterile ultrasound techniques are followed requiring sterile gel and sterile probes. TECHNICAL DOCUMENTATION: JOB ID: [id number] [employer]- All Rights Reserved
[2016-11-29] MEDS: ENOXAPARIN SODIUM INJ 40 MG/0.4 ML DISP.SYRIN SUBCUT SCH (12:40)
[2016-11-29] MEDS: ASPIRIN 81 MG TABLET, CHEWABLE PO SCH (12:42)
[2016-11-29] MEDS: LINEZOLID 300 ML IV SCH ×2 (12:44→21:44)
[2016-11-29] MEDS: MINERAL OIL/PETROLATUM,WHITE CREAM 114 GM TP SCH (12:45)
[2016-11-29] MEDS ORDERED: NORMAL SALINE 10 ML SDV (AFTER EACH USE) IV PRN (19:31)
[2016-11-29] MEDS: HYDROMORPHONE HCL INJ/PF 2 MG/ML AMPULE IV PRN (20:13)
[2016-11-29] MEDS: NORMAL SALINE 10 ML SDV (SCHEDULED) IV SCH (21:43)
[2016-11-29] MEDS: ATORVASTATIN CALCIUM 20 MG TABLET PO SCH (21:43)
[2016-11-29] MEDS: INSULIN GLARGINE,HUM.REC.ANLOG 300 UNIT/3 ML INSULN.PEN SUBCUT SCH (21:44)
[2016-11-30] MEDS: AZTREONAM 1 GM in DEXTROSE 5%-WATER 50 ML IV SCH ×2 (01:42→18:02)
[2016-11-30] MEDS: GABAPENTIN 100 MG CAPSULE PO SCH ×3 (05:27→22:54)
[2016-11-30] MEDS: ACETAMINOPHEN 325 MG TABLET PO PRN ×2 (05:27→16:33)
[2016-11-30] MEDS: ENOXAPARIN SODIUM INJ 40 MG/0.4 ML DISP.SYRIN SUBCUT SCH (09:20)
[2016-11-30] MEDS: AMLODIPINE BESYLATE 10 MG TABLET PO SCH (09:24)
[2016-11-30] MEDS: LEVOTHYROXINE SODIUM 0.075 MG TABLET PO SCH (09:24)
[2016-11-30] MEDS: ASPIRIN 81 MG TABLET, CHEWABLE PO SCH (09:24)
[2016-11-30] MEDS: LISINOPRIL 10 MG TABLET PO SCH (09:24)
[2016-11-30] MEDS: NORMAL SALINE 1000 ML 1,000 ML IV PRN (09:25)
[2016-11-30] MEDS: NORMAL SALINE 10 ML SDV (SCHEDULED) IV SCH ×2 (09:26→22:55)
[2016-11-30] MEDS: INSULIN LISPRO 100 UNIT/ML 3 ML VIAL SUBCUT SCH ×3 (09:32→16:39)
[2016-11-30] MEDS: MINERAL OIL/PETROLATUM,WHITE CREAM 114 GM TP SCH (09:48)
[2016-11-30] MEDS ORDERED: LINEZOLID 600 MG RTU 300 ML IV ONE (12:00)
[2016-11-30] MEDS ORDERED: AZTREONAM 1 GM in DEXTROSE 5%-WATER 50 ML IV ONE (12:00)
--- NOTE | 2016-11-30 16:37 | PDOC PROGRESS REPORT ---
Subjective Progress Note for:: 11/29/16 Subjective:: She was seen by the bedside, the plan is to get a PICC line, she will be discharged home on IV antibiotic Physical Exam Vital Signs: Temp Pulse Resp BP Pulse Ox 99.1 F 84 18 141/60 H 92 11/30/16 12:15 11/30/16 12:15 11/30/16 12:15 11/30/16 12:15 11/30/16 12:15 Intake & Output 11/29/16 11/30/16 12/01/16 06:59 06:59 06:59 Intake Total 3696 2777 Balance 3696 2777 Weight 91.5 kg General appearance: PRESENT: no acute distress Eye exam: PRESENT: PERRLA Respiratory exam: PRESENT: clear to auscultation richard Cardiovascular exam: PRESENT: +S1, +S2 GI/Abdominal exam: PRESENT: soft Results Laboratory Results: 11/28/16 04:30 11/28/16 04:30 11/23/16 11/23/16 11/23/16 09:18 15:50 21:28 Creatine Kinase 33 30 31 Impressions: Chest X-Ray 11/22/16 00:00 IMPRESSION: NO ACUTE RADIOGRAPHIC FINDING IN THE CHEST. Foot X-Ray 11/22/16 21:45 IMPRESSION: Soft tissue gas. Postsurgical changes. Periostitis involving remaining 3rd 4th and 5th metatarsals is noted. Lower Extremity MRI 11/23/16 00:00 IMPRESSION: There is a long segment diaphyseal intramedullary heterogeneous signal non expansile lesion in the tibia measuring 20 cm in length, this is predominantly low signal on T1 and high signal on T2. Axial images also show edema in the musculature of all compartments. No fluid collection. No definite periosteal elevation or evidence for subperiosteal abscess. Differential considerations include infection -osteomyelitis versus infarct and reflex sympathetic dystrophy. Orthopedic follow-up is recommended. Guidance Fluoroscopy 11/29/16 00:00 IMPRESSION: SUCCESSFUL PLACEMENT OF A 5 FR DUAL LUMEN 44 CM PICC IN THE LEFT BASILIC VEIN. Interventional Vascular Procedure 11/29/16 00:00 IMPRESSION: SUCCESSFUL PLACEMENT OF A 5 FR DUAL LUMEN 44 CM PICC IN THE LEFT BASILIC VEIN. PICC Line Insertion 11/29/16 00:00 IMPRESSION: SUCCESSFUL PLACEMENT OF A 5 FR DUAL LUMEN 44 CM PICC IN THE LEFT BASILIC VEIN. Assessment & Plan - Diagnosis (1) Osteomyelitis of lower leg, right, acute Is this a current diagnosis for this admission?: Yes (2) Diabetes mellitus type 2 in nonobese Is this a current diagnosis for this admission?: Yes (3) Peripheral vascular disease in diabetes mellitus Is this a current diagnosis for this admission?: Yes (4) Anemia Qualifiers: Anemia type: unspecified type Qualified Code(s): D64.9 - Anemia, unspecified Is this a current diagnosis for this admission?: Yes
--- NOTE | 2016-11-30 16:53 | PDOC PROGRESS REPORT ---
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 Physical Exam Vital Signs: Temp Pulse Resp BP Pulse Ox 99.1 F 84 18 141/60 H 92 11/30/16 12:15 11/30/16 12:15 11/30/16 12:15 11/30/16 12:15 11/30/16 12:15 Intake & Output 11/29/16 11/30/16 12/01/16 06:59 06:59 06:59 Intake Total 3696 2777 Balance 3696 2777 Weight 91.5 kg General appearance: PRESENT: no acute distress Eye exam: PRESENT: PERRLA Respiratory exam: PRESENT: clear to auscultation richard Cardiovascular exam: PRESENT: +S1, +S2 GI/Abdominal exam: PRESENT: soft Extremities exam: PRESENT: other - There is improvement of the swelling of the right lower extremity Neurological exam: PRESENT: alert, CN II-XII grossly intact Results Laboratory Results: 11/28/16 04:30 11/28/16 04:30 11/23/16 11/23/16 11/23/16 09:18 15:50 21:28 Creatine Kinase 33 30 31 Impressions: Chest X-Ray 11/22/16 00:00 IMPRESSION: NO ACUTE RADIOGRAPHIC FINDING IN THE CHEST. Foot X-Ray 11/22/16 21:45 IMPRESSION: Soft tissue gas. Postsurgical changes. Periostitis involving remaining 3rd 4th and 5th metatarsals is noted. Lower Extremity MRI 11/23/16 00:00 IMPRESSION: There is a long segment diaphyseal intramedullary heterogeneous signal non expansile lesion in the tibia measuring 20 cm in length, this is predominantly low signal on T1 and high signal on T2. Axial images also show edema in the musculature of all compartments. No fluid collection. No definite periosteal elevation or evidence for subperiosteal abscess. Differential considerations include infection -osteomyelitis versus infarct and reflex sympathetic dystrophy. Orthopedic follow-up is recommended. Guidance Fluoroscopy 11/29/16 00:00 IMPRESSION: SUCCESSFUL PLACEMENT OF A 5 FR DUAL LUMEN 44 CM PICC IN THE LEFT BASILIC VEIN. Interventional Vascular Procedure 11/29/16 00:00 IMPRESSION: SUCCESSFUL PLACEMENT OF A 5 FR DUAL LUMEN 44 CM PICC IN THE LEFT BASILIC VEIN. PICC Line Insertion 11/29/16 00:00 IMPRESSION: SUCCESSFUL PLACEMENT OF A 5 FR DUAL LUMEN 44 CM PICC IN THE LEFT BASILIC VEIN. Assessment & Plan - Diagnosis (1) Osteomyelitis of lower leg, right, acute Is this a current diagnosis for this admission?: Yes (2) Diabetes mellitus type 2 in nonobese Is this a current diagnosis for this admission?: Yes (3) Peripheral vascular disease in diabetes mellitus Is this a current diagnosis for this admission?: Yes (4) Anemia Qualifiers: Anemia type: unspecified type Qualified Code(s): D64.9 - Anemia, unspecified Is this a current diagnosis for this admission?: Yes - Plan Summary Plan Summary: She will continue IV aztreonam, will change to p.o. Zyvox
[2016-11-30 18:24] LABS: ABSOLUTE BASOPHILS # (AUTO) 0.1 10^3/uL (0.0-0.2); ABSOLUTE EOSINOPHILS # (AUTO) 0.3 10^3/uL (0.0-0.6); ABSOLUTE LYMPHOCYTES (AUTO) 2.1 10^3/uL (0.5-4.7); ABSOLUTE MONOCYTES (AUTO) 0.7 10^3/uL (0.1-1.4); ABSOLUTE NEUT (AUTO) 9.2 10^3/uL (1.7-8.2); BASOPHILS % (AUTO) 0.5 % (0-2); EOSINOPHILS % (AUTO) 2.5 % (0-6); HEMATOCRIT 28.3 % (36.0-47.0); HEMOGLOBIN 8.5 g/dL (12.0-15.5); HGB HCT DIFFERENCE -2.8; LYMPHOCYTES % (AUTO) 16.8 % (13-45); MEAN CORPUSCULAR HEMOGLOBIN 23.3 pg (27.0-33.4); MEAN CORPUSCULAR HGB CONC 30.1 g/dL (32.0-36.0); MEAN CORPUSCULAR VOLUME 78 fl (80-97); MONOCYTES % (AUTO) 5.7 % (3-13); RED BLOOD COUNT 3.66 10^6/uL (3.72-5.28); RED CELL DISTRIBUTION WIDTH 20.5 % (11.5-14.0); SEGMENTED NEUTROPHILS % (AUTO) 74.5 % (42-78); WHITE BLOOD COUNT 12.3 10^3/uL (4.0-10.5)
[2016-11-30 18:34] LABS: ALANINE AMINOTRANSFERASE 20 U/L (9-52); ALBUMIN 2.5 g/dL (3.5-5.0); ALKALINE PHOSPHATASE 133 U/L (38-126); ANION GAP 10 (5-19); ASPARTATE AMINO TRANSFERASE 18 U/L (14-36); BILIRUBIN,DIRECT 0.3 mg/dL (0.0-0.4); BILIRUBIN,TOTAL 0.3 mg/dL (0.2-1.3); BLOOD UREA NITROGEN 12 mg/dL (7-20); CALCIUM 8.5 mg/dL (8.4-10.2); CARBON DIOXIDE 24 mmol/L (22-30); CHLORIDE 104 mmol/L (98-107); CREATININE RESULT 0.52 mg/dL (0.52-1.25); GLUCOSE 185 mg/dL (75-110); POTASSIUM 3.8 mmol/L (3.6-5.0); SODIUM 137.8 mmol/L (137-145); TOTAL PROTEIN 6.7 g/dL (6.3-8.2)
[2016-11-30] MEDS ORDERED: LINEZOLID 600 MG RTU 300 ML IV SCH (22:00)
[2016-11-30] MEDS: LINEZOLID 600 MG TABLET PO SCH (22:54)
[2016-11-30] MEDS: INSULIN GLARGINE,HUM.REC.ANLOG 300 UNIT/3 ML INSULN.PEN SUBCUT SCH (22:54)
[2016-11-30] MEDS: ATORVASTATIN CALCIUM 20 MG TABLET PO SCH (22:54)
[2016-12-01] MEDS: AZTREONAM 1 GM in DEXTROSE 5%-WATER 50 ML IV SCH ×3 (01:26→17:28)
[2016-12-01] MEDS: GABAPENTIN 100 MG CAPSULE PO SCH ×3 (05:35→21:49)
[2016-12-01 06:42] LABS: ABSOLUTE BASOPHILS # (AUTO) 0.1 10^3/uL (0.0-0.2); ABSOLUTE EOSINOPHILS # (AUTO) 0.3 10^3/uL (0.0-0.6); ABSOLUTE MONOCYTES (AUTO) 0.7 10^3/uL (0.1-1.4); ABSOLUTE NEUT (AUTO) 8.6 10^3/uL (1.7-8.2); BASOPHILS % (AUTO) 0.4 % (0-2); EOSINOPHILS % (AUTO) 2.4 % (0-6); HEMATOCRIT 26.5 % (36.0-47.0); HEMOGLOBIN 8.1 g/dL (12.0-15.5); HGB HCT DIFFERENCE -2.2; LYMPHOCYTES % (AUTO) 17.4 % (13-45); MEAN CORPUSCULAR HEMOGLOBIN 23.5 pg (27.0-33.4); MEAN CORPUSCULAR HGB CONC 30.6 g/dL (32.0-36.0); MEAN CORPUSCULAR VOLUME 77 fl (80-97); MONOCYTES % (AUTO) 6.2 % (3-13); RED BLOOD COUNT 3.46 10^6/uL (3.72-5.28); RED CELL DISTRIBUTION WIDTH 20.5 % (11.5-14.0); SEGMENTED NEUTROPHILS % (AUTO) 73.6 % (42-78); WHITE BLOOD COUNT 11.7 10^3/uL (4.0-10.5)
[2016-12-01 06:57] LABS: ALANINE AMINOTRANSFERASE 23 U/L (9-52); ALBUMIN 2.4 g/dL (3.5-5.0); ALKALINE PHOSPHATASE 124 U/L (38-126); ANION GAP 9 (5-19); ASPARTATE AMINO TRANSFERASE 18 U/L (14-36); BILIRUBIN,DIRECT 0.2 mg/dL (0.0-0.4); BILIRUBIN,TOTAL 0.2 mg/dL (0.2-1.3); BLOOD UREA NITROGEN 9 mg/dL (7-20); CALCIUM 8.3 mg/dL (8.4-10.2); CARBON DIOXIDE 25 mmol/L (22-30); CHLORIDE 107 mmol/L (98-107); CREATININE RESULT 0.49 mg/dL (0.52-1.25); GLUCOSE 99 mg/dL (75-110); POTASSIUM 4.1 mmol/L (3.6-5.0); SODIUM 141.4 mmol/L (137-145); TOTAL PROTEIN 6.2 g/dL (6.3-8.2)
[2016-12-01] MEDS: INSULIN LISPRO 100 UNIT/ML 3 ML VIAL SUBCUT SCH ×3 (09:06→16:44)
[2016-12-01] MEDS: LINEZOLID 600 MG TABLET PO SCH ×2 (09:29→21:48)
[2016-12-01] MEDS: ASPIRIN 81 MG TABLET, CHEWABLE PO SCH (09:29)
[2016-12-01] MEDS: LISINOPRIL 10 MG TABLET PO SCH (09:29)
[2016-12-01] MEDS: AMLODIPINE BESYLATE 10 MG TABLET PO SCH (09:29)
[2016-12-01] MEDS: HYDROMORPHONE HCL INJ/PF 2 MG/ML AMPULE IV PRN ×2 (09:30→17:25)
[2016-12-01] MEDS: LEVOTHYROXINE SODIUM 0.075 MG TABLET PO SCH (09:30)
[2016-12-01] MEDS: ENOXAPARIN SODIUM INJ 40 MG/0.4 ML DISP.SYRIN SUBCUT SCH (09:30)
[2016-12-01] MEDS: MINERAL OIL/PETROLATUM,WHITE CREAM 114 GM TP SCH (10:28)
[2016-12-01] MEDS: NORMAL SALINE 10 ML SDV (SCHEDULED) IV SCH ×2 (14:04→21:49)
--- NOTE | 2016-12-01 20:42 | PDOC DISCHARGE SUMMARY ---
General - Admit/Disc Date/PCP Admission Date/Primary Care Provider: 11/23/16 02:00 MARLENE CANNON MD Discharge Date: 12/01/16 - Discharge Diagnosis (1) Osteomyelitis of lower leg, right, acute Is this a current diagnosis for this admission?: Yes (2) Diabetes mellitus type 2 in nonobese Is this a current diagnosis for this admission?: Yes (3) Peripheral vascular disease in diabetes mellitus Is this a current diagnosis for this admission?: Yes (4) Anemia Is this a current diagnosis for this admission?: Yes - Additional Information Resuscitation Status: Full Code Home Medications: Amlodipine Besylate [Norvasc 10 mg Tablet] 10 mg PO DAILY 11/23/16 Aspirin [Aspirin 81 mg Chewable Tablet] 81 mg PO DAILY 11/23/16 Canagliflozin [Invokana] 300 mg PO DAILY 11/23/16 Collagenase Clostridium Hist. [Santyl Ointment 30 gm] 1 applic TP DAILY Docusate Sodium [Colace 100 mg Capsule] 100 mg PO BIDP PRN 11/23/16 Gabapentin [Neurontin 100 mg Capsule] 100 mg PO Q8 11/23/16 Insulin Glargine,Hum.rec.anlog [Lantus Solostar] 50 unit SQ QHS 11/23/16 Insulin Lispro [Humalog Kwikpen U-100] 4 unit SQ MEALS 11/23/16 Levothyroxine Sodium [Synthroid 0.075 mg Tablet] 0.075 mg PO DAILY 11/23/16 Lisinopril [Prinivil 40 mg Tablet] 40 mg PO DAILY 11/23/16 Mineral Oil/Petrolatum,White [Absorbase Ointment] 1 applic TP DAILY 11/23/16 Pravastatin Sodium [Pravachol] 80 mg PO QHS 11/23/16 Aztreonam 1 gm IJ Q8H #90 vial 12/01/16 Linezolid [Zyvox 600 mg Tablet] 600 mg PO Q12 #60 tablet 12/01/16 Oxycodone HCl/Acetaminophen [Endocet 5-325 Tablet] 1 each PO TID #60 tablet History of Present Illness History of Present Illness: LAVELLE ARRIAZA is a 56 year old female she has a history of peripheral vascular occlusive, chronic right foot ulcer with osteomyelitis, she follows with wound clinic for management she came to the emergency room because of sepsis, fever, chills ,right leg pain.. She was recently admitted in this hospital on 10/10/2016 for celluitis of the right leg. On examination there was severe tenderness on palpation of the right leg, MRI of the right leg was ordered because I was concerned about osteomyelitis. The MRI showed a long segment diaphyseal intramedullary heterogeneou Signal non expansile lesion in the tibia measuring 20 cm in length. There is no definite periosteal elevation or evidence for subperiosteal abscess. The fibula appears normal, the differential diagnosis includes osteomyelitis versus bone infarct. It is more likely to be osteomyelitis in this patient she has symptoms of infection including fever,leucocytosis Hospital Course Hospital Course: Patient was admitted because of infection of the right leg, osteomyelitis was suspected MRI of the right leg was done, MRI finding was consistent with an infarct versus osteomyelitis ultimately the radiologist settles for an infarct, though clinically the picture was consistent with an infection. She was treated with intravenous aztreonam and intravenous zosyn patient responded very well to the combination therapy. She also had anemia, she was transfused with packed red blood cells the anemia is thought to be secondary to the infection. Pain control was achieved with intravenous Dilaudid. The plan is for the patientto have IV antibiotic for 4-6 weeks for osteomyelitis Physical Exam Vital Signs: Temp Pulse Resp BP Pulse Ox 98.7 F 94 18 142/54 H 92 12/01/16 16:00 12/01/16 16:00 12/01/16 16:00 12/01/16 16:00 12/01/16 16:00 Intake & Output 11/30/16 12/01/16 12/02/16 06:59 06:59 06:59 Intake Total 0877 4192 2310 Balance 2777 4192 2310 Weight 91.5 kg 93.5 kg General appearance: PRESENT: no acute distress, well-developed, well-nourished Head exam: PRESENT: atraumatic, normocephalic Eye exam: PRESENT: conjunctiva pink, EOMI, PERRLA Ear exam: PRESENT: normal external ear exam Mouth exam: PRESENT: moist, tongue midline Neck exam: PRESENT: full ROM. ABSENT: carotid bruit, JVD, lymphadenopathy, thyromegaly Cardiovascular exam: PRESENT: RRR, +S1, +S2 GI/Abdominal exam: PRESENT: normal bowel sounds, soft Rectal exam: PRESENT: deferred Extremities exam: PRESENT: left AKA Neurological exam: PRESENT: alert, awake, oriented to person, oriented to place , oriented to time, oriented to situation, CN II-XII grossly intact Psychiatric exam: PRESENT: appropriate affect, normal mood Skin exam: PRESENT: dry, intact, warm Results Laboratory Results: 12/01/16 05:45 12/01/16 05:45 12/01/16 12/01/16 05:45 05:45 WBC 11.7 H RBC 3.46 L Hgb 8.1 L Hct 26.5 L MCV 77 L MCH 23.5 L MCHC 30.6 L RDW 20.5 H Plt Count 511 H Seg Neutrophils % 73.6 Lymphocytes % 17.4 Monocytes % 6.2 Eosinophils % 2.4 Basophils % 0.4 Absolute Neutrophils 8.6 H Absolute Lymphocytes 2.0 Absolute Monocytes 0.7 Absolute Eosinophils 0.3 Absolute Basophils 0.1 Sodium 141.4 Potassium 4.1 Chloride 107 Carbon Dioxide 25 Anion Gap 9 BUN 9 Creatinine 0.49 L Est GFR ( Amer) > 60 Est GFR (Non-Af Amer) > 60 Glucose 99 Calcium 8.3 L Total Bilirubin 0.2 AST 18 ALT 23 Alkaline Phosphatase 124 Total Protein 6.2 L Albumin 2.4 L 11/23/16 11/23/16 11/23/16 09:18 15:50 21:28 Creatine Kinase 33 30 31 Impressions: Chest X-Ray 11/22/16 00:00 IMPRESSION: NO ACUTE RADIOGRAPHIC FINDING IN THE CHEST. Foot X-Ray 11/22/16 21:45 IMPRESSION: Soft tissue gas. Postsurgical changes. Periostitis involving remaining 3rd 4th and 5th metatarsals is noted. Lower Extremity MRI 11/23/16 00:00 IMPRESSION: There is a long segment diaphyseal intramedullary heterogeneous signal non expansile lesion in the tibia measuring 20 cm in length, this is predominantly low signal on T1 and high signal on T2. Axial images also show edema in the musculature of all compartments. No fluid collection. No definite periosteal elevation or evidence for subperiosteal abscess. Differential considerations include infection -osteomyelitis versus infarct and reflex sympathetic dystrophy. Orthopedic follow-up is recommended. Guidance Fluoroscopy 11/29/16 00:00 IMPRESSION: SUCCESSFUL PLACEMENT OF A 5 FR DUAL LUMEN 44 CM PICC IN THE LEFT BASILIC VEIN. Interventional Vascular Procedure 11/29/16 00:00 IMPRESSION: SUCCESSFUL PLACEMENT OF A 5 FR DUAL LUMEN 44 CM PICC IN THE LEFT BASILIC VEIN. PICC Line Insertion 11/29/16 00:00
[2016-12-01] MEDS: ATORVASTATIN CALCIUM 20 MG TABLET PO SCH (21:48)
[2016-12-01] MEDS: INSULIN LISPRO 100 UNIT/ML 3 ML VIAL SUBCUT PRN (22:50)
[2016-12-02] MEDS ORDERED: INSULIN GLARGINE,HUM.REC.ANLOG 300 UNIT/3 ML INSULN.PEN SUBCUT ONE (00:31)
[2016-12-02] MEDS: INSULIN GLARGINE,HUM.REC.ANLOG 300 UNIT/3 ML INSULN.PEN SUBCUT SCH (00:34)
[2016-12-02] MEDS ORDERED: OXYCODONE-ACETAMINOPHEN 5-325 MG TABLET PO PRN (01:10)
[2016-12-02] MEDS: AZTREONAM 1 GM in DEXTROSE 5%-WATER 50 ML IV SCH ×2 (01:41→09:22)
[2016-12-02] MEDS: GABAPENTIN 100 MG CAPSULE PO SCH ×2 (05:36→15:06)
[2016-12-02] MEDS ORDERED: LEVOTHYROXINE SODIUM 0.075 MG TABLET PO SCH (06:00)
[2016-12-02] MEDS: INSULIN LISPRO 100 UNIT/ML 3 ML VIAL SUBCUT SCH ×2 (09:05→12:52)
[2016-12-02] MEDS: ENOXAPARIN SODIUM INJ 40 MG/0.4 ML DISP.SYRIN SUBCUT SCH (09:19)
[2016-12-02] MEDS: ASPIRIN 81 MG TABLET, CHEWABLE PO SCH (09:21)
[2016-12-02] MEDS: LISINOPRIL 10 MG TABLET PO SCH (09:22)
[2016-12-02] MEDS: AMLODIPINE BESYLATE 10 MG TABLET PO SCH (09:22)
[2016-12-02] MEDS: LINEZOLID 600 MG TABLET PO SCH (09:22)
[2016-12-02] MEDS: MINERAL OIL/PETROLATUM,WHITE CREAM 114 GM TP SCH (09:24)
[2016-12-02] MEDS: NORMAL SALINE 10 ML SDV (SCHEDULED) IV SCH (09:24)
[2016-12-02 12:31] VITALS: BP 148/100
== END 2016-12-02 15:36 | disposition home health service (06) | DRG 541 ==
LOC: ER 18:00 → UNDOADMIN 22:27 → EH 22:27 → 4N 11-23 02:28
PROVIDERS: ADMIT Internal Medicine; ATTEND Internal Medicine
PROC: 02HV33Z Insertion of Infusion Device into Superior Vena Cava, Percutaneous Approach (ICD-10-PCS; principal; 2016-11-29)
PROC: B5181ZA Fluoroscopy of Superior Vena Cava using Low Osmolar Contrast, Guidance (ICD-10-PCS; 2016-11-29)
PROC: B548ZZA Ultrasonography of Superior Vena Cava, Guidance (ICD-10-PCS; 2016-11-29)
DX: M86.171 Other acute osteomyelitis, right ankle and foot (principal); E11.51 Type 2 diabetes mellitus with diabetic peripheral angiopathy without gangrene; D64.9 Anemia, unspecified; L97.519 Non-pressure chronic ulcer of other part of right foot with unspecified severity; E78.5 Hyperlipidemia, unspecified; I10 Essential (primary) hypertension; K21.9 Gastro-esophageal reflux disease without esophagitis; M19.90 Unspecified osteoarthritis, unspecified site; Z79.899 Other long term (current) drug therapy; Z89.612 Acquired absence of left leg above knee; Z89.421 Acquired absence of other right toe(s); Z88.1 Allergy status to other antibiotic agents; Z88.8 Allergy status to other drugs, medicaments and biological substances; Z86.14 Personal history of Methicillin resistant Staphylococcus aureus infection
CPT/HCPCS: 36415; 36430; 36569; 71010; 76937; 77001; 80048; 80053; 80061; 80076; 80307; 81001; 82150; 82550; 82565; 82570; 82607; 82728; 82746; 82962; 83036; 83540; 83550; 83605; 83690; 83735; 84100; 84156; 84439; 84443; 84466; 85025; 85027; 85045; 85610; 85652; 85730; 86140; 86850; 86900; 86901; 86920; 87040; 87086; 87088; 87186; 93926; 99285; J1170; J1642; J1650; J1815; J2020; J3490; J7030; P9016

== ENCOUNTER 2016-12-03 11:50 | Emergency (ER) | payer MEDICARE, MEDICAID ==
[2016-12-03 12:02] VITALS: BP 139/54
--- NOTE | 2016-12-03 12:13 | ER Document Report ---
ED General - General Chief Complaint: Other Stated Complaint: PICK LINE CONCERN Time Seen by Provider: 12/03/16 12:00 Mode of Arrival: Wheelchair Information source: Patient TRAVEL OUTSIDE OF THE [place] IN LAST 30 DAYS: No - HPI Patient complains to provider of: PICC line malfunction Onset: This morning Onset/Duration: Sudden Quality of pain: No pain Notes: Patient is a 56-year-old female who presents to the emergency room for possible PICC line malfunction, she had a PICC line placed several days ago for home antibiotic use related to osteomyelitis infection in the right foot, home health came out to the home today to administer antibiotics and were unfortunately able to push anything through the 2 ports, patient denies any other concerns, no pain in the left upper extremity where the PICC is placed, no fevers - Related Data Allergies/Adverse Reactions: amoxicillin [From Augmentin] Allergy (Intermediate, Verified 12/03/16 12:00) Cephalosporins Allergy (Intermediate, Verified 12/03/16 12:00) blistering, peeling skin,burning throat clavulanic acid [From Augmentin] Allergy (Intermediate, Verified 12/03/16 12:00) Penicillins Allergy (Intermediate, Verified 12/03/16 12:00) blistering,peeling skin,burning of throat Past Medical History - General Information source: Patient - Social History Smoking Status: Unknown if Ever Smoked Family History: CAD, CVA, DM, Malignancy Patient has suicidal ideation: No Patient has homicidal ideation: No - Past Medical History Cardiac Medical History: Reports: Hx Hypercholesterolemia, Hx Hypertension, Hx Peripheral Vascular Disease Denies: Hx Coronary Artery Disease, Hx Heart Attack Pulmonary Medical History: Denies: Hx Asthma, Hx Bronchitis, Hx COPD, Hx Pneumonia Neurological Medical History: Reports: Hx Cerebrovascular Accident - 2004 . Denies: Hx Seizures Endocrine Medical History: Reports: Hx Diabetes Mellitus Type 1, Hx Diabetes Mellitus Type 2, Hx Hypothyroidism Renal/ Medical History: Denies: Hx Peritoneal Dialysis GI Medical History: Reports: Hx Gastroesophageal Reflux Disease. Denies: Hx Hepatitis, Hx Hiatal Hernia, Hx Ulcer Musculoskeltal Medical History: Reports Hx Arthritis Psychiatric Medical History: Denies: Hx Depression Infectious Medical History: Denies: Hx Hepatitis Past Surgical History: Reports: Hx Section, Hx Orthopedic Surgery - left aka. Right fifth toe amputation., Hx Vascular Surgery - Right leg stenting 2. Denies: Hx Hysterectomy, Hx Mastectomy, Hx Open Heart Surgery, Hx Pacemaker - Immunizations Hx Diphtheria, Pertussis, Tetanus Vaccination: Yes Review of Systems - Review of Systems Constitutional: No symptoms reported EENT: No symptoms reported Cardiovascular: No symptoms reported Respiratory: No symptoms reported Gastrointestinal: No symptoms reported Genitourinary: No symptoms reported Female Genitourinary: No symptoms reported Musculoskeletal: No symptoms reported Skin: No symptoms reported Hematologic/Lymphatic: No symptoms reported Neurological/Psychological: No symptoms reported -: Yes All other systems reviewed and negative Physical Exam - Vital signs Vitals: Temp Pulse Resp BP Pulse Ox 98.5 F 92 20 139/54 H 95 12/03/16 11:59 12/03/16 11:59 12/03/16 11:59 12/03/16 11:59 12/03/16 11:59 - Notes Notes: - General General appearance: Appears well, Alert In distress: None - HEENT Head: Normocephalic, Atraumatic Eyes: Normal Conjunctiva: Normal Extraocular movements intact: Yes Eyelashes: Normal Pupils: PERRL - Respiratory Respiratory status: No respiratory distress - Cardiovascular Rhythm: Regular - Abdominal Inspection: Normal - Back Back: Normal - Extremities General upper extremity: Left upper extremity with PICC line in place in the upper arm, distal sensation and motor is intact with 2+ radial pulses, no bleeding, no drainage, no erythema or swelling - Neurological Neuro grossly intact: Yes Orientation: AAOx4 Bret Coma Scale Eye Opening: Spontaneous Bret Coma Scale Verbal: Oriented Bret Coma Scale Motor: Obeys Commands Bret Coma Scale Total: 15 - Psychological Associated symptoms: Normal affect, Normal mood - Skin Skin Temperature: Warm Skin Moisture: Dry Skin Color: Normal Course - Re-evaluation Re-evalutation: 12/03/16 12:12 Nursing staff was able to easily flush patient's PICC line through both ports, she denies any pain or symptomatology from having the flushes pushed, patient's PICC line seems to be working appropriately, she was discharged with instructions to have home health come back out to the home to administer medications or return if symptoms worsen, patient acknowledges understanding and agreement with this plan - Vital Signs Vital signs: Temp Pulse Resp BP Pulse Ox 98.5 F 92 20 139/54 H 95 12/03/16 11:59 12/03/16 11:59 12/03/16 11:59 12/03/16 11:59 12/03/16 11:59 Discharge - Discharge Clinical Impression: PICC (peripherally inserted central catheter) flush Condition: Stable Disposition: HOME, SELF-CARE Additional Instructions: Follow up with your primary care provider in one to 2 days. Return to the emergency room immediately if symptoms worsen or any additional concerns.
== END 2016-12-03 12:30 | disposition home or self-care (01) ==
LOC: ER 11:50
DX: T82.9XXA Unspecified complication of cardiac and vascular prosthetic device, implant and graft, initial encounter (principal)
CPT/HCPCS: 99283

== ENCOUNTER 2016-12-05 19:23 | Emergency (ER) | payer MEDICARE, MEDICAID ==
--- NOTE | 2016-12-05 22:52 | ER Document Report ---
ED General - General Chief Complaint: Other Stated Complaint: POSSIBLE PICKLINE NOT WORKING Time Seen by Provider: 12/05/16 22:40 Notes: Patient is a 56-year-old female who is receiving IV antibiotics through a PICC line for osteomyelitis of the lower extremity who presents with concerns that her PICC line is not functioning. She was seen 2 days ago for the same complaint and had her PICC line flushed at the time without difficulty. States she has not received today's antibiotics secondary to these complications of the PICC line. Denies any pain at the site, spreading erythema from the site or any pullback of the PICC line. She was referred to the emergency department by her primary care doctor. TRAVEL OUTSIDE OF THE [place] IN LAST 30 DAYS: No - Related Data Allergies/Adverse Reactions: amoxicillin [From Augmentin] Allergy (Intermediate, Verified 12/03/16 12:00) Cephalosporins Allergy (Intermediate, Verified 12/03/16 12:00) blistering, peeling skin,burning throat clavulanic acid [From Augmentin] Allergy (Intermediate, Verified 12/03/16 12:00) Penicillins Allergy (Intermediate, Verified 12/03/16 12:00) blistering,peeling skin,burning of throat Past Medical History - General Information source: Patient - Social History Smoking Status: Never Smoker Frequency of alcohol use: None Drug Abuse: None Lives with: Family Family History: CAD, CVA, DM, Malignancy - Past Medical History Cardiac Medical History: Reports: Hx Hypercholesterolemia, Hx Hypertension, Hx Peripheral Vascular Disease Denies: Hx Coronary Artery Disease, Hx Heart Attack Pulmonary Medical History: Denies: Hx Asthma, Hx Bronchitis, Hx COPD, Hx Pneumonia Neurological Medical History: Reports: Hx Cerebrovascular Accident - 2004 . Denies: Hx Seizures Endocrine Medical History: Reports: Hx Diabetes Mellitus Type 1, Hx Diabetes Mellitus Type 2, Hx Hypothyroidism Renal/ Medical History: Denies: Hx Peritoneal Dialysis GI Medical History: Reports: Hx Gastroesophageal Reflux Disease. Denies: Hx Hepatitis, Hx Hiatal Hernia, Hx Ulcer Musculoskeltal Medical History: Reports Hx Arthritis Psychiatric Medical History: Denies: Hx Depression Infectious Medical History: Denies: Hx Hepatitis Past Surgical History: Reports: Hx Section, Hx Orthopedic Surgery - left aka. Right fifth toe amputation., Hx Vascular Surgery - Right leg stenting 2. Denies: Hx Hysterectomy, Hx Mastectomy, Hx Open Heart Surgery, Hx Pacemaker - Immunizations Hx Diphtheria, Pertussis, Tetanus Vaccination: Yes Review of Systems - Review of Systems Notes: Constitutional: Negative for fever. Cardiovascular: Negative for chest pain. Respiratory: Negative for shortness of breath. Gastrointestinal: Negative for vomiting Musculoskeletal: Negative for back pain. Skin: Negative for rash. Neurological: Negative for weakness or numbness. 10 point ROS negative except as marked above and in HPI. Physical Exam - Vital signs Vitals: Temp Pulse Resp BP Pulse Ox 98.3 F 96 18 157/65 H 97 12/05/16 20:02 12/05/16 20:02 12/05/16 20:02 12/05/16 20:02 12/05/16 20:02 Interpretation: Hypertensive Notes: PHYSICAL EXAMINATION: GENERAL: Well-appearing, well-nourished and in no acute distress. HEAD: Atraumatic, normocephalic. EYES: sclera anicteric, conjunctiva are normal. ENT: Moist mucous membranes. NECK: Normal range of motion LUNGS: Normal work of breathing HEART: 2+ radial pulses bilaterally EXTREMITIES: no pitting or edema. No cyanosis. NEUROLOGICAL: No focal neurological deficits. Moves all extremities spontaneously and on command. PSYCH: Normal mood, normal affect. SKIN: Warm, Dry, normal turgor, left brachial PICC line in place without erythema or surrounding drainage Course - Re-evaluation Re-evalutation: 12/05/16 22:54 Patient presents with concerns that her PICC line is not functioning appropriately.. I am able to flush 1 of the ports without difficulty and the other it does flush it with some resistance. Will obtain chest x-ray to ensure that is still in the SVC. Will also give a dose of her home antibiotics as she states she is missed her doses today and then plan for discharge. 12/06/16 00:19 Chest x-ray demonstrates appropriate position. We have flushed the ports with heparin with appropriate response. At this time will discharge with return precautions and follow-up recommendations. Verbal discharge instructions given a the bedside and opportunity for questions given. Medication warnings reviewed. Patient is in agreement with this plan and has verbalized understanding of return precautions and the need for primary care follow-up in the next 24-72 hours. - Vital Signs Vital signs: Temp Pulse Resp BP Pulse Ox 98.3 F 96 18 157/65 H 97 12/05/16 20:02 12/05/16 20:02 12/05/16 20:02 12/05/16 20:02 12/05/16 20:02 - Diagnostic Test Radiology reviewed: Image reviewed, Reports reviewed Radiology results interpreted by me: 12/06/16 02:16 Chest x-ray: No acute infiltrate or pneumothorax Discharge - Discharge Clinical Impression: Occluded PICC line Qualifiers: Encounter type: initial encounter Qualified Code(s): T82.898A - Other specified complication of vascular prosthetic devices, implants and grafts, initial encounter Condition: Good Disposition: HOME, SELF-CARE Additional Instructions: Please return to the emergency room immediately if you experience any concerning symptoms including high fevers, severe headache, chest pain, difficulty breathing, abdominal pain, slurred speech, numbness or weakness in your arms or legs, or any other symptom that concerns you. Referrals: MARLENE CANNON MD [Primary Care Provider] - Follow up as needed
[2016-12-05] MEDS ORDERED: AZTREONAM INJ 1 GM VIAL IV ONE (22:53)
[2016-12-05] MEDS ORDERED: LINEZOLID 300 ML IV ONE (22:54)
[2016-12-05] MEDS ORDERED: NORMAL SALINE 10 ML SDV (AFTER EACH USE) IV PRN (23:12)
--- NOTE | 2016-12-05 23:30 | RADIOLOGY REPORT (SQ) ---
EXAM DESCRIPTION: CHEST SINGLE VIEW COMPLETED DATE/TIME: 12/05/2016 11:16 pm REASON FOR STUDY: eval picc placement COMPARISON: None. NUMBER OF VIEWS: One view. TECHNIQUE: Single frontal radiographic view of the chest acquired. LIMITATIONS: None. FINDINGS: PICC catheter placed via axillary approach. Catheter tip overlies the SVC at the level o f the katie. No pneumothorax. Radiographic appearance of the chest otherwise stable. IMPRESSION: PICC tip overlies the SVC at the level of the katie. TECHNICAL DOCUMENTATION: JOB ID: [id number] [employer]- All Rights Reserved
[2016-12-06] MEDS ORDERED: LINEZOLID 300 ML IV ONE (01:09)
[2016-12-06 03:22] VITALS: BP 142/74
[2016-12-06] MEDS ORDERED: NORMAL SALINE 10 ML SDV (SCHEDULED) IV SCH (10:00)
== END 2016-12-06 03:31 | disposition home or self-care (01) ==
LOC: ER 19:23
DX: T82.898A Other specified complication of vascular prosthetic devices, implants and grafts, initial encounter (principal); M86.9 Osteomyelitis, unspecified
CPT/HCPCS: 36592; 99283; 96365; 96366; 96368; 71010; J3490 ×2; J1642 ×2

== ENCOUNTER 2017-01-09 08:32 | Emergency (ER) | payer MEDICARE, MEDICAID ==
[2017-01-09] MEDS ORDERED: ACETAMINOPHEN 325 MG TABLET PO ONE (09:24)
[2017-01-09] MEDS ORDERED: INSULIN LISPRO 100 UNIT/ML 3 ML VIAL SUBCUT ONE (09:24)
--- NOTE | 2017-01-09 10:21 | RADIOLOGY REPORT (SQ) ---
EXAM DESCRIPTION: ANKLE RIGHT COMPLETE COMPLETED DATE/TIME: 01/09/2017 9:55 am REASON FOR STUDY: pain, swelling COMPARISON: None. NUMBER OF VIEWS: Three views. TECHNIQUE: AP, lateral, and oblique without weight bearing radiographic images acquired of the right ankle. LIMITATIONS: None. FINDINGS: MINERALIZATION: Normal. BONES: No acute fracture or dislocation. No worrisome bone lesions. No significant osteophytes. JOINTS: No effusions. SOFT TISSUES: No soft tissue swelling. No foreign body. OTHER: No other significant finding. IMPRESSION: NO SIGNIFICANT RADIOGRAPHIC ABNORMALITY. TECHNICAL DOCUMENTATION: JOB ID: [id number] [employer]- All Rights Reserved
--- NOTE | 2017-01-09 10:24 | RADIOLOGY REPORT (SQ) ---
EXAM DESCRIPTION: FOOT RIGHT COMPLETE COMPLETED DATE/TIME: 01/09/2017 9:55 am REASON FOR STUDY: pain, swelling COMPARISON: 11/22/2016. NUMBER OF VIEWS: Three views. TECHNIQUE: AP, lateral and oblique radiographic images acquired of the right foot. LIMITATIONS: None. FINDINGS: MINERALIZATION: Normal. BONES: Postoperative changes secondary to amputation. On the lateral view there is regional osteopen ia involving the tarsal bones on the dorsal foot. JOINTS: No effusions. SOFT TISSUES: Dorsal soft tissue swelling with increasing gas. OTHER: No other significant finding. IMPRESSION: DORSAL SOFT TISSUE SWELLING WITH INCREASING GAS CONSISTENT WITH SOFT TISSUE INFECTION. SUSPECT UNDERLYING OSTEOMYELITIS WELL. TECHNICAL DOCUMENTATION: JOB ID: [id number] [employer]- All Rights Reserved
--- NOTE | 2017-01-09 10:59 | ER Document Report ---
HPI - HPI Context: 9 patient is a 56-year-old female presents emergency department complaining of bleeding of her foot. Patient states that she has a history of toe amputation done in June of this year and has been on antibiotics for osteomyelitis of her foot ever since. Patient states that this morning she woke up in her foot was bleeding patient called EMS. At this time bleeding is stopped and patient admits to pain on the anterior aspect of her ankle. Patient is not sure if she hit it on anything. Otherwise she denies any other complaints. - REPRODUCTIVE Reproductive: DENIES: : Past Medical History - Social History Smoking Status: Unknown if Ever Smoked Family History: CAD, CVA, DM, Malignancy - Past Medical History Cardiac Medical History: Reports: Hx Hypercholesterolemia, Hx Hypertension, Hx Peripheral Vascular Disease Denies: Hx Coronary Artery Disease, Hx Heart Attack Pulmonary Medical History: Denies: Hx Asthma, Hx Bronchitis, Hx COPD, Hx Pneumonia Neurological Medical History: Reports: Hx Cerebrovascular Accident - 2003 . Denies: Hx Seizures Endocrine Medical History: Reports: Hx Diabetes Mellitus Type 1, Hx Diabetes Mellitus Type 2, Hx Hypothyroidism Renal/ Medical History: Denies: Hx Peritoneal Dialysis GI Medical History: Reports: Hx Gastroesophageal Reflux Disease. Denies: Hx Hepatitis, Hx Hiatal Hernia, Hx Ulcer Musculoskeltal Medical History: Reports Hx Arthritis Psychiatric Medical History: Denies: Hx Depression Infectious Medical History: Denies: Hx Hepatitis Past Surgical History: Reports: Hx Section, Hx Orthopedic Surgery - left aka. Right fifth toe amputation., Hx Vascular Surgery - Right leg stenting 2. Denies: Hx Hysterectomy, Hx Mastectomy, Hx Open Heart Surgery, Hx Pacemaker - Immunizations Hx Diphtheria, Pertussis, Tetanus Vaccination: Yes Vertical Provider Document - CONSTITUTIONAL Agree With Documented VS: Yes Exam Limitations: No Limitations General Appearance: WD/WN, No Apparent Distress - INFECTION CONTROL TRAVEL OUTSIDE OF THE [place] 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 Right lower extremity without any evidence of edema, ecchymosis. Nontender to palpation. No evidence of bleeding. Patient with chronic wounds on the top of her foot as well as the right lateral aspect of her foot from existing amputation of the third, fourth and fifth digit. Minimal cellulitis that is nontender to palpation without any evidence of erythema. - NEURO Level of Consciousness: Awake, Alert, Appropriate Motor/Sensory: No Motor Deficit, No Sensory Deficit - DERM Integumentary: Warm, Dry, No Rash. negative: Laceration Course - Re-evaluation Re-evalutation: 01/09/17 19:32 Patient is a 56-year-old female hemodynamic stable, no acute distress afebrile. No evidence of active bleeding at this time. X-ray shows chronic osteomyelitis. Discussed with Dr. Cannon who recommended for the patient to follow-up with him in his office tomorrow to assess her need for continued IV antibiotics. Discussed plan with patient and patient's family who are agreeable with plan. Stable for discharge home. - Vital Signs Vital signs: Temp Pulse Resp BP Pulse Ox 97.7 F 18 103/47 L 100 01/09/17 10:00 01/09/17 09:00 01/09/17 09:00 01/09/17 09:00 - Laboratory Laboratory results interpreted by me: 01/09/17 10:27 POC Glucose 274 H - Diagnostic Test Radiology reviewed: Image reviewed, Reports reviewed Discharge - Discharge Clinical Impression: Acute osteomyelitis of metatarsal bone of right foot, Bleeding from wound Condition: Stable Disposition: HOME, SELF-CARE Additional Instructions: If you experience bleeding from the wound, you can apply pressure for 20 minutes without peaking or letting up on the pressure. If it is still bleeding after that repeats the cycle for 2 more times. If your wound continues to bleed after an hour of pressure please come to the emergency department. Please follow-up with Dr. Cannon tomorrow in his clinic to assess your imaging and evaluate if you need to continue IV antibiotics. Referrals: MARLENE CANNON MD [Primary Care Provider] - 01/10/17 2:00 pm
[2017-01-09 11:09] VITALS: BP 110/66
== END 2017-01-09 11:32 | disposition home or self-care (01) ==
LOC: ER 08:32
DX: E11.69 Type 2 diabetes mellitus with other specified complication (principal); M86.171 Other acute osteomyelitis, right ankle and foot; L03.116 Cellulitis of left lower limb; Z79.2 Long term (current) use of antibiotics; E11.51 Type 2 diabetes mellitus with diabetic peripheral angiopathy without gangrene; M25.579 Pain in unspecified ankle and joints of unspecified foot; I10 Essential (primary) hypertension; Z89.612 Acquired absence of left leg above knee; Z89.421 Acquired absence of other right toe(s); Z95.820 Peripheral vascular angioplasty status with implants and grafts
CPT/HCPCS: 99284; 82962; 73610; 73630; A9270 ×2; J1815

== ENCOUNTER 2017-01-11 10:41 | Outpatient (CLI) | payer MEDICARE, MEDICAID ==
[~2017-01-11 10:41] MED LIST changes: +ACETAMINOPHEN 325 MG TABLET PO PRN; -DAPTOMYCIN 600 MG in NORMAL SALINE 50 ML IV ONE; +DIPHENHYDRAMINE HCL 25 MG CAPSULE PO PRN; -NORMAL SALINE 10 ML SDV (AFTER EACH USE) IV PRN; -NORMAL SALINE 10 ML SDV (SCHEDULED) IV SCH
[2017-01-11 11:10] LABS: HEMATOCRIT 22.8 % (36.0-47.0); HGB HCT DIFFERENCE -1.2; MEAN CORPUSCULAR HEMOGLOBIN 25.1 pg (27.0-33.4); MEAN CORPUSCULAR HGB CONC 31.6 g/dL (32.0-36.0); MEAN CORPUSCULAR VOLUME 79 fl (80-97); RED BLOOD COUNT 2.88 10^6/uL (3.72-5.28); WHITE BLOOD COUNT 8.8 10^3/uL (4.0-10.5)
[2017-01-11 11:11] LABS: HEMOGLOBIN 7.2 g/dL (12.0-15.5)
[2017-01-11] MEDS ORDERED: NORMAL SALINE 250 ML IV PRN (11:30)
[2017-01-11] MEDS ORDERED: AMLODIPINE BESYLATE 10 MG TABLET PO ONE (19:30)
[2017-01-11] MEDS ORDERED: LISINOPRIL 10 MG TABLET PO ONE (19:30)
--- NOTE | 2017-01-11 20:12 | PDOC H&P ---
History of Present Illness Admission Date/PCP: MARLENE CANNON MD History of Present Illness: LAVELLE ARRIAZA is a 56 year old female, Patient was admitted for the management of severe anemia, she was seen in the office yesterday when she came for follow-up, she was recently treated for osteomyelitis of the right leg with IV antibiotic for about 4 weeks, yesterday in the office she had hemogram done , result came back today showing severe anemia with hemoglobin of 7.2, microcytic type suggesting iron deficiency anemia, she denied any passage of black tarry stool. She was admitted to be transfused with 2 units of packed red blood cells she also will need colonoscopy, she had a colonoscopy couple of years ago but it was a poor study due to poor preparation of the colon, she will need follow-up outpatient colonoscopy the plan at this time will be to transfuse and then she be discharged home subsequently. Past Medical History Cardiac Medical History: Reports: Hyperlipidema, Hypertension, Peripheral Vascular Disease Neurological Medical History: Denies: Seizures Endocrine Medical History: Reports: Diabetes Mellitus Type 2 GI Medical History: Reports: Gastroesophageal Reflux Disease Musculoskeltal Medical History: Reports: Arthritis Psychiatric Medical History: Denies: Depression Hematology: Past Surgical History Past Surgical History: Reports: Amputation - Left AKA, partial foot amputation including the lateral 3 rays., Section, Orthopedic Surgery - left aka. Right fifth toe amputation., Vascular Surgery - Right leg stenting 2 Social History Smoking Status: Never Smoker Frequency of Alcohol Use: None Hx Recreational Drug Use: No Drugs: None Hx Prescription Drug Abuse: No Family History Family History: CAD, CVA, DM, Malignancy Parental Family History Reviewed: Yes Children Family History Reviewed: Yes Sibling(s) Family History Reviewed.: Yes Medication/Allergy Home Medications: Amlodipine Besylate [Norvasc 10 mg Tablet] 10 mg PO DAILY 11/23/16 Aspirin [Aspirin 81 mg Chewable Tablet] 81 mg PO DAILY 11/23/16 Canagliflozin [Invokana] 300 mg PO DAILY 11/23/16 Collagenase Clostridium Hist. [Santyl Ointment 30 gm] 1 applic TP DAILY Docusate Sodium [Colace 100 mg Capsule] 100 mg PO BIDP PRN 11/23/16 Gabapentin [Neurontin 100 mg Capsule] 100 mg PO Q8 11/23/16 Insulin Glargine,Hum.rec.anlog [Lantus Solostar] 50 unit SQ QHS 11/23/16 Insulin Lispro [Humalog Kwikpen U-100] 4 unit SQ MEALS 11/23/16 Levothyroxine Sodium [Synthroid 0.075 mg Tablet] 0.075 mg PO DAILY 11/23/16 Lisinopril [Prinivil 40 mg Tablet] 40 mg PO DAILY 11/23/16 Mineral Oil/Petrolatum,White [Absorbase Ointment] 1 applic TP DAILY 11/23/16 Pravastatin Sodium [Pravachol] 80 mg PO QHS 11/23/16 Aztreonam 1 gm IJ Q8H #90 vial 12/01/16 Linezolid [Zyvox 600 mg Tablet] 600 mg PO Q12 #60 tablet 12/01/16 Oxycodone HCl/Acetaminophen [Endocet 5-325 Tablet] 1 each PO TID #60 tablet Allergies/Adverse Reactions: amoxicillin [From Augmentin] Allergy (Intermediate, Verified 12/03/16 12:00) Cephalosporins Allergy (Intermediate, Verified 12/03/16 12:00) blistering, peeling skin,burning throat clavulanic acid [From Augmentin] Allergy (Intermediate, Verified 12/03/16 12:00) Penicillins Allergy (Intermediate, Verified 12/03/16 12:00) blistering,peeling skin,burning of throat Review of Systems Constitutional: PRESENT: fatigue Eyes: ABSENT: visual disturbances Ears: ABSENT: hearing changes Cardiovascular: ABSENT: chest pain, dyspnea on exertion, edema, orthropnea, palpitations Respiratory: PRESENT: dyspnea. ABSENT: cough, hemoptysis Gastrointestinal: ABSENT: abdominal pain, constipation, diarrhea, hematemesis, hematochezia, nausea, vomiting Genitourinary: ABSENT: dysuria, hematuria Musculoskeletal: ABSENT: joint swelling Integumentary: ABSENT: rash, wounds Neurological: ABSENT: abnormal gait, abnormal speech, confusion, dizziness, focal weakness, syncope Psychiatric: ABSENT: anxiety, depression, homidical ideation, suicidal ideation Endocrine: ABSENT: cold intolerance, heat intolerance, menstrual abnormalities, polydipsia, polyuria Hematologic/Lymphatic: ABSENT: easy bleeding, easy bruising, lymphadenopathy Physical Exam Vital Signs: Temp Pulse Resp BP Pulse Ox 98.5 F 94 16 149/73 H 100 01/11/17 18:33 07/26/17 18:33 01/11/17 18:33 01/11/17 18:33 01/11/17 18:33 Intake & Output 01/10/17 01/11/17 01/12/17 06:59 06:59 06:59 Intake Total 300 Balance 300 Weight 99.6 kg General appearance: PRESENT: mild distress Head exam: PRESENT: atraumatic, normocephalic Eye exam: PRESENT: conjunctiva pale Neck exam: PRESENT: full ROM Respiratory exam: PRESENT: clear to auscultation richard Cardiovascular exam: PRESENT: RRR, +S1, +S2 Vascular exam: PRESENT: normal capillary refill GI/Abdominal exam: PRESENT: normal bowel sounds, soft Rectal exam: PRESENT: deferred Neurological exam: PRESENT: alert, CN II-XII grossly intact Skin exam: PRESENT: dry, intact, warm Results Laboratory Results: 01/11/17 10:59 01/11/17 01/11/17 10:59 10:59 WBC 8.8 RBC 2.88 L Hgb 7.2 L Hct 22.8 L MCV 79 L MCH 25.1 L MCHC 31.6 L RDW 22.0 H Plt Count 258 Blood Type O POSITIVE Antibody Screen NEGATIVE Assessment & Plan - Diagnosis (1) Anemia Qualifiers: Anemia type: iron deficiency Is this a current diagnosis for this admission?: YesPlan: She be transfused with 2 units of packed red blood cells
[2017-01-11 21:27] VITALS: BP 165/65
[2017-01-11 21:36] LABS: HEMATOCRIT 28.1 % (36.0-47.0); HEMOGLOBIN 9.1 g/dL (12.0-15.5); HGB HCT DIFFERENCE -0.8; MEAN CORPUSCULAR HGB CONC 32.2 g/dL (32.0-36.0); MEAN CORPUSCULAR VOLUME 81 fl (80-97); RED BLOOD COUNT 3.48 10^6/uL (3.72-5.28); RED CELL DISTRIBUTION WIDTH 21.2 % (11.5-14.0); WHITE BLOOD COUNT 8.3 10^3/uL (4.0-10.5)
[2017-01-11] MEDS ORDERED: INSULIN GLARGINE,HUM.REC.ANLOG 1,000 UNIT/10 ML UNIT SUBCUT SCH (22:00)
[2017-01-12] MEDS ORDERED: INSULIN LISPRO 100 UNIT/ML 3 ML VIAL SUBCUT SCH (08:00)
[2017-01-12] MEDS ORDERED: AMLODIPINE BESYLATE 10 MG TABLET PO SCH (10:00)
[2017-01-12] MEDS ORDERED: LISINOPRIL 10 MG TABLET PO SCH (10:00)
== END 2017-01-11 21:50 | disposition home or self-care (01) ==
LOC: II 10:41 → 2N 10:45 → II 21:50
PROVIDERS: ATTEND Internal Medicine
PROC: 30233N1 Transfusion of Nonautologous Red Blood Cells into Peripheral Vein, Percutaneous Approach (ICD-10-PCS; principal; 2017-01-11)
DX: D50.9 Iron deficiency anemia, unspecified (principal); E11.9 Type 2 diabetes mellitus without complications; Z79.899 Other long term (current) drug therapy; Z79.82 Long term (current) use of aspirin; Z79.4 Long term (current) use of insulin
CPT/HCPCS: 86900; 86901; 36415; 36430; 86850; 82962; 85027; 86920; P9016; A9270 ×4

== ENCOUNTER → 2017-02-14 | Outpatient (CLI) | payer MEDICARE, MEDICAID ==
--- NOTE | 2017-02-14 17:53 | RADIOLOGY REPORT (SQ) ---
EXAM DESCRIPTION: CHEST PA/LATERAL COMPLETED DATE/TIME: 02/14/2017 5:33 pm REASON FOR STUDY: ENCOUNTER FOR OTHER PREPROCEDURAL EXAMINATION COMPARISON: 12/05/2016 CXR EXAM PARAMETERS: NUMBER OF VIEWS: two views TECHNIQUE: Digital Frontal and Lateral radiographic views of the chest acquired. RADIATION DOSE: NA LIMITATIONS: none FINDINGS: LUNGS AND PLEURA: No opacities, masses or pneumothorax. No pleural effusion. MEDIASTINUM AND HILAR STRUCTURES: No masses or contour abnormalities. HEART AND VASCULAR STRUCTURES: Mild cardiomegaly. No evidence for failure. BONES: No acute findings. HARDWARE: None in the chest. OTHER: No other significant finding. IMPRESSION: Mild cardiomegaly, no acute changes TECHNICAL DOCUMENTATION: JOB ID: [id number] [employer]- All Rights Reserved
== END ==
LOC: OD 16:31
PROVIDERS: ATTEND Surgery
DX: Z01.818 Encounter for other preprocedural examination (principal)
CPT/HCPCS: 71020

== ENCOUNTER 2017-02-28 12:02 | Day surgery (SDC) | payer MEDICARE, MEDICAID ==
[2017-02-27 10:41] LABS: ABSOLUTE BASOPHILS # (AUTO) 0.1 10^3/uL (0.0-0.2); ABSOLUTE EOSINOPHILS # (AUTO) 0.4 10^3/uL (0.0-0.6); ABSOLUTE LYMPHOCYTES (AUTO) 2.3 10^3/uL (0.5-4.7); ABSOLUTE MONOCYTES (AUTO) 0.6 10^3/uL (0.1-1.4); ABSOLUTE NEUT (AUTO) 7.6 10^3/uL (1.7-8.2); BASOPHILS % (AUTO) 1.1 % (0-2); EOSINOPHILS % (AUTO) 3.5 % (0-6); HEMATOCRIT 33.7 % (36.0-47.0); HEMOGLOBIN 10.5 g/dL (12.0-15.5); HGB HCT DIFFERENCE -2.2; LYMPHOCYTES % (AUTO) 21.3 % (13-45); MEAN CORPUSCULAR HEMOGLOBIN 24.9 pg (27.0-33.4); MEAN CORPUSCULAR VOLUME 80 fl (80-97); MONOCYTES % (AUTO) 5.1 % (3-13); RED CELL DISTRIBUTION WIDTH 17.6 % (11.5-14.0); WHITE BLOOD COUNT 10.9 10^3/uL (4.0-10.5)
[2017-02-27 11:11] LABS: ANION GAP 13 (5-19); BLOOD UREA NITROGEN 24 mg/dL (7-20); CALCIUM 10.5 mg/dL (8.4-10.2); CARBON DIOXIDE 26 mmol/L (22-30); CHLORIDE 102 mmol/L (98-107); CREATININE RESULT 0.95 mg/dL (0.52-1.25); GLUCOSE 230 mg/dL (75-110); POTASSIUM 5.1 mmol/L (3.6-5.0); SODIUM 141.4 mmol/L (137-145)
--- NOTE | 2017-02-27 20:33 | EKG REPORT ---
SEVERITY:- BORDERLINE ECG - SINUS RHYTHM BORDERLINE ST ELEVATION, INFERIOR LEADS : Confirmed by: Lynne Nichols 27-Feb-2017 20:33:30
[~2017-02-28 12:02] MED LIST changes: +1/2 NORMAL SALINE 1,000 ML IV PRN; -ACETAMINOPHEN 325 MG TABLET PO PRN; -DIPHENHYDRAMINE HCL 25 MG CAPSULE PO PRN; +LACTATED RINGERS 1000 ML IV PRN; +LIDOCAINE 0.5% INJ-PF (5 MG/ML) 50 ML SDV SUBCUT PRN; +LIDOCAINE 2% INJ-PF (20 MG/ML) 10 ML AMPUL ONE; +ONDANSETRON HCL INJ/PF 4 MG/2 ML SDV ONE; +VANCOMYCIN HCL 500 MG in DEXTROSE 5%-WATER 100 ML IV PRN
[2017-02-28 13:53] LABS: ANION GAP 13 (5-19); BLOOD UREA NITROGEN 22 mg/dL (7-20); CALCIUM 10.1 mg/dL (8.4-10.2); CARBON DIOXIDE 27 mmol/L (22-30); CHLORIDE 103 mmol/L (98-107); GLUCOSE 144 mg/dL (75-110); POTASSIUM 4.5 mmol/L (3.6-5.0)
[2017-02-28] MEDS ORDERED: BUPIVACAINE HCL 0.25 % INJ/PF (2.5 MG/1 ML) 30 ML VIAL ONE (14:22)
[2017-02-28] MEDS ORDERED: BACITRACIN INJ 50,000 UNIT VIAL ONE (14:22)
[2017-02-28] MEDS ORDERED: LIDOCAINE 0.5% INJ-PF (5 MG/ML) 50 ML SDV ONE (14:22)
[2017-02-28] MEDS ORDERED: COLLAGENASE CLOSTRIDIUM HIST. OINT 30 GM ONE (14:22)
[2017-02-28] MEDS ORDERED: SILVER SULFADIAZINE 1% CREAM 25 GM ONE (14:22)
[2017-02-28] MEDS ORDERED: MIDAZOLAM 2 MG/2 ML INJ ONE (14:29)
[2017-02-28] MEDS ORDERED: FENTANYL CITRATE INJ/PF 100 MCG/2 ML AMPUL ONE (14:29)
[2017-02-28] MEDS ORDERED: PROPOFOL INJ 200 MG/20 ML VIAL IV ONE (14:30)
--- NOTE | 2017-02-28 14:46 | PDOC H&P ---
General Chief Complaint: The patient is admitted for debridement in the right foot. - Current Medications/Allergies Home Medications: Amlodipine Besylate [Norvasc 10 mg Tablet] 10 mg PO DAILY PRN 11/23/16 Aspirin [Aspirin 81 mg Chewable Tablet] 81 mg PO DAILY 11/23/16 Canagliflozin [Invokana] 300 mg PO DAILY 11/23/16 Collagenase Clostridium Hist. [Santyl Ointment 30 gm] 1 applic TP DAILY Gabapentin [Neurontin 100 mg Capsule] 100 mg PO Q8 11/23/16 Insulin Glargine,Hum.rec.anlog [Lantus Solostar] 50 unit SQ QHS 11/23/16 Insulin Lispro [Humalog Kwikpen U-100] 4 unit SQ MEALS 11/23/16 Levothyroxine Sodium [Synthroid 0.075 mg Tablet] 0.075 mg PO DAILY 11/23/16 Lisinopril [Prinivil 40 mg Tablet] 40 mg PO DAILY PRN 11/23/16 Mineral Oil/Petrolatum,White [Absorbase Ointment] 1 applic TP DAILY 11/23/16 Pravastatin Sodium [Pravachol] 80 mg PO QHS 11/23/16 Polyethylene Glycol 3350 [Miralax Powder 17 gm/Packet] 17 gm PO PRN PRN Allergies/Adverse Reactions: amoxicillin [From Augmentin] Allergy (Intermediate, Verified 02/28/17 12:37) Unsure of reaction Cephalosporins Allergy (Intermediate, Verified 02/28/17 12:37) blistering, peeling skin,burning throat clavulanic acid [From Augmentin] Allergy (Intermediate, Verified 02/28/17 12:37) unsure of reaction Penicillins Allergy (Intermediate, Verified 02/28/17 12:37) blistering,peeling skin,burning of throat Past Medical History Cardiac Medical History: Reports: Hyperlipidema, Hypertension, Peripheral Vascular Disease Denies: Coronary Artery Disease, Myocardial Infarction Pulmonary Medical History: Denies: Asthma, Bronchitis, Chronic Obstructive Pulmonary Disease (COPD), Pneumonia Neurological Medical History: Denies: Seizures Endocrine Medical History: Reports: Diabetes Mellitus Type 1, Diabetes Mellitus Type 2, Hypothyroidism GI Medical History: Reports: Gastroesophageal Reflux Disease Denies: Hepatitis, Hiatal Hernia Musculoskeltal Medical History: Reports: Arthritis Psychiatric Medical History: Denies: Depression Hematology: Past Surgical History Past Surgical History: Reports: Amputation - Left AKA, partial foot amputation including the lateral 3 rays., Section, Orthopedic Surgery - left aka. Right fifth toe amputation., Vascular Surgery - Right leg stenting 2 Denies: Hysterectomy, Mastectomy, Pacemaker Family History Family History: CAD, CVA, DM, Malignancy Parental Family History Reviewed: No Children Family History Reviewed: No Sibling(s) Family History Reviewed.: No Social History Smoking Status: Former Smoker Frequency of Alcohol Use: None Hx Recreational Drug Use: No Drugs: None Hx Prescription Drug Abuse: No Physical Exam Vital Signs: Temp Pulse Resp BP Pulse Ox 97.7 F 91 16 130/63 H 100 02/28/17 12:33 02/28/17 12:33 02/28/17 12:33 02/28/17 12:33 02/28/17 12:33 Intake & Output 02/27/17 02/28/17 03/01/17 06:59 06:59 06:59 Weight 99.34 kg 99.34 kg Additional comments: Constitutional: Well-developed well-nourished -[place]ir[place] lady. No apparent acute distress. Eyes: Mucous membranes pink and moist, pupils equal and reactive to light. Conjunctiva normal. Cornea normal. ENT: Hearing grossly normal. External pinna normal to inspection. Teeth some missing. Tongue normal to inspection. Cardiac: Heart sounds 1 and 2 normal, no murmurs. Respiratory breath sounds are present bilaterally, normal. Normal respiratory effort. Psychiatric: Judgment, memory, insight seem normal. Mood is pleasant and appropriate. Extremities: Upper extremities show normal range of movement. Pulses present noted to the radial arteries. Capillary refill normal. No cyanosis noted. No muscle wasting noted. Lower extremities show reduced range of movement. Left below-knee amputation noted on the right.. Pulses absent at the dorsalis pedis artery. Capillary refill normal. No cyanosis noted. Large open wound in the right foot partial foot amputation site also dorsally in the right foot.. Impression/Plan Impression: #1 diabetic foot ulcers in the right. 2. Peripheral vascular disease. 3. Diabetes mellitus type 2. 4. Hypertension. Plan: The plan is to admit this patient for debridement of the necrotic wounds on the right foot. The hope is to leave healthy viable tissues and thus promote healing. Overall goal is salvage of the patient's remaining right lower extremity possible. She is undergoing treatment for peripheral vascular disease as well. The expectations, risks, benefits, expected outcome and alternatives are familiar to the patient and she wishes to proceed.
[2017-02-28] MEDS ORDERED: DIPHENHYDRAMINE HCL 50 MG/ML VIAL IV PRN (15:02)
[2017-02-28] MEDS ORDERED: PROMETHAZINE HCL INJ 25 MG/1 ML VIAL IV PRN ×2 (15:02)
[2017-02-28] MEDS ORDERED: OXYCODONE-ACETAMINOPHEN 5-325 MG TABLET PO PRN ×2 (15:02)
[2017-02-28] MEDS ORDERED: FENTANYL CITRATE INJ/PF 100 MCG/2 ML AMPUL IV PRN ×3 (15:02)
[2017-02-28] MEDS ORDERED: MEPERIDINE HCL/PF INJ 25 MG/1 ML DISP.SYRIN IV PRN (15:02)
[2017-02-28] MEDS ORDERED: MORPHINE SULFATE 10 MG/ML INJ IV PRN (15:02)
--- NOTE | 2017-02-28 15:27 | PDOC DISCHARGE SUMMARY ---
Discharge Summary (SDC) - Discharge Final Diagnosis: 1 diabetic foot ulcers on the right. 2. Peripheral arterial disease. 3. Diabetes mellitus type 2. 4. Hypertension. Date of Surgery: 02/28/17 Discharge Date: 02/28/17 Condition: Fair Treatment or Instructions: Discharge home [after recovery per ASU criteria]. Diet , ADA,as tolerated, when fully awake advance as tolerated. Activities within moderation encouraged. Follow up in wound clinic on Monday of this week. Call for appointment. Leave wounds [covered], [keep clean and dry, until wound care visit]. Hold of on school/work [until evaluation in office]. Continue medications per med rec. May shower [in 48 hrs], [try to keep operated area as dry as possible]. Prescriptions: Oxycodone HCl/Acetaminophen [Percocet 5-325 mg Tablet] 1 tab PO ASDIR PRN #15 tab PRN Reason: Referrals: MARLENE CANNON MD [Primary Care Provider] - Discharge Diet: Other (Comments) - ADA Respiratory Treatments at Home: Deep Breathing/Coughing Discharge Activity: Activity As Tolerated Report the Following to Your Physician Immediately: Shortness of Breath, Unusual Bleeding
--- NOTE | 2017-02-28 15:31 | Operative Report ---
Operative Report DATE OF SURGERY: 02/28/17 PREOPERATIVE DIAGNOSIS: 1 diabetic foot ulcers on the right. 2. Peripheral arterial disease. 3. Diabetes mellitus type 2. 4. Hypertension. POSTOPERATIVE DIAGNOSIS: 1 diabetic foot ulcers on the right. 2. Peripheral arterial disease. 3. Diabetes mellitus type 2. 4. Hypertension. OPERATION: Debridement of right foot including bone. Sharp, excisional, surgical. SURGEON: CHRISTEL SOLOMON FINANCIAL MARKET DEALER: None ANESTHESIA: LMAC TISSUE REMOVED OR ALTERED: Bone and cartilage and tendon necrotic. From vicinity of third metatarsal, midfoot and dorsum foot. COMPLICATIONS: None ESTIMATED BLOOD LOSS: 5 mL. INTRAOPERATIVE FINDINGS: Of a large partial amputation laterally in the right foot. Remaining necrotic areas are within this wound mainly in the midfoot and around the second or third metatarsal. These were debrided of soft bone suggestive of osteomyelitis and also cartilage and tendon. Also debrided was a partially necrotic and necrotic wound of the dorsum of the foot involving tendons mostly. Good hemostasis was secured including use of a suture of 0 Monocryl and use of Surgicel and bone wax. Some remaining necrosis may need to be addressed subsequently. PROCEDURE: PROCEDURE: The right foot was prepared with [Betadine] and draped out with sterile linen. After the"universal time-out", in which it was confirmed that the patient [ did receive antibiotic], the procedure commenced. The patient was appropriately anesthetized. The wounds were debrided of non viable tissue using[Rongeurs] with removal of loose debris, bone, cartilage and tendon, as well. Hemostasis was secured with a suture of 4-0 Monocryl, cautery and Surgicel overlaid with bone wax. This was very effective in controlling of the minimal bleeding. The wound was now dressed with [Kerlix] and the procedure concluded.
[2017-02-28 17:44] VITALS: BP 154/65
== END 2017-02-28 17:20 | disposition home or self-care (01) ==
LOC: OROUT 12:02
PROVIDERS: ATTEND Surgery
PROC: 0QBN0ZZ Excision of Right Metatarsal, Open Approach (ICD-10-PCS; principal; 2017-02-28 15:30)
DX: E10.621 Type 1 diabetes mellitus with foot ulcer (principal); L97.419 Non-pressure chronic ulcer of right heel and midfoot with unspecified severity; M86.171 Other acute osteomyelitis, right ankle and foot; M86.671 Other chronic osteomyelitis, right ankle and foot; I73.9 Peripheral vascular disease, unspecified; I10 Essential (primary) hypertension; Z86.73 Personal history of transient ischemic attack (TIA), and cerebral infarction without residual deficits; Z79.4 Long term (current) use of insulin; E07.9 Disorder of thyroid, unspecified; Z79.82 Long term (current) use of aspirin; Z79.899 Other long term (current) drug therapy; Z88.0 Allergy status to penicillin; E87.5 Hyperkalemia; K21.9 Gastro-esophageal reflux disease without esophagitis; M19.90 Unspecified osteoarthritis, unspecified site; Z89.612 Acquired absence of left leg above knee; Z89.421 Acquired absence of other right toe(s)
CPT/HCPCS: 93005; 36415 ×2; 82962; 85025; 80048 ×2; 88305 ×2; 88311; 93010; 11044; J2250; J3490 ×3; J3010; J2405; J3370; J2704; 1480

== ENCOUNTER → 2017-04-03 | Outpatient (CLI) | payer MEDICARE, MEDICAID ==
[2017-04-03 17:17] LABS: ABSOLUTE BASOPHILS # (AUTO) 0.1 10^3/uL (0.0-0.2); ABSOLUTE EOSINOPHILS # (AUTO) 0.4 10^3/uL (0.0-0.6); ABSOLUTE LYMPHOCYTES (AUTO) 2.8 10^3/uL (0.5-4.7); ABSOLUTE MONOCYTES (AUTO) 0.4 10^3/uL (0.1-1.4); ABSOLUTE NEUT (AUTO) 4.8 10^3/uL (1.7-8.2); BASOPHILS % (AUTO) 1.2 % (0-2); EOSINOPHILS % (AUTO) 4.9 % (0-6); HEMATOCRIT 29.5 % (36.0-47.0); HEMOGLOBIN 9.4 g/dL (12.0-15.5); HGB HCT DIFFERENCE -1.3; LYMPHOCYTES % (AUTO) 33.2 % (13-45); MEAN CORPUSCULAR HEMOGLOBIN 24.4 pg (27.0-33.4); MEAN CORPUSCULAR HGB CONC 31.9 g/dL (32.0-36.0); MEAN CORPUSCULAR VOLUME 76 fl (80-97); MONOCYTES % (AUTO) 5.1 % (3-13); RED BLOOD COUNT 3.86 10^6/uL (3.72-5.28); RED CELL DISTRIBUTION WIDTH 17.1 % (11.5-14.0); SEGMENTED NEUTROPHILS % (AUTO) 55.6 % (42-78); WHITE BLOOD COUNT 8.6 10^3/uL (4.0-10.5)
[2017-04-03 17:45] LABS: ALANINE AMINOTRANSFERASE 14 U/L (9-52); ALBUMIN 3.7 g/dL (3.5-5.0); ALKALINE PHOSPHATASE 121 U/L (38-126); ANION GAP 15 (5-19); ASPARTATE AMINO TRANSFERASE 13 U/L (14-36); BILIRUBIN,DIRECT 0.3 mg/dL (0.0-0.4); BILIRUBIN,TOTAL 0.3 mg/dL (0.2-1.3); BLOOD UREA NITROGEN 22 mg/dL (7-20); CALCIUM 9.9 mg/dL (8.4-10.2); CARBON DIOXIDE 26 mmol/L (22-30); CHLORIDE 105 mmol/L (98-107); CREATININE RESULT 0.72 mg/dL (0.52-1.25); GLUCOSE 199 mg/dL (75-110); POTASSIUM 4.5 mmol/L (3.6-5.0); SODIUM 145.6 mmol/L (137-145); TOTAL PROTEIN 8.7 g/dL (6.3-8.2)
== END ==
LOC: WC 15:52
PROVIDERS: ATTEND Surgery
DX: E11.621 Type 2 diabetes mellitus with foot ulcer (principal)
CPT/HCPCS: 36415; 80053; 85025

== ENCOUNTER → 2017-07-10 | Outpatient (CLI) | payer MEDICARE, MEDICAID ==
--- NOTE | 2017-07-10 16:52 | RADIOLOGY REPORT (SQ) ---
EXAM DESCRIPTION: FOOT RIGHT COMPLETE COMPLETED DATE/TIME: 07/10/2017 4:30 pm REASON FOR STUDY: NON PRESSURE CHRONIC ULCER RT FOOT E11.621 TYPE 2 DIABETES MELLITUS WITH FOOT ULC ER L97.512 NON-PRS CHRONIC ULCER OTH PRT RIGHT FOOT W FAT LAYER COMPARISON: 01/09/2017 NUMBER OF VIEWS: Three views. TECHNIQUE: AP, lateral and oblique radiographic images acquired of the right foot. LIMITATIONS: None. FINDINGS: MINERALIZATION: There is osteopenia. BONES: There are postsurgical changes. The patient has had amputation of portions of the 3rd 4th and 5th digits. There lucency surrounding the interphalangeal joint of the great toe. Osteomyelitis ca nnot be excluded. JOINTS: As above. SOFT TISSUES: Lucency seen along the ventral surface of the foot suspicious for soft tissue lesion. This however could be postsurgical. OTHER: No other significant finding. IMPRESSION: Postsurgical changes. Possible osteomyelitis involving the great toe as described. The re is lucency along the ventral aspect of the foot this could be postsurgical in nature although soft tissue defect cannot be excluded. TECHNICAL DOCUMENTATION: JOB ID: [id number] [employer]- All Rights Reserved
[2017-07-10 17:02] LABS: HEMATOCRIT 37.1 % (36.0-47.0); HEMOGLOBIN 11.6 g/dL (12.0-15.5); MEAN CORPUSCULAR HGB CONC 31.4 g/dL (32.0-36.0); MEAN CORPUSCULAR VOLUME 76 fl (80-97); PLATELET COUNT 307 10^3/uL (150-450); RED BLOOD COUNT 4.86 10^6/uL (3.72-5.28); RED CELL DISTRIBUTION WIDTH 17.9 % (11.5-14.0); WHITE BLOOD COUNT 9.7 10^3/uL (4.0-10.5)
[2017-07-10 17:31] LABS: ALANINE AMINOTRANSFERASE 14 U/L (9-52); ALKALINE PHOSPHATASE 108 U/L (38-126); ANION GAP 9 (5-19); ASPARTATE AMINO TRANSFERASE 15 U/L (14-36); BILIRUBIN,DIRECT 0.3 mg/dL (0.0-0.4); BILIRUBIN,TOTAL 0.3 mg/dL (0.2-1.3); BLOOD UREA NITROGEN 23 mg/dL (7-20); C-REACTIVE PROTEIN 18.6 mg/L (<10.0); CALCIUM 10.4 mg/dL (8.4-10.2); CARBON DIOXIDE 28 mmol/L (22-30); CHLORIDE 102 mmol/L (98-107); GLUCOSE 187 mg/dL (75-110); POTASSIUM 4.3 mmol/L (3.6-5.0); SODIUM 139.3 mmol/L (137-145); TOTAL PROTEIN 8.3 g/dL (6.3-8.2)
[2017-07-10 17:44] LABS: ERYTHROCYTE SEDIMENTATION RATE 87 mm/hr (0-30)
== END ==
LOC: WC 15:47
PROVIDERS: ATTEND Surgery
DX: E11.621 Type 2 diabetes mellitus with foot ulcer (principal); L97.512 Non-pressure chronic ulcer of other part of right foot with fat layer exposed
CPT/HCPCS: 36415; 80053; 83036; 85027; 85652; 86140

== ENCOUNTER 2017-10-10 17:20 | Inpatient (IN) | payer MEDICARE, MEDICAID ==
[2017-10-10] MEDS ORDERED: VANCOMYCIN HCL INJ 1000 MG VIAL IV ONE (19:44)
--- NOTE | 2017-10-10 19:48 | ER Document Report ---
ED Medical Screen (RME) - General Chief Complaint: Leg Pain Stated Complaint: RIGHT LEG PAIN Time Seen by Provider: 10/10/17 19:17 Mode of Arrival: Ambulatory Information source: Patient Notes: 57-year-old female history of diabetes presents from the wound care clinic with wound to her right foot with cellulitis, patient sent in for IV antibiotics and admission I have greeted and performed a rapid initial assessment of this patient. A comprehensive ED assessment and evaluation of the patient, analysis of test results and completion of the medical decision making process will be conducted by additional ED providers. PHYSICAL EXAMINATION: GENERAL: Well-appearing, well-nourished and in no acute distress. HEAD: Atraumatic, normocephalic. EYES: Pupils equal round extraocular movements intact, conjunctiva are normal. ENT: Nares patent NECK: Normal range of motion LUNGS: No respiratory distress Musculoskeletal left AKA NEUROLOGICAL: Normal speech, normal gait. PSYCH: Normal mood, normal affect. SKIN: Right foot diabetic wound with cellulitic component to the knee TRAVEL OUTSIDE OF THE [place] IN LAST 30 DAYS: No - Related Data Allergies/Adverse Reactions: amoxicillin [From Augmentin] Allergy (Intermediate, Verified 02/28/17 12:37) Unsure of reaction Cephalosporins Allergy (Intermediate, Verified 02/28/17 12:37) blistering, peeling skin,burning throat clavulanic acid [From Augmentin] Allergy (Intermediate, Verified 02/28/17 12:37) unsure of reaction Penicillins Allergy (Intermediate, Verified 02/28/17 12:37) blistering,peeling skin,burning of throat Past Medical History - Social History Chew tobacco use (# tins/day): No Drug Abuse: None Family history: Reviewed & Not Pertinent - Past Medical History Cardiac Medical History: Reports: Hx Hypercholesterolemia, Hx Hypertension, Hx Peripheral Vascular Disease Denies: Hx Coronary Artery Disease, Hx Heart Attack Pulmonary Medical History: Denies: Hx Asthma, Hx Bronchitis, Hx COPD, Hx Pneumonia Neurological Medical History: Reports: Hx Cerebrovascular Accident - 2003 . Denies: Hx Seizures Endocrine Medical History: Reports: Hx Diabetes Mellitus Type 1, Hx Diabetes Mellitus Type 2, Hx Hypothyroidism Renal/ Medical History: Denies: Hx Peritoneal Dialysis GI Medical History: Reports: Hx Gastroesophageal Reflux Disease. Denies: Hx Hepatitis, Hx Hiatal Hernia, Hx Ulcer Musculoskeltal Medical History: Reports Hx Arthritis Psychiatric Medical History: Denies: Hx Depression Infectious Medical History: Denies: Hx Hepatitis Past Surgical History: Reports: Hx Section, Hx Orthopedic Surgery - left aka. Right fifth toe amputation., Hx Vascular Surgery - Right leg stenting 2. Denies: Hx Hysterectomy, Hx Mastectomy, Hx Open Heart Surgery, Hx Pacemaker - Immunizations Hx Diphtheria, Pertussis, Tetanus Vaccination: No Physical Exam - Vital signs Vitals: Temp Pulse Resp BP Pulse Ox 98.5 F 112 H 20 157/67 H 96 10/10/17 17:44 10/10/17 17:44 10/10/17 17:44 10/10/17 17:44 10/10/17 17:44 Course - Vital Signs Vital signs: Temp Pulse Resp BP Pulse Ox 98.5 F 112 H 20 157/67 H 96 10/10/17 17:44 10/10/17 17:44 10/10/17 17:44 10/10/17 17:44 10/10/17 17:44 Doctor's Discharge - Discharge Referrals: MARLENE CANNON MD [Primary Care Provider] - Follow up as needed
[2017-10-10] MEDS ORDERED: LEVOFLOXACIN 750 MG/D5W RTU 750 MG/150 ML RTUPB IV ONE (20:36)
--- NOTE | 2017-10-10 20:36 | ER Document Report ---
ED General - General Chief Complaint: Leg Pain Stated Complaint: RIGHT LEG PAIN Time Seen by Provider: 10/10/17 19:17 Mode of Arrival: Ambulatory Information source: Patient Notes: This is a 57-year-old female with a history of insulin requiring diabetes, hypertension, peripheral vascular disease (left AKA, right metatarsal 3/4/5 amputation) who was referred to the ER by the wound clinic for infection overlying the right foot. Patient does report low-grade fever and chills as well as increased redness to the distal right lower extremity. TRAVEL OUTSIDE OF THE [place] IN LAST 30 DAYS: No - HPI Onset: Last week Onset/Duration: Gradual Quality of pain: No pain Severity: None Pain Level: Denies Associated symptoms: Fever. denies: Chest pain, Shortness of breath Exacerbated by: Denies Relieved by: Denies Similar symptoms previously: Yes Recently seen / treated by doctor: Yes - Related Data Allergies/Adverse Reactions: amoxicillin [From Augmentin] Allergy (Intermediate, Verified 02/28/17 12:37) Unsure of reaction Cephalosporins Allergy (Intermediate, Verified 02/28/17 12:37) blistering, peeling skin,burning throat clavulanic acid [From Augmentin] Allergy (Intermediate, Verified 02/28/17 12:37) unsure of reaction Penicillins Allergy (Intermediate, Verified 02/28/17 12:37) blistering,peeling skin,burning of throat Past Medical History - General Information source: Patient - Social History Smoking Status: Never Smoker Cigarette use (# per day): No Chew tobacco use (# tins/day): No Drug Abuse: None Lives with: Family Family History: CAD, CVA, DM, Malignancy Patient has suicidal ideation: No Patient has homicidal ideation: No - Past Medical History Cardiac Medical History: Reports: Hx Hypercholesterolemia, Hx Hypertension, Hx Peripheral Vascular Disease Denies: Hx Coronary Artery Disease, Hx Heart Attack Pulmonary Medical History: Denies: Hx Asthma, Hx Bronchitis, Hx COPD, Hx Pneumonia Neurological Medical History: Reports: Hx Cerebrovascular Accident - 2004 . Denies: Hx Seizures Endocrine Medical History: Reports: Hx Diabetes Mellitus Type 1, Hx Diabetes Mellitus Type 2, Hx Hypothyroidism Renal/ Medical History: Denies: Hx Peritoneal Dialysis GI Medical History: Reports: Hx Gastroesophageal Reflux Disease. Denies: Hx Hepatitis, Hx Hiatal Hernia, Hx Ulcer Musculoskeltal Medical History: Reports Hx Arthritis Psychiatric Medical History: Denies: Hx Depression Infectious Medical History: Denies: Hx Hepatitis Past Surgical History: Reports: Hx Section, Hx Orthopedic Surgery - left aka. Right fifth toe amputation., Hx Vascular Surgery - Right leg stenting 2. Denies: Hx Hysterectomy, Hx Mastectomy, Hx Open Heart Surgery, Hx Pacemaker - Immunizations Hx Diphtheria, Pertussis, Tetanus Vaccination: No Review of Systems - Review of Systems Constitutional: Chills, Fever EENT: No symptoms reported Cardiovascular: No symptoms reported. denies: Chest pain, Palpitations Respiratory: No symptoms reported. denies: Short of breath Gastrointestinal: No symptoms reported Genitourinary: No symptoms reported Female Genitourinary: No symptoms reported Musculoskeletal: See HPI Skin: See HPI Hematologic/Lymphatic: No symptoms reported Neurological/Psychological: No symptoms reported Physical Exam - Vital signs Vitals: Temp Pulse Resp BP Pulse Ox 98.5 F 112 H 20 157/67 H 96 10/10/17 17:44 10/10/17 17:44 10/10/17 17:44 10/10/17 17:44 10/10/17 17:44 Notes: Physical exam: GENERAL: 57-year-old female, alert and oriented 3, no acute distress HEAD: Atraumatic, normocephalic. EYES: Pupils equal round and reactive to light, extraocular movements intact, sclera anicteric, conjunctiva are normal. ENT: TMs normal, nares patent, oropharynx clear without exudates. Moist mucous membranes. NECK: Normal range of motion, supple without obvious mass or JVD. LUNGS: Breath sounds clear to auscultation bilaterally and equal. No wheezes rales or rhonchi. HEART: Regular rate and rhythm without murmurs, rubs or gallops. ABDOMEN: Soft, normoactive bowel sounds. No tenderness to palpation. No guarding, no rebound. No masses appreciated. EXTREMITIES: Left AKA. Right lower extremity: Patient does have chronic ulcer over the lateral right foot status post amputations of digits 3/4/5. There is no foul smell. There is some drainage from the wound. There is overlying erythema to the right lower extremity NEUROLOGICAL: Cranial nerves II through XII grossly intact. Normal speech, moving all extremities. PSYCH: Normal mood, normal affect. SKIN: As mentioned above Course - Re-evaluation Re-evalutation: 10/11/17 03:23 Wound redressed IV Vanco IV levofloxacin - Vital Signs Vital signs: Temp Pulse Resp BP Pulse Ox 101.1 F H 112 H 19 143/62 H 95 10/11/17 02:34 10/10/17 17:44 10/11/17 02:34 10/11/17 02:34 10/11/17 02:34 - Laboratory Result Diagrams: 10/10/17 20:40 10/10/17 20:40 Laboratory results interpreted by me: 10/10/17 10/10/17 10/10/17 20:40 20:40 20:40 WBC 13.7 H Hgb 10.9 L Hct 34.9 L MCV 78 L MCH 24.6 L MCHC 31.3 L RDW 15.9 H Absolute Neutrophils 9.9 H ESR 100 H Sodium 135.7 L Glucose 411 H* C-Reactive Protein 213.3 H Albumin 3.4 L TSH 5.59 H - EKG Interpretation by Me Rate: Tachycardia Rhythm: NSR - EKG shows sinus rhythm with a ventricular rate of 102, no acute ST -T wave changes Critical Care Note - Critical Care Note Total time excluding time spent on procedures (mins): 60 Discharge - Discharge Clinical Impression: Cellulitis to the lower extremity, Hyperglycemia Condition: Stable Disposition: ADMITTED INPATIENT Admitting Provider: L[facility] Unit Admitted: Medical Floor
--- NOTE | 2017-10-10 21:03 | RADIOLOGY REPORT (SQ) ---
EXAM DESCRIPTION: FOOT RIGHT COMPLETE COMPLETED DATE/TIME: 10/10/2017 8:46 pm REASON FOR STUDY: diabetic wound COMPARISON: 07/10/2017 NUMBER OF VIEWS: Four views. TECHNIQUE: AP, lateral and oblique radiographic images acquired of the right foot. LIMITATIONS: None. FINDINGS: MINERALIZATION: Normal. BONES: Amputations of the 2nd, 4th, and 5th toes. There are erosions in the head of the 1st proximal phalanx. JOINTS: No effusions. SOFT TISSUES: There is soft tissue Theo near the base of the metatarsal. No osseous abnormality i s seen in this area to suggest osteomyelitis. OTHER: No other significant finding. IMPRESSION: Surgical changes. Cannot exclude osteomyelitis involving the head of the 1st proximal p halanx. TECHNICAL DOCUMENTATION: JOB ID: [id number] [employer]- All Rights Reserved Reading location - IP/workstation name: [email or web address]
[2017-10-10 21:06] LABS: ABSOLUTE BASOPHILS # (AUTO) 0.1 10^3/uL (0.0-0.2); ABSOLUTE EOSINOPHILS # (AUTO) 0.3 10^3/uL (0.0-0.6); ABSOLUTE LYMPHOCYTES (AUTO) 2.5 10^3/uL (0.5-4.7); ABSOLUTE MONOCYTES (AUTO) 0.9 10^3/uL (0.1-1.4); ABSOLUTE NEUT (AUTO) 9.9 10^3/uL (1.7-8.2); BASOPHILS % (AUTO) 0.8 % (0-2); EOSINOPHILS % (AUTO) 2.3 % (0-6); HEMATOCRIT 34.9 % (36.0-47.0); HEMOGLOBIN 10.9 g/dL (12.0-15.5); MEAN CORPUSCULAR HEMOGLOBIN 24.6 pg (27.0-33.4); MEAN CORPUSCULAR HGB CONC 31.3 g/dL (32.0-36.0); MEAN CORPUSCULAR VOLUME 78 fl (80-97); MONOCYTES % (AUTO) 6.9 % (3-13); PLATELET COUNT 242 10^3/uL (150-450); RED BLOOD COUNT 4.46 10^6/uL (3.72-5.28); RED CELL DISTRIBUTION WIDTH 15.9 % (11.5-14.0); TOTAL CELLS COUNTED % (AUTO) 100 %; WHITE BLOOD COUNT 13.7 10^3/uL (4.0-10.5)
[2017-10-10 21:13] LABS: VENOUS BLOOD BASE EXCESS 3.4 mmol/L; VENOUS BLOOD HCO3 28.8 mmol/L (20-32); VENOUS BLOOD PCO2 47.2 mmHg (35-63); VENOUS BLOOD PH 7.4 (7.30-7.42)
[2017-10-10 21:39] LABS: ALANINE AMINOTRANSFERASE 19 U/L (9-52); ALBUMIN 3.4 g/dL (3.5-5.0); ALKALINE PHOSPHATASE 103 U/L (38-126); ANION GAP 12 (5-19); ASPARTATE AMINO TRANSFERASE 16 U/L (14-36); BILIRUBIN,DIRECT 0.3 mg/dL (0.0-0.4); BILIRUBIN,TOTAL 0.3 mg/dL (0.2-1.3); BLOOD UREA NITROGEN 18 mg/dL (7-20); CALCIUM 9.2 mg/dL (8.4-10.2); CARBON DIOXIDE 26 mmol/L (22-30); CHLORIDE 98 mmol/L (98-107); POTASSIUM 3.9 mmol/L (3.6-5.0); SODIUM 135.7 mmol/L (137-145); TOTAL PROTEIN 7.4 g/dL (6.3-8.2)
[2017-10-10 21:42] LABS: ERYTHROCYTE SEDIMENTATION RATE 100 mm/hr (0-30)
[2017-10-10 21:50] LABS: INTERNATIONAL RATION (INR) 0.98; PROTHROMBIN TIME 13.5 SEC (11.4-15.4)
[2017-10-10 21:50] LABS: C-REACTIVE PROTEIN 213.3 mg/L (<10.0)
[2017-10-10 21:52] LABS: GLUCOSE 411 mg/dL (75-110)
[2017-10-11] MEDS: INSULIN REG, HUMAN 100 UNIT/ML 3 ML VIAL (PYX) SUBCUT SCH
[2017-10-11 00:02] LABS: APPEARANCE,URINE TURBID; BILIRUBIN,URINE NEGATIVE (NEGATIVE); COLOR,URINE YELLOW; GLUCOSE, URINE >=500 mg/dL (NEGATIVE); KETONES,URINE NEGATIVE (NEGATIVE); LEUKOCYTE ESTERASE,URINE LARGE (NEGATIVE); NITRITE,URINE NEGATIVE (NEGATIVE); PROTEIN,URINE >=500 mg/dL (NEGATIVE); URINE SPECIFIC GRAVITY 1.021; UROBILINOGEN,URINE NEGATIVE mg/dL (<2.0)
[2017-10-11] MEDS ORDERED: DEXTROSE 40% GEL 15 GM TUBE PO PRN ×2 (01:00)
[2017-10-11] MEDS ORDERED: GLUCAGON,HUMAN RECOMB 1 MG INJ IM PRN (01:00)
[2017-10-11] MEDS ORDERED: DEXTROSE 50%-WATER 25 GM/50 ML DISP.SYRIN IV PRN ×2 (01:00)
[2017-10-11] MEDS ORDERED: POLYETHYLENE GLYCOL 3350 POWDER 17 GM/1 PACKET PO PRN (01:06)
[2017-10-11] MEDS ORDERED: VANCOMYCIN HCL 0 MG in DEXTROSE 5%-WATER 250 ML IV NR (01:15)
[2017-10-11] MEDS ORDERED: (PENDING PHARMACY ID) (Canagliflozin [Invokana] 300 MG) PO SCH (01:15)
[2017-10-11] MEDS ORDERED: VANCOMYCIN HCL INJ 1000 MG VIAL IV PRN (01:18)
[2017-10-11 01:23] LABS: LIPASE 27.2 U/L (23-300); PHOSPHORUS 3.1 mg/dL (2.5-4.5)
[2017-10-11] MEDS ORDERED: ASPIRIN 81 MG TABLET, CHEWABLE PO ONE (01:30)
[2017-10-11] MEDS ORDERED: COLLAGENASE CLOSTRIDIUM HIST. OINT 30 GM TP ONE (01:30)
[2017-10-11] MEDS: INSULIN LISPRO 100 UNIT/ML 3 ML VIAL SUBCUT PRN ×3 (01:32→21:55)
[2017-10-11 01:34] LABS: INTERNATIONAL RATION (INR) 1.06; PROTHROMBIN TIME 14.3 SEC (11.4-15.4)
[2017-10-11 01:35] LABS: PARTIAL THROMBOPLASTIN TIME 28.5 SEC (23.5-35.8)
[2017-10-11 01:40] LABS: FREE T4 (FREE THYROXINE) 0.79 ng/dL (0.78-2.19)
[2017-10-11] MEDS ORDERED: LISINOPRIL 10 MG TABLET PO ONE (01:45)
[2017-10-11] MEDS ORDERED: ATORVASTATIN CALCIUM 20 MG TABLET PO ONE (01:45)
[2017-10-11] MEDS: NORMAL SALINE 1000 ML 1,000 ML IV PRN (01:47)
[2017-10-11 01:54] LABS: THYROID STIMULATING HORMONE 5.59 uIU/mL (0.47-4.68)
[2017-10-11 01:58] LABS: CREATINE KINASE MB 0.29 ng/mL (<4.55)
[2017-10-11] MEDS ORDERED: GABAPENTIN 100 MG CAPSULE PO ONE (02:00)
[2017-10-11] MEDS ORDERED: LEVOTHYROXINE SODIUM 0.075 MG TABLET PO ONE (02:00)
[2017-10-11] MEDS ORDERED: AMLODIPINE BESYLATE 10 MG TABLET PO ONE (02:00)
[2017-10-11 02:03] LABS: TROPONIN I 0.189 ng/mL
[2017-10-11] MEDS ORDERED: ACETAMINOPHEN 325 MG TABLET PO ONE (02:35)
[2017-10-11] MEDS ORDERED: COLLAGENASE CLOSTRIDIUM HIST. OINT 30 GM ONE (03:48)
[2017-10-11] MEDS ORDERED: VANCOMYCIN HCL 1,000 MG in DEXTROSE 5%-WATER 250 ML IV ONE (04:00)
--- NOTE | 2017-10-11 07:27 | EKG REPORT ---
SEVERITY:- ABNORMAL ECG - SINUS TACHYCARDIA LEFT ATRIAL ABNORMALITY LEFT VENTRICULAR HYPERTROPHY : Confirmed by: Latrell Coleman MD 11-Oct-2017 07:26:58
[2017-10-11 08:26] LABS: CREATINE KINASE MB 0.38 ng/mL (<4.55)
[2017-10-11 08:30] LABS: TROPONIN I 0.181 ng/mL
[2017-10-11 10:24] LABS: URINE AMPHETAMINES SCREEN NEGATIVE; URINE BARBITURATES SCREEN NEGATIVE; URINE BENZODIAZEPINES SCREEN NEGATIVE; URINE COCAINE SCREEN NEGATIVE; URINE MARIJUANA (THC) SCREEN NEGATIVE; URINE METHADONE SCREEN NEGATIVE; URINE PHENCYCLIDINE SCREEN NEGATIVE
[2017-10-11] MEDS: ASPIRIN 81 MG TABLET, CHEWABLE PO SCH (11:05)
[2017-10-11] MEDS: LEVOTHYROXINE SODIUM 0.075 MG TABLET PO SCH (11:05)
[2017-10-11] MEDS: COLLAGENASE CLOSTRIDIUM HIST. OINT 30 GM TP SCH (11:06)
[2017-10-11] MEDS: LEVOFLOXACIN 750 MG/D5W RTU 750 MG/150 ML RTUPB IV SCH (11:06)
[2017-10-11] MEDS: ENOXAPARIN SODIUM INJ 40 MG/0.4 ML DISP.SYRIN SUBCUT SCH (11:07)
[2017-10-11] MEDS: AMLODIPINE BESYLATE 10 MG TABLET PO SCH (11:08)
[2017-10-11] MEDS: LISINOPRIL 10 MG TABLET PO SCH (11:08)
[2017-10-11] MEDS ORDERED: HYDROCODONE/ACETAMINOPHEN 5-325 MG TABLET PO PRN (13:50)
[2017-10-11] MEDS ORDERED: INSULIN ASPART 4 UNIT SQ SCH (14:00)
[2017-10-11 14:21] LABS: CREATINE KINASE MB 0.32 ng/mL (<4.55); TROPONIN I 0.11 ng/mL
[2017-10-11] MEDS: GABAPENTIN 100 MG CAPSULE PO SCH ×2 (14:36→21:55)
[2017-10-11] MEDS: VANCOMYCIN HCL 1,500 MG in DEXTROSE 5%-WATER 250 ML IV SCH (16:27)
[2017-10-11] MEDS: INSULIN LISPRO 100 UNIT/ML 3 ML VIAL SUBCUT SCH (16:37)
[2017-10-11] MEDS: CLOPIDOGREL BISULFATE 75 MG TABLET PO SCH (17:39)
--- NOTE | 2017-10-11 17:46 | PDOC H&P ---
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 In the emergency room she was evaluated she was found to have infection of the right foot as well as cellulitis of the right leg up to the mid right leg. Patient is well-known to me she has history of MRSA and gram-negative cellulitis of the right foot from previous encounter. She has had multiple intervention on the right foot with the intention to salvage the foot, the foot is grossly deformed almost like a charcot food , she was found to have leukocytosis, the emergency room physician is recommending hospital admission for management of this patient.She was also found to have severely elevated blood sugar over 400, the serum troponin was 0.1 most likely from sepsis, she has no chest symptoms to suggest acute coronary syndrome. Past Medical History Cardiac Medical History: Reports: Hyperlipidema, Hypertension, Peripheral Vascular Disease Neurological Medical History: Denies: Seizures Endocrine Medical History: Reports: Diabetes Mellitus Type 2 GI Medical History: Reports: Gastroesophageal Reflux Disease Musculoskeltal Medical History: Reports: Arthritis Psychiatric Medical History: Denies: Depression Hematology: Past Surgical History Past Surgical History: Reports: Amputation - Left AKA, partial foot amputation including the lateral 3 rays., Section, Orthopedic Surgery - left aka. Right fifth toe amputation., Vascular Surgery - Right leg stenting 2 Social History Lives with: Family Smoking Status: Never Smoker Frequency of Alcohol Use: None Hx Recreational Drug Use: No Drugs: None Hx Prescription Drug Abuse: No Family History Family History: CAD, CVA, DM, Malignancy Parental Family History Reviewed: Yes Children Family History Reviewed: Yes Sibling(s) Family History Reviewed.: Yes Medication/Allergy Home Medications: Clopidogrel Bisulfate [Plavix 75 mg Tablet] 75 mg PO DAILY 10/11/17 Hydrocodone/Acetaminophen [[place] 5-325 mg Tablet] 1 tab PO Q4HP PRN 10/11/17 Insulin Aspart [Novolog Flexpen] 4 units SQ MEALS 10/11/17 Insulin Detemir [Levemir Flextouch] 50 units SQ QHS 10/11/17 Allergies/Adverse Reactions: amoxicillin [From Augmentin] Allergy (Intermediate, Verified 02/28/17 12:37) Unsure of reaction Cephalosporins Allergy (Intermediate, Verified 02/28/17 12:37) blistering, peeling skin,burning throat clavulanic acid [From Augmentin] Allergy (Intermediate, Verified 02/28/17 12:37) unsure of reaction Penicillins Allergy (Intermediate, Verified 02/28/17 12:37) blistering,peeling skin,burning of throat Review of Systems Constitutional: PRESENT: chills, fever(s). ABSENT: headache(s), weight gain, weight loss Eyes: ABSENT: visual disturbances Ears: ABSENT: hearing changes Cardiovascular: ABSENT: chest pain, dyspnea on exertion, edema, orthropnea, palpitations Respiratory: ABSENT: cough, hemoptysis Gastrointestinal: ABSENT: abdominal pain, constipation, diarrhea, hematemesis, hematochezia, nausea, vomiting Genitourinary: ABSENT: dysuria, hematuria Musculoskeletal: PRESENT: other - pain of the joint. ABSENT: joint swelling Integumentary: ABSENT: rash, wounds Neurological: ABSENT: abnormal gait, abnormal speech, confusion, dizziness, focal weakness, syncope Psychiatric: ABSENT: anxiety, depression, homidical ideation, suicidal ideation Endocrine: ABSENT: cold intolerance, heat intolerance, menstrual abnormalities, polydipsia, polyuria Hematologic/Lymphatic: ABSENT: easy bleeding, easy bruising, lymphadenopathy Physical Exam Vital Signs: Temp Pulse Resp BP Pulse Ox 98.1 F 88 16 146/55 H 96 10/11/17 16:06 10/11/17 16:06 10/11/17 16:06 10/11/17 16:06 10/11/17 16:06 Intake & Output 10/10/17 10/11/17 10/12/17 06:59 06:59 06:59 Weight 99.1 kg General appearance: PRESENT: no acute distress, well-developed, well-nourished Head exam: PRESENT: atraumatic, normocephalic Eye exam: PRESENT: conjunctiva pink, EOMI, PERRLA Ear exam: PRESENT: normal external ear exam Mouth exam: PRESENT: moist, tongue midline Neck exam: PRESENT: full ROM Respiratory exam: PRESENT: clear to auscultation richard Cardiovascular exam: PRESENT: RRR, +S1, +S2 Pulses: PRESENT: normal dorsalis pedis pul, +2 pedal pulses bilateral Vascular exam: PRESENT: normal capillary refill GI/Abdominal exam: PRESENT: normal bowel sounds, soft Rectal exam: PRESENT: deferred Extremities exam: PRESENT: left AKA, other - amputation of the right 3-5 metatarsal Musculoskeletal exam: PRESENT: other - redness of the right leg upto the mid leg ,it is tender to touch Neurological exam: PRESENT: alert, awake, oriented to person, oriented to place , oriented to time, oriented to situation, CN II-XII grossly intact Psychiatric exam: PRESENT: appropriate affect, normal mood Skin exam: PRESENT: dry, intact, warm Results Laboratory Results: 10/10/17 10/11/17 23:20 01:10 Ammonia 15.7 Urine Color YELLOW Urine Appearance TURBID Urine pH 5.0 Ur Specific Stites 1.021 Urine Protein >=500 H Urine Glucose (UA) >=500 H Urine Ketones NEGATIVE Urine Blood SMALL H Urine Nitrite NEGATIVE Ur Leukocyte Esterase LARGE H Urine WBC (Auto) >182 Urine RBC (Auto) 61 10/11/17 10/11/17 10/11/17 01:10 01:10 07:47 Creatine Kinase 81 74 CK-MB (CK-2) 0.29 Troponin I 0.189 10/11/17 10/11/17 10/11/17 07:47 13:38 13:38 Creatine Kinase 69 CK-MB (CK-2) 0.38 0.32 Troponin I 0.181 0.110 Impressions: Foot X-Ray 10/10/17 19:44 IMPRESSION: Surgical changes. Cannot exclude osteomyelitis involving the head of the 1st proximal phalanx. Assessment & Plan - Diagnosis (1) Cellulitis of right leg Is this a current diagnosis for this admission?: Yes Plan: She will empirically be treated with antibiotic to cover MRSA and gram-negative organisms because previously she has history of MRSA and gram-negative organisms that was cultured from the wound of the right foot there is associated sepsis due to the cellulitis (2) Sepsis Qualifiers: Sepsis type: sepsis due to unspecified organism Qualified Code(s): A41.9 - Sepsis, unspecified organism Is this a current diagnosis for this admission?: Yes (3) Elevated troponin Is this a current diagnosis for this admission?: Yes Plan: The elevated troponin does not seems to reflect acute coronary syndrome it is probably secondary to hyperosmolar state and sepsis (4) Hyperosmolar non-ketotic state in patient with type 2 diabetes mellitus Is this a current diagnosis for this admission?: Yes Plan: She will be treated with IV fluid, she has not been very compliant with her diabetic care in the office
[2017-10-11] MEDS: INSULIN DETEMIR 100 UNIT/ML 3 ML PEN SUBCUT SCH (21:55)
[2017-10-11] MEDS: ATORVASTATIN CALCIUM 20 MG TABLET PO SCH (21:55)
[2017-10-12] MEDS: VANCOMYCIN HCL 1,500 MG in DEXTROSE 5%-WATER 250 ML IV SCH ×2 (01:37→13:39)
[2017-10-12 05:12] LABS: ABSOLUTE BASOPHILS # (AUTO) 0.1 10^3/uL (0.0-0.2); ABSOLUTE EOSINOPHILS # (AUTO) 0.3 10^3/uL (0.0-0.6); ABSOLUTE LYMPHOCYTES (AUTO) 1.7 10^3/uL (0.5-4.7); ABSOLUTE MONOCYTES (AUTO) 0.6 10^3/uL (0.1-1.4); ABSOLUTE NEUT (AUTO) 7.2 10^3/uL (1.7-8.2); BASOPHILS % (AUTO) 0.6 % (0-2); EOSINOPHILS % (AUTO) 3.4 % (0-6); HEMATOCRIT 32.3 % (36.0-47.0); HEMOGLOBIN 10.3 g/dL (12.0-15.5); MEAN CORPUSCULAR HEMOGLOBIN 24.6 pg (27.0-33.4); MEAN CORPUSCULAR HGB CONC 31.8 g/dL (32.0-36.0); MEAN CORPUSCULAR VOLUME 77 fl (80-97); MONOCYTES % (AUTO) 6.2 % (3-13); PLATELET COUNT 236 10^3/uL (150-450); RED BLOOD COUNT 4.17 10^6/uL (3.72-5.28); RED CELL DISTRIBUTION WIDTH 15.6 % (11.5-14.0); SEGMENTED NEUTROPHILS % (AUTO) 72.8 % (42-78); TOTAL CELLS COUNTED % (AUTO) 100 %; WHITE BLOOD COUNT 9.9 10^3/uL (4.0-10.5)
[2017-10-12 05:28] LABS: ALANINE AMINOTRANSFERASE 20 U/L (9-52); ALBUMIN 2.7 g/dL (3.5-5.0); ALKALINE PHOSPHATASE 78 U/L (38-126); ANION GAP 11 (5-19); ASPARTATE AMINO TRANSFERASE 13 U/L (14-36); BILIRUBIN,DIRECT 0.1 mg/dL (0.0-0.4); BILIRUBIN,TOTAL 0.1 mg/dL (0.2-1.3); BLOOD UREA NITROGEN 19 mg/dL (7-20); CALCIUM 8.6 mg/dL (8.4-10.2); CARBON DIOXIDE 25 mmol/L (22-30); CHLORIDE 104 mmol/L (98-107); CHOLESTEROL 151.93 mg/dL (0-200); GLUCOSE 217 mg/dL (75-110); POTASSIUM 3.8 mmol/L (3.6-5.0); SODIUM 140.1 mmol/L (137-145); TOTAL PROTEIN 6.3 g/dL (6.3-8.2); TRIGLYCERIDES 100 mg/dL (<150)
[2017-10-12 05:39] LABS: DIRECT LDL 86 mg/dL (<100)
[2017-10-12] MEDS: GABAPENTIN 100 MG CAPSULE PO SCH ×3 (05:54→22:03)
[2017-10-12] MEDS: NORMAL SALINE 1000 ML 1,000 ML IV PRN ×2 (05:58→22:07)
[2017-10-12] MEDS: INSULIN LISPRO 100 UNIT/ML 3 ML VIAL SUBCUT SCH ×3 (08:38→18:05)
[2017-10-12] MEDS: INSULIN REG, HUMAN 100 UNIT/ML 3 ML VIAL (PYX) SUBCUT SCH (08:41)
[2017-10-12] MEDS: AMLODIPINE BESYLATE 10 MG TABLET PO SCH (09:17)
[2017-10-12] MEDS: LISINOPRIL 10 MG TABLET PO SCH (09:18)
[2017-10-12] MEDS: ASPIRIN 81 MG TABLET, CHEWABLE PO SCH (09:18)
[2017-10-12] MEDS: LEVOTHYROXINE SODIUM 0.075 MG TABLET PO SCH (09:18)
[2017-10-12] MEDS: LEVOFLOXACIN 750 MG/D5W RTU 750 MG/150 ML RTUPB IV SCH (09:19)
[2017-10-12] MEDS: ENOXAPARIN SODIUM INJ 40 MG/0.4 ML DISP.SYRIN SUBCUT SCH (09:19)
[2017-10-12] MEDS: COLLAGENASE CLOSTRIDIUM HIST. OINT 30 GM TP SCH (09:24)
[2017-10-12] MEDS: CLOPIDOGREL BISULFATE 75 MG TABLET PO SCH (18:05)
[2017-10-12] MEDS: ATORVASTATIN CALCIUM 20 MG TABLET PO SCH (22:03)
[2017-10-12] MEDS: INSULIN LISPRO 100 UNIT/ML 3 ML VIAL SUBCUT PRN (22:03)
[2017-10-12] MEDS: INSULIN DETEMIR 100 UNIT/ML 3 ML PEN SUBCUT SCH (22:03)
--- NOTE | 2017-10-12 22:38 | PDOC PROGRESS REPORT ---
Subjective Progress Note for:: 10/12/17 Subjective:: She was seen by the bedside, the cellulitis is improving Reason For Visit: CELLULITIS RT FOOT,MULTIPLE CO MORBID CONDTIONS Physical Exam Vital Signs: Temp Pulse Resp BP Pulse Ox 98.4 F 92 16 115/64 96 10/12/17 15:27 10/12/17 19:00 10/12/17 15:27 10/12/17 15:27 10/12/17 15:27 Intake & Output 10/11/17 10/12/17 10/13/17 06:59 06:59 06:59 Intake Total 2582 2374 Output Total 600 Balance 1982 2374 Weight 99.4 kg General appearance: PRESENT: no acute distress Eye exam: PRESENT: PERRLA Respiratory exam: PRESENT: clear to auscultation richard Cardiovascular exam: PRESENT: +S1, +S2 GI/Abdominal exam: PRESENT: soft Neurological exam: PRESENT: alert, CN II-XII grossly intact Results Laboratory Results: 10/12/17 04:53 10/12/17 04:53 10/12/17 10/12/17 04:53 04:53 WBC 9.9 RBC 4.17 Hgb 10.3 L Hct 32.3 L MCV 77 L MCH 24.6 L MCHC 31.8 L RDW 15.6 H Plt Count 236 Seg Neutrophils % 72.8 Lymphocytes % 17.0 Monocytes % 6.2 Eosinophils % 3.4 Basophils % 0.6 Absolute Neutrophils 7.2 Absolute Lymphocytes 1.7 Absolute Monocytes 0.6 Absolute Eosinophils 0.3 Absolute Basophils 0.1 Sodium 140.1 Potassium 3.8 Chloride 104 Carbon Dioxide 25 Anion Gap 11 BUN 19 Creatinine 0.71 Est GFR ( Amer) > 60 Est GFR (Non-Af Amer) > 60 Glucose 217 H Calcium 8.6 Total Bilirubin 0.1 L AST 13 L ALT 20 Alkaline Phosphatase 78 Total Protein 6.3 Albumin 2.7 L Triglycerides 100 Cholesterol 151.93 LDL Cholesterol Direct 86 VLDL Cholesterol 20.0 HDL Cholesterol 32 L 10/11/17 10/11/17 10/11/17 01:10 01:10 07:47 Creatine Kinase 81 74 CK-MB (CK-2) 0.29 Troponin I 0.189 10/11/17 10/11/17 10/11/17 07:47 13:38 13:38 Creatine Kinase 69 CK-MB (CK-2) 0.38 0.32 Troponin I 0.181 0.110 Impressions: Foot X-Ray 10/10/17 19:44 IMPRESSION: Surgical changes. Cannot exclude osteomyelitis involving the head of the 1st proximal phalanx. Assessment & Plan - Diagnosis (1) Cellulitis of right leg Is this a current diagnosis for this admission?: Yes (2) Sepsis Qualifiers: Sepsis type: sepsis due to unspecified organism Qualified Code(s): A41.9 - Sepsis, unspecified organism Is this a current diagnosis for this admission?: Yes (3) Elevated troponin Is this a current diagnosis for this admission?: Yes (4) Hyperosmolar non-ketotic state in patient with type 2 diabetes mellitus Is this a current diagnosis for this admission?: Yes - Plan Summary Plan Summary: Continue treatment
[2017-10-13] MEDS: VANCOMYCIN HCL 1,500 MG in DEXTROSE 5%-WATER 250 ML IV SCH ×2 (01:43→13:47)
[2017-10-13 05:06] LABS: ABSOLUTE EOSINOPHILS # (AUTO) 0.4 10^3/uL (0.0-0.6); ABSOLUTE LYMPHOCYTES (AUTO) 1.6 10^3/uL (0.5-4.7); ABSOLUTE MONOCYTES (AUTO) 0.6 10^3/uL (0.1-1.4); ABSOLUTE NEUT (AUTO) 6.5 10^3/uL (1.7-8.2); BASOPHILS % (AUTO) 0.5 % (0-2); EOSINOPHILS % (AUTO) 4.6 % (0-6); HEMATOCRIT 31.6 % (36.0-47.0); HEMOGLOBIN 10.1 g/dL (12.0-15.5); LYMPHOCYTES % (AUTO) 17.8 % (13-45); MEAN CORPUSCULAR HEMOGLOBIN 24.5 pg (27.0-33.4); MEAN CORPUSCULAR HGB CONC 31.9 g/dL (32.0-36.0); MEAN CORPUSCULAR VOLUME 77 fl (80-97); MONOCYTES % (AUTO) 6.9 % (3-13); PLATELET COUNT 251 10^3/uL (150-450); RED BLOOD COUNT 4.12 10^6/uL (3.72-5.28); RED CELL DISTRIBUTION WIDTH 15.1 % (11.5-14.0); SEGMENTED NEUTROPHILS % (AUTO) 70.2 % (42-78); TOTAL CELLS COUNTED % (AUTO) 100 %; WHITE BLOOD COUNT 9.2 10^3/uL (4.0-10.5)
[2017-10-13 05:31] LABS: ALANINE AMINOTRANSFERASE 22 U/L (9-52); ALBUMIN 2.6 g/dL (3.5-5.0); ALKALINE PHOSPHATASE 79 U/L (38-126); ANION GAP 12 (5-19); ASPARTATE AMINO TRANSFERASE 12 U/L (14-36); BLOOD UREA NITROGEN 19 mg/dL (7-20); CALCIUM 8.7 mg/dL (8.4-10.2); CARBON DIOXIDE 24 mmol/L (22-30); CHLORIDE 107 mmol/L (98-107); GLUCOSE 223 mg/dL (75-110); POTASSIUM 3.8 mmol/L (3.6-5.0); SODIUM 142.7 mmol/L (137-145); TOTAL PROTEIN 6.1 g/dL (6.3-8.2)
[2017-10-13 05:32] LABS: BILIRUBIN,TOTAL < 0.1 mg/dL (0.2-1.3)
[2017-10-13] MEDS: GABAPENTIN 100 MG CAPSULE PO SCH ×3 (05:37→22:41)
[2017-10-13] MEDS: INSULIN REG, HUMAN 100 UNIT/ML 3 ML VIAL (PYX) SUBCUT SCH (09:02)
[2017-10-13] MEDS: INSULIN LISPRO 100 UNIT/ML 3 ML VIAL SUBCUT SCH ×3 (09:02→16:23)
[2017-10-13] MEDS: ENOXAPARIN SODIUM INJ 40 MG/0.4 ML DISP.SYRIN SUBCUT SCH (10:27)
[2017-10-13] MEDS: LISINOPRIL 10 MG TABLET PO SCH (10:28)
[2017-10-13] MEDS: AMLODIPINE BESYLATE 10 MG TABLET PO SCH (10:30)
[2017-10-13] MEDS: ASPIRIN 81 MG TABLET, CHEWABLE PO SCH (10:30)
[2017-10-13] MEDS: LEVOTHYROXINE SODIUM 0.075 MG TABLET PO SCH (10:30)
[2017-10-13] MEDS: LEVOFLOXACIN 750 MG/D5W RTU 750 MG/150 ML RTUPB IV SCH (10:31)
[2017-10-13] MEDS: NORMAL SALINE 1000 ML 1,000 ML IV PRN (10:36)
[2017-10-13] MEDS: COLLAGENASE CLOSTRIDIUM HIST. OINT 30 GM TP SCH (11:26)
[2017-10-13] MEDS: INSULIN LISPRO 100 UNIT/ML 3 ML VIAL SUBCUT PRN ×3 (12:49→22:43)
[2017-10-13 14:17] LABS: VANCOMYCIN,TROUGH 13.9 ug/mL (5.0-20.0)
[2017-10-13] MEDS: CLOPIDOGREL BISULFATE 75 MG TABLET PO SCH (17:00)
--- NOTE | 2017-10-13 21:32 | PDOC PROGRESS REPORT ---
Subjective Progress Note for:: 10/13/17 Subjective:: Patient is seen by the bedside, she continues to improve with IV antibiotic Reason For Visit: CELLULITIS RT FOOT,MULTIPLE CO MORBID CONDTIONS Physical Exam Vital Signs: Temp Pulse Resp BP Pulse Ox 100.2 F 88 17 157/62 H 93 10/13/17 20:22 10/13/17 20:22 10/13/17 20:22 10/13/17 20:22 10/13/17 20:22 Intake & Output 10/12/17 10/13/17 10/14/17 06:59 06:59 06:59 Intake Total 2582 3946 2917 Output Total 600 500 Balance 1982 3946 2417 Weight 99.4 kg 100.2 kg General appearance: PRESENT: no acute distress Eye exam: PRESENT: PERRLA Respiratory exam: PRESENT: clear to auscultation richard Cardiovascular exam: PRESENT: +S1, +S2 GI/Abdominal exam: PRESENT: soft Neurological exam: PRESENT: alert Results Laboratory Results: 10/13/17 04:33 10/13/17 04:33 10/13/17 10/13/17 04:33 04:33 WBC 9.2 RBC 4.12 Hgb 10.1 L Hct 31.6 L MCV 77 L MCH 24.5 L MCHC 31.9 L RDW 15.1 H Plt Count 251 Seg Neutrophils % 70.2 Lymphocytes % 17.8 Monocytes % 6.9 Eosinophils % 4.6 Basophils % 0.5 Absolute Neutrophils 6.5 Absolute Lymphocytes 1.6 Absolute Monocytes 0.6 Absolute Eosinophils 0.4 Absolute Basophils 0.0 Sodium 142.7 Potassium 3.8 Chloride 107 Carbon Dioxide 24 Anion Gap 12 BUN 19 Creatinine 0.73 Est GFR ( Amer) > 60 Est GFR (Non-Af Amer) > 60 Glucose 223 H Calcium 8.7 Total Bilirubin < 0.1 L AST 12 L ALT 22 Alkaline Phosphatase 79 Total Protein 6.1 L Albumin 2.6 L 10/11/17 07:41 Nasophary (Mrsa Only) MRSA Surveillance Culture - Final MRSA RECOVERED 10/10/17 23:20 Clean Catch Midstream Urine Culture - Final Escherichia Coli Enterococcus Faecalis(Group D) 10/11/17 10/11/17 10/11/17 01:10 01:10 07:47 Creatine Kinase 81 74 CK-MB (CK-2) 0.29 Troponin I 0.189 10/11/17 10/11/17 10/11/17 07:47 13:38 13:38 Creatine Kinase 69 CK-MB (CK-2) 0.38 0.32 Troponin I 0.181 0.110 Impressions: Foot X-Ray 10/10/17 19:44 IMPRESSION: Surgical changes. Cannot exclude osteomyelitis involving the head of the 1st proximal phalanx. Assessment & Plan - Diagnosis (1) Cellulitis of right leg Is this a current diagnosis for this admission?: Yes (2) Sepsis Qualifiers: Sepsis type: sepsis due to unspecified organism Qualified Code(s): A41.9 - Sepsis, unspecified organism Is this a current diagnosis for this admission?: Yes (3) Elevated troponin Is this a current diagnosis for this admission?: Yes (4) Hyperosmolar non-ketotic state in patient with type 2 diabetes mellitus Is this a current diagnosis for this admission?: Yes
[2017-10-13] MEDS: INSULIN DETEMIR 100 UNIT/ML 3 ML PEN SUBCUT SCH (22:41)
[2017-10-13] MEDS: ATORVASTATIN CALCIUM 20 MG TABLET PO SCH (22:41)
[2017-10-14] MEDS: VANCOMYCIN HCL 1,500 MG in DEXTROSE 5%-WATER 250 ML IV SCH ×2 (02:22→13:25)
[2017-10-14] MEDS: NORMAL SALINE 1000 ML 1,000 ML IV PRN ×2 (02:23→02:30)
[2017-10-14] MEDS: GABAPENTIN 100 MG CAPSULE PO SCH ×2 (05:34→13:24)
[2017-10-14 06:00] LABS: ABSOLUTE BASOPHILS # (AUTO) 0.1 10^3/uL (0.0-0.2); ABSOLUTE EOSINOPHILS # (AUTO) 0.5 10^3/uL (0.0-0.6); ABSOLUTE LYMPHOCYTES (AUTO) 1.7 10^3/uL (0.5-4.7); ABSOLUTE MONOCYTES (AUTO) 0.6 10^3/uL (0.1-1.4); ABSOLUTE NEUT (AUTO) 6.8 10^3/uL (1.7-8.2); BASOPHILS % (AUTO) 0.9 % (0-2); EOSINOPHILS % (AUTO) 4.9 % (0-6); HEMATOCRIT 31.7 % (36.0-47.0); HEMOGLOBIN 10.1 g/dL (12.0-15.5); LYMPHOCYTES % (AUTO) 17.8 % (13-45); MEAN CORPUSCULAR HEMOGLOBIN 24.5 pg (27.0-33.4); MEAN CORPUSCULAR HGB CONC 31.8 g/dL (32.0-36.0); MEAN CORPUSCULAR VOLUME 77 fl (80-97); MONOCYTES % (AUTO) 6.4 % (3-13); PLATELET COUNT 291 10^3/uL (150-450); RED BLOOD COUNT 4.12 10^6/uL (3.72-5.28); RED CELL DISTRIBUTION WIDTH 15.5 % (11.5-14.0); TOTAL CELLS COUNTED % (AUTO) 100 %; WHITE BLOOD COUNT 9.7 10^3/uL (4.0-10.5)
[2017-10-14 06:19] LABS: ALANINE AMINOTRANSFERASE 17 U/L (9-52); ALKALINE PHOSPHATASE 92 U/L (38-126); ANION GAP 12 (5-19); ASPARTATE AMINO TRANSFERASE 14 U/L (14-36); BLOOD UREA NITROGEN 12 mg/dL (7-20); CARBON DIOXIDE 25 mmol/L (22-30); CHLORIDE 107 mmol/L (98-107); GLUCOSE 228 mg/dL (75-110); POTASSIUM 3.7 mmol/L (3.6-5.0); SODIUM 143.7 mmol/L (137-145); TOTAL PROTEIN 7.1 g/dL (6.3-8.2)
[2017-10-14 06:28] LABS: BILIRUBIN,TOTAL < 0.1 mg/dL (0.2-1.3)
[2017-10-14] MEDS: INSULIN LISPRO 100 UNIT/ML 3 ML VIAL SUBCUT SCH ×2 (08:23→12:25)
[2017-10-14] MEDS: INSULIN REG, HUMAN 100 UNIT/ML 3 ML VIAL (PYX) SUBCUT SCH (08:25)
[2017-10-14] MEDS: INSULIN LISPRO 100 UNIT/ML 3 ML VIAL SUBCUT PRN ×2 (08:25→12:26)
[2017-10-14] MEDS: LEVOFLOXACIN 750 MG/D5W RTU 750 MG/150 ML RTUPB IV SCH (09:27)
[2017-10-14] MEDS: ASPIRIN 81 MG TABLET, CHEWABLE PO SCH (09:28)
[2017-10-14] MEDS: LEVOTHYROXINE SODIUM 0.075 MG TABLET PO SCH (09:28)
[2017-10-14] MEDS: COLLAGENASE CLOSTRIDIUM HIST. OINT 30 GM TP SCH (09:28)
[2017-10-14] MEDS: LISINOPRIL 10 MG TABLET PO SCH (09:28)
[2017-10-14] MEDS: AMLODIPINE BESYLATE 10 MG TABLET PO SCH (09:28)
[2017-10-14] MEDS: ENOXAPARIN SODIUM INJ 40 MG/0.4 ML DISP.SYRIN SUBCUT SCH (09:28)
[2017-10-14 14:24] VITALS: BP 147/51
[2017-10-14] MEDS ORDERED: MUPIROCIN CALCIUM 2% CREAM 15 GM TP ONE (15:00)
--- NOTE | 2017-10-14 15:00 | PDOC DISCHARGE SUMMARY ---
General - Admit/Disc Date/PCP Admission Date/Primary Care Provider: 10/10/17 22:26 MARLENE CANNON MD Discharge Date: 10/14/17 - Discharge Diagnosis (1) Cellulitis of right leg Is this a current diagnosis for this admission?: Yes (2) Sepsis Is this a current diagnosis for this admission?: Yes (3) Elevated troponin Is this a current diagnosis for this admission?: Yes (4) Hyperosmolar non-ketotic state in patient with type 2 diabetes mellitus Is this a current diagnosis for this admission?: Yes (5) Enterococcus UTI Is this a current diagnosis for this admission?: Yes (6) Escherichia coli urinary tract infection Is this a current diagnosis for this admission?: Yes (7) MRSA (methicillin resistant Staphylococcus aureus) colonization Is this a current diagnosis for this admission?: Yes - Additional Information Discharge Diet: Diabetic Discharge Activity: Activity As Tolerated, Balance Activity w/Rest Prescriptions: RX: Atorvastatin Calcium [Lipitor 20 mg Tablet] 20 mg PO QHS #90 tablet RX: Amlodipine Besylate [Norvasc 10 mg Tablet] 10 mg PO DAILY #90 tablet RX: Aspirin [Aspirin 81 mg Chewable Tablet] 81 mg PO DAILY #90 tab.chew Empagliflozin [Jardiance] 25 mg PO DAILY #90 tablet RX: Gabapentin [Neurontin 100 mg Capsule] 100 mg PO Q8 #90 capsule Levofloxacin [Levaquin 750 mg Tablet] 750 mg PO DAILY #10 tab RX: Levothyroxine Sodium [Synthroid 0.075 mg Tablet] 0.075 mg PO DAILY #90 tablet RX: Lisinopril [Prinivil 10 mg Tablet] 40 mg PO DAILY #90 tablet RX: Metformin HCl [Metformin HCl ER] 1,000 mg PO BID #180 [id number] RX: Mupirocin Calcium [Bactroban 2% Cream 15 gm] 1 applic TP BID 5 Days #2 tube Home Medications: RX: Clopidogrel Bisulfate [Plavix 75 mg Tablet] 75 mg PO DAILY 10/11/17 RX: Hydrocodone/Acetaminophen [[place] 5-325 mg Tablet] 1 tab PO Q4HP PRN RX: Insulin Aspart [Novolog Flexpen] 4 units SQ MEALS 10/11/17 RX: Insulin Detemir [Levemir Flextouch] 50 units SQ QHS 04/25/18 Empagliflozin [Jardiance] 25 mg PO DAILY #90 tablet 10/14/17 Levofloxacin [Levaquin 750 mg Tablet] 750 mg PO DAILY #10 tab 10/14/17 RX: Amlodipine Besylate [Norvasc 10 mg Tablet] 10 mg PO DAILY #90 tablet RX: Aspirin [Aspirin 81 mg Chewable Tablet] 81 mg PO DAILY #90 tab.chew RX: Atorvastatin Calcium [Lipitor 20 mg Tablet] 20 mg PO QHS #90 tablet RX: Gabapentin [Neurontin 100 mg Capsule] 100 mg PO Q8 #90 capsule 10/14/17 RX: Levothyroxine Sodium [Synthroid 0.075 mg Tablet] 0.075 mg PO DAILY #90 tablet 10/14/17 RX: Lisinopril [Prinivil 10 mg Tablet] 40 mg PO DAILY #90 tablet 10/14/17 RX: Metformin HCl [Metformin HCl ER] 1,000 mg PO BID #180 [id number] 10/14/17 RX: Mupirocin Calcium [Bactroban 2% Cream 15 gm] 1 applic TP BID 5 Days #2 tube 10/14/17 History of Present Illness History of Present Illness: LAVELLE ARRIAZA is a 57 year old female, She has a history of 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 In the emergency room she was evaluated she was found to have infection of the right foot as well as cellulitis of the right leg up to the mid right leg. Patient is well-known to me she has history of MRSA and gram-negative cellulitis of the right foot from previous encounter. She has had multiple intervention on the right foot with the intention to salvage the foot, the foot is grossly deformed almost like a charcot food , she was found to have leukocytosis, the emergency room physician is recommending hospital admission for management of this patient.She was also found to have severely elevated blood sugar over 400, the serum troponin was 0.1 most likely from sepsis, she has no chest symptoms to suggest acute coronary syndrome. Hospital Course Hospital Course: Patient was admitted for the management of cellulitis affecting the right lower extremity and the right foot. She was empirically treated with IV antibiotic to cover MRSA and gram-negative organisms the choice of this antibiotic was based on previous culture results when she had MRSA and Proteus infection of the right foot. She was treated successfully with this antibiotic, urine culture grew Enterococcus faecalis and E. coli both sensitive to Levaquin she was empirically treated with vancomycin and Levaquin antibiotic the MRSA surveillance was positive, she was treated with Bactroban nasally with intent to eradicate MRSA .she will continue the Bactroban for 5 days. She also had hyperglycemia and elevated serum troponin the troponin elevation was felt to be secondary to sepsis, the medication for the control of diabetes was adjusted Physical Exam Vital Signs: Temp Pulse Resp BP Pulse Ox 98.0 F 87 16 147/51 H 96 10/14/17 14:22 10/14/17 14:22 10/14/17 14:22 10/14/17 14:22 10/14/17 14:22 Intake & Output 10/13/17 10/14/17 10/15/17 06:59 06:59 06:59 Intake Total 3946 3924 354 Output Total 800 Balance 3946 3124 354 Weight 100.2 kg 100.2 kg General appearance: PRESENT: no acute distress, well-developed, well-nourished Head exam: PRESENT: atraumatic, normocephalic Eye exam: PRESENT: conjunctiva pink, EOMI, PERRLA Ear exam: PRESENT: normal external ear exam Mouth exam: PRESENT: moist, tongue midline Neck exam: PRESENT: full ROM Respiratory exam: PRESENT: clear to auscultation richard Cardiovascular exam: PRESENT: RRR, +S1, +S2 Vascular exam: PRESENT: normal capillary refill GI/Abdominal exam: PRESENT: normal bowel sounds, soft Rectal exam: PRESENT: deferred Extremities exam: PRESENT: left AKA Neurological exam: PRESENT: alert, CN II-XII grossly intact. ABSENT: motor sensory deficit Psychiatric exam: PRESENT: appropriate affect, normal mood Skin exam: PRESENT: dry, intact, warm. ABSENT: cyanosis, rash Results Laboratory Results: 10/14/17 05:13 10/14/17 05:13 10/14/17 10/14/17 05:13 05:13 WBC 9.7 RBC 4.12 Hgb 10.1 L Hct 31.7 L MCV 77 L MCH 24.5 L MCHC 31.8 L RDW 15.5 H Plt Count 291 Seg Neutrophils % 70.0 Lymphocytes % 17.8 Monocytes % 6.4 Eosinophils % 4.9 Basophils % 0.9 Absolute Neutrophils 6.8 Absolute Lymphocytes 1.7 Absolute Monocytes 0.6 Absolute Eosinophils 0.5 Absolute Basophils 0.1 Sodium 143.7 Potassium 3.7 Chloride 107 Carbon Dioxide 25 Anion Gap 12 BUN 12 Creatinine 0.62 Est GFR ( Amer) > 60 Est GFR (Non-Af Amer) > 60 Glucose 228 H Calcium 9.0 Total Bilirubin < 0.1 L AST 14 ALT 17 Alkaline Phosphatase 92 Total Protein 7.1 Albumin 3.0 L 10/11/17 07:41 Nasophary (Mrsa Only) MRSA Surveillance Culture - Final MRSA RECOVERED 10/11/17 10/11/17 10/11/17 01:10 01:10 07:47 Creatine Kinase 81 74 CK-MB (CK-2) 0.29 Troponin I 0.189 10/11/17 10/11/17 10/11/17 07:47 13:38 13:38 Creatine Kinase 69 CK-MB (CK-2) 0.38 0.32 Troponin I 0.181 0.110 Impressions: Foot X-Ray 10/10/17 19:44 IMPRESSION: Surgical changes. Cannot exclude osteomyelitis involving the head of the 1st proximal phalanx. Qualifiers - * PATIENT BEING DISCHARGED WITH ANY OF THE FOLLOWING DIAGNOSIS: No
[2017-10-14] MEDS ORDERED: MUPIROCIN CALCIUM 2% CREAM 15 GM TP SCH (22:00)
== END 2017-10-14 16:04 | disposition home health service (06) | DRG 871 ==
LOC: ER 17:20 → EH 22:26 → 3W 10-11 15:17
PROVIDERS: ADMIT Internal Medicine; ATTEND Internal Medicine
DX: A41.9 Sepsis, unspecified organism (principal); E11.00 Type 2 diabetes mellitus with hyperosmolarity without nonketotic hyperglycemic-hyperosmolar coma (NKHHC); L03.115 Cellulitis of right lower limb; N39.0 Urinary tract infection, site not specified; Z86.14 Personal history of Methicillin resistant Staphylococcus aureus infection; B96.20 Unspecified Escherichia coli [E. coli] as the cause of diseases classified elsewhere; B95.2 Enterococcus as the cause of diseases classified elsewhere; E11.40 Type 2 diabetes mellitus with diabetic neuropathy, unspecified; E11.51 Type 2 diabetes mellitus with diabetic peripheral angiopathy without gangrene; E11.610 Type 2 diabetes mellitus with diabetic neuropathic arthropathy; B95.62 Methicillin resistant Staphylococcus aureus infection as the cause of diseases classified elsewhere; E78.00 Pure hypercholesterolemia, unspecified; I10 Essential (primary) hypertension; K21.9 Gastro-esophageal reflux disease without esophagitis; M19.90 Unspecified osteoarthritis, unspecified site; Z79.899 Other long term (current) drug therapy; Z79.4 Long term (current) use of insulin; Z79.82 Long term (current) use of aspirin; Z89.612 Acquired absence of left leg above knee; Z89.431 Acquired absence of right foot; Z88.1 Allergy status to other antibiotic agents; Z88.0 Allergy status to penicillin; Z82.49 Family history of ischemic heart disease and other diseases of the circulatory system; Z83.3 Family history of diabetes mellitus; Z82.3 Family history of stroke; Z80.9 Family history of malignant neoplasm, unspecified; Z86.73 Personal history of transient ischemic attack (TIA), and cerebral infarction without residual deficits
CPT/HCPCS: 36415; 80048; 80053; 80061; 80076; 80202; 80307; 81001; 82140; 82150; 82550; 82553; 82803; 82962; 83036; 83605; 83690; 83735; 83880; 84100; 84439; 84443; 84484; 85025; 85610; 85652; 85730; 86140; 87040; 87086; 87088; 87186; 93005; 93010; 96365; 96366; 99291; J1650; J1815; J1956; J3370; J3490; J7030; J7060

== ENCOUNTER → 2017-12-12 | Outpatient (CLI) | payer MEDICARE, MEDICAID ==
--- NOTE | 2017-12-12 14:16 | RADIOLOGY REPORT (SQ) ---
EXAM DESCRIPTION: FOOT RIGHT COMPLETE COMPLETED DATE/TIME: 12/12/2017 12:46 pm REASON FOR STUDY: NON PRESSURE ULCER OF RT FOOT L97.512 NON-PRS CHRONIC ULCER OTH PRT RIGHT FOOT W FAT LAYER COMPARISON: 10/10/2017 NUMBER OF VIEWS: Three views. TECHNIQUE: AP, lateral and oblique radiographic images acquired of the right foot. LIMITATIONS: None. FINDINGS: MINERALIZATION: Osteopenia. BONES: Extensive amputations. Similar to previous. No obvious osteomyelitis. JOINTS: No effusions. SOFT TISSUES: Soft tissue defect along the lateral foot. OTHER: No other significant finding. IMPRESSION: Extensive amputations. No obvious osteomyelitis. TECHNICAL DOCUMENTATION: JOB ID: [id number] [employer]- All Rights Reserved Reading location - IP/workstation name: [email or web address]
[2017-12-12 14:36] LABS: ABSOLUTE BASOPHILS # (AUTO) 0.1 10^3/uL (0.0-0.2); ABSOLUTE EOSINOPHILS # (AUTO) 0.3 10^3/uL (0.0-0.6); ABSOLUTE LYMPHOCYTES (AUTO) 2.7 10^3/uL (0.5-4.7); ABSOLUTE MONOCYTES (AUTO) 0.4 10^3/uL (0.1-1.4); ABSOLUTE NEUT (AUTO) 4.5 10^3/uL (1.7-8.2); BASOPHILS % (AUTO) 1.3 % (0-2); EOSINOPHILS % (AUTO) 3.9 % (0-6); HEMATOCRIT 37.3 % (36.0-47.0); HEMOGLOBIN 11.8 g/dL (12.0-15.5); LYMPHOCYTES % (AUTO) 33.6 % (13-45); MEAN CORPUSCULAR HEMOGLOBIN 24.5 pg (27.0-33.4); MEAN CORPUSCULAR HGB CONC 31.7 g/dL (32.0-36.0); MEAN CORPUSCULAR VOLUME 77 fl (80-97); MONOCYTES % (AUTO) 4.9 % (3-13); PLATELET COUNT 296 10^3/uL (150-450); RED BLOOD COUNT 4.82 10^6/uL (3.72-5.28); RED CELL DISTRIBUTION WIDTH 15.9 % (11.5-14.0); SEGMENTED NEUTROPHILS % (AUTO) 56.3 % (42-78); TOTAL CELLS COUNTED % (AUTO) 100 %; WHITE BLOOD COUNT 8.1 10^3/uL (4.0-10.5)
[2017-12-12 15:01] LABS: ALANINE AMINOTRANSFERASE 18 U/L (9-52); ALBUMIN 3.8 g/dL (3.5-5.0); ALKALINE PHOSPHATASE 94 U/L (38-126); ANION GAP 12 (5-19); ASPARTATE AMINO TRANSFERASE 17 U/L (14-36); BILIRUBIN,DIRECT 0.3 mg/dL (0.0-0.4); BILIRUBIN,TOTAL 0.3 mg/dL (0.2-1.3); BLOOD UREA NITROGEN 24 mg/dL (7-20); C-REACTIVE PROTEIN 10.7 mg/L (<10.0); CALCIUM 9.7 mg/dL (8.4-10.2); CARBON DIOXIDE 25 mmol/L (22-30); CHLORIDE 108 mmol/L (98-107); GLUCOSE 149 mg/dL (75-110); TOTAL PROTEIN 8.3 g/dL (6.3-8.2)
[2017-12-12 15:19] LABS: ERYTHROCYTE SEDIMENTATION RATE 73 mm/hr (0-30)
--- NOTE | 2017-12-14 13:30 | XCELERA REPORT ---
[address] [address] Lower Extremity Arterial Evaluation Name: LAVELLE ARRIAZA Age: 57 yrs Gender: Female : 1960 Patient Status: Outpatient Patient Location: Study Date: 12/12/2017 01:22 PM Procedure: A color flow and duplex scan of the lower extremity arteries was performed bilaterally with velocity and waveform anaylsis. Reason For Study: ULCER Ordering Physician: CHELY RODRÍGUEZ Performed By: Tom Longoria Measurements and Calculations Right Left WEB OPERATIONS LEAD PSV 155.4 230.1 cm/sec Prox PFA PSV -147.6 -94.3 cm/sec Prox SFA PSV 129.9 80.5 cm/sec Mid SFA PSV -30.1 -0.20 cm/sec Dist SFA PSV -123.6 -49.3 cm/sec Prox Pop A PSV 85.5 cm/sec Dist SMITH PSV 30.3 cm/sec Dist SE[employer] ENGINE MARKETING MANAGER PSV 31.4 cm/sec Christiano Pedis PSV -30.4 cm/sec Right Side Arterial Evaluation Normal velocity and triphasic waveforms noted in the Common Femoral artery. Monophasic with moderately reduced velocities in the infrageniculate vessels. 50-99 % stenosis at the Femoral artery. Ankle Brachial index not obtainable, bandaged, partial foot. Left Side Arterial Evaluation Normal velocity and triphasic waveforms noted from the Common Femoral artery to proximal Femoral artery. Monophasic in distal thigh. BKA. 50-99 % stenosis at the Femoral artery. Interpretation Summary Severe hemodynamically significant lesions in the right lower extremity only, on duplex imaging, at rest. : CHELY RODRÍGUEZ > Travis Urena
== END ==
LOC: SP 12:26
PROVIDERS: ATTEND Nurse Practitioner
DX: L97.512 Non-pressure chronic ulcer of other part of right foot with fat layer exposed (principal); E11.621 Type 2 diabetes mellitus with foot ulcer
CPT/HCPCS: 36415; 80053; 83036; 85025; 85652; 86140; 93925

== ENCOUNTER 2018-01-30 13:57 | Inpatient (IN) | payer MEDICARE, MEDICAID ==
--- NOTE | 2018-01-30 15:52 | RADIOLOGY REPORT (SQ) ---
EXAM DESCRIPTION: CHEST 2 VIEWS COMPLETED DATE/TIME: 01/30/2018 3:44 pm REASON FOR STUDY: acute infarct COMPARISON: None. EXAM PARAMETERS: NUMBER OF VIEWS: two views TECHNIQUE: Digital Frontal and Lateral radiographic views of the chest acquired. RADIATION DOSE: NA LIMITATIONS: none FINDINGS: LUNGS AND PLEURA: No opacities, masses or pneumothorax. No pleural effusion. MEDIASTINUM AND HILAR STRUCTURES: No masses or contour abnormalities. HEART AND VASCULAR STRUCTURES: Heart normal size. No evidence for failure. BONES: No acute findings. HARDWARE: None in the chest. OTHER: No other significant finding. IMPRESSION: NO ACUTE RADIOGRAPHIC FINDING IN THE CHEST. TECHNICAL DOCUMENTATION: JOB ID: [id number] [employer]- All Rights Reserved Reading location - IP/workstation name: [facility]
[2018-01-30 16:25] LABS: HEMATOCRIT 41.5 % (36.0-47.0); HEMOGLOBIN 13.1 g/dL (12.0-15.5); MEAN CORPUSCULAR HEMOGLOBIN 24.9 pg (27.0-33.4); MEAN CORPUSCULAR HGB CONC 31.6 g/dL (32.0-36.0); MEAN CORPUSCULAR VOLUME 79 fl (80-97); RED BLOOD COUNT 5.26 10^6/uL (3.72-5.28); RED CELL DISTRIBUTION WIDTH 15.8 % (11.5-14.0); WHITE BLOOD COUNT 15.6 10^3/uL (4.0-10.5)
[2018-01-30 16:45] LABS: PLATELET COUNT 274 10^3/uL (150-450)
--- NOTE | 2018-01-30 16:45 | ER Document Report ---
ED General - General Chief Complaint: S/S of Possible Stroke Stated Complaint: DIZZINESS Time Seen by Provider: 01/30/18 16:19 TRAVEL OUTSIDE OF THE [place] IN LAST 30 DAYS: No - HPI Notes: 57-year-old female was sent in by primary care physician for direct admission for stroke. She has been having numbness to her right arm and leg for the past 2 days with difficulty speaking. She fell yesterday because she could not feel her right leg. She is followed by wound care for diabetic ulcers of right leg and has a dressing in place. She was seen by her doctor and had a CT that was consistent with an acute infarct of the left ignacio. She is already taking aspirin and Plavix. He sent patient to the emergency department with orders for Aggrenox and admission orders. Patient has no complaints except for mild pain to her left stump and she is hungry. - Related Data Allergies/Adverse Reactions: amoxicillin [From Augmentin] Allergy (Intermediate, Verified 01/30/18 14:02) Unsure of reaction Cephalosporins Allergy (Intermediate, Verified 01/30/18 14:02) blistering, peeling skin,burning throat clavulanic acid [From Augmentin] Allergy (Intermediate, Verified 01/30/18 14:02) unsure of reaction Penicillins Allergy (Intermediate, Verified 01/30/18 14:02) blistering,peeling skin,burning of throat Past Medical History - Social History Smoking Status: Unknown if Ever Smoked Family History: CAD, CVA, DM, Malignancy - Past Medical History Cardiac Medical History: Reports: Hx Hypercholesterolemia, Hx Hypertension, Hx Peripheral Vascular Disease Denies: Hx Coronary Artery Disease, Hx Heart Attack Pulmonary Medical History: Denies: Hx Asthma, Hx Bronchitis, Hx COPD, Hx Pneumonia Neurological Medical History: Reports: Hx Cerebrovascular Accident - 2004 . Denies: Hx Seizures Endocrine Medical History: Reports: Hx Diabetes Mellitus Type 1, Hx Diabetes Mellitus Type 2, Hx Hypothyroidism Renal/ Medical History: Denies: Hx Peritoneal Dialysis GI Medical History: Reports: Hx Gastroesophageal Reflux Disease. Denies: Hx Hepatitis, Hx Hiatal Hernia, Hx Ulcer Musculoskeletal Medical History: Reports Hx Arthritis Psychiatric Medical History: Denies: Hx Depression Infectious Medical History: Denies: Hx Hepatitis Past Surgical History: Reports: Hx Section, Hx Orthopedic Surgery - left aka. Right fifth toe amputation., Hx Vascular Surgery - Right leg stenting 2. Denies: Hx Hysterectomy, Hx Mastectomy, Hx Open Heart Surgery, Hx Pacemaker - Immunizations Hx Diphtheria, Pertussis, Tetanus Vaccination: No Review of Systems - Review of Systems Notes: Constitutional: Negative for fever. HENT: Negative for sore throat. Eyes: Negative for visual changes. Cardiovascular: Negative for chest pain. Respiratory: Negative for shortness of breath. Gastrointestinal: Negative for abdominal pain, vomiting or diarrhea. Genitourinary: Negative for dysuria. Musculoskeletal: Negative for back pain. Positive for left stump pain Skin: Positive for diabetic ulcers right leg Neurological: Negative for headaches. Positive for right arm and leg numbness. Positive for speech difficulty. 10 point ROS negative except as marked above and in HPI. Physical Exam - Vital signs Vitals: Temp Pulse BP Pulse Ox 98.5 F 100 129/75 H 96 01/30/18 14:03 01/30/18 14:03 01/30/18 14:03 01/30/18 14:03 - Notes Notes: PHYSICAL EXAMINATION: GENERAL: Well-appearing, well-nourished and in no acute distress. Morbid obesity HEAD: Atraumatic, normocephalic. EYES: Pupils equal round and reactive to light, extraocular movements intact, conjunctiva are normal. ENT: nares patent, oropharynx clear without exudates. Moist mucous membranes. NECK: Normal range of motion, supple without lymphadenopathy LUNGS: Breath sounds clear to auscultation bilaterally and equal. No wheezes rales or rhonchi. HEART: Regular rate and rhythm, no chest wall tenderness ABDOMEN: Soft, nontender, normoactive bowel sounds. No guarding, no rebound. No masses appreciated. EXTREMITIES: Left AKA with some tenderness around stump. No erythema or ecchymosis. Bulky dressing in place to left ankle and foot with chronic venous stasis changes appreciated in superficial ulcerations. Mild tenderness. NEUROLOGICAL: Cranial nerves grossly intact. Slurred speech. No tongue deviation. No facial droop. Diminished sensation right arm and leg. No focal weakness. PSYCH: Normal mood, normal affect. SKIN: Chronic venous stasis changes Course - Re-evaluation Re-evalutation: 01/30/18 16:44 Holding in emergency department for direct admit for acute ignacio infarct. Passed swallow exam. Will monitor. - Vital Signs Vital signs: Temp Pulse Resp BP Pulse Ox 98.5 F 100 129/75 H 96 01/30/18 14:03 01/30/18 14:03 01/30/18 14:03 01/30/18 14:03 - Laboratory Result Diagrams: 01/30/18 16:11 01/30/18 16:11 Laboratory results interpreted by me: 01/30/18 16:11 Hemoglobin A1c % 11.4 H Discharge - Discharge Condition: Stable Disposition: ADMITTED INPATIENT Admitting Provider: Lashay Referrals: MARLENE CANNON MD [Primary Care Provider] - Follow up as needed
[2018-01-30 16:47] LABS: ALANINE AMINOTRANSFERASE 24 U/L (9-52); ALBUMIN 4.4 g/dL (3.5-5.0); ALKALINE PHOSPHATASE 131 U/L (38-126); ANION GAP 15 (5-19); ASPARTATE AMINO TRANSFERASE 41 U/L (14-36); BILIRUBIN,DIRECT 0.4 mg/dL (0.0-0.4); BILIRUBIN,TOTAL 0.5 mg/dL (0.2-1.3); BLOOD UREA NITROGEN 21 mg/dL (7-20); CALCIUM 9.9 mg/dL (8.4-10.2); CARBON DIOXIDE 23 mmol/L (22-30); CHLORIDE 110 mmol/L (98-107); CREATINE KINASE 669 U/L (30-135); GLUCOSE 204 mg/dL (75-110); SODIUM 147.5 mmol/L (137-145)
[2018-01-30 16:59] LABS: CREATINE KINASE MB 2.15 ng/mL (<4.55)
[2018-01-30 17:04] LABS: TROPONIN I < 0.012 ng/mL
--- NOTE | 2018-01-30 18:36 | EKG REPORT ---
SEVERITY:- ABNORMAL ECG - SINUS RHYTHM LEFT VENTRICULAR HYPERTROPHY CONSIDER ANTERIOR INFARCT : Confirmed by: Latrell Coleman MD 30-Jan-2018 18:36:09
[2018-01-30] MEDS: ASPIRIN/DIPYRIDAMOLE 25-200 MG 1 CAP.SR CPMP.12HR PO SCH (18:37)
[2018-01-30] MEDS ORDERED: CLOPIDOGREL BISULFATE 75 MG TABLET PO SCH (20:30)
[2018-01-30] MEDS ORDERED: (PENDING PHARMACY ID) (Empagliflozin [Jardiance] 25 MG) PO SCH (20:30)
--- NOTE | 2018-01-30 20:35 | PDOC H&P ---
History of Present Illness Admission Date/PCP: 01/30/18 17:46 MARLENE CANNON MD History of Present Illness: LAVELLE ARRIAZA is a 57 year old female, she came to the office for follow- up evaluation, she complained of slurred speech associated with numbness or weakness of the right upper extremities and lower extremities for the last 2 days. She has type 2 diabetes mellitus poorly controlled complicated with microvascular and macrovascular complications including peripheral vascular disease status post amputation of left leg above the knee, retinopathy, presentation was suspicious for cerebral infarction, the plan was to admit directly from the office to the hospital for further management, she is not a candidate for thrombolytic because of the timeframe of more than 3 hours of onset of symptoms of CVA. There was no bed available in the hospital, outpatient MRI brain was requested, it demonstrated abnormal signal in the ignacio to the left of the midline consistent with acute nonhemorrhagic stroke because of these findings and the fact that she has ongoing slurred speech she was admitted directly to the hospital unfortunately no bed was available, the nursing staff supervisor fruit grading directed the patient to be seen again by the ED physicians, she was seen in the emergency room , ultimately admitted to the hospital. She has chronic leg ulcer on the right side, she goes to wound clinic for the management of the ulcer. Past Medical History Cardiac Medical History: Reports: Hyperlipidema, Hypertension, Peripheral Vascular Disease Endocrine Medical History: Reports: Diabetes Mellitus Type 2 GI Medical History: Reports: Gastroesophageal Reflux Disease Musculoskeltal Medical History: Reports: Arthritis Hematology: Past Surgical History Past Surgical History: Reports: Amputation - Left AKA, partial foot amputation including the lateral 3 rays., Section, Orthopedic Surgery - left aka. Right fifth toe amputation., Vascular Surgery - Right leg stenting 2 Social History Smoking Status: Never Smoker Frequency of Alcohol Use: None Hx Recreational Drug Use: No Drugs: None Hx Prescription Drug Abuse: No - Advance Directive Resuscitation Status: Full Code Family History Family History: CAD, CVA, DM, Malignancy Parental Family History Reviewed: Yes Children Family History Reviewed: Yes Sibling(s) Family History Reviewed.: Yes Medication/Allergy Home Medications: Aspirin [Aspirin EC] 81 mg PO DAILY 01/30/18 Atorvastatin Calcium [Lipitor 20 mg Tablet] 20 mg PO QHS 01/30/18 Clopidogrel Bisulfate [Plavix 75 mg Tablet] 75 mg PO DAILY 01/30/18 Empagliflozin [Jardiance] 25 mg PO DAILY 01/30/18 Gabapentin [Neurontin 100 mg Capsule] 100 mg PO Q8 01/30/18 Insulin Aspart [Novolog Insulin (Aspart) 100 unit/mL] See Protocol SQ AC Insulin Detemir [Levemir Flextouch] 40 units SQ QHS 01/30/18 Levothyroxine Sodium [Synthroid 0.075 mg Tablet] 0.075 mg PO Q6AM 01/30/18 Lisinopril [Prinivil 40 mg Tablet] 40 mg PO DAILY 01/30/18 Allergies/Adverse Reactions: amoxicillin [From Augmentin] Allergy (Intermediate, Verified 01/30/18 14:02) Unsure of reaction Cephalosporins Allergy (Intermediate, Verified 01/30/18 14:02) blistering, peeling skin,burning throat clavulanic acid [From Augmentin] Allergy (Intermediate, Verified 01/30/18 14:02) unsure of reaction Penicillins Allergy (Intermediate, Verified 01/30/18 14:02) blistering,peeling skin,burning of throat Review of Systems Constitutional: ABSENT: chills, fever(s), headache(s), weight gain, weight loss Eyes: ABSENT: visual disturbances Ears: ABSENT: hearing changes Cardiovascular: ABSENT: chest pain, dyspnea on exertion, edema, orthropnea, palpitations Respiratory: ABSENT: cough, hemoptysis Gastrointestinal: ABSENT: abdominal pain, constipation, diarrhea, hematemesis, hematochezia, nausea, vomiting Genitourinary: ABSENT: dysuria, hematuria Musculoskeletal: ABSENT: joint swelling Integumentary: ABSENT: rash, wounds Neurological: PRESENT: abnormal speech, focal weakness, frequent falls Psychiatric: ABSENT: anxiety, depression, homidical ideation, suicidal ideation Endocrine: ABSENT: cold intolerance, heat intolerance, menstrual abnormalities, polydipsia, polyuria Hematologic/Lymphatic: ABSENT: easy bleeding, easy bruising, lymphadenopathy Physical Exam Vital Signs: Temp Pulse Resp BP Pulse Ox 98.5 F 106 H 19 124/60 96 01/30/18 14:03 01/30/18 20:15 01/30/18 20:15 01/30/18 20:15 01/30/18 20:15 General appearance: PRESENT: no acute distress Head exam: PRESENT: atraumatic, normocephalic Eye exam: PRESENT: conjunctiva pink, EOMI, PERRLA Ear exam: PRESENT: normal external ear exam Mouth exam: PRESENT: moist, tongue midline Neck exam: PRESENT: full ROM Respiratory exam: PRESENT: clear to auscultation richard Cardiovascular exam: PRESENT: RRR, +S1, +S2 Vascular exam: PRESENT: normal capillary refill GI/Abdominal exam: PRESENT: normal bowel sounds, soft Rectal exam: PRESENT: deferred Extremities exam: PRESENT: left AKA Neurological exam: PRESENT: alert, other - Weakness on right side of the body Psychiatric exam: PRESENT: appropriate affect, normal mood Skin exam: PRESENT: dry, intact, warm Results Impressions: Chest X-Ray 01/30/18 00:00 IMPRESSION: NO ACUTE RADIOGRAPHIC FINDING IN THE CHEST. Assessment & Plan - Diagnosis (1) Acute embolic stroke Is this a current diagnosis for this admission?: Yes Plan: Patient sustained a stroke despite taking antiplatelet, Plavix and aspirin this is most likely embolic stroke, no history of atrial fibrillation transthoracic echocardiogram will be ordered, low sensitive for diagnosing intracardiac thrombus, JUAN A is better, not available in this hospital, carotid Dopplers ordered, DC Plavix and aspirin, start Aggrenox, anticoagulant (2) Diabetes mellitus type 2 in nonobese Is this a current diagnosis for this admission?: Yes
[2018-01-30] MEDS: ATORVASTATIN CALCIUM 20 MG TABLET PO SCH (22:07)
[2018-01-30] MEDS: GABAPENTIN 100 MG CAPSULE PO SCH (22:07)
[2018-01-30] MEDS: INSULIN DETEMIR 100 UNIT/ML 3 ML PEN SUBCUT SCH (22:45)
[2018-01-31 00:51] LABS: CREATINE KINASE MB 1.58 ng/mL (<4.55); TROPONIN I < 0.012 ng/mL
[2018-01-31] MEDS ORDERED: DEXTROSE 50%-WATER SYRINGE 12.5 GM/25 ML DOSE IV PRN (01:48)
[2018-01-31] MEDS ORDERED: DEXTROSE 40% GEL 15 GM TUBE PO PRN (01:48)
[2018-01-31] MEDS ORDERED: DEXTROSE 50%-WATER SYRINGE 25 GM/50 ML DOSE IV PRN (01:48)
[2018-01-31] MEDS ORDERED: DEXTROSE 40% GEL 15 GM TUBE X 2 PO PRN (01:48)
[2018-01-31] MEDS ORDERED: GLUCAGON,HUMAN RECOMB 1 MG INJ IM PRN (01:48)
[2018-01-31] MEDS: GABAPENTIN 100 MG CAPSULE PO SCH ×3 (05:13→21:56)
[2018-01-31] MEDS: LEVOTHYROXINE SODIUM 0.075 MG TABLET PO SCH (05:13)
--- NOTE | 2018-01-31 07:13 | EKG REPORT ---
SEVERITY:- ABNORMAL ECG - SINUS TACHYCARDIA LEFT VENTRICULAR HYPERTROPHY : Confirmed by: Latrell Coleman MD 31-Jan-2018 07:13:20
[2018-01-31 07:49] LABS: ABSOLUTE BASOPHILS # (AUTO) 0.1 10^3/uL (0.0-0.2); ABSOLUTE EOSINOPHILS # (AUTO) 0.5 10^3/uL (0.0-0.6); ABSOLUTE LYMPHOCYTES (AUTO) 2.6 10^3/uL (0.5-4.7); ABSOLUTE MONOCYTES (AUTO) 0.6 10^3/uL (0.1-1.4); ABSOLUTE NEUT (AUTO) 6.1 10^3/uL (1.7-8.2); BASOPHILS % (AUTO) 0.7 % (0-2); EOSINOPHILS % (AUTO) 5.5 % (0-6); HEMATOCRIT 35.4 % (36.0-47.0); HEMOGLOBIN 11.2 g/dL (12.0-15.5); LYMPHOCYTES % (AUTO) 26.1 % (13-45); MEAN CORPUSCULAR HGB CONC 31.5 g/dL (32.0-36.0); MEAN CORPUSCULAR VOLUME 79 fl (80-97); PLATELET COUNT 270 10^3/uL (150-450); RED BLOOD COUNT 4.46 10^6/uL (3.72-5.28); RED CELL DISTRIBUTION WIDTH 15.7 % (11.5-14.0); SEGMENTED NEUTROPHILS % (AUTO) 61.7 % (42-78); TOTAL CELLS COUNTED % (AUTO) 100 %; WHITE BLOOD COUNT 9.9 10^3/uL (4.0-10.5)
[2018-01-31 07:53] LABS: INTERNATIONAL RATION (INR) 1.02; PROTHROMBIN TIME 13.9 SEC (11.4-15.4)
[2018-01-31 08:00] LABS: ALANINE AMINOTRANSFERASE 20 U/L (9-52); ALBUMIN 3.5 g/dL (3.5-5.0); ALKALINE PHOSPHATASE 92 U/L (38-126); ANION GAP 12 (5-19); ASPARTATE AMINO TRANSFERASE 21 U/L (14-36); BILIRUBIN,DIRECT 0.2 mg/dL (0.0-0.4); BILIRUBIN,TOTAL 0.4 mg/dL (0.2-1.3); BLOOD UREA NITROGEN 21 mg/dL (7-20); CALCIUM 9.3 mg/dL (8.4-10.2); CARBON DIOXIDE 24 mmol/L (22-30); CHLORIDE 111 mmol/L (98-107); CREATINE KINASE 506 U/L (30-135); GLUCOSE 122 mg/dL (75-110); POTASSIUM 3.9 mmol/L (3.6-5.0); SODIUM 146.8 mmol/L (137-145); TOTAL PROTEIN 7.4 g/dL (6.3-8.2); TRIGLYCERIDES 86 mg/dL (<150)
[2018-01-31 08:11] LABS: DIRECT LDL 81 mg/dL (<100)
[2018-01-31 08:25] LABS: TROPONIN I < 0.012 ng/mL
[2018-01-31] MEDS: ASPIRIN/DIPYRIDAMOLE 25-200 MG 1 CAP.SR CPMP.12HR PO SCH ×2 (09:02→17:43)
[2018-01-31] MEDS: ENOXAPARIN SODIUM INJ 40 MG/0.4 ML DISP.SYRIN SUBCUT SCH (09:02)
[2018-01-31] MEDS: LISINOPRIL 10 MG TABLET PO SCH (09:03)
--- NOTE | 2018-01-31 15:44 | RADIOLOGY REPORT (SQ) ---
EXAM DESCRIPTION: CAROTID DOPPLER COMPLETED DATE/TIME: 01/31/2018 2:16 pm REASON FOR STUDY: acute infarct L ignacio COMPARISON: None. TECHNIQUE: Grayscale ultrasound, Doppler velocity and spectra, and color Doppler images acquired of the extra-cranial carotid and vertebral arteries. Images stored on PACS. LIMITATIONS: None. FINDINGS: RIGHT CAROTID CCA Velocities: Within normal limits. ICA Velocities Peak systolic 0.94 m/s. End diastolic 0.3 m/s. Proximal ICA/CCA peak systolic ratio 0.7. Smooth plaque without significant luminal compromise. LEFT CAROTID CCA Velocities: Within normal limits. ICA Velocities Peak systolic 0.89 m/s. End diastolic 0.33 m/s. Proximal ICA/CCA peak systolic ratio 0.7. Smooth plaque with no suggestion of luminal compromise. VERTEBRAL ARTERIES: Antegrade flow. Normal waveforms. SUBCLAVIAN ARTERIES: No finding. OTHER: No other significant finding. IMPRESSION: NO HEMODYNAMICALLY SIGNIFICANT STENOSIS. COMMENT: Quality ID #[id number]: Velocity criteria are extrapolated from the diameter data as defined by t he Society of Radiologists in Ultrasound Consensus Conference. Radiology 2003: 229; 340-346. TECHNICAL DOCUMENTATION: JOB ID: [id number]- All Rights Reserved Reading location - IP/workstation name: [email or web address]
--- NOTE | 2018-01-31 15:50 | PDOC PROGRESS REPORT ---
Subjective Progress Note for:: 01/31/18 Subjective:: She was admitted yesterday for acute CVA, seen by the bedside, carotid Doppler done, transthoracic echo done, patient on antiplatelet adrenals hopefully discharge home tomorrow with PT Reason For Visit: CVA Physical Exam Vital Signs: Temp Pulse Resp BP Pulse Ox 97.9 F 97 16 130/47 H 98 01/31/18 11:50 01/31/18 14:00 01/31/18 12:00 01/31/18 12:00 01/31/18 12:00 Intake & Output 01/30/18 01/31/18 02/01/18 06:59 06:59 06:59 Intake Total 0 Balance 0 Weight 98 kg General appearance: PRESENT: no acute distress Eye exam: PRESENT: PERRLA Respiratory exam: PRESENT: clear to auscultation richard Cardiovascular exam: PRESENT: +S1, +S2 GI/Abdominal exam: PRESENT: soft Neurological exam: PRESENT: alert Results Laboratory Results: 01/31/18 07:25 01/31/18 07:25 01/31/18 01/31/18 07:25 07:25 WBC 9.9 RBC 4.46 Hgb 11.2 L Hct 35.4 L MCV 79 L MCH 25.0 L MCHC 31.5 L RDW 15.7 H Plt Count 270 Seg Neutrophils % 61.7 Lymphocytes % 26.1 Monocytes % 6.0 Eosinophils % 5.5 Basophils % 0.7 Absolute Neutrophils 6.1 Absolute Lymphocytes 2.6 Absolute Monocytes 0.6 Absolute Eosinophils 0.5 Absolute Basophils 0.1 Sodium 146.8 H Potassium 3.9 Chloride 111 H Carbon Dioxide 24 Anion Gap 12 BUN 21 H Creatinine 0.82 Est GFR ( Amer) > 60 Est GFR (Non-Af Amer) > 60 Glucose 122 H Calcium 9.3 Total Bilirubin 0.4 AST 21 ALT 20 Alkaline Phosphatase 92 Total Protein 7.4 Albumin 3.5 Triglycerides 86 Cholesterol 173.10 LDL Cholesterol Direct 81 VLDL Cholesterol 17.0 HDL Cholesterol 54 01/31/18 01/31/18 01/31/18 00:18 00:18 07:25 Creatine Kinase 512 H 506 H CK-MB (CK-2) 1.58 Troponin I < 0.012 01/31/18 07:25 Creatine Kinase CK-MB (CK-2) 1.20 Troponin I < 0.012 Impressions: Chest X-Ray 01/30/18 00:00 IMPRESSION: NO ACUTE RADIOGRAPHIC FINDING IN THE CHEST. Carotid Doppler Study 01/31/18 00:00 IMPRESSION: NO HEMODYNAMICALLY SIGNIFICANT STENOSIS. Assessment & Plan - Diagnosis (1) Acute embolic stroke Is this a current diagnosis for this admission?: Yes (2) Diabetes mellitus type 2 in nonobese Is this a current diagnosis for this admission?: Yes
[2018-01-31 16:14] LABS: APPEARANCE,URINE CLOUDY; BILIRUBIN,URINE NEGATIVE (NEGATIVE); COLOR,URINE YELLOW; GLUCOSE, URINE >=500 mg/dL (NEGATIVE); KETONES,URINE NEGATIVE (NEGATIVE); LEUKOCYTE ESTERASE,URINE MODERATE (NEGATIVE); NITRITE,URINE NEGATIVE (NEGATIVE); PROTEIN,URINE 100 mg/dL (NEGATIVE); URINE SPECIFIC GRAVITY 1.022; UROBILINOGEN,URINE NEGATIVE mg/dL (<2.0)
[2018-01-31] MEDS: INSULIN LISPRO 100 UNIT/ML 3 ML VIAL SUBCUT PRN ×2 (16:42→21:55)
[2018-01-31] MEDS ORDERED: CADEXOMER IODINE GEL 40 GM/TUBE TP SCH (18:00)
--- NOTE | 2018-01-31 20:27 | XCELERA REPORT ---
[address] [address] Transthoracic Echocardiogram Report Name: LAVELLE ARRIAZA Age: 57 yrs Gender: Female : 1960 Patient Status: Inpatient Patient Location: [address] [place], [place] [address] Study Date: 01/31/2018 10:59 AM Height: 67 in Weight: 216 lb BSA: 2.1 m2 Reason For Study: acute infarct Ordering Physician: MARLENE CANNON Performed By: Tita Cummnigs Interpretation Summary Minimal pericardial effusion No evidence of cardiogenic emboli in this TTE Moderate concentric LVH with normal LVEF, and stage I LV diastolic dysfunction, borderline LA enlargement, No segmental regional wall motion abnormality. No R to L shunt Mild AV sclerosis with no /AR. Normal MV with mild MR. No Pulm hypertension. MMode/2D Measurements & Calculations RVDd: 3.3 cm LVIDd: 3.6 cm FS: 29.9 % Ao root diam: LVIDs: 2.5 cm EDV(Teich): 3.4 cm 54.6 ml Ao root area: ESV(Teich): 22.9 ml 9.2 cm2 LA dimension: EF(Teich): 4.1 cm 58.0 % IV Septum Wall_phl: LV Post Wall_phl: 1.5 cm 1.6 cm Doppler Measurements & Calculations MV E max alejandro: MV P1/2t max alejandro: Ao V2 max: LV V1 max P.4 cm/sec 81.4 cm/sec 131.7 cm/sec 5.3 mmHg MV A max alejandro: MV P1/2t: 65.9 msec Ao max P.9 mmHg LV V1 max: 80.9 cm/sec 115.5 cm/sec MV E/A: 1.0 MVA(P1/2t): 3.3 cm2 MV dec slope: 361.8 cm/sec2 MV dec time: 0.23 sec PA V2 max: TR max alejandro: MV P1/2t-pr_phl: 94.3 cm/sec 229.2 cm/sec 65.9 msec PA max PG: TR max P.0 mmHg 3.6 mmHg Left Ventricle The left ventricle is normal in size. There is moderate concentric left ventricular hypertrophy. The left ventricular ejection fraction is normal. Spectral Doppler of the mitral valve is reversed, with an E/A wave ratio < 1.0. The E/E' ratio between the mitral E wave and the mitral annulus E' wave is abnormal, with a value of > 10. No regional wall motion abnormalities noted. There is no thrombus. Right Ventricle The right ventricle is grossly normal size. The right ventricular systolic function is normal. Atria The right atrium is normal. Borderline left atrial enlargement. The interatrial septum is intact with no evidence for an atrial septal defect. Mitral Valve The mitral valve is normal in structure and function. There is mild mitral annular calcification. There is no evidence of mitral valve prolapse. There is no mitral valve stenosis. There is a mild amount of mitral regurgitation. Aortic Valve The aortic valve is trileaflet. The aortic valve opens well. The aortic valve is sclerotic and shows some degree of functional abnormality. There is no aortic valvular vegetation. There is no aortic valve stenosis. No aortic regurgitation is present. Tricuspid Valve The tricuspid valve is not well visualized secondary to technical limitations. Doppler findings do not suggest pulmonary hypertension. Pulmonic Valve There is no pulmonic valvular regurgitation. Great Vessels There is aortic root sclerosis/calcification. The aortic root is normal size. Effusions Minimal pericardial effusion. I WMSI = 1.00 % Normal = 100 Segments Size X - Cannot 1 - Normal 2 - 3 - Akinetic4 - 1-2 small Interpret Hypokinetic Dyskinetic 3-5 moderate 5 - 6-14 large Aneurysmal 15-16 diffuse : MARLENE CANNON > Latrell Coleman
[2018-01-31] MEDS: INSULIN DETEMIR 100 UNIT/ML 3 ML PEN SUBCUT SCH (21:55)
[2018-01-31] MEDS: ATORVASTATIN CALCIUM 20 MG TABLET PO SCH (21:56)
[2018-02-01] MEDS: LEVOTHYROXINE SODIUM 0.075 MG TABLET PO SCH (05:33)
[2018-02-01] MEDS: GABAPENTIN 100 MG CAPSULE PO SCH ×3 (05:33→22:17)
[2018-02-01 06:42] LABS: ABSOLUTE BASOPHILS # (AUTO) 0.1 10^3/uL (0.0-0.2); ABSOLUTE EOSINOPHILS # (AUTO) 0.6 10^3/uL (0.0-0.6); ABSOLUTE LYMPHOCYTES (AUTO) 1.6 10^3/uL (0.5-4.7); ABSOLUTE MONOCYTES (AUTO) 0.5 10^3/uL (0.1-1.4); ABSOLUTE NEUT (AUTO) 5.9 10^3/uL (1.7-8.2); BASOPHILS % (AUTO) 0.8 % (0-2); EOSINOPHILS % (AUTO) 6.6 % (0-6); HEMATOCRIT 36.1 % (36.0-47.0); HEMOGLOBIN 11.6 g/dL (12.0-15.5); LYMPHOCYTES % (AUTO) 18.6 % (13-45); MEAN CORPUSCULAR HEMOGLOBIN 25.1 pg (27.0-33.4); MEAN CORPUSCULAR HGB CONC 32.2 g/dL (32.0-36.0); MEAN CORPUSCULAR VOLUME 78 fl (80-97); MONOCYTES % (AUTO) 5.3 % (3-13); PLATELET COUNT 239 10^3/uL (150-450); RED BLOOD COUNT 4.64 10^6/uL (3.72-5.28); RED CELL DISTRIBUTION WIDTH 15.8 % (11.5-14.0); SEGMENTED NEUTROPHILS % (AUTO) 68.7 % (42-78); TOTAL CELLS COUNTED % (AUTO) 100 %; WHITE BLOOD COUNT 8.6 10^3/uL (4.0-10.5)
[2018-02-01 06:43] LABS: INTERNATIONAL RATION (INR) 0.99; PROTHROMBIN TIME 13.6 SEC (11.4-15.4)
[2018-02-01 07:12] LABS: ALANINE AMINOTRANSFERASE 19 U/L (9-52); ALBUMIN 3.6 g/dL (3.5-5.0); ALKALINE PHOSPHATASE 94 U/L (38-126); ANION GAP 14 (5-19); ASPARTATE AMINO TRANSFERASE 20 U/L (14-36); BILIRUBIN,DIRECT 0.4 mg/dL (0.0-0.4); BILIRUBIN,TOTAL 0.5 mg/dL (0.2-1.3); BLOOD UREA NITROGEN 20 mg/dL (7-20); CALCIUM 9.4 mg/dL (8.4-10.2); CARBON DIOXIDE 20 mmol/L (22-30); CHLORIDE 108 mmol/L (98-107); GLUCOSE 246 mg/dL (75-110); POTASSIUM 4.2 mmol/L (3.6-5.0); SODIUM 142.4 mmol/L (137-145); TOTAL PROTEIN 7.8 g/dL (6.3-8.2)
[2018-02-01] MEDS: INSULIN LISPRO 100 UNIT/ML 3 ML VIAL SUBCUT PRN ×4 (08:12→22:17)
[2018-02-01] MEDS: ASPIRIN/DIPYRIDAMOLE 25-200 MG 1 CAP.SR CPMP.12HR PO SCH ×2 (09:59→17:02)
[2018-02-01] MEDS: LISINOPRIL 10 MG TABLET PO SCH (09:59)
[2018-02-01] MEDS: ENOXAPARIN SODIUM INJ 40 MG/0.4 ML DISP.SYRIN SUBCUT SCH (09:59)
--- NOTE | 2018-02-01 14:21 | Physician Advisory Note ---
Physician Advisor ProgressNote .: Pursuant to the plan for [facility], I have reviewed the medical record for this patient. Physician Advisor Statement: Please consider documenting, if you agree: 1. "Acute hypernatremia, suspect due to , resolved" 2. "Acute Lt-sided embolic vertebrobasliar artery* CVA with cerebral infarction, with Rt dominant side hemiparesis & dysarthria, [resolved or improved or persistent] " Thanks! CK
--- NOTE | 2018-02-01 20:11 | PDOC DISCHARGE SUMMARY ---
General - Admit/Disc Date/PCP Admission Date/Primary Care Provider: 01/30/18 17:46 MARLENE CANNON MD Discharge Date: 02/01/18 - Discharge Diagnosis (1) Acute embolic stroke Is this a current diagnosis for this admission?: Yes (2) Diabetes mellitus type 2 in nonobese Is this a current diagnosis for this admission?: Yes - Additional Information Resuscitation Status: Full Code Prescriptions: Atorvastatin Calcium [Lipitor 80 mg Tablet] 80 mg PO QHS #90 tablet Aspirin/Dipyridamole [Aggrenox 25 mg/200 mg Capsule SA] 1 cap.sr PO BID #180 cpmp.12hr Liraglutide [Victoza 2-Manuelito] 0.6 mg SQ DAILY #1 ml Home Medications: Empagliflozin [Jardiance] 25 mg PO DAILY 01/30/18 Gabapentin [Neurontin 100 mg Capsule] 100 mg PO Q8 01/30/18 Insulin Aspart [Novolog Insulin (Aspart) 100 unit/mL] See Protocol SQ AC Insulin Detemir [Levemir Flextouch] 40 units SQ QHS 01/30/18 Levothyroxine Sodium [Synthroid 0.075 mg Tablet] 0.075 mg PO Q6AM 01/30/18 Lisinopril [Prinivil 40 mg Tablet] 40 mg PO DAILY 01/30/18 Aspirin/Dipyridamole [Aggrenox 25 mg/200 mg Capsule SA] 1 cap.sr PO BID #180 cpmp.12hr 02/01/18 Atorvastatin Calcium [Lipitor 80 mg Tablet] 80 mg PO QHS #90 tablet 02/01/18 Cadexomer Iodine [Iodosorb Gel 40 gm/Tube] 1 applic TP Q3DAYS tube 02/01/18 Liraglutide [Victoza 2-Manuelito] 0.6 mg SQ DAILY #1 ml 02/01/18 History of Present Illness History of Present Illness: LAVELLE ARRIAZA is a 57 year old female, she came to the office for follow- up evaluation, she complained of slurred speech associated with numbness or weakness of the right upper extremities and lower extremities for the last 2 days. She has type 2 diabetes mellitus poorly controlled complicated with microvascular and macrovascular complications including peripheral vascular disease status post amputation of left leg above the knee, retinopathy, presentation was suspicious for cerebral infarction, the plan was to admit directly from the office to the hospital for further management, she is not a candidate for thrombolytic because of the timeframe of more than 3 hours of onset of symptoms of CVA. There was no bed available in the hospital, outpatient MRI brain was requested, it demonstrated abnormal signal in the ignacio to the left of the midline consistent with acute nonhemorrhagic stroke because of these findings and the fact that she has ongoing slurred speech she was admitted directly to the hospital unfortunately no bed was available, the nursing staff supervisor mold cleaning and storage directed the patient to be seen again by the ED physicians, she was seen in the emergency room , ultimately admitted to the hospital. She has chronic leg ulcer on the right side, she goes to wound clinic for the management of the ulcer. Hospital Course Hospital Course: She was admitted for the management of acute embolic stroke, she was treated with Aggrenox, high-dose atorvastatin. She had 2D echo done carotid Doppler, there are negative. She has acute pontine stroke with slurred speech, speech is improved, there is associated weakness of the right side, she is status post left [id number] amputation from PAD. Physical Exam Vital Signs: Temp Pulse Resp BP Pulse Ox 99.0 F 80 20 144/59 H 96 02/01/18 15:12 02/01/18 15:12 02/01/18 15:12 02/01/18 15:12 02/01/18 15:12 Intake & Output 01/31/18 02/01/18 02/02/18 06:59 06:59 06:59 Intake Total 0 911 1035 Output Total 550 Balance 0 361 1035 Weight 98 kg 102.2 kg General appearance: PRESENT: no acute distress Eye exam: PRESENT: PERRLA Respiratory exam: PRESENT: clear to auscultation richard Cardiovascular exam: PRESENT: +S1, +S2 GI/Abdominal exam: PRESENT: soft Neurological exam: PRESENT: alert Results Laboratory Results: 02/01/18 05:46 02/01/18 05:46 02/01/18 02/01/18 05:46 05:46 WBC 8.6 RBC 4.64 Hgb 11.6 L Hct 36.1 MCV 78 L MCH 25.1 L MCHC 32.2 RDW 15.8 H Plt Count 239 Seg Neutrophils % 68.7 Lymphocytes % 18.6 Monocytes % 5.3 Eosinophils % 6.6 H Basophils % 0.8 Absolute Neutrophils 5.9 Absolute Lymphocytes 1.6 Absolute Monocytes 0.5 Absolute Eosinophils 0.6 Absolute Basophils 0.1 Sodium 142.4 Potassium 4.2 Chloride 108 H Carbon Dioxide 20 L Anion Gap 14 BUN 20 Creatinine 0.88 Est GFR ( Amer) > 60 Est GFR (Non-Af Amer) > 60 Glucose 246 H Calcium 9.4 Total Bilirubin 0.5 AST 20 ALT 19 Alkaline Phosphatase 94 Total Protein 7.8 Albumin 3.6 01/31/18 01/31/18 01/31/18 00:18 00:18 07:25 Creatine Kinase 512 H 506 H CK-MB (CK-2) 1.58 Troponin I < 0.012 01/31/18 07:25 Creatine Kinase CK-MB (CK-2) 1.20 Troponin I < 0.012 Impressions: Chest X-Ray 01/30/18 00:00 IMPRESSION: NO ACUTE RADIOGRAPHIC FINDING IN THE CHEST. Carotid Doppler Study 01/31/18 00:00 IMPRESSION: NO HEMODYNAMICALLY SIGNIFICANT STENOSIS. Qualifiers - * PATIENT BEING DISCHARGED WITH ANY OF THE FOLLOWING DIAGNOSIS: No, Stroke VTE patient discharged on overlapping Therapy?: Yes Stroke Pt being discharged on Anti-thrombolytic therapy?: Yes Stroke Pt being discharged on Anti-coagulation therapy?: Yes Stroke Pt being discharged on Statins?: Yes
[2018-02-01] MEDS: ATORVASTATIN CALCIUM 20 MG TABLET PO SCH (22:16)
[2018-02-01] MEDS: INSULIN DETEMIR 100 UNIT/ML 3 ML PEN SUBCUT SCH (22:17)
[2018-02-02] MEDS: LEVOTHYROXINE SODIUM 0.075 MG TABLET PO SCH (05:28)
[2018-02-02] MEDS: GABAPENTIN 100 MG CAPSULE PO SCH (05:28)
[2018-02-02 06:16] LABS: INTERNATIONAL RATION (INR) 0.97; PROTHROMBIN TIME 13.4 SEC (11.4-15.4)
[2018-02-02 06:25] LABS: ABSOLUTE BASOPHILS # (AUTO) 0.1 10^3/uL (0.0-0.2); ABSOLUTE EOSINOPHILS # (AUTO) 0.6 10^3/uL (0.0-0.6); ABSOLUTE LYMPHOCYTES (AUTO) 1.8 10^3/uL (0.5-4.7); ABSOLUTE MONOCYTES (AUTO) 0.5 10^3/uL (0.1-1.4); ABSOLUTE NEUT (AUTO) 4.8 10^3/uL (1.7-8.2); EOSINOPHILS % (AUTO) 7.6 % (0-6); HEMATOCRIT 35.6 % (36.0-47.0); HEMOGLOBIN 11.4 g/dL (12.0-15.5); LYMPHOCYTES % (AUTO) 23.4 % (13-45); MEAN CORPUSCULAR HEMOGLOBIN 25.1 pg (27.0-33.4); MEAN CORPUSCULAR HGB CONC 32.1 g/dL (32.0-36.0); MEAN CORPUSCULAR VOLUME 78 fl (80-97); MONOCYTES % (AUTO) 6.7 % (3-13); PLATELET COUNT 240 10^3/uL (150-450); RED BLOOD COUNT 4.55 10^6/uL (3.72-5.28); RED CELL DISTRIBUTION WIDTH 15.4 % (11.5-14.0); SEGMENTED NEUTROPHILS % (AUTO) 61.3 % (42-78); TOTAL CELLS COUNTED % (AUTO) 100 %; WHITE BLOOD COUNT 7.8 10^3/uL (4.0-10.5)
[2018-02-02 06:32] LABS: ALANINE AMINOTRANSFERASE 19 U/L (9-52); ALBUMIN 3.5 g/dL (3.5-5.0); ALKALINE PHOSPHATASE 91 U/L (38-126); ANION GAP 13 (5-19); ASPARTATE AMINO TRANSFERASE 17 U/L (14-36); BILIRUBIN,DIRECT 0.4 mg/dL (0.0-0.4); BILIRUBIN,TOTAL 0.5 mg/dL (0.2-1.3); BLOOD UREA NITROGEN 27 mg/dL (7-20); CALCIUM 9.5 mg/dL (8.4-10.2); CARBON DIOXIDE 21 mmol/L (22-30); CHLORIDE 110 mmol/L (98-107); GLUCOSE 210 mg/dL (75-110); POTASSIUM 4.5 mmol/L (3.6-5.0); SODIUM 144.4 mmol/L (137-145); TOTAL PROTEIN 7.5 g/dL (6.3-8.2)
[2018-02-02 08:02] VITALS: BP 126/60
[2018-02-02] MEDS: ASPIRIN/DIPYRIDAMOLE 25-200 MG 1 CAP.SR CPMP.12HR PO SCH (09:02)
[2018-02-02] MEDS: LISINOPRIL 10 MG TABLET PO SCH (09:02)
[2018-02-02] MEDS: ENOXAPARIN SODIUM INJ 40 MG/0.4 ML DISP.SYRIN SUBCUT SCH (09:02)
[2018-02-02] MEDS: INSULIN LISPRO 100 UNIT/ML 3 ML VIAL SUBCUT PRN (09:02)
== END 2018-02-02 10:28 | disposition home health service (06) | DRG 65 ==
LOC: ER 13:57 → EH 17:46 → 3W 19:55
PROVIDERS: ADMIT Internal Medicine; ATTEND Internal Medicine
DX: I63.19 Cerebral infarction due to embolism of other precerebral artery (principal); L98.498 Non-pressure chronic ulcer of skin of other sites with other specified severity; G81.91 Hemiplegia, unspecified affecting right dominant side; E11.622 Type 2 diabetes mellitus with other skin ulcer; E11.51 Type 2 diabetes mellitus with diabetic peripheral angiopathy without gangrene; E11.319 Type 2 diabetes mellitus with unspecified diabetic retinopathy without macular edema; I10 Essential (primary) hypertension; K21.9 Gastro-esophageal reflux disease without esophagitis; R47.81 Slurred speech; Z79.01 Long term (current) use of anticoagulants; Z79.82 Long term (current) use of aspirin; Z79.899 Other long term (current) drug therapy; Z79.84 Long term (current) use of oral hypoglycemic drugs; Z79.4 Long term (current) use of insulin; Z89.612 Acquired absence of left leg above knee
CPT/HCPCS: 36415; 70551; 71046; 80048; 80053; 80061; 80076; 81001; 82550; 82553; 82962; 83036; 84484; 85025; 85027; 85610; 85730; 93005; 93010; 93306; 93880; 99285; G8978-GP; G8979-GP; G8999-GN; G9186-GN; J1650; J1815; J3490

== ENCOUNTER → 2018-01-30 | Outpatient (CLI) | payer MEDICARE, MEDICAID ==
--- NOTE | 2018-01-30 13:11 | RADIOLOGY REPORT (SQ) ---
EXAM DESCRIPTION: MRI HEAD WITHOUT COMPLETED DATE/TIME: 01/30/2018 12:51 pm REASON FOR STUDY: CEREBRAL INFARCTION UNSPEC I63.9 CEREBRAL INFARCTION, UNSPECIFIED COMPARISON: 05/29/2013 TECHNIQUE: Multiplanar imaging includes non-contrasted T1, T2, FLAIR, and Diffusion with ADC map seq uences. Images stored on PACS. LIMITATIONS: None. FINDINGS: ANATOMY: No anomalies. Normal vascular flow voids. Pituitary fossa normal. CSF SPACES: Normal in size and contour. No hemorrhage. CEREBRUM: A few high-signal intensity lesions scattered throughout the white matter on FLAIR imaging with distribution suggesting chronic micro-vascular ischemic change. Sulci and gyri normal in size a nd contour. No evidence of hemorrhage, mass or extraaxial fluid collection. POSTERIOR FOSSA: Focal increased T2 signal in the ignacio to left of midline. See below. No hemorrhage. No edema, masses or mass effect. Internal auditory canals, cerebello-pontine angles, mastoids mojgan l. DIFFUSION: Abnormal signal in the ignacio to left of midline bright on diffusion and dark on ADC map. ORBITS: No masses. Globes normal. PARANASAL SINUSES: No fluid levels. Mucosa normal. OTHER: No other significant finding. IMPRESSION: Acute, nonhemorrhagic infarct left ignacio. EVIDENCE OF ACUTE STROKE: YES. LEFT VERTEBROBASILAR. TECHNICAL DOCUMENTATION: JOB ID: [id number]- All Rights Reserved Reading location - IP/workstation name: [facility]
== END ==
LOC: RAD 11:54
PROVIDERS: ATTEND Internal Medicine
DX: I63.9 Cerebral infarction, unspecified (principal)
CPT/HCPCS: 70551

== ENCOUNTER → 2018-04-20 | Outpatient (CLI) | payer MEDICARE, MEDICAID ==
[2018-04-20 15:10] LABS: ABSOLUTE BASOPHILS # (AUTO) 0.1 10^3/uL (0.0-0.2); ABSOLUTE EOSINOPHILS # (AUTO) 0.2 10^3/uL (0.0-0.6); ABSOLUTE LYMPHOCYTES (AUTO) 2.6 10^3/uL (0.5-4.7); ABSOLUTE MONOCYTES (AUTO) 0.4 10^3/uL (0.1-1.4); ABSOLUTE NEUT (AUTO) 4.6 10^3/uL (1.7-8.2); BASOPHILS % (AUTO) 1.2 % (0-2); EOSINOPHILS % (AUTO) 2.6 % (0-6); HEMOGLOBIN 12.1 g/dL (12.0-15.5); LYMPHOCYTES % (AUTO) 33.1 % (13-45); MEAN CORPUSCULAR HEMOGLOBIN 26.1 pg (27.0-33.4); MEAN CORPUSCULAR HGB CONC 32.7 g/dL (32.0-36.0); MEAN CORPUSCULAR VOLUME 80 fl (80-97); MONOCYTES % (AUTO) 4.8 % (3-13); PLATELET COUNT 250 10^3/uL (150-450); RED BLOOD COUNT 4.63 10^6/uL (3.72-5.28); RED CELL DISTRIBUTION WIDTH 15.6 % (11.5-14.0); SEGMENTED NEUTROPHILS % (AUTO) 58.3 % (42-78); TOTAL CELLS COUNTED % (AUTO) 100 %; WHITE BLOOD COUNT 7.9 10^3/uL (4.0-10.5)
--- NOTE | 2018-04-20 15:51 | RADIOLOGY REPORT (SQ) ---
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 TECHNIQUE: AP, lateral and oblique radiographic images acquired of the right foot. LIMITATIONS: None. FINDINGS: MINERALIZATION: Normal. BONES: Flat foot. Resection of the 3rd through 5th digits. There are now changes in the head of the 2nd metatarsal and there is subluxation of the 2nd metatarsal phalangeal joint. JOINTS: See above. There also bone erosive changes in the 1st interphalangeal joint. SOFT TISSUES: No soft tissue swelling. No foreign body. OTHER: No other significant finding. IMPRESSION: Surgical changes. Subluxation of 2nd metatarsal phalangeal joint. Bony erosion in the 1st interphalangeal joint. Cannot exclude osteomyelitis. TECHNICAL DOCUMENTATION: JOB ID: [id number] [employer]- All Rights Reserved Reading location - IP/workstation name: [email or web address]
[2018-04-20 16:08] LABS: ERYTHROCYTE SEDIMENTATION RATE 29 mm/hr (0-30)
[2018-04-20 16:43] LABS: ALANINE AMINOTRANSFERASE 17 U/L (9-52); ALBUMIN 3.9 g/dL (3.5-5.0); ALKALINE PHOSPHATASE 106 U/L (38-126); ANION GAP 14 (5-19); ASPARTATE AMINO TRANSFERASE 18 U/L (14-36); BILIRUBIN,DIRECT 0.2 mg/dL (0.0-0.4); BILIRUBIN,TOTAL 0.4 mg/dL (0.2-1.3); BLOOD UREA NITROGEN 18 mg/dL (7-20); CALCIUM 9.4 mg/dL (8.4-10.2); CARBON DIOXIDE 24 mmol/L (22-30); CHLORIDE 104 mmol/L (98-107); GLUCOSE 256 mg/dL (75-110); SODIUM 141.6 mmol/L (137-145); TOTAL PROTEIN 7.4 g/dL (6.3-8.2)
== END ==
LOC: OD 14:12
PROVIDERS: ATTEND Nurse Practitioner
DX: E11.621 Type 2 diabetes mellitus with foot ulcer (principal); L97.512 Non-pressure chronic ulcer of other part of right foot with fat layer exposed
CPT/HCPCS: 36415; 80053; 83036; 85025; 85652

== ENCOUNTER → 2018-08-15 | Outpatient (CLI) | payer MEDICARE, MEDICAID ==
[2018-08-15 12:39] LABS: ABSOLUTE BASOPHILS # (AUTO) 0.1 10^3/uL (0.0-0.2); ABSOLUTE EOSINOPHILS # (AUTO) 0.2 10^3/uL (0.0-0.6); ABSOLUTE LYMPHOCYTES (AUTO) 1.4 10^3/uL (0.5-4.7); ABSOLUTE MONOCYTES (AUTO) 0.5 10^3/uL (0.1-1.4); ABSOLUTE NEUT (AUTO) 3.5 10^3/uL (1.7-8.2); BASOPHILS % (AUTO) 1.3 % (0-2); EOSINOPHILS % (AUTO) 3.3 % (0-6); HEMATOCRIT 38.5 % (36.0-47.0); HEMOGLOBIN 12.4 g/dL (12.0-15.5); LYMPHOCYTES % (AUTO) 24.7 % (13-45); MEAN CORPUSCULAR HEMOGLOBIN 26.1 pg (27.0-33.4); MEAN CORPUSCULAR HGB CONC 32.2 g/dL (32.0-36.0); MEAN CORPUSCULAR VOLUME 81 fl (80-97); MONOCYTES % (AUTO) 9.2 % (3-13); PLATELET COUNT 195 10^3/uL (150-450); RED BLOOD COUNT 4.75 10^6/uL (3.72-5.28); RED CELL DISTRIBUTION WIDTH 14.5 % (11.5-14.0); SEGMENTED NEUTROPHILS % (AUTO) 61.5 % (42-78); TOTAL CELLS COUNTED % (AUTO) 100 %; WHITE BLOOD COUNT 5.7 10^3/uL (4.0-10.5)
--- NOTE | 2018-08-15 13:01 | RADIOLOGY REPORT (SQ) ---
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 TECHNIQUE: AP, lateral and oblique radiographic images acquired of the right foot. LIMITATIONS: None. FINDINGS: MINERALIZATION: Normal. BONES: Multiple partial amputations. No obvious osteomyelitis. Intrinsic midfoot deformity. JOINTS: No effusions. SOFT TISSUES: No soft tissue swelling. No foreign body. OTHER: No other significant finding. IMPRESSION: No obvious osteomyelitis. TECHNICAL DOCUMENTATION: JOB ID: [id number] [email or web address]- All Rights Reserved Reading location - IP/workstation name: [email or web address]
[2018-08-15 13:08] LABS: ALANINE AMINOTRANSFERASE 21 U/L (9-52); ALBUMIN 4.1 g/dL (3.5-5.0); ALKALINE PHOSPHATASE 98 U/L (38-126); ANION GAP 10 (5-19); ASPARTATE AMINO TRANSFERASE 18 U/L (14-36); BILIRUBIN,DIRECT 0.2 mg/dL (0.0-0.4); BILIRUBIN,TOTAL 0.3 mg/dL (0.2-1.3); BLOOD UREA NITROGEN 18 mg/dL (7-20); C-REACTIVE PROTEIN 8.2 mg/L (<10.0); CALCIUM 9.8 mg/dL (8.4-10.2); CARBON DIOXIDE 25 mmol/L (22-30); CHLORIDE 107 mmol/L (98-107); GLUCOSE 268 mg/dL (75-110); POTASSIUM 4.1 mmol/L (3.6-5.0); SODIUM 142.2 mmol/L (137-145); TOTAL PROTEIN 7.3 g/dL (6.3-8.2)
[2018-08-15 13:19] LABS: ERYTHROCYTE SEDIMENTATION RATE 29 mm/hr (0-30)
== END ==
LOC: WC 11:33
PROVIDERS: ATTEND Nurse Practitioner Family
DX: E11.621 Type 2 diabetes mellitus with foot ulcer (principal); L97.512 Non-pressure chronic ulcer of other part of right foot with fat layer exposed
CPT/HCPCS: 36415; 80053; 83036; 85025; 85652; 86140

== ENCOUNTER → 2018-10-01 | Outpatient (CLI) | payer MEDICARE, MEDICAID ==
[2018-10-01 15:10] LABS: ABSOLUTE BASOPHILS # (AUTO) 0.1 10^3/uL (0.0-0.2); ABSOLUTE EOSINOPHILS # (AUTO) 0.2 10^3/uL (0.0-0.6); ABSOLUTE LYMPHOCYTES (AUTO) 2.2 10^3/uL (0.5-4.7); ABSOLUTE MONOCYTES (AUTO) 0.3 10^3/uL (0.1-1.4); ABSOLUTE NEUT (AUTO) 3.9 10^3/uL (1.7-8.2); EOSINOPHILS % (AUTO) 3.4 % (0-6); HEMATOCRIT 36.5 % (36.0-47.0); HEMOGLOBIN 11.8 g/dL (12.0-15.5); LYMPHOCYTES % (AUTO) 33.1 % (13-45); MEAN CORPUSCULAR HEMOGLOBIN 26.1 pg (27.0-33.4); MEAN CORPUSCULAR HGB CONC 32.2 g/dL (32.0-36.0); MEAN CORPUSCULAR VOLUME 81 fl (80-97); MONOCYTES % (AUTO) 4.9 % (3-13); PLATELET COUNT 226 10^3/uL (150-450); RED BLOOD COUNT 4.51 10^6/uL (3.72-5.28); RED CELL DISTRIBUTION WIDTH 14.1 % (11.5-14.0); SEGMENTED NEUTROPHILS % (AUTO) 57.6 % (42-78); TOTAL CELLS COUNTED % (AUTO) 100 %; WHITE BLOOD COUNT 6.7 10^3/uL (4.0-10.5)
--- NOTE | 2018-10-01 15:39 | RADIOLOGY REPORT (SQ) ---
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 NUMBER OF VIEWS: Three views. TECHNIQUE: AP, lateral and oblique radiographic images acquired of the right foot. LIMITATIONS: None. FINDINGS: MINERALIZATION: Normal. BONES: Extensive amputation. There is the appearance of bone destruction/ resorption involving the h ead of the 1st proximal phalanx JOINTS: No effusions. SOFT TISSUES: No soft tissue swelling. No foreign body. OTHER: No other significant finding. IMPRESSION: Cannot exclude osteomyelitis involving the 1st proximal phalanx. TECHNICAL DOCUMENTATION: JOB ID: [id number] [employer]- All Rights Reserved Reading location - IP/workstation name: [email or web address]
[2018-10-01 15:51] LABS: ERYTHROCYTE SEDIMENTATION RATE 29 mm/hr (0-30)
[2018-10-02 19:39] LABS: ALANINE AMINOTRANSFERASE 23 U/L (9-52); ALBUMIN 3.7 g/dL (3.5-5.0); ALKALINE PHOSPHATASE 108 U/L (38-126); ANION GAP 8 (5-19); ASPARTATE AMINO TRANSFERASE 16 U/L (14-36); BILIRUBIN,DIRECT 0.2 mg/dL (0.0-0.4); BILIRUBIN,TOTAL 0.2 mg/dL (0.2-1.3); BLOOD UREA NITROGEN 21 mg/dL (7-20); C-REACTIVE PROTEIN 6.5 mg/L (<10.0); CALCIUM 9.8 mg/dL (8.4-10.2); CARBON DIOXIDE 27 mmol/L (22-30); CHLORIDE 105 mmol/L (98-107); GLUCOSE 315 mg/dL (75-110); POTASSIUM 3.9 mmol/L (3.6-5.0); TOTAL PROTEIN 7.1 g/dL (6.3-8.2)
== END ==
LOC: WC 13:54
PROVIDERS: ATTEND Nurse Practitioner Family
DX: L97.512 Non-pressure chronic ulcer of other part of right foot with fat layer exposed (principal)
CPT/HCPCS: 36415; 80053; 85025; 85652; 86140

== ENCOUNTER 2019-03-15 21:00 | Emergency (ER) | payer MEDICARE, MEDICAID ==
[2019-03-15 22:40] LABS: ABSOLUTE BASOPHILS # (AUTO) 0.1 10^3/uL (0.0-0.2); ABSOLUTE EOSINOPHILS # (AUTO) 0.4 10^3/uL (0.0-0.6); ABSOLUTE LYMPHOCYTES (AUTO) 2.5 10^3/uL (0.5-4.7); ABSOLUTE MONOCYTES (AUTO) 0.5 10^3/uL (0.1-1.4); ABSOLUTE NEUT (AUTO) 5.2 10^3/uL (1.7-8.2); BASOPHILS % (AUTO) 1.1 % (0-2); EOSINOPHILS % (AUTO) 4.4 % (0-6); HEMATOCRIT 38.8 % (36.0-47.0); HEMOGLOBIN 12.5 g/dL (12.0-15.5); LYMPHOCYTES % (AUTO) 28.6 % (13-45); MEAN CORPUSCULAR HEMOGLOBIN 26.1 pg (27.0-33.4); MEAN CORPUSCULAR HGB CONC 32.3 g/dL (32.0-36.0); MEAN CORPUSCULAR VOLUME 81 fl (80-97); PLATELET COUNT 232 10^3/uL (150-450); RED BLOOD COUNT 4.78 10^6/uL (3.72-5.28); RED CELL DISTRIBUTION WIDTH 14.4 % (11.5-14.0); SEGMENTED NEUTROPHILS % (AUTO) 59.9 % (42-78); TOTAL CELLS COUNTED % (AUTO) 100 %; WHITE BLOOD COUNT 8.8 10^3/uL (4.0-10.5)
[2019-03-15 22:51] VITALS: BP 185/94
[2019-03-15 22:55] LABS: ALBUMIN 4.2 g/dL (3.5-5.0); ALKALINE PHOSPHATASE 98 U/L (38-126); ANION GAP 11 (5-19); ASPARTATE AMINO TRANSFERASE 22 U/L (14-36); BILIRUBIN,DIRECT 0.1 mg/dL (0.0-0.4); BILIRUBIN,TOTAL 0.2 mg/dL (0.2-1.3); BLOOD UREA NITROGEN 15 mg/dL (7-20); CALCIUM 10.2 mg/dL (8.4-10.2); CARBON DIOXIDE 29 mmol/L (22-30); CHLORIDE 101 mmol/L (98-107); GLUCOSE 231 mg/dL (75-110); POTASSIUM 3.7 mmol/L (3.6-5.0); TOTAL PROTEIN 7.6 g/dL (6.3-8.2)
--- NOTE | 2019-03-15 22:56 | ER Document Report ---
ED Blood Pressure Problem - General Chief Complaint: High Blood Pressure Stated Complaint: ELEVATED BLOOD PRESSURE Time Seen by Provider: 03/15/19 22:48 Primary Care Provider: SOREN MERCADO NP, PLASTICS SPREADING MACHINE OPERATOR [Primary Care Provider] - Follow up as needed MARLENE CANNON MD [ACTIVE STAFF] - Follow up as needed Notes: Patient is a 51-year-old female history of hypertension, diabetes, hyperlipidemia, left BKA presents to the emergency department for an elevation in her blood pressure. States her visiting home health nurse took her blood pressure and it was 225 systolic. States she then presented to [facility] and a friend took her blood pressure noting it was 220 systolic. States paramedics took her blood pressure and it was 187 systolic. Patient's denying any headache, chest pain, dizziness, lightheadedness, weakness. Patient has a visiting home health nurse as she recently underwent amputation of toes on her right lower extremity due to complications of diabetes. Patient states she typically takes 40 mg of lisinopril daily. States she forgot to take it this morning but when her blood pressure was noted to be elevated by visiting nurse she did take it around 1800 hrs. this evening. TRAVEL OUTSIDE OF THE [place] IN LAST 30 DAYS: No - Related Data Allergies/Adverse Reactions: amoxicillin [From Augmentin] Allergy (Intermediate, Verified 11/27/18 20:05) Unsure of reaction Cephalosporins Allergy (Intermediate, Verified 11/27/18 20:05) blistering, peeling skin,burning throat clavulanic acid [From Augmentin] Allergy (Intermediate, Verified 11/27/18 20:05) unsure of reaction Penicillins Allergy (Intermediate, Verified 11/27/18 20:05) blistering,peeling skin,burning of throat Past Medical History - General Information source: Patient - Social History Smoking Status: Never Smoker Family History: CAD, CVA, DM, Malignancy Patient has suicidal ideation: No Patient has homicidal ideation: No - Past Medical History Cardiac Medical History: Reports: Hx Hypercholesterolemia, Hx Hypertension, Hx Peripheral Vascular Disease Denies: Hx Coronary Artery Disease, Hx Heart Attack Pulmonary Medical History: Denies: Hx Asthma, Hx Bronchitis, Hx COPD, Hx Pneumonia Neurological Medical History: Reports: Hx Cerebrovascular Accident - 2004 . Denies: Hx Seizures Endocrine Medical History: Reports: Hx Diabetes Mellitus Type 1, Hx Diabetes Mellitus Type 2, Hx Hypothyroidism Renal/ Medical History: Denies: Hx Peritoneal Dialysis GI Medical History: Reports: Hx Gastroesophageal Reflux Disease. Denies: Hx Hepatitis, Hx Hiatal Hernia, Hx Ulcer Musculoskeletal Medical History: Reports Hx Arthritis Psychiatric Medical History: Denies: Hx Depression Infectious Medical History: Denies: Hx Hepatitis Past Surgical History: Reports: Hx Section, Hx Orthopedic Surgery - left aka. Right fifth toe amputation., Hx Vascular Surgery - Right leg stenting 2. Denies: Hx Hysterectomy, Hx Mastectomy, Hx Open Heart Surgery, Hx Pacemaker - Immunizations Hx Diphtheria, Pertussis, Tetanus Vaccination: No Review of Systems - Review of Systems Constitutional: No symptoms reported EENT: No symptoms reported Cardiovascular: No symptoms reported Respiratory: No symptoms reported Gastrointestinal: No symptoms reported Genitourinary: No symptoms reported Female Genitourinary: No symptoms reported Musculoskeletal: No symptoms reported Skin: No symptoms reported Hematologic/Lymphatic: No symptoms reported Neurological/Psychological: No symptoms reported Physical Exam - Vital signs Vitals: Temp Pulse Resp BP Pulse Ox 97.8 F 96 16 154/78 H 94 03/15/19 21:03/15/19 21:09 03/15/19 21:09 03/15/19 21:09 03/15/19 21:09 - Notes Notes: GENERAL: Alert, interacts well. No acute distress. HEAD: Normocephalic, atraumatic. EYES: Pupils equal, round, and reactive to light. Extraocular movements intact. ENT: Oral mucosa moist, tongue midline. NECK: Full range of motion. Supple. Trachea midline. LUNGS: Clear to auscultation bilaterally, no wheezes, rales, or rhonchi. No respiratory distress. HEART: Regular rate and rhythm. No murmur ABDOMEN: Soft, non-tender. Non-distended. Bowel sounds present in all 4 quadr ants. EXTREMITIES: Moves all 4 extremities spontaneously. No edema, normal radial pulses bilaterally. No cyanosis. Left BKA. Right foot heavily wrapped in gauze, patient denies pain. BACK: no cervical, thoracic, lumbar midline tenderness. No saddle anesthesia, normal distal neurovascular exam. NEUROLOGICAL: Alert and oriented x3. Normal speech. cranial nerves II through XII grossly intact. PSYCH: Normal affect, normal mood. SKIN: Warm, dry, normal turgor. Course - Re-evaluation Re-evalutation: 03/15/19 22:54 Patient's initial blood pressure in the emergency department was 154/78. Repeat blood pressure as I am examining the patient is 185/94. Patient continues to be complaint free. States Dr. Cannon is her primary care provider. I discussed with patient following up with Dr. Cannon in the morning. Of also discussed continuing taking her home medications as prescribed. Discussed attempting to not miss any further doses of her lisinopril. At this time will discharge with return precautions and follow-up recommendations. Verbal discharge instructions given a the bedside and opportunity for questions given. Medication warnings reviewed. Patient is in agreement with this plan and has verbalized understanding of return precautions and the need for primary care follow-up in the next 24-72 hours. This medical record was dictated with voice recognizing software. There may be grammatical, syntax errors that are unintended. 03/15/19 22:57 Blood work was ordered by triage nurse. Patient sugar was noted to be elevated, discussed with her using home insulin via sliding scale, patient voices underst anding. - Vital Signs Vital signs: Temp Pulse Resp BP Pulse Ox 97.8 F 78 17 185/94 H 97 03/15/19 21:09 03/15/19 22:51 03/15/19 22:51 03/15/19 22:51 03/15/19 22:51 - Laboratory Result Diagrams: 03/15/19 22:15 03/15/19 22:15 Laboratory results interpreted by me: 03/15/19 03/15/19 22:15 22:15 MCH 26.1 L RDW 14.4 H Glucose 231 H Discharge - Discharge Clinical Impression: Hypertension Qualifiers: Hypertension type: unspecified Qualified Code(s): I10 - Essential (primary) hypertension Condition: Stable Disposition: HOME, SELF-CARE Instructions: High Blood Pressure ([facility]) Additional Instructions: As we discussed you have been seen and treated in the emergency department for your blood pressure. Please make sure you are taking your medications as prescribed. Please also make sure you follow-up with your primary care provider in the next 24 to 48 hours. Return to the emergency room for any concerns. Forms: Elevated Blood Pressure Referrals: SOREN MERCADO NP, PLASTICS SPREADING MACHINE OPERATOR [Primary Care Provider] - Follow up as needed MARLENE CANNON MD [ACTIVE STAFF] - Follow up as needed
== END 2019-03-15 23:00 | disposition home or self-care (01) ==
LOC: ER 21:00
DX: I10 Essential (primary) hypertension (principal); E78.00 Pure hypercholesterolemia, unspecified; E11.9 Type 2 diabetes mellitus without complications; E03.9 Hypothyroidism, unspecified; Z89.612 Acquired absence of left leg above knee
CPT/HCPCS: 36415; 80053; 85025; 99283

== ENCOUNTER → 2019-04-10 | Outpatient (CLI) | payer MEDICARE, MEDICAID ==
--- NOTE | 2019-04-10 15:53 | WOMENS IMAGING REPORT ---
EXAM DESCRIPTION: 3D SCREENING MAMMO BILAT COMPLETED DATE/TIME: 04/10/2019 1:29 pm REASON FOR STUDY: ROUTINE BILATERAL SCREENING;Z12.31 Z12.31 ENCNTR SCREEN MAMMOGRAM FOR MALIGNANT N EOPLASM OF DAMON COMPARISON: Multiple since 2009 EXAM PARAMETERS: Views: Standard craniocaudal and mediolateral oblique views of each breast recorded using digital acquisition and breast tomosynthesis. Read with the assistance of CAD. .[facility] - [employer] Line Repairer Version 9.2 LIMITATIONS: None. FINDINGS: No suspicious masses, suspicious calcifications or architectural distortion. No areas of c oncern. IMPRESSION: NEGATIVE MAMMOGRAM. BIRADS 1. BREAST DENSITY: b. There are scattered areas of fibroglandular density. BIRAD: ASSESSMENT: 1 NEGATIVE RECOMMENDATION: ROUTINE SCREENING Please continue yearly bilateral screening mammography/tomosynthesis in March 2020 COMMENT: The patient has been notified of the results by letter per MQSA requirements. Additional no tification policies are in place for contacting patient with suspicious or incomplete findings. Quality ID #[id number]: The [employer] recommends an annual screening mammogram for women aged 40 years or over. This facility utilizes a reminder system to ensure that all patients receive reminder letters, and/or direct phone calls for appointments. This includes reminders for routine scr eening mammograms, diagnostic mammograms, or other Breast Imaging Interventions when appropriate. Th is patient will be placed in the appropriate reminder system. TECHNICAL DOCUMENTATION: FINDING NUMBER: (1) ASSESSMENT: (1) JOB ID: [id number] [employer]- All Rights Reserved Reading location - IP/workstation name: [email or web address]
== END ==
LOC: WI 12:51
PROVIDERS: ATTEND Internal Medicine
DX: Z12.31 Encounter for screening mammogram for malignant neoplasm of breast (principal)
CPT/HCPCS: 77063; 77067

== ENCOUNTER 2019-06-25 14:30 | Emergency (ER) | payer MEDICARE, MEDICAID ==
--- NOTE | 2019-06-25 14:56 | ER Document Report ---
ED Medical Screen (RME) - General Chief Complaint: Puncture Wound to Foot Stated Complaint: LEFT FOOT SORE Time Seen by Provider: 06/25/19 14:50 Primary Care Provider: MARLENE CANNON MD [Primary Care Provider] - Follow up as needed Notes: 59-year-old female with history of diabetes left AKA 6 years ago and surgery to her right foot couple years ago. Presents to the emergency department with erythema to the right foot. Reports her right great toe had a blister on it this morning popped. I have greeted and performed a rapid initial assessment of this patient. A comprehensive ED assessment and evaluation of the patient, analysis of test results and completion of the medical decision making process will be conducted by additional ED providers. TRAVEL OUTSIDE OF THE [place] IN LAST 30 DAYS: No - Related Data Allergies/Adverse Reactions: amoxicillin [From Augmentin] Allergy (Intermediate, Verified 06/25/19 14:50) Unsure of reaction Cephalosporins Allergy (Intermediate, Verified 06/25/19 14:50) blistering, peeling skin,burning throat clavulanic acid [From Augmentin] Allergy (Intermediate, Verified 06/25/19 14:50) unsure of reaction Penicillins Allergy (Intermediate, Verified 06/25/19 14:50) blistering,peeling skin,burning of throat Past Medical History - Social History Family history: Reviewed & Not Pertinent - Past Medical History Cardiac Medical History: Reports: Hx Hypercholesterolemia, Hx Hypertension, Hx Peripheral Vascular Disease Denies: Hx Coronary Artery Disease, Hx Heart Attack Pulmonary Medical History: Denies: Hx Asthma, Hx Bronchitis, Hx COPD, Hx Pneumonia Neurological Medical History: Reports: Hx Cerebrovascular Accident - 2003 . Denies: Hx Seizures Endocrine Medical History: Reports: Hx Diabetes Mellitus Type 1, Hx Diabetes Mellitus Type 2, Hx Hypothyroidism Renal/ Medical History: Denies: Hx Peritoneal Dialysis GI Medical History: Reports: Hx Gastroesophageal Reflux Disease. Denies: Hx Hepatitis, Hx Hiatal Hernia, Hx Ulcer Musculoskeltal Medical History: Reports Hx Arthritis Psychiatric Medical History: Denies: Hx Depression Infectious Medical History: Denies: Hx Hepatitis Past Surgical History: Reports: Hx Section, Hx Orthopedic Surgery - l eft aka. Right fifth toe amputation., Hx Vascular Surgery - Right leg stenting 2. Denies: Hx Hysterectomy, Hx Mastectomy, Hx Open Heart Surgery, Hx Pacemaker - Immunizations Hx Diphtheria, Pertussis, Tetanus Vaccination: No Physical Exam - Vital signs Vitals: Temp Pulse Resp BP Pulse Ox 97.8 F 95 16 208/87 H 99 06/25/19 14:39 06/25/19 14:39 06/25/19 14:39 06/25/19 14:39 06/25/19 14:39 Course - Vital Signs Vital signs: Temp Pulse Resp BP Pulse Ox 97.8 F 95 16 181/111 H 99 06/25/19 14:39 06/25/19 14:39 06/25/19 14:39 06/25/19 14:41 06/25/19 14:39 Doctor's Discharge - Discharge Referrals: MARLENE CANNON MD [Primary Care Provider] - Follow up as needed
--- NOTE | 2019-06-25 15:47 | RADIOLOGY REPORT (SQ) ---
EXAM DESCRIPTION: FOOT RIGHT COMPLETE COMPLETED DATE/TIME: 06/25/2019 3:37 pm REASON FOR STUDY: swelling erythema COMPARISON: 10/01/2018. NUMBER OF VIEWS: Three views. TECHNIQUE: AP, lateral and oblique radiographic images acquired of the right foot. LIMITATIONS: None. FINDINGS: MINERALIZATION: Normal. BONES: No acute fracture or dislocation. Chronic changes. Extensive surgical changes with amputatio ns. JOINTS: Chronic changes in the midfoot, the interphalangeal joint of the 1st toe, and MTP joint of th e 2nd toe. SOFT TISSUES: No soft tissue swelling. No foreign body. OTHER: No other significant finding. IMPRESSION: EXTENSIVE STABLE CHRONIC CHANGES. NO APPARENT ACUTE FINDINGS. TECHNICAL DOCUMENTATION: JOB ID: [id number] [employer]- All Rights Reserved Reading location - IP/workstation name: [email or web address]
--- NOTE | 2019-06-25 16:53 | ER Document Report ---
ED General - General Chief Complaint: Wound Infection Stated Complaint: LEFT FOOT SORE Time Seen by Provider: 06/25/19 14:50 Primary Care Provider: MARLENE CANNON MD [Primary Care Provider] - Follow up as needed TRAVEL OUTSIDE OF THE [place] IN LAST 30 DAYS: No - HPI Notes: Patient is a 59-year-old female with a history of hypertension, diabetes, left AKA, partial amputation of 3 toes to the right foot presents complaining of having a blister developed over the past couple days to her right great toe that is since released its fluid. Patient states that she does not have any significant pain to the area. She has not noticed any redness, streaks, or purulence. She has a nurse that comes by to help her with her wounds 3 times a week and does have wound management with Dr. Aggarwal. She is otherwise able to eat and drink without difficulty. She is urinating normally. No other concerns or complaints. Denies any headache, fever, neck pain, URI, sore throat, chest p ain, palpitations, syncope, cough, shortness of breath, wheeze, dyspnea, abdominal pain, nausea/vomiting/diarrhea, urinary retention, dysuria, hematuria, muscle paralysis, or rash. - Related Data Allergies/Adverse Reactions: amoxicillin [From Augmentin] Allergy (Intermediate, Verified 06/25/19 14:50) Unsure of reaction Cephalosporins Allergy (Intermediate, Verified 06/25/19 14:50) blistering, peeling skin,burning throat clavulanic acid [From Augmentin] Allergy (Intermediate, Verified 06/25/19 14:50) unsure of reaction Penicillins Allergy (Intermediate, Verified 06/25/19 14:50) blistering,peeling skin,burning of throat Home Medications: [facility] Past Medical History - Social History Smoking Status: Never Smoker Chew tobacco use (# tins/day): No Frequency of alcohol use: None Drug Abuse: None Family History: CAD, CVA, DM, Malignancy Patient has suicidal ideation: No Patient has homicidal ideation: No - Past Medical History Cardiac Medical History: Reports: Hx Hypercholesterolemia, Hx Hypertension, Hx Peripheral Vascular Disease Denies: Hx Coronary Artery Disease, Hx Heart Attack Pulmonary Medical History: Denies: Hx Asthma, Hx Bronchitis, Hx COPD, Hx Pneumonia Neurological Medical History: Reports: Hx Cerebrovascular Accident - 2004 . Denies: Hx Seizures Endocrine Medical History: Reports: Hx Diabetes Mellitus Type 1, Hx Diabetes Mellitus Type 2, Hx Hypothyroidism Renal/ Medical History: Denies: Hx Peritoneal Dialysis GI Medical History: Reports: Hx Gastroesophageal Reflux Disease. Denies: Hx Hepatitis, Hx Hiatal Hernia, Hx Ulcer Musculoskeletal Medical History: Reports Hx Arthritis Psychiatric Medical History: Denies: Hx Depression Infectious Medical History: Denies: Hx Hepatitis Past Surgical History: Reports: Hx Section, Hx Orthopedic Surgery - left aka. Right fifth toe amputation., Hx Vascular Surgery - Right leg stenting 2. Denies: Hx Hysterectomy, Hx Mastectomy, Hx Open Heart Surgery, Hx Pacemaker - Immunizations Hx Diphtheria, Pertussis, Tetanus Vaccination: No Review of Systems - Review of Systems -: Yes All other systems reviewed and negative Physical Exam - Vital signs Vitals: Temp Pulse Resp BP Pulse Ox 97.8 F 95 16 208/87 H 99 06/25/19 14:39 06/25/19 14:39 06/25/19 14:39 06/25/19 14:39 06/25/19 14:39 - Notes Notes: PHYSICAL EXAMINATION: GENERAL: Well-appearing, well-nourished and in no acute distress. LUNGS: Breath sounds clear to auscultation bilaterally and equal. No wheezes rales or rhonchi. HEART: Regular rate and rhythm without murmurs, rubs, gallops. Musculoskeletal: FROM to passive/active. Strength 5+/5. Extremities: No cyanosis, clubbing, or edema b/l. Peripheral pulses 2+. Capillary refill less than 3 seconds. NEUROLOGICAL: Normal speech. PSYCH: Normal mood, normal affect. SKIN: Rt great toe: there is a noted blister that has already released the majority of its fluid. minimal site erythema, no streaks, fluctuance, induration, or purulence. Course - Re-evaluation Re-evalutation: 06/25/19 16:52 I did review with Dr. Garcia. No debridement at this time. Labs pending. Will d/c on antibiotics thereafter. 06/25/19 18:06 Patient is an afebrile, well-hydrated, 59-year-old female who presents to the ED with Rt toe pain with grossly closed blister noted with site erythema, no streaks/abscess/purulence. Vitals are acceptable without any significant tachycardia, tachypnea, or hypoxia. PE is otherwise unremarkable for any neurovascular compromise, obvious tendon/ligament rupture, obvious fracture/dislocation, septic joint. X-ray was unremarkable for any acute pathology. See labs which does show elevated WBC's without bandemia. Patient is nontoxic-appearing. No other labs or imaging warranted at this time based on H&P. Rx for cleocin. Pt has routine caretakers for her foot otherwise. Conservative measures otherwise for symptoms. Recheck with your PCM in 2-3 days. See your wound provider this week. Return to the ED with any worsening/concerning symptoms otherwise as reviewed in discharge. Patient is in agreement. - Vital Signs Vital signs: Temp Pulse Resp BP Pulse Ox 97.8 F 95 16 181/111 H 99 06/25/19 14:39 06/25/19 14:39 06/25/19 14:39 06/25/19 14:41 06/25/19 14:39 - Laboratory Result Diagrams: 06/25/19 16:49 06/25/19 16:49 Laboratory results interpreted by me: 06/25/19 06/25/19 16:49 16:49 WBC 15.9 H Hgb 11.8 L MCH 25.9 L RDW 14.3 H Lymph % (Auto) 6.7 L Absolute Neuts (auto) 13.4 H Seg Neutrophils % 84.3 H Glucose 228 H Discharge - Discharge Clinical Impression: Blister of toe of right foot Qualifiers: Encounter type: initial encounter Qualified Code(s): S90.424A - Blister (nonthermal), right lesser toe(s), initial encounter Condition: Stable Disposition: HOME, SELF-CARE Instructions: Soap Cleansing ([facility]), Antibiotic Ointment Protection ([facility]) Additional Instructions: Keep the skin clean Wash with soap and water Tylenol/ibuprofen if needed Triple antibiotic ointment daily Epson salt soaks Take medication as directed Monitor for any worsening symptoms Recheck with your PCM in 2-3 days See your wound provider this week Return to the ED with any worsening symptoms and/or development of fever, headache, chest pain, palpitations, syncope, shortness of breath, trouble breath ing, abdominal pain, n/v/d, abscess, purulent discharge, red streaks, worsening swelling, or other worsening symptoms that are concerning to you. Prescriptions: Clindamycin HCl [Cleocin 300 mg Capsule] 300 mg PO TID #30 capsule Forms: Elevated Blood Pressure Referrals: MARLENE CANNON MD [Primary Care Provider] - 06/27/19
[2019-06-25 17:18] LABS: ABSOLUTE BASOPHILS # (AUTO) 0.1 10^3/uL (0.0-0.2); ABSOLUTE EOSINOPHILS # (AUTO) 0.2 10^3/uL (0.0-0.6); ABSOLUTE LYMPHOCYTES (AUTO) 1.1 10^3/uL (0.5-4.7); ABSOLUTE MONOCYTES (AUTO) 1.1 10^3/uL (0.1-1.4); ABSOLUTE NEUT (AUTO) 13.4 10^3/uL (1.7-8.2); BASOPHILS % (AUTO) 0.6 % (0-2); EOSINOPHILS % (AUTO) 1.5 % (0-6); HEMATOCRIT 36.8 % (36.0-47.0); HEMOGLOBIN 11.8 g/dL (12.0-15.5); LYMPHOCYTES % (AUTO) 6.7 % (13-45); MEAN CORPUSCULAR HEMOGLOBIN 25.9 pg (27.0-33.4); MEAN CORPUSCULAR HGB CONC 32.1 g/dL (32.0-36.0); MEAN CORPUSCULAR VOLUME 81 fl (80-97); MONOCYTES % (AUTO) 6.9 % (3-13); PLATELET COUNT 234 10^3/uL (150-450); RED BLOOD COUNT 4.57 10^6/uL (3.72-5.28); RED CELL DISTRIBUTION WIDTH 14.3 % (11.5-14.0); SEGMENTED NEUTROPHILS % (AUTO) 84.3 % (42-78); TOTAL CELLS COUNTED % (AUTO) 100 %; WHITE BLOOD COUNT 15.9 10^3/uL (4.0-10.5)
[2019-06-25 17:21] LABS: ALBUMIN 3.9 g/dL (3.5-5.0); ALKALINE PHOSPHATASE 99 U/L (38-126); ANION GAP 9 (5-19); ASPARTATE AMINO TRANSFERASE 18 U/L (14-36); BILIRUBIN,DIRECT 0.2 mg/dL (0.0-0.4); BILIRUBIN,TOTAL 0.3 mg/dL (0.2-1.3); BLOOD UREA NITROGEN 18 mg/dL (7-20); CARBON DIOXIDE 30 mmol/L (22-30); CHLORIDE 102 mmol/L (98-107); GLUCOSE 228 mg/dL (75-110); POTASSIUM 3.9 mmol/L (3.6-5.0); TOTAL PROTEIN 7.6 g/dL (6.3-8.2)
[2019-06-25 18:34] VITALS: BP 169/69
== END 2019-06-25 18:35 | disposition home or self-care (01) ==
LOC: ER 14:30
DX: S90.421A Blister (nonthermal), right great toe, initial encounter (principal); X58.XXXA Exposure to other specified factors, initial encounter; E11.51 Type 2 diabetes mellitus with diabetic peripheral angiopathy without gangrene; I10 Essential (primary) hypertension; Z89.421 Acquired absence of other right toe(s); Z89.612 Acquired absence of left leg above knee; Z88.0 Allergy status to penicillin; Z88.1 Allergy status to other antibiotic agents
CPT/HCPCS: 36415; 80053; 85025; 99283

== ENCOUNTER 2020-02-04 09:35 | Inpatient (IN) | payer MEDICARE, MEDICAID ==
--- NOTE | 2020-02-04 10:12 | RADIOLOGY REPORT (SQ) ---
EXAM DESCRIPTION: CT HEAD WITHOUT IMAGES COMPLETED DATE/TIME: 02/04/2020 9:57 am REASON FOR STUDY: Stroke Alert COMPARISON: CT of the head without contrast from 11/27/2018. TECHNIQUE: Axial images acquired through the brain without intravenous contrast. Images reviewed wi th bone, brain and subdural windows. Additional sagittal and coronal reconstructions were generated. Images stored on PACS. All CT scanners at this facility use dose modulation, iterative reconstruction, and/or weight based d osing when appropriate to reduce radiation dose to as low as reasonably achievable (ALARA). [facility]: Dose Right [facility]: CareDose [facility]: Dose Right [facility]: Teradose 4D [facility]: D.[employer] LIMITATIONS: None. FINDINGS: There is no acute intracranial hemorrhage, vascular territorial infarct, extra-axial fluid collection, mass effect or midline shift. The amador-white matter differentiation is preserved. The caliber of the ventricles is concordant with the degree of sulcation. There is no effacement of cere bral sulci or basal subarachnoid cisterns. There is re- demonstration of a band that encircles the right globe. The right globe is aphakic. Th e orbits are intact. The paranasal sinuses are clear. There is no fracture of the calvarium. IMPRESSION: No acute intracranial abnormality. EVIDENCE OF ACUTE STROKE: NO. COMMENT: This report was called to Dr. Coulter At10:04 on 02/04/2020. Quality ID # [id number]: Final reports with documentation of one or more dose reduction techniques (e.g., Au tomated exposure control, adjustment of the mA and/or kV according to patient size, use of iterative reconstruction technique) TECHNICAL DOCUMENTATION: JOB ID: [id number] 2010 [employer]- All Rights Reserved Reading location - IP/workstation name: [email or web address]
[2020-02-04 10:38] LABS: INTERNATIONAL RATION (INR) 0.98; PROTHROMBIN TIME 13.2 SEC (11.4-15.4)
[2020-02-04 10:39] LABS: PARTIAL THROMBOPLASTIN TIME 27.4 SEC (23.5-35.8)
--- NOTE | 2020-02-04 10:58 | ER Document Report ---
Entered by JEFFERY DIAZ SCRIBE 02/04/20 1021 Acting as scribe for:IAIN THMOAS MD ED Neuro Symptoms/Deficit - General Chief Complaint: Numbness Stated Complaint: NUMBNESS/LEFT SIDE OF BODY Time Seen by Provider: 02/04/20 09:57 Primary Care Provider: MARLENE CANNON MD [Primary Care Provider] - Follow up as needed Mode of Arrival: Ambulatory Information source: Patient Notes: This 59 year old female patient presents to the emergency department today with complaints of a possible stroke. Patient reports that yesterday afternoon while at wound care she felt like her sugars were dropping so they gave her orange juice and crackers and she went home as soon as she went to bed. She reports that when she woke up this morning her residual right sided weakness was slightly worse and she was unable to pivot on her right leg to get in her wheelchair like she normally would. She states her LUE is numb and she "cant use her stub like she normally would" on her left AKA. TRAVEL OUTSIDE OF THE [place] IN LAST 30 DAYS: No - Related Data Allergies/Adverse Reactions: amoxicillin [From Augmentin] Allergy (Intermediate, Verified 02/04/20 10:12) Unsure of reaction Cephalosporins Allergy (Intermediate, Verified 02/04/20 10:12) blistering, peeling skin,burning throat clavulanic acid [From Augmentin] Allergy (Intermediate, Verified 02/04/20 10:12) unsure of reaction Penicillins Allergy (Intermediate, Verified 02/04/20 10:12) blistering,peeling skin,burning of throat Past Medical History - General Information source: Patient - Social History Smoking Status: Never Smoker Cigarette use (# per day): No Frequency of alcohol use: None Drug Abuse: None Lives with: Family Family History: CAD, CVA, DM, Malignancy - Past Medical History Cardiac Medical History: Reports: Hx Hypercholesterolemia, Hx Hypertension, Hx Peripheral Vascular Disease Neurological Medical History: Reports: Hx Cerebrovascular Accident - 2003 Endocrine Medical History: Reports: Hx Diabetes Mellitus Type 1, Hx Diabetes Mellitus Type 2, Hx Hypothyroidism GI Medical History: Reports: Hx Gastroesophageal Reflux Disease Musculoskeletal Medical History: Reports Hx Arthritis Past Surgical History: Reports: Hx Section, Hx Orthopedic Surgery - left aka. Right fifth toe amputation., Hx Vascular Surgery - Right leg stenting 2 - Immunizations Hx Diphtheria, Pertussis, Tetanus Vaccination: No Review of Systems - Review of Systems Constitutional: No symptoms reported EENT: No symptoms reported Cardiovascular: No symptoms reported Respiratory: No symptoms reported Gastrointestinal: No symptoms reported Genitourinary: No symptoms reported Female Genitourinary: No symptoms reported Musculoskeletal: No symptoms reported Skin: No symptoms reported Hematologic/Lymphatic: No symptoms reported Neurological/Psychological: See HPI, Weakness - subjective right upper/lower extremity weakness, Numbness - LUE, left stub -: Yes All other systems reviewed and negative Physical Exam - Notes Notes: Physical Exam: General: Alert, appears well. HEENT: Normocephalic. Atraumatic. PERRL. Extraocular movements intact. Oropharynx clear. Neck: Supple. Non-tender. Respiratory: No respiratory distress. Clear and equal breath sounds bilaterally. Cardiovascular: Regular rate and rhythm. Abdominal: Normal Inspection. Non-tender. No distension. Normal Bowel Sounds. Back: No gross abnormalities. Extremities: Moves all four extremities. Upper extremities: Normal inspection. Normal ROM. Lower extremities: Right lower extremity has thickened skin with bandages from wound care. Left AKA which the patient is able to move all around without difficulty. 4/5 RUE strength and 4/5 RLE strength which patient reports is baseline. 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 Neurological: Normal cognition. AAOx4. Normal speech. Psychological: Normal affect. Normal Mood. Skin: Warm. Dry. Normal color. Course - Re-evaluation Re-evalutation: 02/04/20 13:10 CT scan of the head does not show acute process. Patient's A1c is 11.5 We will get a MRI to see if she has suffered another CVA since November of last year. 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 - EKG Interpretation by Me EKG shows normal: Sinus rhythm, [place], Intervals, QRS Complexes, ST-T Waves Rate: Normal - 97 Rhythm: NSR Voltage: Consistent with LVH When compared to previous EKG there are: No significant change - Consults Dr. Cannon Time consulted: 13:35 Consulted provider: will see as inpatient ED [employer]/Exc Criteria - Inclusion Criteria: 1: Patient presented to ED within 3 hours of acute ischemic stroke symptom onset? -: No 2: Did baseline CT exclude intracranial hemorrhage and/or other risk factors? 3: Is the age of the patient 18 years of age or greater? : If any of the above questions are answered "NO" then stop, patient is not a candidate for Alteplase, : If all of the above questions are answered "YES" then continue with Exclusion Criteria. - Exclusion Criteria: 1: Is there evidence of intracranial hemorrhage on baseline CT? 2: Is there suspicion of subarachnoid hemorrhage (even if CT negative)? 3: Is there a history of serious head trauma, recent previous stroke or ND within 3 months? 4: Does the patient have a clinical presentation consistent with ND or post-ND pericarditis? 5: Is there history of intracranial hemorrhage? 6: On repeated measurement is Systolic BP greater than 185mmHg or Diastolic BP greater that 110 mmHg and is aggressive treatment needed to reduce blood pressure to these limits (e.g. constant infusion of an anti-hypertensive)? 7: Did the patient awake with stroke symptoms? 8: Has the patient had a lumbar puncture or an arterial puncture at a non- compressile site within 7 days? 9: With in the last 14 days did the patient have surgery or major trauma? 10: Is the patient or less than 2 weeks? 11: Was there any active bleeding or acute trauma? 12: Does the patient have intracranial neoplasm, arteriovenous malformation or aneurysm? 13: Does the patient have abnormal glucose (less than 50 or greater than 400mg/dl)? Record glucose in Comment. 14: Patient has rapidly improving symptoms at the time Alteplase is to be Administered. 15: Does the patient have any risks for bleeding, including but not limited to: a.: Current use of Coumadin with PT greater than 15 seconds or INR greater than 1.7. b.: Current use of Pradaxa (Dabigatran). c.: Heparin administereed within the past 48 hours and PTT elevated. d.: Platelet count less than 100,000/mm. e.: Major surgery or serious trauma within 14 days. f.: Gastrointestinal or gynecological urinary bleeding within 14 days. g.: Myocardial Infarction (ND) within 3 months. : If the answer to any of the above questions is "YES" then stop, the patient is not a candidate for Alteplase. : If the answer to all of the above questions is "NO" then the patient may be eligible for the Administration of Alteplase. : If the patient is noted to have seizure activity at onset of Stroke symptoms; Consult Neurologist for further evaluation. - The patient is: -: Included and is eligible to receive Alteplase. *Initiate bed placement at higher level of care* Reviewed risks & benefits of thrombolytic therapy: I have reviewed the risks and benefits of thrombolytic therapy with the patient and/or his/her family. -: Excluded and not eligible to receive Alteplase for the above exclusions. --: Yes -: Excluded and not eligible to receive Alteplase for other reasons (specify in comments): - Diagnosis of TIA: -: Patient presented with transient symptoms that are now resolved and no other neurologic findings are currently present. List symptoms in comments. -: Patient is NOT a candidate for tPA. -: ____(put name in comment) has been consulted for admission and continued evaluation of risk factor assessment. ED NIH Stroke Scale - NIH Stroke Scale *: 1. NIH scale should be completed with appropriate accompanying assessment tools. *: 2. The NIH should reflect what the patient is capable of doing and should not be coached by the clinician. 1a. Level of Consciousness: 0=Alert;keenly responsive -: 1=Drowsy -: 2=Obtunded -: 3=Coma/unresponsive or reflex to noxious stimuli. 1a. Responses: 0 1b. Orientation Questions: a. What month is it? -: b. How old are you? -: 0=Answers both questions correctly. -: 1=Answers one question correctly or patient is intubated or has orotracheal trauma. -: 2=Answers neither question correctly. 1b. Responses: 0 1c. Response to commands: a. Open and close eyes? -: b. Building Surveyor and release hand? -: Credit is given despite weakness. Demonstration of task is permitted. Substitute command if hands cannot be used. -: 0=Performs both tasks correctly -: 1=Performs one task correctly -: 2=Performs neither task correctly 1c. Responses: 0 2. Gaze: Establish eye contact and instruct patient to "Follow my finger" -: 0=Normal -: 1=Partial gaze palsy. Gaze is abnormal in one or both eyes, but where forced deviation or total gaze paresis is not present. -: 2=Forced deviation or total gaze paresis. 2. Responses: 0 3. Visual Alcocer: Sees fingers in all four quadrants. -: 0=No visual loss. -: 1=Partial hemianopsia. -: 2=Complete hemianopsia. -: 3=Bilateral hemianopsia (including Cortical blindness) 3. Responses: 0 4. Facial Movement: Instruct patient to: -: a. Show me your teeth -: b. Raise your eyebrows -: c. Close your eyes -: d. Smile -: 0=Normal symmetrical movement -: 1=Minor paralysis (flattened nasolabial fold, asymmetry on smiling). -: 2=Partial paralysis (total or near total paralysis of lower face). -: 3=Complete paralysis of upper and lower face 4. Responses: 0 5. Motor functions (left arm): Alternate sides and extend each arm with palms down (90 degrees if sitting or 45 degrees for supine). -: 0=No drift;limb holds for full 10 seconds. -: 1=Drift; limb holds but drifts down before full 10 seconds, but does not hit bed. -: 2=Some effort against gravity; limb cannot get to or maintain position. -: 3=No effort against gravity; limb falls. -: 4=No movement. -: UN=Amputation, joint fusion, explain in comments. 5. Responses (left arm): 0 5. Motor Functions (right arm): Alternate sides and extend each arm with palms down (90 degrees if sitting or 45 degrees for supine). -: 0=No drift;limb holds for full 10 seconds. -: 1=Drift; limb holds but drifts down before full 10 seconds, but does not hit bed. -: 2=Some effort against gravity; limb cannot get to or maintain position. -: 3=No effort against gravity; limb falls. -: 4=No movement. -: UN=Amputation, joint fusion, explain in comments. 5. Responses (right arm): 0 6. Motor Functions (left leg): With patient lying supine, alternate sides and extend each leg (30 degrees always while supine). -: 0=No drift, leg holds position for full 5 seconds -: 1=Drift; leg falls before full 5 seconds but does not hit bed. -: 2=Some effort against gravity, leg falls to bed but some effort against gravity. -: 3=No effort against gravity, leg falls to bed immediately. -: 4=No movement. -: UN=Amputation, joint fusion; explain in comments. 6. Responses (left leg): 0 6. Motor Functions (right leg): With patient lying supine, alternate sides and extend each leg (30 degrees always while supine). -: 0=No drift, leg holds position for full 5 seconds -: 1=Drift; leg falls before full 5 seconds but does not hit bed. -: 2=Some effort against gravity, leg falls to bed but some effort against gravity. -: 3=No effort against gravity, leg falls to bed immediately. -: 4=No movement. -: UN=Amputation, joint fusion; explain in comments. 6. Responses (right leg): 2 7. Limb Ataxia: With eyes open instruct patient to: -: a. "Touch your finger to your nose". -: b. "Touch your heel to your fernandez" -: 0=Absent -: 1=Present in one limb. -: 2=Present in two limbs. -: UN=Amputation or joint fusion; explain in comments. 7. Responses: 0 8. Sensory: Test sensation using pinprick or noxious stimuli. Test as many body parts as possible. -: 0=Normal;no sensory loss -: 1=Mile to moderate sensory loss (patient feels pin prick but is less sharp on affected side). -: 2=Severe or total sensory loss. 8. Responses: 0 9. Best Language: Instruct patient to: -: a. "Describe what you see in this picture." -: b. "Name the items in this picture." -: c. "Read these sentences." -: 0=No aphasia, normal -: 1=Mild to moderate aphasia. -: 2=Severe aphasia -: 3=Mute, global aphasia, no usable speech or auditory comprehension. 9. Responses: 0 10. Articulation, Dysarthia: Instruct patient to: -: "Read these words" or "Repeat these words" -: 0=Normal -: 1=Mild to moderate; patient may slur some words but can be understood without difficulty. -: 2=Severe; patients speech so slurred as to be unintelligible in the absence of dysphasia. -: UN=Intubated or other physical barrier, explain in comments. 10. Responses: 0 11. Extinction or inattention: 0=No abnormality -: 1= Visual, tactile, auditory, spatial, or personal inattention or extinction to bilateral simulation in one or the sensory modalities. -: 2=Profound annabel-inattention or annabel-inattention to more than one modality; do es not recognize own hand. 11. Responses: 0 Total Score: 2 Notes: Patient has some weakness to the right upper extremity and the right lower extremity. She had a stroke last year in the left ignacio and this is a chronic residual problem. She states that the weakness and coordination is worse than baseline, but that cannot be objectively measured by me as I have never seen the patient before. The patient reported increased weakness in her left lower extremity, however she has an AKA and again that is difficult to evaluate as she does move the stump around quite well at the time of exam. The left upper extremity does not show weakness or coordination difficulties but she claims that it is not at its baseline. Discharge - Discharge Clinical Impression: Poorly controlled diabetes mellitus, Diabetes mellitus type 2 in obese CVA (cerebrovascular accident) Qualifiers: CVA mechanism: unspecified Qualified Code(s): I63.9 - Cerebral infarction, unspecified Condition: Stable Disposition: ADMITTED INPATIENT Admitting Provider: [facility] Admitted: [facility] Referrals: MARLENE CANNON MD [Primary Care Provider] - Follow up as needed I personally performed the services described in the documentation, reviewed and edited the documentation which was dictated to the scribe in my presence, and it accurately records my words and actions.
[2020-02-04 11:02] LABS: ALBUMIN 4.4 g/dL (3.5-5.0); ALKALINE PHOSPHATASE 85 U/L (38-126); ANION GAP 12 (5-19); ASPARTATE AMINO TRANSFERASE 29 U/L (14-36); BILIRUBIN,DIRECT 0.2 mg/dL (0.0-0.4); BILIRUBIN,TOTAL 0.5 mg/dL (0.2-1.3); BLOOD UREA NITROGEN 18 mg/dL (7-20); CALCIUM 10.5 mg/dL (8.4-10.2); CARBON DIOXIDE 25 mmol/L (22-30); CHLORIDE 106 mmol/L (98-107); CREATINE KINASE 250 U/L (30-135); GLUCOSE 118 mg/dL (75-110); POTASSIUM 4.2 mmol/L (3.6-5.0); TOTAL PROTEIN 8.8 g/dL (6.3-8.2)
--- NOTE | 2020-02-04 11:08 | RADIOLOGY REPORT (SQ) ---
EXAM DESCRIPTION: CHEST SINGLE VIEW IMAGES COMPLETED DATE/TIME: 02/04/2020 9:51 am REASON FOR STUDY: stroke alert COMPARISON: 01/30/2018 EXAM PARAMETERS: NUMBER OF VIEWS: One view. TECHNIQUE: Single frontal radiographic view of the chest acquired. RADIATION DOSE: NA LIMITATIONS: None. FINDINGS: LUNGS AND PLEURA: No opacities, masses or pneumothorax. No pleural effusion. MEDIASTINUM AND HILAR STRUCTURES: No masses. Contour normal. HEART AND VASCULAR STRUCTURES: Heart normal in size. Normal vasculature. BONES: No acute findings. HARDWARE: None in the chest. OTHER: No other significant finding. IMPRESSION: NO ACUTE RADIOGRAPHIC FINDING IN THE CHEST. TECHNICAL DOCUMENTATION: JOB ID: [id number] 2010 [employer]- All Rights Reserved Reading location - IP/workstation name: [email or web address]
[2020-02-04 11:12] LABS: CREATINE KINASE MB 3.32 ng/mL (<4.55)
[2020-02-04 11:14] LABS: TROPONIN I < 0.012 ng/mL
[2020-02-04 11:39] LABS: ABSOLUTE BASOPHILS # (AUTO) 0.1 10^3/uL (0.0-0.2); ABSOLUTE EOSINOPHILS # (AUTO) 0.1 10^3/uL (0.0-0.6); ABSOLUTE LYMPHOCYTES (AUTO) 2.2 10^3/uL (0.5-4.7); ABSOLUTE MONOCYTES (AUTO) 0.5 10^3/uL (0.1-1.4); BASOPHILS % (AUTO) 1.1 % (0-2); EOSINOPHILS % (AUTO) 1.5 % (0-6); HEMATOCRIT 38.8 % (36.0-47.0); HEMOGLOBIN 12.5 g/dL (12.0-15.5); LYMPHOCYTES % (AUTO) 24.9 % (13-45); MEAN CORPUSCULAR HEMOGLOBIN 25.9 pg (27.0-33.4); MEAN CORPUSCULAR HGB CONC 32.1 g/dL (32.0-36.0); MEAN CORPUSCULAR VOLUME 81 fl (80-97); MONOCYTES % (AUTO) 5.6 % (3-13); PLATELET COUNT 311 10^3/uL (150-450); RED BLOOD COUNT 4.82 10^6/uL (3.72-5.28); RED CELL DISTRIBUTION WIDTH 14.5 % (11.5-14.0); SEGMENTED NEUTROPHILS % (AUTO) 66.9 % (42-78); TOTAL CELLS COUNTED % (AUTO) 100 %
--- NOTE | 2020-02-04 15:18 | RADIOLOGY REPORT (SQ) ---
EXAM DESCRIPTION: MRI HEAD WITHOUT IMAGES COMPLETED DATE/TIME: 02/04/2020 2:51 pm REASON FOR STUDY: Left-sided weakness COMPARISON: None. TECHNIQUE: Multiplanar imaging includes non-contrasted T1, T2, FLAIR, and diffusion with ADC map seq uences. Images stored on PACS. LIMITATIONS: None. FINDINGS: On the DWI there are 2 separate foci of restricted diffusion in the basilar part of the po ns (images 6 and 7 of series 4). The areas of high T2/FLAIR signal in the supratentorial periventricular and subcortical white matter are unchanged and likely represent the sequela of chronic microvascular ischemia. There is no acute intracranial hemorrhage, extra-axial fluid collection, mass effect or midline shift. The amador-white matter differentiation is preserved. The caliber of the ventricles is concordant with the degree of sulcation. There is no effacement of the cerebral sulci or basal subarachnoid cisterns. The intracranial vascular flow voids are preserved. There is no susceptibility artifact on the gradi ent sequence. The optic there sheath complexes an and extraocular muscles are symmetric and normal in appearance. The paranasal sinuses are clear. There is no pathologic marrow signal abnormality. The corpus callo sum, craniocervical junction and sella turcica are normal in appearance. IMPRESSION: Acute bilateral basilar pontine infarcts. EVIDENCE OF ACUTE STROKE: YES. Basilar artery. TECHNICAL DOCUMENTATION: JOB ID: [id number] 2010 [employer]- All Rights Reserved Reading location - IP/workstation name: [email or web address]
[2020-02-04] MEDS ORDERED: LABETALOL HCL INJ 20 MG/4 ML DISP.SYRIN IV ONE (16:13)
[2020-02-04] MEDS ORDERED: LABETALOL HCL INJ 20 MG/4 ML DISP.SYRIN IV PRN (17:19)
--- NOTE | 2020-02-04 17:38 | PDOC H&P ---
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 She has a history of CVA multiple times she stated that while she was at the wound clinic she felt like her sugar was dropping so she was giv en orange juice and crackers at the wound clinic and then she went home but when she woke up this morning her right side was slightly weak The left upper extremity was weak,she could not use the stub as she would normally does,So she came to the emergency room for evaluation, MRI of the brain was done, it demonstrated acute bilateral basilar pontine infarcts Past Medical History Cardiac Medical History: Reports: Hyperlipidema, Hypertension, Peripheral Va scular Disease Endocrine Medical History: Reports: Diabetes Mellitus Type 2, Hypothyroidism GI Medical History: Reports: Gastroesophageal Reflux Disease Musculoskeltal Medical History: Reports: Arthritis Psychiatric Medical History: Denies: Depression Hematology: Past Surgical History Past Surgical History: Reports: Amputation - Left AKA, partial foot amputation including the lateral 3 rays., Section, Orthopedic Surgery - left aka. Right fifth toe amputation., Vascular Surgery - Right leg stenting 2 Social History Lives with: Family Smoking Status: Never Smoker Electronic Cigarette use?: No Frequency of Alcohol Use: None Hx Recreational Drug Use: No Drugs: None Hx Prescription Drug Abuse: No Family History Family History: CAD, CVA, DM, Malignancy Parental Family History Reviewed: Yes Children Family History Reviewed: Yes Sibling(s) Family History Reviewed.: Yes Medication/Allergy Home Medications: Aspirin [Ecotrin 81 mg EC Tablet] 81 mg PO DAILY 11/28/18 Empagliflozin [Jardiance] 25 mg PO DAILY 11/28/18 Insulin Glargine,Hum.rec.anlog [Lantus Insulin 100 Unit/1 ml 10 ml] 40 unit SUBCUT QHS 11/28/18 Insulin Lispro [Humalog Insulin (Lispro) 100 unit/mL] 0 unit SUBCUT .SLD SCALE 11/28/18 Levothyroxine Sodium [Synthroid 0.075 mg Tablet] 0.075 mg PO Q6AM 11/28/18 Aspirin/Dipyridamole [Aggrenox 25 mg/200 mg Capsule SA] 1 cap.sr PO Q12 #180 cpmp.12hr 12/03/18 Acetaminophen [Acetaminophen Extra Strength] 500 mg PO DAILYP PRN 02/04/20 Gabapentin [Neurontin 100 mg Capsule] 100 mg PO TID 02/04/20 Levofloxacin [Levaquin 750 mg Tablet] 750 mg PO DAILY 02/04/20 Liraglutide [Victoza 2-Manuelito] 6 units SQ DAILY 02/04/20 Pravastatin Sodium 40 mg PO DAILY 02/04/20 Doxycycline Hyclate [Vibramycin 100 mg Tablet] 100 mg PO BID 02/05/20 Allergies/Adverse Reactions: amoxicillin [From Augmentin] Allergy (Intermediate, Verified 02/04/20 10:12) Unsure of reaction Cephalosporins Allergy (Intermediate, Verified 02/04/20 10:12) blistering, peeling skin,burning throat clavulanic acid [From Augmentin] Allergy (Intermediate, Verified 02/04/20 10:12) unsure of reaction Penicillins Allergy (Intermediate, Verified 02/04/20 10:12) blistering,peeling skin,burning of throat Review of Systems Constitutional: ABSENT: chills, fever(s), headache(s), weight gain, weight loss Eyes: ABSENT: visual disturbances Ears: ABSENT: hearing changes Cardiovascular: ABSENT: chest pain, dyspnea on exertion, edema, orthropnea, p alpitations Respiratory: ABSENT: cough, hemoptysis Gastrointestinal: ABSENT: abdominal pain, constipation, diarrhea, hematemesis, hematochezia, nausea, vomiting Genitourinary: ABSENT: dysuria, hematuria Musculoskeletal: ABSENT: joint swelling Integumentary: ABSENT: rash, wounds Neurological: PRESENT: focal weakness Psychiatric: ABSENT: anxiety, depression, homidical ideation, suicidal ideation Endocrine: ABSENT: cold intolerance, heat intolerance, menstrual abnormalities, polydipsia, polyuria Hematologic/Lymphatic: ABSENT: easy bleeding, easy bruising, lymphadenopathy Physical Exam Vital Signs: Temp Pulse Resp BP Pulse Ox 98.8 F 100 21 H 139/77 H 93 02/04/20 16:01 02/04/20 16:24 02/04/20 17:19 02/04/20 17:19 02/04/20 17:19 General appearance: PRESENT: no acute distress, well-developed, well-nourished Head exam: PRESENT: atraumatic, normocephalic Eye exam: PRESENT: PERRLA Ear exam: PRESENT: normal external ear exam Mouth exam: PRESENT: moist, tongue midline Neck exam: PRESENT: full ROM Respiratory exam: PRESENT: clear to auscultation richard Cardiovascular exam: PRESENT: RRR, +S1, +S2 Pulses: PRESENT: normal dorsalis pedis pul, +2 pedal pulses bilateral Vascular exam: PRESENT: normal capillary refill GI/Abdominal exam: PRESENT: normal bowel sounds, soft Rectal exam: PRESENT: deferred Extremities exam: PRESENT: left AKA Neurological exam: PRESENT: alert, motor sensory deficit Psychiatric exam: PRESENT: appropriate affect, normal mood Skin exam: PRESENT: dry, intact, warm Results Laboratory Results: 02/04/20 11:29 02/04/20 10:20 02/04/20 02/04/20 02/04/20 10:20 10:20 11:29 WBC Cancelled 9.0 RBC Cancelled 4.82 Hgb Cancelled 12.5 Hct Cancelled 38.8 MCV Cancelled 81 MCH Cancelled 25.9 L MCHC Cancelled 32.1 RDW Cancelled 14.5 H Plt Count Cancelled 311 Seg Neutrophils % Cancelled 66.9 Sodium 142.9 Potassium 4.2 Chloride 106 Carbon Dioxide 25 Anion Gap 12 BUN 18 Creatinine 0.74 Est GFR ( Amer) > 60 Glucose 118 H Calcium 10.5 H Total Bilirubin 0.5 AST 29 Alkaline Phosphatase 85 Total Protein 8.8 H Albumin 4.4 02/04/20 02/04/20 10:20 10:20 Creatine Kinase 250 H CK-MB (CK-2) 3.32 Troponin I < 0.012 Impressions: Chest X-Ray 02/04/20 00:00 IMPRESSION: NO ACUTE RADIOGRAPHIC FINDING IN THE CHEST. Head CT 02/04/20 00:00 IMPRESSION: No acute intracranial abnormality. EVIDENCE OF ACUTE STROKE: NO. Head MRI 02/04/20 12:51 IMPRESSION: Acute bilateral basilar pontine infarcts. EVIDENCE OF ACUTE STROKE: YES. Basilar artery. 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: with assisted use Diabetes mellitus complication status: with neurologic complications Diabetes mellitus complication detail: with polyneuropathy Qualified Code(s): E11.42 - Type 2 diabetes mellitus with diabetic polyneuropathy; Z79.4 - nursing home (current) use of insulin Is this a current diagnosis for this admission?: Yes Plan: She has challenging diabetes control, despite taking SGLT, GLP insulin, the A1c is still elevated, she was counseled multiple times on dietary restriction - Time Time Spent: Greater than 70 Minutes Medications reviewed and adjusted accordingly: Yes Anticipated Discharge Disposition: Home, Self Care Anticipated Discharge Timeframe: within 72 hours
[2020-02-04] MEDS: PANTOPRAZOLE SODIUM 40 MG TABLET.DR PO SCH (19:09)
[2020-02-04] MEDS: ASPIRIN/DIPYRIDAMOLE 25-200 MG 1 CAP.SR CPMP.12HR PO SCH (19:09)
--- NOTE | 2020-02-04 19:31 | EKG REPORT ---
SEVERITY:- ABNORMAL ECG - SINUS RHYTHM LEFT VENTRICULAR HYPERTROPHY ANTERIOR Q WAVES, POSSIBLY DUE TO LVH : Confirmed by: Lynne Nichols 04-Feb-2020 19:30:54
[2020-02-04] MEDS: ATORVASTATIN CALCIUM 80 MG TABLET PO SCH (23:05)
--- NOTE | 2020-02-05 03:54 | RADIOLOGY REPORT (SQ) ---
EXAM DESCRIPTION: US CAROTID DOPPLER BILATERAL COMPLETED DATE/TME: 02/04/2020 00:00 CLINICAL HISTORY: 59 years, Female, cva COMPARISON: November 28, 2018 ultrasound TECHNIQUE: Grayscale and Doppler evaluation of the cervical carotid systems and vertebral arteries were performed. LIMITATIONS: None. FINDINGS: On the right, there is mild generalized intimal thickening with plaque formation. On the left, there is also generalized intimal thickening with plaque formation with more focal plaque identified in the left internal carotid artery producing approximately 50% stenosis on the images provided, slightly increased from the prior ultrasound. The peak systolic velocities and ICA/CCA ratios are not elevated. There is antegrade flow in the bilateral vertebral arteries. IMPRESSION: Bilateral plaque formation, greater on the left. There is approximately 50% stenosis of the left internal carotid artery on the images provided, however there is no corresponding peak systolic velocity elevation. Additional evaluation with angiography is recommended. copyright 2010 [employer]- All Rights Reserved
[2020-02-05] MEDS: PANTOPRAZOLE SODIUM 40 MG TABLET.DR PO SCH (05:17)
[2020-02-05] MEDS: ASPIRIN/DIPYRIDAMOLE 25-200 MG 1 CAP.SR CPMP.12HR PO SCH ×2 (05:17→17:39)
[2020-02-05] MEDS ORDERED: (PENDING PHARMACY ID) (Acetaminophen [Acetaminophen Extra Strength] 500 MG) PO PRN (13:26)
[2020-02-05] MEDS ORDERED: (PENDING PHARMACY ID) (Doxycycline Monohydrate [Doxycycline Monohydrate] 100 MG) PO SCH (13:30)
[2020-02-05] MEDS ORDERED: ASPIRIN/DIPYRIDAMOLE 25-200 MG 1 CAP.SR CPMP.12HR PO SCH (13:30)
[2020-02-05] MEDS ORDERED: LIRAGLUTIDE 6 UNIT SUBCUT SCH (13:30)
[2020-02-05] MEDS ORDERED: (PENDING PHARMACY ID) (Empagliflozin [Jardiance] 25 MG) PO SCH (13:30)
[2020-02-05] MEDS ORDERED: ACETAMINOPHEN 325 MG TABLET PO PRN (13:52)
[2020-02-05] MEDS: ENOXAPARIN SODIUM INJ 40 MG/0.4 ML DISP.SYRIN SUBCUT SCH (15:02)
[2020-02-05] MEDS: GABAPENTIN 100 MG CAPSULE PO SCH ×2 (15:02→17:40)
[2020-02-05] MEDS: LEVOTHYROXINE SODIUM 0.075 MG TABLET PO SCH (15:02)
[2020-02-05] MEDS: LEVOFLOXACIN 750 MG TABLET PO SCH (15:02)
--- NOTE | 2020-02-05 16:02 | PDOC PROGRESS REPORT ---
Subjective Progress Note for:: 02/05/20 Subjective:: She has posterior circulation CVA, bilateral pontine infarcts, the carotid Doppler was abnormal, we will request MRA of the neck and the brain Reason For Visit: POORLY CONTROLLED DIABETES MELLITUS CVA Physical Exam Vital Signs: Temp Pulse Resp BP Pulse Ox 98.5 F 98 19 138/62 H 91 L 02/05/20 11:38 02/05/20 14:00 02/05/20 12:18 02/05/20 12:18 02/05/20 12:18 Intake & Output 02/04/20 02/05/20 02/06/20 06:59 06:59 06:59 Intake Total 1125 Balance 1125 Weight 102.8 kg General appearance: PRESENT: no acute distress Eye exam: PRESENT: PERRLA Respiratory exam: PRESENT: clear to auscultation richard Cardiovascular exam: PRESENT: +S1, +S2 GI/Abdominal exam: PRESENT: soft Neurological exam: PRESENT: alert Results Laboratory Results: 02/04/20 11:29 02/04/20 10:20 02/04/20 02/04/20 02/04/20 10:20 10:20 17:42 Creatine Kinase 250 H CK-MB (CK-2) 3.32 Troponin I < 0.012 < 0.012 02/05/20 02/05/20 00:33 06:43 Creatine Kinase CK-MB (CK-2) Troponin I < 0.012 < 0.012 Impressions: Carotid Doppler Study 02/04/20 00:00 IMPRESSION: Bilateral plaque formation, greater on the left. There is approximately 50% stenosis of the left internal carotid artery on the images provided, however there is no corresponding peak systolic velocity elevation. Additional evaluation with angiography is recommended. copyright 2010 [employer]- All Rights Reserved Chest X-Ray 02/04/20 00:00 IMPRESSION: NO ACUTE RADIOGRAPHIC FINDING IN THE CHEST. Head CT 02/04/20 00:00 IMPRESSION: No acute intracranial abnormality. EVIDENCE OF ACUTE STROKE: NO. Head MRI 02/04/20 12:51 IMPRESSION: Acute bilateral basilar pontine infarcts. EVIDENCE OF ACUTE STROKE: YES. Basilar artery. Assessment & Plan - Diagnosis (1) Ischemic cerebrovascular accident (CVA) Is this a current diagnosis for this admission?: Yes Plan: Continue anti-ischemic therapy order MRA of the brain and neck (2) T2DM (type 2 diabetes mellitus) Qualifiers: Diabetes mellitus custodial insulin use: with custodial use Diabetes mellitus complication status: with neurologic complications Diabetes mellitus complication detail: with polyneuropathy Qualified Code(s): E11.42 - Type 2 diabetes mellitus with diabetic polyneuropathy; Z79.4 - [facility] (current) use of insulin Is this a current diagnosis for this admission?: Yes - Time Time Spent with patient: 35 or more minutes Level of Care: IMCU Medications reviewed and adjusted accordingly: Yes Anticipated discharge: Home Anticipated DC Timeframe: within 72 hours
--- NOTE | 2020-02-05 17:09 | XCELERA REPORT ---
[address] [address] Transthoracic Echocardiogram Report Name: LAVELLE ARRIAZA Age: 59 yrs Gender: Female : 1960 Patient Status: Inpatient Patient Location: [place] [address]^A Study Date: 02/04/2020 07:18 PM Height: 68 in Weight: 235 lb BSA: 2.2 m2 Procedure: A two-dimensional transthoracic echocardiogram with color flow and Doppler was performed. The study was technically difficult with many images being suboptimal in quality. Reason For Study: cva History: CVA. Ordering Physician: MARLENE CANNON Performed By: Elizabeth Mcgovern Interpretation Summary The left ventricle is normal in size. There is normal left ventricular wall thickness. LV EF is 65% Doppler measurements suggest impaired left ventricular relaxation, which is associated with grade I/IV or mild diastolic dysfunction The left ventricular wall motion is normal. There is no thrombus. Cannot assess ASD ,VSD , or PFO. The right ventricle is grossly normal size. The right ventricle is not well visualized secondary to technical limitations The right atrium is normal. The left atrium is borderline dilated. There is no evidence of mitral valve prolapse. There is no vegetation seen on the mitral valve. There is no mitral valve stenosis. There is a trace amount of mitral regurgitation There is no aortic valvular vegetation. There is no LVOT obstruction. No aortic regurgitation is present. There is no tricuspid stenosis. Tricuspid regurgitation jet envelope not well defined to measure RV systolic pressure accurately. There is no pulmonic valvular stenosis. The inferior vena cava appeared normal and decreased > 50% with respiration (RAP 5-10 mmHg) MMode/2D Measurements & Calculations RVDd: 3.4 cm LVIDd: 4.3 cm FS: 28.3 % Ao root diam: 3.0 cm IVSd: 1.2 cm LVIDs: 3.1 cm EDV(Teich): 84.8 ml Ao root area: 6.8 cm2 LVPWd: 1.1 cm ESV(Teich): 38.2 ml LA dimension: 4.1 cm EF(Teich): 55.0 % Doppler Measurements & Calculations MV E max alejandro: MV P1/2t max alejandro: Ao V2 max: LV V1 max P.9 cm/sec 90.3 cm/sec 149.4 cm/sec 4.3 mmHg MV A max alejandro: MV P1/2t: 63.2 msec Ao max PG: LV V1 max: 112.5 cm/sec MVA(P1/2t): 3.5 cm2 8.9 mmHg 103.2 cm/sec MV E/A: 0.72 MV dec slope: 418.7 cm/sec2 MV dec time: 0.14 sec PA V2 max: MV P1/2t-pr_phl: 104.6 cm/sec 63.2 msec PA max P.4 mmHg Left Ventricle The left ventricle is normal in size. There is normal left ventricular wall thickness. LV EF is 65%. Left ventricular systolic function is normal. Doppler measurements suggest impaired left ventricular relaxation, which is associated with grade I/IV or mild diastolic dysfunction. The left ventricular wall motion is normal. There is no thrombus. Cannot assess ASD ,VSD , or PFO. Right Ventricle The right ventricle is grossly normal size. The right ventricle is not well visualized secondary to technical limitations. Atria The right atrium is normal. The left atrium is borderline dilated. Mitral Valve There is no evidence of mitral valve prolapse. There is no vegetation seen on the mitral valve. There is no mitral valve stenosis. There is a trace amount of mitral regurgitation. Aortic Valve There is no aortic valvular vegetation. There is no aortic valve stenosis. There is no LVOT obstruction. No aortic regurgitation is present. Tricuspid Valve There is no tricuspid stenosis. There is a trace amount of tricuspid regurgitation. Tricuspid regurgitation jet envelope not well defined to measure RV systolic pressure accurately. Pulmonic Valve There is no pulmonic valvular stenosis. There is a trace amount of pulmonic regurgitation. Great Vessels The aortic root is not well visualized but is probably normal size. The inferior vena cava appeared normal and decreased > 50% with respiration (RAP 5-10 mmHg). Effusions There is no pericardial effusion. : MARLENE CANNON Lakshmi
--- NOTE | 2020-02-05 17:36 | RADIOLOGY REPORT (SQ) ---
EXAM DESCRIPTION: MRA HEAD WITHOUT IMAGES COMPLETED DATE/TIME: 02/05/2020 5:16 pm REASON FOR STUDY: CVA COMPARISON: MRI head 02/04/2020 TECHNIQUE: Axial 3-D [id number] acquisition imaging performed through the brain in the area of t he [place] of [place]. Images reformatted using 3-D MIPS. LIMITATIONS: None. FINDINGS: SOURCE IMAGES: No unexpected findings on source images. No large masses. 3-D MIP: No aneurysm. No occlusions. No significant stenosis. OTHER: No other significant finding. IMPRESSION: NORMAL MRA OF THE [place]. TECHNICAL DOCUMENTATION: JOB ID: [id number] 2010 [employer]- All Rights Reserved Reading location - IP/workstation name: [email or web address]
[2020-02-05] MEDS: DOXYCYCLINE HYCLATE 100 MG TABLET PO SCH (17:40)
--- NOTE | 2020-02-05 17:42 | RADIOLOGY REPORT (SQ) ---
EXAM DESCRIPTION: MRA NECK WITHOUT IMAGES COMPLETED DATE/TIME: 02/05/2020 5:16 pm REASON FOR STUDY: CVA COMPARISON: None. TECHNIQUE: Axial 2-D volume acquisition imaging through the extracranial carotid and vertebral arter ies with reformatting using 3-D MIPS. LIMITATIONS: None. FINDINGS: RIGHT CAROTID ARTERY: No stenosis or occlusive changes. Limited visualization of the orig in. LEFT CAROTID ARTERY: No stenosis or occlusive changes. Limited visualization of the origin. VERTEBRAL ARTERY: The left vertebral artery is significantly smaller than the right. Both vertebrals are patent. OTHER: No other significant finding. IMPRESSION: NO SIGNIFICANT STENOSIS. COMMENT: Quality ID #[id number]: Measurements of distal internal carotid diameter were used as the denomin ator for stenosis measurement. TECHNICAL DOCUMENTATION: JOB ID: [id number] 2010 [employer]- All Rights Reserved Reading location - IP/workstation name: [email or web address]
[2020-02-05] MEDS: ATORVASTATIN CALCIUM 80 MG TABLET PO SCH (21:39)
[2020-02-05] MEDS: INSULIN GLARGINE,HUM.REC.ANLOG 1,000 UNIT/10 ML VIAL SUBCUT SCH (21:39)
[2020-02-06] MEDS: ASPIRIN/DIPYRIDAMOLE 25-200 MG 1 CAP.SR CPMP.12HR PO SCH ×2 (05:29→18:25)
[2020-02-06] MEDS: PANTOPRAZOLE SODIUM 40 MG TABLET.DR PO SCH (05:29)
[2020-02-06] MEDS: LEVOTHYROXINE SODIUM 0.075 MG TABLET PO SCH (05:29)
[2020-02-06] MEDS: ENOXAPARIN SODIUM INJ 40 MG/0.4 ML DISP.SYRIN SUBCUT SCH (10:33)
[2020-02-06] MEDS: DOXYCYCLINE HYCLATE 100 MG TABLET PO SCH ×2 (10:33→18:24)
[2020-02-06] MEDS: LEVOFLOXACIN 750 MG TABLET PO SCH (10:33)
[2020-02-06] MEDS: GABAPENTIN 100 MG CAPSULE PO SCH ×3 (10:33→18:25)
--- NOTE | 2020-02-06 19:40 | PDOC PROGRESS REPORT ---
Subjective Progress Note for:: 02/06/20 Subjective:: Patient seen by the bedside, MRA of the brain, neck negative for stenosis, She has worsening weakness of the left upper extremity Reason For Visit: CVA Physical Exam Vital Signs: Temp Pulse Resp BP Pulse Ox 98.3 F 90 18 149/57 H 99 02/06/20 16:28 02/06/20 16:28 02/06/20 16:28 02/06/20 16:28 02/06/20 16:28 Intake & Output 02/05/20 02/06/20 02/07/20 06:59 06:59 06:59 Intake Total 1125 2140 1360 Balance 1125 2140 1360 Weight 102.8 kg 103.4 kg General appearance: PRESENT: no acute distress Eye exam: PRESENT: PERRLA Respiratory exam: PRESENT: clear to auscultation richard Cardiovascular exam: PRESENT: +S1, +S2 Neurological exam: PRESENT: alert, motor sensory deficit Results Laboratory Results: 02/04/20 11:29 02/04/20 10:20 02/04/20 02/04/20 02/04/20 10:20 10:20 17:42 Creatine Kinase 250 H CK-MB (CK-2) 3.32 Troponin I < 0.012 < 0.012 02/05/20 02/05/20 00:33 06:43 Creatine Kinase CK-MB (CK-2) Troponin I < 0.012 < 0.012 Impressions: Carotid Doppler Study 02/04/20 00:00 IMPRESSION: Bilateral plaque formation, greater on the left. There is approximately 50% stenosis of the left internal carotid artery on the images provided, however there is no corresponding peak systolic velocity elevation. Additional evaluation with angiography is recommended. copyright 2010 [employer]- All Rights Reserved Chest X-Ray 02/04/20 00:00 IMPRESSION: NO ACUTE RADIOGRAPHIC FINDING IN THE CHEST. Head CT 02/04/20 00:00 IMPRESSION: No acute intracranial abnormality. EVIDENCE OF ACUTE STROKE: NO. Head MRI 02/04/20 12:51 IMPRESSION: Acute bilateral basilar pontine infarcts. EVIDENCE OF ACUTE STROKE: YES. Basilar artery. Brain MRI with MRA 02/05/20 00:00 IMPRESSION: NORMAL MRA OF THE [place]. Neck MRA 02/05/20 00:00 IMPRESSION: NO SIGNIFICANT STENOSIS. 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
[2020-02-06] MEDS: ATORVASTATIN CALCIUM 80 MG TABLET PO SCH (22:52)
[2020-02-06] MEDS: INSULIN GLARGINE,HUM.REC.ANLOG 1,000 UNIT/10 ML VIAL SUBCUT SCH (22:52)
[2020-02-07] MEDS: PANTOPRAZOLE SODIUM 40 MG TABLET.DR PO SCH (05:37)
[2020-02-07] MEDS: LEVOTHYROXINE SODIUM 0.075 MG TABLET PO SCH (05:37)
[2020-02-07] MEDS: ASPIRIN/DIPYRIDAMOLE 25-200 MG 1 CAP.SR CPMP.12HR PO SCH ×2 (05:37→17:53)
[2020-02-07 06:43] LABS: APPEARANCE,URINE SLIGHTLY-CLOUDY; BILIRUBIN,URINE NEGATIVE (NEGATIVE); COLOR,URINE YELLOW; GLUCOSE, URINE >=500 mg/dL (NEGATIVE); KETONES,URINE NEGATIVE (NEGATIVE); LEUKOCYTE ESTERASE,URINE MODERATE (NEGATIVE); NITRITE,URINE NEGATIVE (NEGATIVE); PROTEIN,URINE 30 mg/dL (NEGATIVE); URINE SPECIFIC GRAVITY 1.017; UROBILINOGEN,URINE NEGATIVE mg/dL (<2.0)
[2020-02-07 06:56] LABS: HEMATOCRIT 40.1 % (36.0-47.0); HEMOGLOBIN 12.7 g/dL (12.0-15.5); MEAN CORPUSCULAR HEMOGLOBIN 25.6 pg (27.0-33.4); MEAN CORPUSCULAR HGB CONC 31.7 g/dL (32.0-36.0); MEAN CORPUSCULAR VOLUME 81 fl (80-97); PLATELET COUNT 283 10^3/uL (150-450); RED BLOOD COUNT 4.95 10^6/uL (3.72-5.28); RED CELL DISTRIBUTION WIDTH 14.5 % (11.5-14.0); WHITE BLOOD COUNT 11.9 10^3/uL (4.0-10.5)
[2020-02-07] MEDS: ENOXAPARIN SODIUM INJ 40 MG/0.4 ML DISP.SYRIN SUBCUT SCH (10:14)
[2020-02-07] MEDS: LEVOFLOXACIN 750 MG TABLET PO SCH (10:14)
[2020-02-07] MEDS: GABAPENTIN 100 MG CAPSULE PO SCH ×3 (10:14→17:53)
[2020-02-07] MEDS: DOXYCYCLINE HYCLATE 100 MG TABLET PO SCH ×2 (10:14→17:53)
[2020-02-07 19:56] LABS: ALBUMIN 4.1 g/dL (3.5-5.0); ALKALINE PHOSPHATASE 78 U/L (38-126); ANION GAP 11 (5-19); ASPARTATE AMINO TRANSFERASE 27 U/L (14-36); BILIRUBIN,DIRECT 0.1 mg/dL (0.0-0.4); BILIRUBIN,TOTAL 0.4 mg/dL (0.2-1.3); BLOOD UREA NITROGEN 39 mg/dL (7-20); CALCIUM 9.7 mg/dL (8.4-10.2); CARBON DIOXIDE 25 mmol/L (22-30); CHLORIDE 105 mmol/L (98-107); GLUCOSE 206 mg/dL (75-110); POTASSIUM 4.2 mmol/L (3.6-5.0)
--- NOTE | 2020-02-07 19:58 | RADIOLOGY REPORT (SQ) ---
EXAM DESCRIPTION: MRI HEAD WITHOUT IMAGES COMPLETED DATE/TIME: 02/07/2020 7:07 pm REASON FOR STUDY: Increased weakness COMPARISON: 02/05/2020 TECHNIQUE: Multiplanar imaging includes non-contrasted T1, T2, FLAIR, and diffusion with ADC map seq uences. Images stored on PACS. LIMITATIONS: None. FINDINGS: ANATOMY: No anomalies. Normal vascular flow voids. Pituitary fossa normal. CSF SPACES: Normal in size and contour. No hemorrhage. CEREBRUM: Sulci and gyri normal in size and contour. Normal white matter signal on FLAIR imaging. No evidence of hemorrhage, mass, or extraaxial fluid collection. POSTERIOR FOSSA: Bilateral pontine infarcts. No new findings. DIFFUSION IMAGING: Abnormal diffusion on both sides of the ignacio. ORBITS: No masses. Globes normal. PARANASAL SINUSES: No fluid levels. Mucosa normal. OTHER: No other significant finding. IMPRESSION: Once again acute bilateral pontine infarctions are seen. No new findings. EVIDENCE OF ACUTE STROKE: NO. TECHNICAL DOCUMENTATION: JOB ID: [id number] 2010 [employer]- All Rights Reserved Reading location - IP/workstation name: [email or web address]
--- NOTE | 2020-02-07 20:48 | PDOC PROGRESS REPORT ---
Subjective Progress Note for:: 02/07/20 Subjective:: Patient noticed to have complete flaccid paralysis Of the left upper extremity from MENDS, MRI brain obtained no evidence of progression from diffusion imaging Reason For Visit: CVA Physical Exam Vital Signs: Temp Pulse Resp BP Pulse Ox 98.0 F 106 H 18 155/84 H 98 02/07/20 19:30 02/07/20 19:30 02/07/20 19:30 02/07/20 19:30 02/07/20 19:30 Intake & Output 02/06/20 02/07/20 02/08/20 06:59 06:59 06:59 Intake Total 2140 1910 630 Output Total 400 250 Balance 2140 1510 380 Weight 103.4 kg 101.7 kg General appearance: PRESENT: no acute distress Eye exam: PRESENT: PERRLA Respiratory exam: PRESENT: clear to auscultation richard Cardiovascular exam: PRESENT: +S1, +S2 GI/Abdominal exam: PRESENT: soft Neurological exam: PRESENT: alert, motor sensory deficit Results Laboratory Results: 02/07/20 06:38 02/07/20 19:10 02/07/20 02/07/20 02/07/20 05:45 06:38 19:10 WBC 11.9 H RBC 4.95 Hgb 12.7 Hct 40.1 MCV 81 MCH 25.6 L MCHC 31.7 L RDW 14.5 H Plt Count 283 Sodium 141.1 Potassium 4.2 Chloride 105 Carbon Dioxide 25 Anion Gap 11 BUN 39 H Creatinine 1.26 H Est GFR ( Amer) 53 L Glucose 206 H Calcium 9.7 Total Bilirubin 0.4 AST 27 Alkaline Phosphatase 78 Total Protein 8.0 Albumin 4.1 Urine Color YELLOW Urine Appearance SLIGHTLY-CLOUDY Urine pH 5.0 Ur Specific [place] 1.017 Urine Protein 30 H Urine Glucose (UA) >=500 H Urine Ketones NEGATIVE Urine Blood SMALL H Urine Nitrite NEGATIVE Ur Leukocyte Esterase MODERATE H Urine WBC (Auto) 45 Urine RBC (Auto) 83 02/04/20 02/04/20 02/04/20 10:20 10:20 17:42 Creatine Kinase 250 H CK-MB (CK-2) 3.32 Troponin I < 0.012 < 0.012 02/05/20 02/05/20 00:33 06:43 Creatine Kinase CK-MB (CK-2) Troponin I < 0.012 < 0.012 Impressions: Carotid Doppler Study 02/04/20 00:00 IMPRESSION: Bilateral plaque formation, greater on the left. There is approximately 50% stenosis of the left internal carotid artery on the images provided, however there is no corresponding peak systolic velocity elevation. Additional evaluation with angiography is recommended. copyright 2010 [employer]- All Rights Reserved Chest X-Ray 02/04/20 00:00 IMPRESSION: NO ACUTE RADIOGRAPHIC FINDING IN THE CHEST. Head CT 02/04/20 00:00 IMPRESSION: No acute intracranial abnormality. EVIDENCE OF ACUTE STROKE: NO. Brain MRI with MRA 02/05/20 00:00 IMPRESSION: NORMAL MRA OF THE [place]. Neck MRA 02/05/20 00:00 IMPRESSION: NO SIGNIFICANT STENOSIS. Head MRI 02/07/20 00:00 IMPRESSION: Once again acute bilateral pontine infarctions are seen. No new findings. EVIDENCE OF ACUTE STROKE: NO. 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
[2020-02-07] MEDS: INSULIN GLARGINE,HUM.REC.ANLOG 1,000 UNIT/10 ML VIAL SUBCUT SCH (21:56)
[2020-02-07] MEDS: LOSARTAN POTASSIUM 50 MG TABLET PO SCH (21:56)
[2020-02-07] MEDS: ATORVASTATIN CALCIUM 80 MG TABLET PO SCH (21:56)
[2020-02-08] MEDS: ASPIRIN/DIPYRIDAMOLE 25-200 MG 1 CAP.SR CPMP.12HR PO SCH ×2 (05:19→18:33)
[2020-02-08] MEDS: PANTOPRAZOLE SODIUM 40 MG TABLET.DR PO SCH (05:19)
[2020-02-08] MEDS: LEVOTHYROXINE SODIUM 0.075 MG TABLET PO SCH (05:19)
[2020-02-08] MEDS ORDERED: DEXTROSE 40% GEL 15 GM TUBE PO PRN (09:30)
[2020-02-08] MEDS ORDERED: DEXTROSE 50%-WATER SYRINGE 12.5 GM/25 ML DOSE IV PRN (09:30)
[2020-02-08] MEDS ORDERED: GLUCAGON,HUMAN RECOMB 1 MG INJ IM PRN (09:30)
[2020-02-08] MEDS ORDERED: DEXTROSE 50%-WATER SYRINGE 25 GM/50 ML DOSE IV PRN (09:30)
[2020-02-08] MEDS ORDERED: DEXTROSE 40% GEL 15 GM TUBE X 2 PO PRN (09:30)
[2020-02-08] MEDS: ENOXAPARIN SODIUM INJ 40 MG/0.4 ML DISP.SYRIN SUBCUT SCH (10:04)
[2020-02-08] MEDS: LOSARTAN POTASSIUM 50 MG TABLET PO SCH (10:05)
[2020-02-08] MEDS: DOXYCYCLINE HYCLATE 100 MG TABLET PO SCH ×2 (10:05→18:33)
[2020-02-08] MEDS: GABAPENTIN 100 MG CAPSULE PO SCH ×3 (10:05→18:33)
[2020-02-08] MEDS: LEVOFLOXACIN 750 MG TABLET PO SCH (10:05)
[2020-02-08] MEDS: INSULIN LISPRO 100 UNIT/ML 3 ML VIAL SUBCUT SCH ×3 (11:32→21:23)
--- NOTE | 2020-02-08 15:00 | PDOC PROGRESS REPORT ---
Subjective Progress Note for:: 02/08/20 Subjective:: She denied any chest pain or difficulty with breathing. No fever or chills. No nausea, vomiting, or abdominal pain. No fever or chills. Reason For Visit: CVA Physical Exam Vital Signs: Temp Pulse Resp BP Pulse Ox 98.4 F 84 18 99/77 L 99 02/08/20 11:20 02/08/20 12:00 02/08/20 12:00 02/08/20 12:00 02/08/20 12:00 Intake & Output 02/07/20 02/08/20 02/09/20 06:59 06:59 06:59 Intake Total 1910 1390 580 Output Total 400 850 350 Balance 1510 540 230 Weight 101.7 kg 102.9 kg General appearance: PRESENT: no acute distress, obese Head exam: PRESENT: atraumatic, normocephalic Eye exam: PRESENT: conjunctiva pink. ABSENT: scleral icterus Mouth exam: PRESENT: moist Respiratory exam: PRESENT: chest wall tenderness, decreased breath sounds Cardiovascular exam: PRESENT: RRR, +S1, +S2. ABSENT: diastolic murmur, rubs, systolic murmur Vascular exam: ABSENT: pallor GI/Abdominal exam: PRESENT: normal bowel sounds, soft. ABSENT: distended, guarding, mass, organolmegaly, rebound, tenderness Extremities exam: ABSENT: pedal edema Neurological exam: PRESENT: alert, awake, oriented to person, oriented to place, oriented to time, oriented to situation, CN II-XII grossly intact. ABSENT: m otor sensory deficit Skin exam: PRESENT: dry, warm Results Laboratory Results: 02/07/20 06:38 02/07/20 19:10 02/07/20 19:10 Sodium 141.1 Potassium 4.2 Chloride 105 Carbon Dioxide 25 Anion Gap 11 BUN 39 H Creatinine 1.26 H Est GFR ( Amer) 53 L Glucose 206 H Calcium 9.7 Total Bilirubin 0.4 AST 27 Alkaline Phosphatase 78 Total Protein 8.0 Albumin 4.1 02/04/20 02/04/20 02/04/20 10:20 10:20 17:42 Creatine Kinase 250 H CK-MB (CK-2) 3.32 Troponin I < 0.012 < 0.012 02/05/20 02/05/20 00:33 06:43 Creatine Kinase CK-MB (CK-2) Troponin I < 0.012 < 0.012 Impressions: Carotid Doppler Study 02/04/20 00:00 IMPRESSION: Bilateral plaque formation, greater on the left. There is approximately 50% stenosis of the left internal carotid artery on the images provided, however there is no corresponding peak systolic velocity elevation. Additional evaluation with angiography is recommended. copyright 2010 [employer]- All Rights Reserved Chest X-Ray 02/04/20 00:00 IMPRESSION: NO ACUTE RADIOGRAPHIC FINDING IN THE CHEST. Head CT 02/04/20 00:00 IMPRESSION: No acute intracranial abnormality. EVIDENCE OF ACUTE STROKE: NO. Brain MRI with MRA 02/05/20 00:00 IMPRESSION: NORMAL MRA OF [place]. Neck MRA 02/05/20 00:00 IMPRESSION: NO SIGNIFICANT STENOSIS. Head MRI 02/07/20 00:00 IMPRESSION: Once again acute bilateral pontine infarctions are seen. No new findings. EVIDENCE OF ACUTE STROKE: NO. Assessment & Plan - Diagnosis (1) Diabetes mellitus type 2 in obese Is this a current diagnosis for this admission?: Yes Plan: Continue current medication management. (2) Ischemic cerebrovascular accident (CVA) Is this a current diagnosis for this admission?: Yes Plan: Continue current medication management. - Time Time Spent with patient: 25-34 minutes Level of Care: IMCU Medications reviewed and adjusted accordingly: Yes Anticipated discharge: SNF Anticipated DC Timeframe: within 72 hours - Inpatient Certification Based on my medical assessment, after consideration of the patient's comorbidities, presenting symptoms, or acuity I expect that the services needed warrant INPATIENT care.: Yes I certify that my determination is in accordance with my understanding of Medicare's requirements for reasonable and necessary INPATIENT services [42 CFR 412.3e].: Yes Medical Necessity: Significant Comorbidiites Make Outpatient Treatment Too Risky, Need Close Monitoring Due to Risk of Patient Decompensation, Need For Continuous Telemetry Monitoring, Risk of Complication if Not Cared For in Hospital, Risk of Diagnosis Which Will Require Inpatient Eval/Care/Monitoring 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
[2020-02-08] MEDS: INSULIN GLARGINE,HUM.REC.ANLOG 1,000 UNIT/10 ML VIAL SUBCUT SCH (21:24)
[2020-02-08] MEDS: ATORVASTATIN CALCIUM 80 MG TABLET PO SCH (21:24)
[2020-02-09] MEDS: PANTOPRAZOLE SODIUM 40 MG TABLET.DR PO SCH (06:08)
[2020-02-09] MEDS: LEVOTHYROXINE SODIUM 0.075 MG TABLET PO SCH (06:08)
[2020-02-09] MEDS: ASPIRIN/DIPYRIDAMOLE 25-200 MG 1 CAP.SR CPMP.12HR PO SCH ×2 (06:08→17:40)
[2020-02-09] MEDS: GABAPENTIN 100 MG CAPSULE PO SCH ×3 (10:25→17:40)
[2020-02-09] MEDS: LOSARTAN POTASSIUM 50 MG TABLET PO SCH (10:26)
[2020-02-09] MEDS: LEVOFLOXACIN 750 MG TABLET PO SCH (10:27)
[2020-02-09] MEDS: DOXYCYCLINE HYCLATE 100 MG TABLET PO SCH ×2 (10:27→17:41)
[2020-02-09] MEDS: ENOXAPARIN SODIUM INJ 40 MG/0.4 ML DISP.SYRIN SUBCUT SCH (10:27)
[2020-02-09] MEDS: INSULIN LISPRO 100 UNIT/ML 3 ML VIAL SUBCUT SCH ×4 (15:39→21:29)
--- NOTE | 2020-02-09 20:11 | PDOC PROGRESS REPORT ---
Subjective Progress Note for:: 02/09/20 Subjective:: She denied any chest pain or difficulty with breathing. Still concern about left hemiparesis. No fever or chills. No nausea, vomiting, or abdominal pain. No fever or chills. Reason For Visit: CVA Physical Exam Vital Signs: Temp Pulse Resp BP Pulse Ox 98.0 F 89 16 103/52 L 97 02/09/20 16:07 02/09/20 16:07 02/09/20 16:07 02/09/20 16:07 02/09/20 16:07 Intake & Output 02/08/20 02/09/20 02/10/20 06:59 06:59 06:59 Intake Total 1390 1582 1146 Output Total 850 800 Balance 730 874 8892 Weight 102.9 kg 102.2 kg Physical Exam: General appearance: PRESENT: no acute distress, obese Head exam: PRESENT: atraumatic, normocephalic Eye exam: PRESENT: conjunctiva pink. ABSENT: pallor, sclera icterus Mouth exam: PRESENT: moist Respiratory exam: PRESENT: chest wall tenderness, decreased breath sounds Cardiovascular exam: PRESENT: RRR, +S1, +S2. ABSENT: diastolic murmur, rubs, systolic murmur GI/Abdominal exam: PRESENT: normal bowel sounds, soft. ABSENT: distended, guarding, mass, organomegaly, rebound, tenderness Extremities exam: PRESENT: left hemiparesis. ABSENT: pedal edema Neurological exam: PRESENT: alert, awake, oriented to person, oriented to place, oriented to time, oriented to situation, CN II-XII grossly intact. ABSENT: motor sensory deficit Skin exam: PRESENT: dry, warm Results Laboratory Results: 02/07/20 06:38 02/07/20 19:10 02/04/20 02/04/20 02/04/20 10:20 10:20 17:42 Creatine Kinase 250 H CK-MB (CK-2) 3.32 Troponin I < 0.012 < 0.012 02/05/20 02/05/20 00:33 06:43 Creatine Kinase CK-MB (CK-2) Troponin I < 0.012 < 0.012 Impressions: Carotid Doppler Study 02/04/20 00:00 IMPRESSION: Bilateral plaque formation, greater on the left. There is approximately 50% stenosis of the left internal carotid artery on the images provided, however there is no corresponding peak systolic velocity elevation. Additional evaluation with angiography is recommended. copyright 2010 [employer]- All Rights Reserved Chest X-Ray 02/04/20 00:00 IMPRESSION: NO ACUTE RADIOGRAPHIC FINDING IN THE CHEST. Head CT 02/04/20 00:00 IMPRESSION: No acute intracranial abnormality. EVIDENCE OF ACUTE STROKE: NO. Brain MRI with MRA 02/05/20 00:00 IMPRESSION: NORMAL MRA OF THE [place]. Neck MRA 02/05/20 00:00 IMPRESSION: NO SIGNIFICANT STENOSIS. Head MRI 02/07/20 00:00 IMPRESSION: Once again acute bilateral pontine infarctions are seen. No new findings. EVIDENCE OF ACUTE STROKE: NO. Assessment & Plan - Diagnosis (1) Diabetes mellitus type 2 in obese Is this a current diagnosis for this admission?: Yes (2) Ischemic cerebrovascular accident (CVA) Is this a current diagnosis for this admission?: Yes - Time Time Spent with patient: 25-34 minutes Level of Care: IMCU Medications reviewed and adjusted accordingly: Yes Anticipated DC Timeframe: within 48 hours - Inpatient Certification Based on my medical assessment, after consideration of the patient's comorbidities, presenting symptoms, or acuity I expect that the services needed warrant INPATIENT care.: Yes I certify that my determination is in accordance with my understanding of Medicare's requirements for reasonable and necessary INPATIENT services [42 CFR 412.3e].: Yes Medical Necessity: Significant Comorbidiites Make Outpatient Treatment Too Risky, Need Close Monitoring Due to Risk of Patient Decompensation, Risk of Complication if Not Cared For in Hospital, Risk of Diagnosis Which Will Require Inpatient Eval/Care/Monitoring 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
[2020-02-09] MEDS: ATORVASTATIN CALCIUM 80 MG TABLET PO SCH (21:29)
[2020-02-09] MEDS: INSULIN GLARGINE,HUM.REC.ANLOG 1,000 UNIT/10 ML VIAL SUBCUT SCH (21:30)
[2020-02-10] MEDS: LEVOTHYROXINE SODIUM 0.075 MG TABLET PO SCH (05:14)
[2020-02-10] MEDS: ASPIRIN/DIPYRIDAMOLE 25-200 MG 1 CAP.SR CPMP.12HR PO SCH ×2 (05:14→17:16)
[2020-02-10] MEDS: PANTOPRAZOLE SODIUM 40 MG TABLET.DR PO SCH (05:14)
[2020-02-10 06:19] LABS: HEMATOCRIT 35.8 % (36.0-47.0); HEMOGLOBIN 11.5 g/dL (12.0-15.5); MEAN CORPUSCULAR HGB CONC 32.2 g/dL (32.0-36.0); MEAN CORPUSCULAR VOLUME 81 fl (80-97); PLATELET COUNT 225 10^3/uL (150-450); RED BLOOD COUNT 4.44 10^6/uL (3.72-5.28); RED CELL DISTRIBUTION WIDTH 14.7 % (11.5-14.0); WHITE BLOOD COUNT 8.8 10^3/uL (4.0-10.5)
[2020-02-10] MEDS: INSULIN LISPRO 100 UNIT/ML 3 ML VIAL SUBCUT SCH ×4 (07:53→21:48)
[2020-02-10] MEDS: GABAPENTIN 100 MG CAPSULE PO SCH ×3 (09:06→17:16)
[2020-02-10] MEDS: ENOXAPARIN SODIUM INJ 40 MG/0.4 ML DISP.SYRIN SUBCUT SCH (09:06)
[2020-02-10] MEDS: DOXYCYCLINE HYCLATE 100 MG TABLET PO SCH ×2 (09:06→17:16)
[2020-02-10] MEDS: LEVOFLOXACIN 750 MG TABLET PO SCH (09:06)
[2020-02-10] MEDS: LOSARTAN POTASSIUM 50 MG TABLET PO SCH (09:06)
[2020-02-10] MEDS: INSULIN GLARGINE,HUM.REC.ANLOG 1,000 UNIT/10 ML VIAL SUBCUT SCH (21:48)
[2020-02-10] MEDS: ATORVASTATIN CALCIUM 80 MG TABLET PO SCH (21:53)
--- NOTE | 2020-02-10 22:25 | PDOC PROGRESS REPORT ---
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, she is not able to transfer, the initial plan for discharge home but the plan is change, she was seen by physical therapy, recommendation is for patient to go to long-term home for rehabilitation, consult discharge planning to arrange for transfer Reason For Visit: CVA Physical Exam Vital Signs: Temp Pulse Resp BP Pulse Ox 98.0 F 90 16 141/55 H 95 02/10/20 19:39 02/10/20 20:00 02/10/20 20:00 02/10/20 20:00 02/10/20 20:00 Intake & Output 02/09/20 02/10/20 02/11/20 06:59 06:59 06:59 Intake Total 1582 1896 972 Output Total 800 Balance 782 1896 972 Weight 102.2 kg 102.4 kg General appearance: PRESENT: no acute distress Eye exam: PRESENT: PERRLA Respiratory exam: PRESENT: clear to auscultation richard Cardiovascular exam: PRESENT: +S1, +S2 GI/Abdominal exam: PRESENT: soft Neurological exam: PRESENT: alert Results Laboratory Results: 02/10/20 05:41 02/07/20 19:10 02/10/20 05:41 WBC 8.8 RBC 4.44 Hgb 11.5 L Hct 35.8 L MCV 81 MCH 26.0 L MCHC 32.2 RDW 14.7 H Plt Count 225 02/04/20 02/04/20 02/04/20 10:20 10:20 17:42 Creatine Kinase 250 H CK-MB (CK-2) 3.32 Troponin I < 0.012 < 0.012 02/05/20 02/05/20 00:33 06:43 Creatine Kinase CK-MB (CK-2) Troponin I < 0.012 < 0.012 Impressions: Carotid Doppler Study 02/04/20 00:00 IMPRESSION: Bilateral plaque formation, greater on the left. There is approximately 50% stenosis of the left internal carotid artery on the images provided, however there is no corresponding peak systolic velocity elevation. Additional evaluation with angiography is recommended. copyright 2010 [employer]- All Rights Reserved Chest X-Ray 02/04/20 00:00 IMPRESSION: NO ACUTE RADIOGRAPHIC FINDING IN THE CHEST. Head CT 02/04/20 00:00 IMPRESSION: No acute intracranial abnormality. EVIDENCE OF ACUTE STROKE: NO. Brain MRI with MRA 02/05/20 00:00 IMPRESSION: NORMAL MRA OF THE [place] OF [place]. Neck MRA 02/05/20 00:00 IMPRESSION: NO SIGNIFICANT STENOSIS. Head MRI 02/07/20 00:00 IMPRESSION: Once again acute bilateral pontine infarctions are seen. No new findings. EVIDENCE OF ACUTE STROKE: NO. 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, consult discharge planning to arrange for transfer to long-term home for rehabilitation and therapy (2) T2DM (type 2 diabetes mellitus) Qualifiers: Diabetes mellitus skilled nursing insulin use: with skilled nursing use Diabetes mellitus complication status: with neurologic complications Diabetes mellitus complication detail: with polyneuropathy Qualified Code(s): E11.42 - Type 2 diabetes mellitus with diabetic polyneuropathy; Z79.4 - [facility] (current) use of insulin Is this a current diagnosis for this admission?: Yes - Time Time Spent with patient: 25-34 minutes Level of Care: IMCU Anticipated discharge: SNF Anticipated DC Timeframe: when bed available
[2020-02-10] MEDS ORDERED: INSULIN GLARGINE,HUM.REC.ANLOG 1,000 UNIT/10 ML VIAL (PYX) SUBCUT PRN (22:34)
[2020-02-11] MEDS: INSULIN GLARGINE,HUM.REC.ANLOG 1,000 UNIT/10 ML VIAL SUBCUT SCH ×2 (00:24→22:15)
[2020-02-11] MEDS: ASPIRIN/DIPYRIDAMOLE 25-200 MG 1 CAP.SR CPMP.12HR PO SCH ×2 (05:42→17:42)
[2020-02-11] MEDS: PANTOPRAZOLE SODIUM 40 MG TABLET.DR PO SCH (05:42)
[2020-02-11] MEDS: NYSTATIN CREAM 15 GM TP SCH ×3 (05:42→17:51)
[2020-02-11] MEDS: LEVOTHYROXINE SODIUM 0.075 MG TABLET PO SCH (05:42)
[2020-02-11] MEDS ORDERED: DIPHENHYDRAMINE HCL 25 MG CAPSULE ONE (06:00)
[2020-02-11] MEDS: INSULIN LISPRO 100 UNIT/ML 3 ML VIAL SUBCUT SCH ×4 (08:05→22:14)
[2020-02-11] MEDS: LOSARTAN POTASSIUM 50 MG TABLET PO SCH (09:17)
[2020-02-11] MEDS: DOXYCYCLINE HYCLATE 100 MG TABLET PO SCH ×2 (09:17→17:43)
[2020-02-11] MEDS: GABAPENTIN 100 MG CAPSULE PO SCH ×3 (09:17→17:42)
[2020-02-11] MEDS: LEVOFLOXACIN 750 MG TABLET PO SCH (09:17)
[2020-02-11] MEDS: ENOXAPARIN SODIUM INJ 40 MG/0.4 ML DISP.SYRIN SUBCUT SCH (09:18)
--- NOTE | 2020-02-11 19:38 | PDOC PROGRESS REPORT ---
Subjective Progress Note for:: 02/11/20 Subjective:: Patient seen by the bedside she has flaccid paralysis of left upper extremities,, status post amputation of the left lower extremities Reason For Visit: CVA Physical Exam Vital Signs: Temp Pulse Resp BP Pulse Ox 97.9 F 87 17 127/64 H 99 02/11/20 18:01 02/11/20 18:01 02/11/20 18:01 02/11/20 18:01 02/11/20 18:01 Intake & Output 02/10/20 02/11/20 02/12/20 06:59 06:59 06:59 Intake Total 1896 972 972 Balance 1896 972 972 Weight 102.4 kg 102.6 kg General appearance: PRESENT: no acute distress Eye exam: PRESENT: PERRLA Respiratory exam: PRESENT: clear to auscultation richard Cardiovascular exam: PRESENT: +S1, +S2 GI/Abdominal exam: PRESENT: soft Extremities exam: PRESENT: left AKA Neurological exam: PRESENT: alert Results Laboratory Results: 02/10/20 05:41 02/07/20 19:10 02/04/20 02/04/20 02/04/20 10:20 10:20 17:42 Creatine Kinase 250 H CK-MB (CK-2) 3.32 Troponin I < 0.012 < 0.012 02/05/20 02/05/20 00:33 06:43 Creatine Kinase CK-MB (CK-2) Troponin I < 0.012 < 0.012 Impressions: Carotid Doppler Study 02/04/20 00:00 IMPRESSION: Bilateral plaque formation, greater on the left. There is approximately 50% stenosis of the left internal carotid artery on the images provided, however there is no corresponding peak systolic velocity elevation. Additional evaluation with angiography is recommended. copyright 2010 [employer] All Rights Reserved Chest X-Ray 02/04/20 00:00 IMPRESSION: NO ACUTE RADIOGRAPHIC FINDING IN THE CHEST. Head CT 02/04/20 00:00 IMPRESSION: No acute intracranial abnormality. EVIDENCE OF ACUTE STROKE: NO. Brain MRI with MRA 02/05/20 00:00 IMPRESSION: NORMAL MRA OF [place]. Neck MRA 02/05/20 00:00 IMPRESSION: NO SIGNIFICANT STENOSIS. Head MRI 02/07/20 00:00 IMPRESSION: Once again acute bilateral pontine infarctions are seen. No new findings. EVIDENCE OF ACUTE STROKE: NO. 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
[2020-02-11] MEDS: DIPHENHYDRAMINE HCL 25 MG CAPSULE PO PRN (20:33)
[2020-02-11] MEDS: ATORVASTATIN CALCIUM 80 MG TABLET PO SCH (22:14)
[2020-02-12] MEDS: LEVOTHYROXINE SODIUM 0.075 MG TABLET PO SCH (05:23)
[2020-02-12] MEDS: PANTOPRAZOLE SODIUM 40 MG TABLET.DR PO SCH (05:24)
[2020-02-12] MEDS: ASPIRIN/DIPYRIDAMOLE 25-200 MG 1 CAP.SR CPMP.12HR PO SCH ×2 (05:24→17:46)
[2020-02-12] MEDS: DIPHENHYDRAMINE HCL 25 MG CAPSULE PO PRN (05:27)
[2020-02-12 05:35] LABS: HEMATOCRIT 37.6 % (36.0-47.0); HEMOGLOBIN 12.1 g/dL (12.0-15.5); MEAN CORPUSCULAR HEMOGLOBIN 25.8 pg (27.0-33.4); MEAN CORPUSCULAR HGB CONC 32.3 g/dL (32.0-36.0); MEAN CORPUSCULAR VOLUME 80 fl (80-97); PLATELET COUNT 228 10^3/uL (150-450); RED BLOOD COUNT 4.71 10^6/uL (3.72-5.28); RED CELL DISTRIBUTION WIDTH 14.3 % (11.5-14.0); WHITE BLOOD COUNT 8.8 10^3/uL (4.0-10.5)
[2020-02-12] MEDS: DOXYCYCLINE HYCLATE 100 MG TABLET PO SCH (09:12)
[2020-02-12] MEDS: GABAPENTIN 100 MG CAPSULE PO SCH ×3 (09:12→17:46)
[2020-02-12] MEDS: INSULIN LISPRO 100 UNIT/ML 3 ML VIAL SUBCUT SCH ×4 (09:13→22:08)
[2020-02-12] MEDS: ENOXAPARIN SODIUM INJ 40 MG/0.4 ML DISP.SYRIN SUBCUT SCH (09:13)
[2020-02-12] MEDS: LOSARTAN POTASSIUM 50 MG TABLET PO SCH (09:13)
[2020-02-12] MEDS: LEVOFLOXACIN 750 MG TABLET PO SCH (09:13)
[2020-02-12] MEDS: NYSTATIN CREAM 15 GM TP SCH ×2 (09:13→18:02)
[2020-02-12] MEDS ORDERED: METHYLPREDNISOLONE INJ 40 MG/1 ML SDV IV ONE (13:27)
--- NOTE | 2020-02-12 15:49 | PDOC PROGRESS REPORT ---
Subjective Progress Note for:: 02/12/20 Subjective:: Patient seen by the bedside she has a classic exanthematous morbilliform drug eruption of the torso predominantly in the back, typically seen in dependent areaShe had a similar drug eruption to penicillin drug previously, most likely this is secondary to antibiotic patient was on Levaquin and doxycycline that she was taking for the chronic foot ulcer being managed by the wound clinic, between the doxycycline and the Levaquin I am more inclined to implicate doxycycline and not Levaquin But for abundance of caution I will DC both drugs Reason For Visit: CVA Physical Exam Vital Signs: Temp Pulse Resp BP Pulse Ox 97.8 F 86 16 143/48 H 98 02/12/20 12:42 02/12/20 14:00 02/12/20 12:42 02/12/20 12:42 02/12/20 12:42 Intake & Output 02/11/20 02/12/20 02/13/20 06:59 06:59 06:59 Intake Total 972 972 Balance 972 972 Weight 102.6 kg 102.6 kg General appearance: PRESENT: no acute distress, well-developed, well-nourished Head exam: PRESENT: atraumatic, normocephalic Eye exam: PRESENT: conjunctiva pink, EOMI, PERRLA Ear exam: PRESENT: normal external ear exam Mouth exam: PRESENT: moist, tongue midline Neck exam: PRESENT: full ROM. ABSENT: carotid bruit, JVD, lymphadenopathy, t hyromegaly Cardiovascular exam: PRESENT: RRR. ABSENT: diastolic murmur, rubs, systolic murmur Pulses: PRESENT: normal dorsalis pedis pul, +2 pedal pulses bilateral Vascular exam: PRESENT: normal capillary refill GI/Abdominal exam: PRESENT: normal bowel sounds, soft Rectal exam: PRESENT: deferred Extremities exam: PRESENT: left AKA Neurological exam: PRESENT: alert, motor sensory deficit - Flaccid paralysis of the left upper extremities Psychiatric exam: PRESENT: appropriate affect, normal mood Skin exam: PRESENT: erythema, other - Morbilliform erythematous eruption af fecting the torso predominantly the back Results Laboratory Results: 02/12/20 04:54 02/07/20 19:10 02/12/20 04:54 WBC 8.8 RBC 4.71 Hgb 12.1 Hct 37.6 MCV 80 MCH 25.8 L MCHC 32.3 RDW 14.3 H Plt Count 228 02/04/20 02/04/20 02/04/20 10:20 10:20 17:42 Creatine Kinase 250 H CK-MB (CK-2) 3.32 Troponin I < 0.012 < 0.012 02/05/20 02/05/20 00:33 06:43 Creatine Kinase CK-MB (CK-2) Troponin I < 0.012 < 0.012 Impressions: Carotid Doppler Study 02/04/20 00:00 IMPRESSION: Bilateral plaque formation, greater on the left. There is approximately 50% stenosis of the left internal carotid artery on the images provided, however there is no corresponding peak systolic velocity elevation. Additional evaluation with angiography is recommended. copyright 2010 [employer]- All Rights Reserved Chest X-Ray 02/04/20 00:00 IMPRESSION: NO ACUTE RADIOGRAPHIC FINDING IN THE CHEST. Head CT 02/04/20 00:00 IMPRESSION: No acute intracranial abnormality. EVIDENCE OF ACUTE STROKE: NO. Brain MRI with MRA 02/05/20 00:00 IMPRESSION: NORMAL MRA OF THE [place]. Neck MRA 02/05/20 00:00 IMPRESSION: NO SIGNIFICANT STENOSIS. Head MRI 02/07/20 00:00 IMPRESSION: Once again acute bilateral pontine infarctions are seen. No new findings. EVIDENCE OF ACUTE STROKE: NO. 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: with [facility] use Diabetes mellitus complication status: with neurologic complications Diabetes mellitus complication detail: with polyneuropathy Qualified Code(s): E11.42 - Type 2 diabetes mellitus with diabetic polyneuropathy; 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
[2020-02-12] MEDS: NYSTATIN TOPICAL POWDER 15 GM TP SCH (18:02)
[2020-02-12] MEDS: CLOBETASOL PROPIONATE 0.05% CREAM 15 GM TP SCH (18:03)
[2020-02-12] MEDS: ATORVASTATIN CALCIUM 80 MG TABLET PO SCH (22:08)
[2020-02-12] MEDS: INSULIN GLARGINE,HUM.REC.ANLOG 1,000 UNIT/10 ML VIAL SUBCUT SCH (22:09)
[2020-02-13] MEDS: ASPIRIN/DIPYRIDAMOLE 25-200 MG 1 CAP.SR CPMP.12HR PO SCH ×2 (06:08→17:11)
[2020-02-13] MEDS: LEVOTHYROXINE SODIUM 0.075 MG TABLET PO SCH (06:08)
[2020-02-13] MEDS: PANTOPRAZOLE SODIUM 40 MG TABLET.DR PO SCH (06:08)
[2020-02-13] MEDS: INSULIN LISPRO 100 UNIT/ML 3 ML VIAL SUBCUT SCH ×4 (08:14→22:39)
[2020-02-13] MEDS: ENOXAPARIN SODIUM INJ 40 MG/0.4 ML DISP.SYRIN SUBCUT SCH (09:38)
[2020-02-13] MEDS: LOSARTAN POTASSIUM 50 MG TABLET PO SCH (09:38)
[2020-02-13] MEDS: GABAPENTIN 100 MG CAPSULE PO SCH ×3 (09:38→17:11)
[2020-02-13] MEDS: NYSTATIN TOPICAL POWDER 15 GM TP SCH ×2 (09:39→17:11)
[2020-02-13] MEDS: CLOBETASOL PROPIONATE 0.05% CREAM 15 GM TP SCH (09:39)
[2020-02-13] MEDS: NYSTATIN CREAM 15 GM TP SCH ×2 (09:39→17:11)
--- NOTE | 2020-02-13 19:38 | PDOC TRANSFER SUMMARY ---
Impression - Admit/DC Date/PCP Admission Date/Primary Care Provider: 02/04/20 16:23 MARLENE CANNON MD Discharge Date: 02/14/20 - Discharge Diagnosis (1) Ischemic cerebrovascular accident (CVA) Is this a current diagnosis for this admission?: Yes (2) T2DM (type 2 diabetes mellitus) Is this a current diagnosis for this admission?: Yes (3) Drug rash Is this a current diagnosis for this admission?: Yes - Additional Information Discharge Diet: Diabetic Discharge Activity: Activity As Tolerated Referrals: MARLENE CANNON MD [Primary Care Provider] - Follow up as needed Prescriptions: Atorvastatin Calcium [Lipitor 80 mg Tablet] 80 mg PO QHS #[id number] tablet Home Medications: Empagliflozin [Jardiance] 25 mg PO DAILY 11/28/18 Insulin Lispro [Humalog Insulin (Lispro) 100 unit/mL] 0 unit SUBCUT .SLD SCALE 11/28/18 Levothyroxine Sodium [Synthroid 0.075 mg Tablet] 0.075 mg PO Q6AM 11/28/18 Aspirin/Dipyridamole [Aggrenox 25 mg/200 mg Capsule SA] 1 cap.sr PO Q12 #180 cpmp.12hr 12/03/18 Acetaminophen [Acetaminophen Extra Strength] 500 mg PO DAILYP PRN 02/04/20 Gabapentin [Neurontin 100 mg Capsule] 100 mg PO TID 02/04/20 Aspirin/Dipyridamole [Aggrenox 25 mg/200 mg Capsule SA] 1 cap.sr PO Q12A cpmp.12hr 02/13/20 Atorvastatin Calcium [Lipitor 80 mg Tablet] 80 mg PO QHS #[id number] tablet 02/13/20 Clobetasol Propionate [Temovate 0.05% Cream 15 gm] 1 applic TP DAILY tube 02/13/20 Insulin Glargine,Hum.rec.anlog [Lantus Insulin 100 Unit/1 ml 10 ml] 60 unit SUBCUT QHS #0 02/13/20 Insulin Lispro [Humalog Insulin (Lispro) 100 unit/mL] 0 - 12 unit SUBCUT ACHS unit 02/13/20 Liraglutide [Victoza 2-Manuelito] 1.8 mg SQ DAILY #0 02/13/20 Losartan Potassium [Cozaar 50 mg Tablet] 100 mg PO DAILY tablet 02/13/20 Nystatin [Mycostatin Cream 15 gm] 1 applic TP BID tube 02/13/20 History of Present Illiness History of Present Illness: LAVELLE ARRIAZA is a 59 year old female, She is well-known to me, very unfortunate nice lady with 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 There was no evidence of stenosis or occlusion of the posterior cerebral circulation, the pontine stroke suggest posterior circulation insufficiency. She was continued on Aggrenox, she has a history of CVA from previous encounters. She also developed is erythematous morbilliform rash distributed prominently in the back, she was on Levaquin doxycycline for the treatment of chronic right foot ulcer, she follows with wound clinic for this condition, I was not sure which of the antibiotic was the culprit for the drug rash, she has a history of penicillin rash, the condition was treated with a dose of Solu-Medrol ,topical clobetasol and also diphenhydramine 50 mg p.o. every 6 as needed.The plan is for patient to be discharged to senior living for rehabilitation of the left upper extremities hopefully she can regain strength especially for transfer Physical Exam Vital Signs: Temp Pulse Resp BP Pulse Ox 98.1 F 96 14 156/86 H 98 02/13/20 15:54 02/13/20 16:00 02/13/20 16:00 02/13/20 16:00 02/13/20 16:00 Intake & Output 02/12/20 02/13/20 02/14/20 06:59 06:59 06:59 Intake Total 972 1220 1140 Balance 972 1220 1140 Weight 102.6 kg 102.3 kg General appearance: PRESENT: no acute distress Eye exam: PRESENT: PERRLA Respiratory exam: PRESENT: clear to auscultation richard Cardiovascular exam: PRESENT: +S1, +S2 GI/Abdominal exam: PRESENT: soft Neurological exam: PRESENT: alert Skin exam: PRESENT: erythema Results Laboratory Results: WBC 8.8 10^3/uL (4.0-10.5) 02/12/20 04:54 RBC 4.71 10^6/uL (3.72-5.28) 02/12/20 04:54 Hgb 12.1 g/dL (12.0-15.5) 02/12/20 04:54 Hct 37.6 % (36.0-47.0) 02/12/20 04:54 MCV 80 fl (80-97) 02/12/20 04:54 MCH 25.8 pg (27.0-33.4) L 02/12/20 04:54 MCHC 32.3 g/dL (32.0-36.0) 02/12/20 04:54 RDW 14.3 % (11.5-14.0) H 02/12/20 04:54 Plt Count 228 10^3/uL (150-450) 02/12/20 04:54 Lymph % (Auto) 24.9 % (13-45) 02/04/20 11:29 Emmet % (Auto) 5.6 % (3-13) 02/04/20 11:29 Eos % (Auto) 1.5 % (0-6) 02/04/20 11:29 Baso % (Auto) 1.1 % (0-2) 02/04/20 11:29 Absolute Neuts (auto) 6.0 10^3/uL (1.7-8.2) 02/04/20 11:29 Absolute Lymphs (auto) 2.2 10^3/uL (0.5-4.7) 02/04/20 11:29 Absolute Monos (auto) 0.5 10^3/uL (0.1-1.4) 02/04/20 11:29 Absolute Eos (auto) 0.1 10^3/uL (0.0-0.6) 02/04/20 11:29 Absolute Basos (auto) 0.1 10^3/uL (0.0-0.2) 02/04/20 11:29 Seg Neutrophils % 66.9 % (42-78) 02/04/20 11:29 Platelet Estimate Cancelled 02/04/20 10:20 PT 13.2 SEC (11.4-15.4) 02/04/20 10:20 INR 0.98 02/04/20 10:20 APTT 27.4 SEC (23.5-35.8) 02/04/20 10:20 Sodium 141.1 mmol/L (137-145) 02/07/20 19:10 Potassium 4.2 mmol/L (3.6-5.0) 02/07/20 19:10 Chloride 105 mmol/L (98-107) 02/07/20 19:10 Carbon Dioxide 25 mmol/L (22-30) 02/07/20 19:10 Anion Gap 11 (5-19) 02/07/20 19:10 BUN 39 mg/dL (7-20) H 02/07/20 19:10 Creatinine 1.26 mg/dL (0.52-1.25) H 02/07/20 19:10 Est GFR ( Amer) 53 (>60) L 02/07/20 19:10 Est GFR (MDRD) Non-Af 44 (>60) L 02/07/20 19:10 Glucose 206 mg/dL (75-110) H 02/07/20 19:10 POC Glucose 223 mg/dL (70-110) H 02/13/20 16:12 Hemoglobin A1c % 11.5 % (4.7-6.0) H 02/04/20 11:29 Calcium 9.7 mg/dL (8.4-10.2) 02/07/20 19:10 Total Bilirubin 0.4 mg/dL (0.2-1.3) 02/07/20 19:10 Direct Bilirubin 0.1 mg/dL (0.0-0.4) 02/07/20 19:10 Neonat Total Bilirubin Not Reportable 02/07/20 19:10 Neonat Direct Bilirubin Not Reportable 02/07/20 19:10 Neonat Indirect Bili Not Reportable 02/07/20 19:10 AST 27 U/L (14-36) 02/07/20 19:10 ALT 17 U/L (<35) 02/07/20 19:10 Alkaline Phosphatase 78 U/L (38-126) 02/07/20 19:10 Creatine Kinase 250 U/L (30-135) H 02/04/20 10:20 CK-MB (CK-2) 3.32 ng/mL (<4.55) 02/04/20 10:20 Troponin I < 0.012 ng/mL 02/05/20 06:43 Total Protein 8.0 g/dL (6.3-8.2) 02/07/20 19:10 Albumin 4.1 g/dL (3.5-5.0) 02/07/20 19:10 Urine Color YELLOW 02/07/20 05:45 Urine Appearance SLIGHTLY-CLOUDY 02/07/20 05:45 Urine pH 5.0 (5.0-9.0) 02/07/20 05:45 Ur Specific Newcomb 1.017 02/07/20 05:45 Urine Protein 30 mg/dL (NEGATIVE) H 02/07/20 05:45 Urine Glucose (UA) >=500 mg/dL (NEGATIVE) H 02/07/20 05:45 Urine Ketones NEGATIVE mg/dL (NEGATIVE) 02/07/20 05:45 Urine Blood SMALL (NEGATIVE) H 02/07/20 05:45 Urine Nitrite NEGATIVE (NEGATIVE) 02/07/20 05:45 Urine Bilirubin NEGATIVE (NEGATIVE) 02/07/20 05:45 Urine Urobilinogen NEGATIVE mg/dL (<2.0) 02/07/20 05:45 Ur Leukocyte Esterase MODERATE (NEGATIVE) H 02/07/20 05:45 Urine WBC (Auto) 45 /HPF 02/07/20 05:45 Urine RBC (Auto) 83 /HPF 02/07/20 05:45 U Hyaline Cast (Auto) 2 /LPF 02/07/20 05:45 Urine Bacteria (Auto) TRACE /HPF 02/07/20 05:45 Squamous Epi Cells Auto 1 /HPF 02/07/20 05:45 Urine Yeast (Budding) PRESENT /HPF 02/07/20 05:45 Urine Ascorbic Acid NEGATIVE (NEGATIVE) 02/07/20 05:45 COVID-19 Source NASOPHARYNGEAL 02/12/20 10:35 COVID-19 (SHIRA) NOT DETECTED 02/12/20 10:35 Slides for Path Review Cancelled 02/04/20 10:20 02/04/20 02/04/20 02/05/20 10:20 17:42 00:33 CK-MB (CK-2) 3.32 Troponin I < 0.012 < 0.012 < 0.012 02/05/20 06:43 CK-MB (CK-2) Troponin I < 0.012 Impressions: Carotid Doppler Study 02/04/20 00:00 IMPRESSION: Bilateral plaque formation, greater on the left. There is approximately 50% stenosis of the left internal carotid artery on the images provided, however there is no corresponding peak systolic velocity elevation. Additional evaluation with angiography is recommended. copyright 2010 [employer]- All Rights Reserved Chest X-Ray 02/04/20 00:00 IMPRESSION: NO ACUTE RADIOGRAPHIC FINDING IN THE CHEST. Head CT 02/04/20 00:00 IMPRESSION: No acute intracranial abnormality. EVIDENCE OF ACUTE STROKE: NO. Head MRI 02/04/20 12:51 IMPRESSION: Acute bilateral basilar pontine infarcts. EVIDENCE OF ACUTE STROKE: YES. Basilar artery. Brain MRI with MRA 02/05/20 00:00 IMPRESSION: NORMAL MRA OF THE [place]. Neck MRA 02/05/20 00:00 IMPRESSION: NO SIGNIFICANT STENOSIS. Head MRI 02/07/20 00:00 IMPRESSION: Once again acute bilateral pontine infarctions are seen. No new findings. EVIDENCE OF ACUTE STROKE: NO. Stroke Is this a Stroke Patient?: Yes Stroke Pt being discharged on Anti-thrombolytic therapy?: Yes Stroke Pt being discharged on Anti-coagulation therapy?: No Reason(s) for not prescribing Anti-coagulation therapy:: Tx not tolerated Stroke Pt being discharged on Statins?: Yes Acute Heart Failure - Is this a Heart Failure Patient?: No
--- NOTE | 2020-02-13 19:39 | PDOC PROGRESS REPORT ---
Subjective Progress Note for:: 02/13/20 Subjective:: Patient seen by the bedside she has a classic exanthematous morbilliform drug eruption of the torso predominantly in the back, typically seen in dependent areaShe had a similar drug eruption to penicillin drug previously, most likely this is secondary to antibiotic patient was on Levaquin and doxycycline that she was taking for the chronic foot ulcer being managed by the wound clinic, between the doxycycline and the Levaquin I am more inclined to implicate doxycycline and not Levaquin But for abundance of caution I will DC both drugs Reason For Visit: CVA Physical Exam Vital Signs: Temp Pulse Resp BP Pulse Ox 98.1 F 96 14 156/86 H 98 02/13/20 15:54 02/13/20 16:00 02/13/20 16:00 02/13/20 16:00 02/13/20 16:00 Intake & Output 02/12/20 02/13/20 02/14/20 06:59 06:59 06:59 Intake Total 972 1220 1140 Balance 972 1220 1140 Weight 102.6 kg 102.3 kg General appearance: PRESENT: no acute distress Eye exam: PRESENT: PERRLA Respiratory exam: PRESENT: clear to auscultation richard Cardiovascular exam: PRESENT: +S1, +S2 GI/Abdominal exam: PRESENT: soft Neurological exam: PRESENT: alert, CN II-XII grossly intact Results Laboratory Results: 02/12/20 04:54 02/07/20 19:10 02/04/20 02/04/20 02/04/20 10:20 10:20 17:42 Creatine Kinase 250 H CK-MB (CK-2) 3.32 Troponin I < 0.012 < 0.012 02/05/20 02/05/20 00:33 06:43 Creatine Kinase CK-MB (CK-2) Troponin I < 0.012 < 0.012 Impressions: Carotid Doppler Study 02/04/20 00:00 IMPRESSION: Bilateral plaque formation, greater on the left. There is approximately 50% stenosis of the left internal carotid artery on the images provided, however there is no corresponding peak systolic velocity elevation. Additional evaluation with angiography is recommended. copyright 2010 [employer]- All Rights Reserved Chest X-Ray 02/04/20 00:00 IMPRESSION: NO ACUTE RADIOGRAPHIC FINDING IN THE CHEST. Head CT 02/04/20 00:00 IMPRESSION: No acute intracranial abnormality. EVIDENCE OF ACUTE STROKE: NO. Brain MRI with MRA 02/05/20 00:00 IMPRESSION: NORMAL MRA OF THE [place] OF [place]. Neck MRA 02/05/20 00:00 IMPRESSION: NO SIGNIFICANT STENOSIS. Head MRI 02/07/20 00:00 IMPRESSION: Once again acute bilateral pontine infarctions are seen. No new findings. EVIDENCE OF ACUTE STROKE: NO. Assessment & Plan - Diagnosis (1) Ischemic cerebrovascular accident (CVA) Is this a current diagnosis for this admission?: Yes (2) T2DM (type 2 diabetes mellitus) Qualifiers: Diabetes mellitus usp insulin use: with exterminator helper use Diabetes mellitus complication status: with neurologic complications Diabetes mellitus complication detail: with polyneuropathy Qualified Code(s): E11.42 - Type 2 diabetes mellitus with diabetic polyneuropathy; Z79.4 - nursing home (current) use of insulin Is this a current diagnosis for this admission?: Yes (3) Drug rash Is this a current diagnosis for this admission?: Yes - Time Time Spent with patient: 15-24 minutes Level of Care: IMCU Anticipated discharge: SNF Anticipated DC Timeframe: within 24 hours
[2020-02-13] MEDS: INSULIN GLARGINE,HUM.REC.ANLOG 1,000 UNIT/10 ML VIAL SUBCUT SCH (22:40)
[2020-02-13] MEDS: ATORVASTATIN CALCIUM 80 MG TABLET PO SCH (22:41)
[2020-02-14] MEDS: LEVOTHYROXINE SODIUM 0.075 MG TABLET PO SCH (06:18)
[2020-02-14] MEDS: ASPIRIN/DIPYRIDAMOLE 25-200 MG 1 CAP.SR CPMP.12HR PO SCH (06:18)
[2020-02-14] MEDS: PANTOPRAZOLE SODIUM 40 MG TABLET.DR PO SCH (06:18)
[2020-02-14 06:36] LABS: HEMATOCRIT 37.5 % (36.0-47.0); HEMOGLOBIN 11.9 g/dL (12.0-15.5); MEAN CORPUSCULAR HEMOGLOBIN 25.6 pg (27.0-33.4); MEAN CORPUSCULAR HGB CONC 31.8 g/dL (32.0-36.0); MEAN CORPUSCULAR VOLUME 81 fl (80-97); PLATELET COUNT 219 10^3/uL (150-450); RED BLOOD COUNT 4.66 10^6/uL (3.72-5.28); RED CELL DISTRIBUTION WIDTH 14.8 % (11.5-14.0); WHITE BLOOD COUNT 10.2 10^3/uL (4.0-10.5)
[2020-02-14 08:10] VITALS: BP 132/46
[2020-02-14] MEDS: INSULIN LISPRO 100 UNIT/ML 3 ML VIAL SUBCUT SCH (09:09)
[2020-02-14] MEDS: LOSARTAN POTASSIUM 50 MG TABLET PO SCH (09:10)
[2020-02-14] MEDS: ENOXAPARIN SODIUM INJ 40 MG/0.4 ML DISP.SYRIN SUBCUT SCH (09:10)
[2020-02-14] MEDS: NYSTATIN CREAM 15 GM TP SCH (09:11)
[2020-02-14] MEDS: GABAPENTIN 100 MG CAPSULE PO SCH (09:11)
[2020-02-14] MEDS: NYSTATIN TOPICAL POWDER 15 GM TP SCH (09:11)
[2020-02-14] MEDS: CLOBETASOL PROPIONATE 0.05% CREAM 15 GM TP SCH (09:13)
== END 2020-02-14 10:30 | DRG 65 ==
LOC: ER 09:35 → EH 16:23 → 3S 21:45
PROVIDERS: ADMIT Internal Medicine; ATTEND Internal Medicine
DX: I63.9 Cerebral infarction, unspecified (principal); G81.04 Flaccid hemiplegia affecting left nondominant side; E11.621 Type 2 diabetes mellitus with foot ulcer; E11.42 Type 2 diabetes mellitus with diabetic polyneuropathy; E11.319 Type 2 diabetes mellitus with unspecified diabetic retinopathy without macular edema; L97.519 Non-pressure chronic ulcer of other part of right foot with unspecified severity; K21.9 Gastro-esophageal reflux disease without esophagitis; E11.51 Type 2 diabetes mellitus with diabetic peripheral angiopathy without gangrene; L27.1 Localized skin eruption due to drugs and medicaments taken internally; T36.8X5A Adverse effect of other systemic antibiotics, initial encounter; T36.4X5A Adverse effect of tetracyclines, initial encounter; Y92.230 Patient room in hospital as the place of occurrence of the external cause; M19.90 Unspecified osteoarthritis, unspecified site; E66.9 Obesity, unspecified; Z79.4 Long term (current) use of insulin; Z88.0 Allergy status to penicillin; Z88.8 Allergy status to other drugs, medicaments and biological substances; Z89.421 Acquired absence of other right toe(s); Z82.49 Family history of ischemic heart disease and other diseases of the circulatory system; Z83.3 Family history of diabetes mellitus; Z89.512 Acquired absence of left leg below knee; Z03.818 Encounter for observation for suspected exposure to other biological agents ruled out
CPT/HCPCS: 36415; 70450; 70544; 70547; 70551; 71045; 80053; 81001; 82550; 82553; 82962; 83036; 84484; 85025; 85027; 85610; 85730; 87635; 93005; 93010; 93306; 93880; 96374; 99285; C9803; J1650; J1815; J2920; J3490